=== PATIENT | female | born 1970 | race Caucasian/White ===

== ENCOUNTER 2017-09-12 19:13 | Emergency (ER) | payer OTHER, SELFPAY ==
[2017-09-12] VITALS (7 sets, daily range): BP systolic 109–128; BP diastolic 51–96; PULSE 74–81; RESP 16; TEMP 36.4; O2SAT 97–100; BMI 55.7
--- NOTE | 2017-09-12 19:15 | ED.RN ---
RN CALLED FOR EKG, PULLED OLD EKG'S FOR
--- NOTE | 2017-09-12 19:29 | CT_ITS ---
STUDY: CTA CHEST REASON FOR EXAM: Female, 46 years old. Chest pain RADIATION DOSAGE (If Supplied By Facility): CTDIvol = ( 14.64 ) mGy, DLP = ( 770.48 ) mGycm TECHNIQUE: The examination was performed with the intravenous administration of 100ml ml of Isovue 370 contrast material. Post-processing of the angiographic images was performed, with multiplanar reformation and 3D reconstruction. Individualized dose optimization techniques were used for this CT. COMPARISON: None. FINDINGS: Normal enhancement of the main pulmonary artery and right and left pulmonary arteries. Normal enhancement of the bilateral peripheral pulmonary arteries. There is no demonstrated pulmonary embolism. Normal thoracic aorta and visualized great vessels. There is no demonstrated aortic dissection. Normal heart and pericardium. Normal mediastinum. Normal hilar regions. Normal visualized trachea and bronchi. The lungs are well expanded. Normal pulmonary parenchyma. Normal pleura. Normal chest wall structures. Mild degenerative vertebral changes. Sclerotic focus of a mid thoracic vertebral body probably a bony island. Normal visualized upper abdomen. CT/CTA Chest W/WO Contrast IMPRESSION: No demonstrated pulmonary embolism or arterial dissection. Electronically Signed: Paul Beckham DO at 20:42 EDT Tel [phone], Service support ,
--- NOTE | 2017-09-12 19:29 | EKG12_ITS ---
Test Reason : CP Blood Pressure : / mmHG Vent. Rate : 073 BPM Atrial Rate : 073 BPM P-R Int : 150 ms QRS Dur : 078 ms QT Int : 410 ms P-R-T Axes : 022 017 027 degrees QTc Int : 451 ms Normal sinus rhythm Normal ECG Confirmed by AVIS AMEZQUITA ([id number]), image editor ADOLPH BERNARD ([id number]) on 09/23/2017 6:26:18 PM Referred By: MARLYN Confirmed By:AVIS AMEZQUITA
[2017-09-12] MEDS: Aspirin 81 MG TAB.CHEW 324 MG PO (19:44)
[2017-09-12] MEDS: 0.9% Normal Saline 1,000 ML 1000 ML IV (19:44)
[2017-09-12 19:54] LABS: Absolute Neutrophil Count 3.6 X10^3/uL (2.0-7.7); Basophil# 0.03 X10^3/uL; Basophil% 0.5 % (0-1); Eosinophil# 0.12 X10^3/uL; Hematocrit 41.4 % (37-47); Lymphocyte % 28.8 % (19-41); Mean Corp Hgb Conc 33.8 g/gl (32-36); Mean Corpuscular Hgb 29.2 pg (27.0-32.0); Mean Corpuscular Volume 86.3 fL (81-99); Mean Platelet Vol. 9.6 fl (6.2-12.0); Monocyte# 0.45 X10^3/uL; Monocyte% 7.6 % (0-10); Neutrophil # 3.59 X10^3/uL (2.7-7.7); Neutrophil % 60.9 % (47-70); Platelet Count 268 K/mm3 (150-450); RBC Distribution Width SD 41.1 fl (35.1-43.9); White Blood Count 5.9 K/mm3 (4.4-11.0)
[2017-09-12 19:55] LABS: POSITIVE COUNT NO; POSITIVE DIFFERENTIAL NO; POSITIVE MORPHOLOGY NO
[2017-09-12 20:12] LABS: Anion Gap 8 (5-15); BUN 13 mg/dL (7-18); BUN/Creat Ratio 16.2 RATIO (10-20); Calcium,Total 8.1 mg/dL (8.5-10.1); Chloride 104 mmol/L (98-107); EST Glomerular Filtration Rate 83 mL/min (>60); Est Glom Filt Rate - Afr Amer 100 mL/min (>60); Estimated Creatinine Clearance 74.23 ml/min; Glucose 96 mg/dL (74-106); Sodium Level 138 mmol/L (136-145)
--- NOTE | 2017-09-12 20:19 | EKG12_ITS ---
Test Reason : REPEAT Blood Pressure : / mmHG Vent. Rate : 079 BPM Atrial Rate : 079 BPM P-R Int : 152 ms QRS Dur : 078 ms QT Int : 402 ms P-R-T Axes : 019 015 044 degrees QTc Int : 460 ms Normal sinus rhythm Normal ECG Confirmed by AVIS AMEZQUITA ([id number]), avid editor ADOLPH BERNARD ([id number]) on 09/23/2017 6:26:48 PM Referred By: LIZZ Confirmed By:AVIS AMEZQUITA
--- NOTE | 2017-09-12 23:05 | ED.VISSUMM ---
- ER Visit Summary Date of Service: 09/12/17 Chief Complaint: Chest pain History of Present Illness: The patient is a [address] Barrett. She reports that she has chest pain again at 615 this evening while she was at rest. She describes as a pressure on the left side of her chest. States that initially she noticed pain in her left hand and that this moved up into her chest over the course of 10 minutes. She reports the pain also seems to go up into the left side of her neck. She describes it as a pressure. Is 10 out of 10 at worst. Is 5 out of 10 currently. Is worsened by nothing. It is not worsened by exertion, breathing, or movement. She denies any associated nausea, vomiting, or diaphoresis. She does report that she feels slightly short of breath and lightheaded. Patient denies any chest pain or change in dyspnea exertion in the past month. No personal family history of coronary artery disease. No personal family history of DVT. No recent travel. No ankle swelling or calf pain. Physical Examination: Vitals: Stable. Afebrile. General: Well-nourished and well-developed. Head: Normocephalic atraumatic. Neck: Supple, no lymphadenopathy. No JVD. Nontender. Cardiovascular: Regular rate and rhythm. No murmurs. Respiratory: No respiratory distress. Clear to auscultation bilaterally. There is palpation over the left side of her chest which she reports does not reproduce her pain. Abdominal: Soft, nontender, nondistended, normal bowel sounds. No guarding, rebound, or peritoneal signs. Back: Nontender. Extremities: Nontender, no edema. Skin: Normal color, no rash. Neurologic: Alert and oriented ?3. Cranial nerves II through XII are intact. Normal strength and sensation. Psych: Normal affect. Test Results: EKG is sinus at 73 with a T-wave inversion in lead III. This is unchanged from June 2015. Repeat EKG is unchanged. Troponin is negative. Chem-7 is more for calcium of 8.1. CBC is normal. CTA of the chest shows no dissection or PE. Repeat troponin is negative. Emergency Department Course and Treatment: Patient was treated with aspirin. She refused pain medications. However, she continued to have pain throughout her entire stay in the emergency department. Treatment Plan: She has now had pain for greater than 4 hours with a repeat troponin that is negative and an unchanged EKG. I feel that she is a suitable candidate for further outpatient evaluation. She will be discharged instructions from Dr. Barrett as soon as possible. Disposition: To home in improved and stable condition. Impression: 1. Atypical chest pain. 2. RICHARD score of 0. This note was generated with [employer] dictation software. It may contain incorrect words, spelling, and punctuation that were not noted in review of the chart prior to signing ED Disposition - Plan for ED Patient: Chief Complaint: Chest Pain Instructions: ED Chest Pain Atypical Unkn Cause Referrals: Liban Barrett MD [Primary Care Provider] - As soon as possible
== END 2017-09-12 23:46 | disposition home or self-care (01) ==
PROVIDERS: Emergency Provider Emergency Medicine; Family Provider Family Medicine; PCP Family Medicine
DX: R07.89 Other chest pain (principal); F32.9 Major depressive disorder, single episode, unspecified; Z79.899 Other long term (current) drug therapy
CPT/HCPCS: 71275; 80048; 84484; 85025; 93005; 96360; 96361; 99285; J7030; Q9967; A4216

== ENCOUNTER 2018-05-04 00:05 | Emergency (ER) | payer OTHER, SELFPAY ==
[2018-05-04 00:06] VITALS: PULSE 96; RESP 18; TEMP 37.3; O2SAT 96; BMI 53.6
[2018-05-04 00:10] VITALS: BP 134/73; PULSE 97; RESP 18; O2SAT 96
--- NOTE | 2018-05-04 00:52 | RAD_ITS ---
HISTORY: Cough. EXAM: XR Chest 2 Views: COMPARISON: CT chest 09/12/17. FINDINGS: # of images incl. paperwork: 3 LINES/DEVICES: None. LUNGS: Patchy airspace disease in the right middle lobe. Otherwise clear. No apparent pleural effusion. No pneumothorax. MEDIASTINUM AND CARDIOVASCULAR STRUCTURES: Cardiac silhouette not enlarged. Central airways and mediastinal contour are unremarkable. BONES AND SOFT TISSUES: Unremarkable. RAD/Chest PA and Lateral IMPRESSION: Patchy airspace disease in the right middle lobe suspicious for pneumonia. at 0127 Reported and signed by: Rubin Burch MD Electronically Signed: Rubin Burch, at 1:26 EST Tel , Service support ,
--- NOTE | 2018-05-04 01:33 | ED.VISSUMM ---
- ER Visit Summary Date of Service: 05/04/18 Chief Complaint: [Cough] History of Present Illness: The patient is a 47 F [presents the emergency department complaint of cough times 2 days. Patient's had chills and subjective fever. Cough is productive at times of some white phlegm. Patient states that her lungs feel like they are on fire. Patient has had occasional headaches. He has had a mild sore throat from all the coughing. She denies any significant shortness of breath. She denies any sick contacts.] Physical Examination: [HEENT-PERRLA, EOMI. Cranial nerves II through XII grossly intact. TMs clear. Mucous membranes moist. No adenopathy. Cardiovascular-regular rate and rhythm without murmur or ectopy Lungs-clear to auscultation, chest wall stable without crepitus or subcu emphysema Abdomen-normoactive bowel sounds, soft, nontender, no rebound or rigidity, no peritoneal signs. Extremities-intact ?4, normal range of motion, normal pulses, atraumatic] Test Results: [Influenza screen was negative. Chest x-ray showed a right middle lobe pneumonia] Emergency Department Course and Treatment: [Patient was started on Levaquin and given Tessalon Perles.] Treatment Plan: [Patient will be given a prescription for Tessalon Perles and Levaquin. Advised to follow-up with primary care physician within next 3-5 days. Patient to return if increasing shortness of breath or condition should worsen anyway.] Disposition: [Discharged home in stable condition] Impression: [Right middle lobe pneumonia] This note was generated with [employer] dictation software. It may contain incorrect words, spelling, and punctuation that were not noted in review of the chart prior to signing ED Disposition - Plan for ED Patient: Chief Complaint: General Illness Referrals: Liban Barrett MD [Primary Care Provider] -
--- NOTE | 2018-05-04 01:35 | ED.DEP ---
ED Disposition - Plan for ED Patient: Chief Complaint: General Illness Instructions: ED Pneumonia Adult Prescriptions: Benzonatate [Tessalon Perle] 200 mg PO TID PRN PRN #20 cap PRN Reason: Cough Levofloxacin [Levaquin] 750 mg PO DAILY #4 tab Referrals: Liban Barrett MD [Primary Care Provider] - 3-5 Days
[2018-05-04] MEDS: levoFLOXacin 750 MG Tablet PO (01:51)
[2018-05-04 01:53] VITALS: BP 128/67; PULSE 92; RESP 20; O2SAT 94
--- OUTSIDE RECORDS SUMMARY | 2018-07-07 10:56 | XMS RPT_ITS ---
:1970 Author Organization [facility] Care Team Providers Name Role Phone HONEY FIGUEROA (AUTOMATION TESTER) Referring Unavailable BHARGAV ALONZO (CN) Referring Unavailable LIBAN BARRETT Attending Unavailable LIBAN BARRETT Referring Unavailable HONEY FIGUEROA (AUTOMATION TESTER) Attending Unavailable Griffin AVINA (PA-C) Attending Unavailable Griffin AVINA (PA-C) Referring Unavailable Griffin AVINA (PA-C) Referring Unavailable DANII CRESPO (PA) Attending Unavailable LIBAN BARRETT Referring Unavailable AMY BLACKWOOD Admitting Unavailable AMY BLACKWOOD Attending Unavailable AMY BLACKWOOD Referring Unavailable Griffin AVINA (PA-C) Attending Unavailable Griffin AVINA (PA-C) Referring Unavailable Liban Barrett Primary Care Unavailable Clifford Thornton Attending Unavailable Liban Barrett Primary Care Unavailable Miguel Ceja Attending Unavailable PROBLEMS PROBLEMS DATE TYPE CONDITION / CODE ATTENDING STATUS SOURCE 03/10/2018 Active Chondromalacia, NA Active [facility] right knee / [place] M94.261(ICD-10) Repository 03/10/2018 Active Pain in right NA Active [facility] knee / [place] M25.561(ICD-10) Repository 03/10/2018 Active Other chronic NA Active [facility] pain / [place] G89.29(ICD-10) Repository 01/15/2018 Active Other specified AMY BLACKWOOD Active [facility] personal risk [facility] factors, not Repository elsewhere classified / Z91.89(ICD-10) 01/06/2018 Active Encounter for NA Active [facility] screening for [place] lipoid disorders Repository / Z13.220(ICD-10) 01/06/2018 Active Family history of NA Active [facility] malignant [place] neoplasm of Repository digestive organs / Z80.0(ICD-10) 09/26/2017 Active Other chest pain NA Active [facility] / R07.89(ICD-10) Other [place] Repository 10/28/2017 Unknown R07.9 - Chest Marlyn, Miguel Active [place] pain, unspecified Community / R07.9(ICD-10) Hospital Repository 07/19/2017 Active Hypothyroidism, NA Active [facility] unspecified / [place] E03.9(ICD-10) Repository 07/19/2017 Active Intestinal NA Active [facility] malabsorption, [place] unspecified / Repository K90.9(ICD-10) 05/20/2017 Active Encounter for NA Active [facility] screening [place] mammogram for Repository malignant neoplasm of breast / Z12.31(ICD-10) PROCEDURES PROCEDURES No Procedure Records FoundRESULTS RESULTS DISCHARGE INSTRUCTION Observed: 05/04/2018 Status: F Source: [place] 1:36 AM [facility] [place] REPOSITORY [facility] Medical Records Department [address] [place] [address] Discharge Instruction 05/04/185 MR#: [id number] Acct: [id number] Name: AMARILIS HINTON Rep #: [id number] : 1970 47 From: Clifford Thornton DO PCP: Liban Barrett MD Status: REG ER ED Disposition - Plan for ED Patient: Chief Complaint: General Illness Instructions: ED Pneumonia Adult Prescriptions: Benzonatate [Tessalon Perle] 200 mg PO TID PRN PRN #20 cap PRN Reason: Cough Levofloxacin [Levaquin] 750 mg PO DAILY #4 tab Referrals: Liban Barrett MD [Primary Care Provider] - 3-5 Days What to do if you have Problems For any increased pain, shortness of breath, bleeding, nausea or vomiting, chest pain, or any unexpected problems, contact your Primary Care Provider. Call [facility] ([phone]) or report to the closest Emergency Room. Call 911 if necessary. 05/04/18135 <Electronically signed by Clifford Thornton DO> Date Clifford Thornton DO Cosigner Signature (If Indicated): Date CC: Liban Barrett MD EMERGENCY DEPARTMENT Observed: 05/04/2018 Status: F Source: [place] SUMMARY 1:35 AM [facility] [place] REPOSITORY [facility] Medical Records Department [address] [place] [address] Emergency Department Summary 05/04/18 0133 MR#: [id number] Acct: [id number] Name: AMARILIS HINTON Rep #: [id number] : 1970 47 From: Clifford Thornton DO PCP: Liban Barrett MD Status: REG ER - ER Visit Summary Date of Service: 05/04/18 Chief Complaint: [Cough] History of Present Illness: The patient is a 47 F [presents the emergency department complaint of cough times 2 days. Patient's had chills and subjective fever. Cough is productive at times of some white phlegm. Patient states that her lungs feel like they are on fire. Patient has had occasional headaches. He has had a mild sore throat from all the coughing. She denies any significant shortness of breath. She denies any sick contacts.] Physical Examination: [HEENT-PERRLA, EOMI. Cranial nerves II through XII grossly intact. TMs clear. Mucous membranes moist. No adenopathy. Cardiovascular-regular rate and rhythm without murmur or ectopy Lungs-clear to auscultation, chest wall stable without crepitus or subcu emphysema Abdomen-normoactive bowel sounds, soft, nontender, no rebound or rigidity, no peritoneal signs. Extremities-intact 4, normal range of motion, normal pulses, atraumatic] Test Results: [Influenza screen was negative. Chest x-ray showed a right middle lobe pneumonia] Emergency Department Course and Treatment: [Patient was started on Levaquin and given Tessalon Perles.] Treatment Plan: [Patient will be given a prescription for Tessalon Perles and Levaquin. Advised to follow-up with primary care physician within next 3-5 days. Patient to return if increasing shortness of breath or condition should worsen anyway.] Disposition: [Discharged home in stable condition] Impression: [Right middle lobe pneumonia] This note was generated with TwoTen dictation software. It may contain incorrect words, spelling, and punctuation that were not noted in review of the chart prior to signing ED Disposition - Plan for ED Patient: Chief Complaint: General Illness Referrals: Liban Barrett MD [Primary Care Provider] - What to do if you have Problems For any increased pain, shortness of breath, bleeding, nausea or vomiting, chest pain, or any unexpected problems, contact your Primary Care Provider. Call [facility] ([phone]) or report to the closest Emergency Room. Call 911 if necessary. 05/04/18 0135 <Electronically signed by Clifford Thornton DO> Date Clifford Thornton DO Cosigner Signature (If Indicated): Date CC: Liban Barrett MD Observed: 05/04/2018 Status: F Source: [place] INFLUENZA A+B (RAPID 12:33 AM [facility] [place] REPOSITORY Order Date: 05/04/18 Has pt arrived? Y FLU A/B Rapid Negative test results should be confirmed with FLU PANEL MOLECULAR if indicated. Influenza Ag, Direct Presumptive NEGATIVE for Influenza A/B Antigen (See Note) Performed By: #### M101.0101 #### [facility] [address] [place], [place] [address]yuniel. [place], [place], [address] CHEST PA AND LATERAL Observed: 05/04/2018 Status: F Source: [place] 12:15 AM [facility] REPOSITORY [facility] Imaging Services [address] [place] [address] Chest PA and Lateral MR#: [id number] Acct: [id number] Name: AMARILIS HINTON Rep #: [id number] : 1970 F 47 From: Rubin Burch MD PCP: Liban Barrett MD Status: REG ER Study: Chest PA and Lateral Date of Exam: 05/04/18 Exam# [id number] Ordering Dr: Clifford Thornton DO HISTORY: Cough. EXAM: XR Chest 2 Views: COMPARISON: CT chest 09/12/17. FINDINGS: # of images incl. paperwork: 3 LINES/DEVICES: None. LUNGS: Patchy airspace disease in the right middle lobe. Otherwise clear. No apparent pleural effusion. No pneumothorax. MEDIASTINUM AND CARDIOVASCULAR STRUCTURES: Cardiac silhouette not enlarged. Central airways and mediastinal contour are unremarkable. BONES AND SOFT TISSUES: Unremarkable. RAD/Chest PA and Lateral IMPRESSION: Patchy airspace disease in the right middle lobe suspicious for pneumonia. at 0127 Reported and signed by: Rubin Burch MD Electronically Signed: Rubin Burch, at 1:26 EST Tel , Service support , CC: Clifford Thornton DO; Liban Barrett MD Heater Tender: Signed XR KNEE 4V AP/PA Observed: 03/10/2018 Status: F Source: [place] BOTH+LAT/RUDY RT 9:[address] [facility] REPOSITORY * * *Final Report* * * DATE OF EXAM: Mar 10 2018 9:48AM WOX 5203 - XR KNEE 4V AP/PA BOTH+LAT/RUDY RT / PROCEDURE REASON: multiple diagnoses * * * * Physician Interpretation * * * * PROCEDURE: Right knee INDICATION: Chondromalacia of knee, right Chronic pain of right knee .right anterior apex knee pain that radiates lateral proximal up the leg. TECHNIQUE: XR KNEE 4V AP/PA BOTH+LAT/RUDY RT COMPARISON: 02/20/2016 FINDINGS: There is mild medial joint compartment narrowing with mild tricompartment spur formation, fairly similar to the prior study. No fracture or significant joint. Mild degenerative changes in the left knee. IMPRESSION: Osteoarthrosis Heater Tender: PSCB Transcribe Date/Time: Mar 10 2018 9:34P Dictated by : BRYAN ALFARO MD This examination was interpreted and the report reviewed and electronically signed by: BRYAN ALFARO MD on Mar 10 2018 9:35PM EST [id number] [id number] Observed: 03/10/2018 Status: COMPLETED Source: [place] 9:32 AM [facility] REPOSITORY HNO ID: [id number] Author: Kortney Monsalve Service: (none) Author Type: (none) Type: Progress Notes Filed: 03/10/2018 9:49 AM Note Text: Radiology Service Progress Note PATIENT NAME: Amarilis Hinton DATE OF SERVICE: March 10, 2018 TIME: 9:32 AM PATIENT IDENTITY VERIFICATION COMPLETED USING TWO (2) METHODS: Patient confirmed name verbally and Date of . PATIENT GENDER DATA: Female. status: : No status: NO. PATIENT RELEVANT IMPLANT DATA REVIEWED: Not Applicable RADIOLOGY DEPARTMENT: General X-ray: Exam(s) Completed: Lower Extremity X-Ray(s): Knee, AP / Lat / Tunne / Merchant Right and Wt. Bearing: PERIPHERAL IV DATA: Not applicable SIGNED BY: Kortney Monsalve March 10, 2018 9:32 AM CNOV Observed: 03/10/2018 Status: COMPLETED Source: [place] 9:00 AM [facility] REPOSITORY Office Visit (FAMPWS) AMARILIS HINTON ([id number]) 1970 F CHT Date Time Provider Department 03/10/18 9:00 AM Griffin AVINA) FAMPWS During your visit today, we recorded the following information about you: Temperature Pulse Respiration Blood pressure 97.8 degrees 74/minute 14/minute 136/78 Weight 146.1 kg Griffin Avina PA-C 03/10/2018 9:19 AM Signed 47 year old female with c/o right lateral thigh pain pain and right knee pain worse over last week. Knee keeps popping. Using ibuprofen (knows not supposed) which seems to help. Tylenol hasn't helped. No injuries. Knee pain for months. X-rays in 2016 showed mild degenerative changes. Patient is not currently doing anything for weight loss. HISTORIES FAMILY HISTORY Problem Relation Age of Onset - Cancer Mother pancreatic cancer - Colon Cancer Mother 45 - Lipids Father enlarged prostate, hyperlipidemia, COPD - other (Bi-Polar) Sister - Hypertension Brother - Coronary Artery Disease Maternal Grandmother - Coronary Artery Disease Maternal Grandfather - Coronary Artery Disease Paternal Grandfather - Thyroid Maternal Aunt 3 Aunts PAST MEDICAL HISTORY Diagnosis Date - Adjustment disorder with depressed mood suicidal ideation without attempt 2005 - Asthma - Bariatric surgery status 06-12-10 gastric bypass - Dysmetabolic syndrome X - Esophageal reflux - Morbid obesity (HCC) 12-02-09 stated BMI 61.5 Ht: 63 Wt: 347 lbs - Other specified acquired hypothyroidism - Panic disorder without agoraphobia - Pneumonia in other infectious diseases classified elsewhere(484.8) 2005 RML - Polycystic ovaries 2004 elevated androgens - Sensorineural hearing loss, unspecified wears hearing aide right ear, no hearing left ear - Synovial cyst of popliteal space - 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 18, i year INH prophylaxis - Unspecified hemorrhoids without mention of complication - Unspecified sleep apnea resolved with weight loss - Vitamin D deficiency 02/28/2010 PAST SURGICAL HISTORY Procedure Laterality Date - COLONOSCOP W/ OR W/O [facility] SPEC 01/15/2018 Colonoscopy - IMPLANT COCHLEAR DEVICE Cochlear device implant right - INCISION EARDRUM,ASPIR,GEN ANESTH Myringotomy/tubes - LAP GASTRIC BYPASS/JACOBY-EN-Y 06-12-10 P Fernandez - LAPAROSCOPIC CHOLEYCYSTECTOMY Cholecystectomy, lap - LIGATE FALLOPIAN TUBE Tubal ligation - TOTAL ABDOM HYSTERECTOMY 03/2016 Hysterectomy, NIYAH Social History Marital status: Spouse name: Yohan Years of education: 14 Number of children: 3 Occupational History Occupation Employer Comment [employer] Social History Main Topics Smoking status: Never Smoker Smokeless tobacco: Never Used Comment: smokes Alcohol use: No Drug use: No Sexual activity: Yes Partners with: Male control/protection: Tubal Ligation Comment: Pt has had a Hysterectomy Social History Narrative 2 daughters, 1 son ACTIVE PROBLEM LIST Panic Disorder Without Agoraphobia Adjustment Disorder With Depressed Mood Hypothyroidism, Acquired Synovial Cyst of Popliteal Space Unspecified Asthma(493.90) Esophageal Reflux Obesity, Class Iii, Bmi 40-49.9 (Morbid Obesity) (Hcc) Tuberculin Test Reaction Chest Pain, Unspecified Rosa Maria (Obstructive Sleep Apnea) Vitamin D Deficiency Asa Class Iii Bariatric Surgery Status Ppd Positive, Treated Mastalgia Current Outpatient Prescriptions: hydrOXYzine pamoate (VISTARIL) 25 mg capsule Take 1 capsule by mouth three times daily as needed. Disp: 60 capsule Rfl: 1 levothyroxine (SYNTHROID) 137 mcg tablet TAKE 1 TABLET BY MOUTH ONCE DAILY. Disp: 90 tablet Rfl: 3 ketoconazole (NIZORAL) 2 % cream Apply 1 application to affected area once daily. X 2 weeks. Disp: 60 g Rfl: 1 FLUoxetine (PROZAC) 20 mg capsule Take 3 capsules by mouth once daily. Disp: 270 capsule Rfl: 3 Cholecalciferol, Vitamin D3, 1,000 unit cap Take 1 capsule by mouth once daily. Disp: Rfl: albuterol HFA (VENTOLIN HFA) 90 mcg/actuation inhaler Inhale 2 Puffs as instructed every 4 hours as needed for Wheezing/Shortness of Breath. Disp: 1 Inhaler Rfl: 0 ASCORBIC ACID (VITAMIN C ORAL) Take by mouth once daily. Not taking Disp: Rfl: No current facility-administered medications for this visit. INFLUENZA(1) due on 12/14/2017 EXAM: BP 136/78 (BP Site: Right Arm, BP Position: Sitting, BP Cuff Size: Large Adult) Pulse 74 Temp 36.6 ?C (97.8 ?F) (Left Tympanic) Resp 14 Wt (!) 146.1 kg (322 lb) LMP 04/10/2015 BMI 55.65 kg/m? Pleasant Morbidly obese adult woman in no acute distress. Alert and oriented all spheres. Normal affect and cognition. Speech normal. No deficits to learning or comprehension. No limp noted on walking. Skin warm, dry, pink to lips and nailbeds. Normal turgor. Respirations regular and unlabored. Chest CTA. HRRR without murmur or gallop. Extrem: no clubbing, cyanosis, edema. Extremities are warm and pink with prompt capillary refill. Exam of knees shows no evidence of swelling either anteriorly or posteriorly in either knee. Patient does have pain with full extension on the right knee but negative bounce test. She is tender pretty much with any manipulation of the right knee. Range of motion is 0-120? on the right, 0-130? on the left. No pain or laxity with varus or valgus stress on either knee. Negative [place], Todd, anterior drawer sign on right. Patient is tender along the right lateral thigh muscles and over the iliotibial band. ASSESSMENT/PLAN: 1. Chronic pain of right knee - ICD9: 719.46, 338.29, ICD10: M25.561, G89.29 (primary diagnosis) Advised patient is unwise for her to continue on ibuprofen due to risk of ulcers with her bariatric status. Recommended topical use of diclofenac, glucosamine/chondroitin supplements [id number]. Use of topicals [id number]. They also try Tylenol arthritis at maximum dose per bottle. Recommended routine use for 2 weeks before stopping - XR KNEE GENERAL 4V AP BOTH/PA BOTH/LAT/MERC RT - CONSULT TO PHYSICAL THERAPY - DICLOFENAC 1 % TOPICAL GEL 2. Chondromalacia of knee, right - ICD9: 717.7, ICD10: M94.261 Exercises were provided and reviewed with patient. We'll proceed with physical therapy evaluation recheck after 5 or 6 sessions. - XR KNEE GENERAL 4V AP BOTH/PA BOTH/LAT/MERC RT - CONSULT TO PHYSICAL THERAPY - DICLOFENAC 1 % TOPICAL GEL 3. Obesity, Class III, BMI 40-49.9 (morbid obesity) (HCC) - ICD9: 278.01, ICD10: E66.01 Discussed weight loss strategies including low-carb, moderate protein diet, low impact exercise. Patient is setting goals to attempt weight loss. Follow-up in about 6 weeks. MATT Soriano PA-C 03/10/2018 9:11 AM Signed Patellofemoral Pain Syndrome What is patellofemoral pain? Patellofemoral pain is a common knee problem. If you have this condition, you feel pain under and around your kneecap. The pain can get worse when you're active or when you sit for a long time. You can have the pain in one or both knees. The exact cause of patellofemoral pain isn't known. It probably has to do with the way your kneecap (patella) moves on the groove of your thigh bone (femur). What can I do to help my knee get better and hurt less? Take a break from physical activity that causes a lot of pounding on your legs, such as running, volleyball or basketball. If you want to keep exercising, try swimming or another low-impact activity. You may want to try working out on nonimpact elliptical trainers, which are popular at gyms. Because these machines support your body weight, they put less stress on your knees. As your knees feel better, you can go back to your normal sports. But do this slowly, increasing the amount of time you do the sports activity a little at a time. The exercises shown in this handout can help strengthen your muscles and relieve your pain. Each exercise should take a few minutes. Doing them twice a day is a good start. Your doctor will tell you which exercises are right for you. The first 2 are usually the most important ones. These 2 exercises make your front thigh muscles (quads) stronger. This is important because your quad muscles control the movement of your kneecap. Talk to your doctor about footwear. It may help to bring your shoes in for the doctor to see. Proper walking or running shoes can help knee pain. Even a simple arch support insert from a shoe store can be helpful. This insert is less expensive than a custom-made support or brace. Ice your knees for 10 to 20 minutes after activity. This can ease the pain and speed up healing. To keep your hands free, use an elastic wrap to hold the ice pack in place. A medicine such as ibuprofen (one brand name: Motrin) may also help relieve your pain, but talk to your doctor before you take this medicine. If the pain does not stop after 3 or 4 weeks, call your doctor. How is it treated? Usually, putting ice on your knee, changing your activities, and following a physical therapy program works best. This type of program may include exercises to make your muscles stronger and more flexible. Taping the knee or using show insoles can be helpful for some people. It may take weeks or months of treatment for the pain to go away. Exercises to help your knee pain Be patient! Keep exercising to get better. Patellofemoral pain can be hard to treat, and your knees won't get better overnight. Some people are emili and get better quickly. But it might take 6 weeks or longer for your knee to get better. You'll be less likely to get patellofemoral pain again if you stay in good shape, but don't make sudden changes in your workouts. Here are some exercises to help relieve your knee pain. After you do all the exercises as shown in the drawings, reverse your position, and do the exercises with your other leg, so both knees get the benefit of stretching. 1. Quadriceps strengthening: isometrics. Position yourself as shown above. Hold your right leg straight for 10 to 20 seconds and then relax. Do the exercise 5 to 10 times. 2. Quadriceps strengthening: straight leg lift. Position yourself as shown above. Raise your right leg several inches, and hold it up for 5 to 10 seconds. Then lower your leg to the floor slowly over a few seconds. Do the exercise 5 to 10 times. 3. Iliotibial band and buttock stretch (right side shown). Position yourself as shown above. Twist your trunk to the right and use your left arm to push your right leg. You should feel the stretch in your right buttock and the outer part of your right thigh. Hold the stretch for 10 to 20 seconds. Do the exercise 5 to 10 times. 4. Iliotibial band stretch (left side shown). Position yourself as shown above, with your right leg crossed in front of your left leg. Hold your hands together and move them toward the floor. You should feel a stretch in the outer part of your left thigh. Hold the stretch for 10 to 20 seconds. Do the exercise 5 to 10 times. 5. Hamstring stretch. Position yourself as shown in the left- hand drawing above. Bend your left knee. Acid Changer your thigh with your hands to keep the thigh steady. Straighten your left leg in the air until you feel a stretch. Hold the stretch for 5 to 10 seconds. Do the exercise 5 to 10 times. 6. Hip adductor strengthening. While sitting, squeeze a rubber ball between your knees. Hold the squeeze for 5 to 10 seconds. Do the exercise 5 to 10 times. (If you don't have a ball, put your hands or fists between your knees and then squeeze.) 7. Hip abductor strengthening (left side shown, front and side views). Position yourself as shown above, standing on your left leg with the knee slightly bent. Slowly raise your right foot about 30 degrees, hold for a few seconds, and then slowly lower the foot and straighten both legs. Do the exercise 10 times. Don't let your pelvis tilt (be crooked), and don't let your knees turn inward during bending. 8. Hip and buttock stretch (left side shown). Position yourself as shown above, with your left leg over your right leg, and place your hands over your left knee. Pull the knee slightly toward you while sitting up straight. Hold the position for 20 seconds, and then rest for several seconds. Do the exercise 6 times. 9. Calf stretch. Position yourself against a wall as shown above. Keep your left heel on the ground to feel the back of the leg stretch. Hold for 10 to 20 seconds. Do the exercise 6 to 10 times. Copyright ? [employer] 2007 Denies sun sensitivity, unusual muscle or joint aches, inflammation, swollen joints, rashes, color changes or other rheumatic sx. Try glucosamine/ chondroitin OTC supplements for pain. You may also use Arthritis Formula as directed routinely. Referring Provider: SELF [200] Allergies As of Date: 03/10/2018 (No Known Allergies) Date Reviewed: 03/10/2018 Reviewed by: Theresa Johnson Sole Painter - Fully Assessed Reason for Visit: Musculoskeletal Problem [69] Cmt: right leg ( knee and thigh) X 1 week dull ache Primary Visit Diagnosis:Chronic pain of right knee [M25.561, G89.29] Other Visit Diagnoses:Chondromalacia of knee, right [M94.261] Obesity, Class III, BMI 40-49.9 (morbid obesity) ([facility]) [E66.01] Order(s):XR KNEE GENERAL 4V AP BOTH/PA BOTH/LAT/MERC RT [9635084] Order #: [id number] FUTURE CONSULT TO PHYSICAL THERAPY [8601] Order #: [id number]: 1 diclofenac sodium (VOLTAREN) 1 % topical gelApply 4 g to affected area four times daily.Disp: 1 TubeRfl: 5 Prescriptions as of 03/10/2018 Sig: HYDROXYZINE PAMOATE 25 MG CAP* Take 1 capsule by mouth three* LEVOTHYROXINE 137 MCG TABLET TAKE 1 TABLET BY MOUTH ONCE D* KETOCONAZOLE 2 % TOPICAL CREAM Apply 1 application to affect* FLUOXETINE 20 MG CAPSULE Take 3 capsules by mouth once* CHOLECALCIFEROL (VITAMIN D3) * Take 1 capsule by mouth once * ALBUTEROL SULFATE HFA 90 MCG/* Inhale 2 Puffs as instructed * VITAMIN C ORAL Take by mouth once daily. Not* DICLOFENAC 1 % TOPICAL GEL Apply 4 g to affected area fo* Problem List As Of Date 03/10/2018 Noted Resolved Panic Disorder without Agoraphobia [F41.0] Adjustment Disorder with Depressed Mood [F43.21] Hypothyroidism, acquired [E03.9] Synovial Cyst of Popliteal Space [M71.20] Polycystic ovaries [E28.2] INVALID FOR*08/24/2015 Absence of menstruation [N91.2] INVALID FOR*04/27/2011 OBESITY [E66.9] INVALID FOR*09/09/2007 Unspecified Asthma [J45.909] INVALID FOR* Dysmetabolic syndrome X [E88.81] INVALID FOR*04/27/2011 Esophageal Reflux [K21.9] Sensorineural hearing loss, unspecified [H90.5] 07/19/2017 More... Obesity, Class III, BMI 40-49.9 (morbid obesity* Tuberculin Test Reaction [795.5] More... Unspecified hemorrhoids without mention of comp* 07/19/2017 Unspecified Chest Pain [R07.9] INVALID FOR* Right knee pain [M25.561] INVALID FOR*07/19/2017 ROSA MARIA (obstructive sleep apnea) [G47.33] INVALID FOR* Vitamin D deficiency [E55.9] INVALID FOR* ASA CLASS III [1003] INVALID FOR* Other and unspecified postsurgical nonabsorptio*INVALID FOR*07/19/2017 Bariatric surgery status [Z98.84] INVALID FOR* More... PPD positive, treated [R76.11] INVALID FOR* Thickened endometrium [R93.89] INVALID FOR*05/26/2015 Abnormal uterine bleeding [N93.9] INVALID FOR*08/24/2015 Mastalgia [N64.4] INVALID FOR* Lymph node enlargement [R59.9] INVALID FOR*07/19/2017 Dysmenorrhea [N94.6] INVALID FOR*08/24/2015 Other instructions from your clinician: Patellofemoral Pain Syndrome What is patellofemoral pain? Patellofemoral pain is a common knee problem. If you have this condition, you feel pain under and around your kneecap. The pain can get worse when you're active or when you sit for a long time. You can have the pain in one or both knees. The exact cause of patellofemoral pain isn't known. It probably has to do with the way your kneecap (patella) moves on the groove of your thigh bone (femur). What can I do to help my knee get better and hurt less? Take a break from physical activity that causes a lot of pounding on your legs, such as running, volleyball or basketball. If you want to keep exercising, try swimming or another low-impact activity. You may want to try working out on nonimpact elliptical trainers, which are popular at gyms. Because these machines support your body weight, they put less stress on your knees. As your knees feel better, you can go back to your normal sports. But do this slowly, increasing the amount of time you do the sports activity a little at a time. The exercises shown in this handout can help strengthen your muscles and relieve your pain. Each exercise should take a few minutes. Doing them twice a day is a good start. Your doctor will tell you which exercises are right for you. The first 2 are usually the most important ones. These 2 exercises make your front thigh muscles (quads) stronger. This is important because your quad muscles control the movement of your kneecap. Talk to your doctor about footwear. It may help to bring your shoes in for the doctor to see. Proper walking or running shoes can help knee pain. Even a simple arch support insert from a shoe store can be helpful. This insert is less expensive than a custom-made support or brace. Ice your knees for 10 to 20 minutes after activity. This can ease the pain and speed up healing. To keep your hands free, use an elastic wrap to hold the ice pack in place. A medicine such as ibuprofen (one brand name: Motrin) may also help relieve your pain, but talk to your doctor before you take this medicine. If the pain does not stop after 3 or 4 weeks, call your doctor. How is it treated? Usually, putting ice on your knee, changing your activities, and following a physical therapy program works best. This type of program may include exercises to make your muscles stronger and more flexible. Taping the knee or using show insoles can be helpful for some people. It may take weeks or months of treatment for the pain to go away. Exercises to help your knee pain Be patient! Keep exercising to get better. Patellofemoral pain can be hard to treat, and your knees won't get better overnight. Some people are emili and get better quickly. But it might take 6 weeks or longer for your knee to get better. You'll be less likely to get patellofemoral pain again if you stay in good shape, but don't make sudden changes in your workouts. Here are some exercises to help relieve your knee pain. After you do all the exercises as shown in the drawings, reverse your position, and do the exercises with your other leg, so both knees get the benefit of stretching. 1. Quadriceps strengthening: isometrics. Position yourself as shown above. Hold your right leg straight for 10 to 20 seconds and then relax. Do the exercise 5 to 10 times. 2. Quadriceps strengthening: straight leg lift. Position yourself as shown above. Raise your right leg several inches, and hold it up for 5 to 10 seconds. Then lower your leg to the floor slowly over a few seconds. Do the exercise 5 to 10 times. 3. Iliotibial band and buttock stretch (right side shown). Position yourself as shown above. Twist your trunk to the right and use your left arm to push your right leg. You should feel the stretch in your right buttock and the outer part of your right thigh. Hold the stretch for 10 to 20 seconds. Do the exercise 5 to 10 times. 4. Iliotibial band stretch (left side shown). Position yourself as shown above, with your right leg crossed in front of your left leg. Hold your hands together and move them toward the floor. You should feel a stretch in the outer part of your left thigh. Hold the stretch for 10 to 20 seconds. Do the exercise 5 to 10 times. 5. Hamstring stretch. Position yourself as shown in the left-hand drawing above. Bend your left knee. Acid Changer your thigh with your hands to keep the thigh steady. Straighten your left leg in the air until you feel a stretch. Hold the stretch for 5 to 10 seconds. Do the exercise 5 to 10 times. 6. Hip adductor strengthening. While sitting, squeeze a rubber ball between your knees. Hold the squeeze for 5 to 10 seconds. Do the exercise 5 to 10 times. (If you don't have a ball, put your hands or fists between your knees and then squeeze.) 7. Hip abductor strengthening (left side shown, front and side views). Position yourself as shown above, standing on your left leg with the knee slightly bent. Slowly raise your right foot about 30 degrees, hold for a few seconds, and then slowly lower the foot and straighten both legs. Do the exercise 10 times. Don't let your pelvis tilt (be crooked), and don't let your knees turn inward during bending. 8. Hip and buttock stretch (left side shown). Position yourself as shown above, with your left leg over your right leg, and place your hands over your left knee. Pull the knee slightly toward you while sitting up straight. Hold the position for 20 seconds, and then rest for several seconds. Do the exercise 6 times. 9. Calf stretch. Position yourself against a wall as shown above. Keep your left heel on the ground to feel the back of the leg stretch. Hold for 10 to 20 seconds. Do the exercise 6 to 10 times. Copyright ? [employer] 2008 Denies sun sensitivity, unusual muscle or joint aches, inflammation, swollen joints, rashes, color changes or other rheumatic sx. Try glucosamine/ chondroitin OTC supplements for pain. You may also use Arthritis Formula as directed routinely. Prescriptions ordered this encounter Disp Refills Start End DICLOFENAC 1 % TOPICAL GEL * 5 03/10/2018 Route: TOPICAL Sig: Apply 4 g to affected area four times daily. Disposition: Return in about 6 weeks (around 04/21/2018). Follow-up and Disposition History Recorded Encounter Status:Closed by Griffin AVINA PA-C on 03/10/18 PROGRESS Observed: 03/10/2018 Status: COMPLETED Source: [place] 8:[address] [facility] [place] REPOSITORY HNO ID: [id number] Author: Griffin Avina Service: (none) Author Type: Physician Balance Assembler Type: Progress Notes Filed: 03/10/2018 9:19 AM Note Text: 47 year old female with c/o right lateral thigh pain pain and right knee pain worse over last week. Knee keeps popping. Using ibuprofen (knows not supposed) which seems to help. Tylenol hasn't helped. No injuries. Knee pain for months. X-rays in 2016 showed mild degenerative changes. Patient is not currently doing anything for weight loss. HISTORIES FAMILY HISTORY Problem Relation Age of Onset - Cancer Mother pancreatic cancer - Colon Cancer Mother 45 - Lipids Father enlarged prostate, hyperlipidemia, COPD - other (Bi-Polar) Sister - Hypertension Brother - Coronary Artery Disease Maternal Grandmother - Coronary Artery Disease Maternal Grandfather - Coronary Artery Disease Paternal Grandfather - Thyroid Maternal Aunt 3 Aunts PAST MEDICAL HISTORY Diagnosis Date - Adjustment disorder with depressed mood suicidal ideation without attempt 2005 - Asthma - Bariatric surgery status 06-12-10 gastric bypass - Dysmetabolic syndrome X - Esophageal reflux - Morbid obesity (HCC) 12-02-09 stated BMI 61.5 Ht: 63 Wt: 347 lbs - Other specified acquired hypothyroidism - Panic disorder without agoraphobia - Pneumonia in other infectious diseases classified elsewhere(484.8) 2006 RML - Polycystic ovaries 2005 elevated androgens - Sensorineural hearing loss, unspecified wears hearing aide right ear, no hearing left ear - Synovial cyst of popliteal space - 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 18, i year INH prophylaxis - Unspecified hemorrhoids without mention of complication - Unspecified sleep apnea resolved with weight loss - Vitamin D deficiency 02/28/2010 PAST SURGICAL HISTORY Procedure Laterality Date - COLONOSCOP W/ OR W/O [facility] SPEC 01/15/2018 Colonoscopy - IMPLANT COCHLEAR DEVICE Cochlear device implant right - INCISION EARDRUM,ASPIR,GEN ANESTH Myringotomy/tubes - LAP GASTRIC BYPASS/JACOBY-EN-Y 06-12-10 P Fernandez - LAPAROSCOPIC CHOLEYCYSTECTOMY Cholecystectomy, lap - LIGATE FALLOPIAN TUBE Tubal ligation - TOTAL ABDOM HYSTERECTOMY 03/2016 Hysterectomy, NIYAH Social History Marital status: Spouse name: Yohan Years of education: 14 Number of children: 3 Occupational History Occupation Employer Comment [employer] Social History Main Topics Smoking status: Never Smoker Smokeless tobacco: Never Used Comment: smokes Alcohol use: No Drug use: No Sexual activity: Yes Partners with: Male control/protection: Tubal Ligation Comment: Pt has had a Hysterectomy Social History Narrative 2 daughters, 1 son ACTIVE PROBLEM LIST Panic Disorder Without Agoraphobia Adjustment Disorder With Depressed Mood Hypothyroidism, Acquired Synovial Cyst of Popliteal Space Unspecified Asthma(493.90) Esophageal Reflux Obesity, Class Iii, Bmi 40-49.9 (Morbid Obesity) (Hcc) Tuberculin Test Reaction Chest Pain, Unspecified Rosa Maria (Obstructive Sleep Apnea) Vitamin D Deficiency Asa Class Iii Bariatric Surgery Status Ppd Positive, Treated Mastalgia Current Outpatient Prescriptions: hydrOXYzine pamoate (VISTARIL) 25 mg capsule Take 1 capsule by mouth three times daily as needed. Disp: 60 capsule Rfl: 1 levothyroxine (SYNTHROID) 137 mcg tablet TAKE 1 TABLET BY MOUTH ONCE DAILY. Disp: 90 tablet Rfl: 3 ketoconazole (NIZORAL) 2 % cream Apply 1 application to affected area once daily. X 2 weeks. Disp: 60 g Rfl: 1 FLUoxetine (PROZAC) 20 mg capsule Take 3 capsules by mouth once daily. Disp: 270 capsule Rfl: 3 Cholecalciferol, Vitamin D3, 1,000 unit cap Take 1 capsule by mouth once daily. Disp: Rfl: albuterol HFA (VENTOLIN HFA) 90 mcg/actuation inhaler Inhale 2 Puffs as instructed every 4 hours as needed for Wheezing/Shortness of Breath. Disp: 1 Inhaler Rfl: 0 ASCORBIC ACID (VITAMIN C ORAL) Take by mouth once daily. Not taking Disp: Rfl: No current facility-administered medications for this visit. INFLUENZA(1) due on 12/14/2017 EXAM: BP 136/78 (BP Site: Right Arm, BP Position: Sitting, BP Cuff Size: Large Adult) Pulse 74 Temp 36.6 ?C (97.8 ?F) (Left Tympanic) Resp 14 Wt (!) 146.1 kg (322 lb) LMP 04/10/2015 BMI 55.65 kg/m? Pleasant Morbidly obese adult woman in no acute distress. Alert and oriented all spheres. Normal affect and cognition. Speech normal. No deficits to learning or comprehension. No limp noted on walking. Skin warm, dry, pink to lips and nailbeds. Normal turgor. Respirations regular and unlabored. Chest CTA. HRRR without murmur or gallop. Extrem: no clubbing, cyanosis, edema. Extremities are warm and pink with prompt capillary refill. Exam of knees shows no evidence of swelling either anteriorly or posteriorly in either knee. Patient does have pain with full extension on the right knee but negative bounce test. She is tender pretty much with any manipulation of the right knee. Range of motion is 0-120? on the right, 0-130? on the left. No pain or laxity with varus or valgus stress on either knee. Negative U[place], Todd, anterior drawer sign on right. Patient is tender along the right lateral thigh muscles and over the iliotibial band. ASSESSMENT/PLAN: 1. Chronic pain of right knee - ICD9: 719.46, 338.29, ICD10: M25.561, G89.29 (primary diagnosis) Advised patient is unwise for her to continue on ibuprofen due to risk of ulcers with her bariatric status. Recommended topical use of diclofenac, glucosamine/chondroitin supplements [id number]. Use of topicals [id number]. They also try Tylenol arthritis at maximum dose per bottle. Recommended routine use for 2 weeks before stopping - XR KNEE GENERAL 4V AP BOTH/PA BOTH/LAT/MERC RT - CONSULT TO PHYSICAL THERAPY - DICLOFENAC 1 % TOPICAL GEL 2. Chondromalacia of knee, right - ICD9: 717.7, ICD10: M94.261 Exercises were provided and reviewed with patient. We'll proceed with physical therapy evaluation recheck after 5 or 6 sessions. - XR KNEE GENERAL 4V AP BOTH/PA BOTH/LAT/MERC RT - CONSULT TO PHYSICAL THERAPY - DICLOFENAC 1 % TOPICAL GEL 3. Obesity, Class III, BMI 40-49.9 (morbid obesity) (HCC) - ICD9: 278.01, ICD10: E66.01 Discussed weight loss strategies including low-carb, moderate protein diet, low impact exercise. Patient is setting goals to attempt weight loss. Follow-up in about 6 weeks. Griffin Avina PA-C NURSING PROG Observed: 01/15/2018 Status: COMPLETED Source: [place] 10:[address] [facility] MA[facility] [place] REPOSITORY HNO ID: [id number] Author: Husam (Rn) RUBEN Stephens Service: Nursing Author Type: Registered Nurse Type: Nursing Progress Note Filed: 01/15/2018 11:02 AM Note Text: Patient did not experience a fall prior to discharge. Patient did not experience a burn prior to discharge. Husam Stephens RN NURSING PROG Observed: 01/15/2018 Status: COMPLETED Source: [place] 10:54 AM [facility] REPOSITORY HNO ID: [id number] Author: Husam StackRn) RUBEN Stephens Service: Nursing Author Type: Registered Nurse Type: Nursing Progress Note Filed: 01/15/2018 10:54 AM Note Text: Home via wheelchair in the care of her sister. PT ED Observed: 01/15/2018 Status: COMPLETED Source: [place] 10:47 AM [facility] REPOSITORY HNO ID: [id number] Author: Husam StackRn) RUBEN Stephens Service: Nursing Author Type: Registered Nurse Type: Patient Education Filed: 01/15/2018 10:47 AM Note Text: POST OP LEARNING RESPONSE INSTRUCTION PROVIDED TO: Patient and family member METHOD OF INSTRUCTION: Individual instruction Written instruction - handouts Verbal instruction PATIENT / FAMILY RESPONSE: Information received as demonstrated by interest and questions FOLLOW-UP PLAN: Patient instructed to call with any further issues SUPPLEMENTAL MATERIAL: None REFERRAL (RECOMMENDATION): None Electronically Signed By: Husam Stephens RN In Department: AMBULATORY SURGERY NURSING PROG Observed: 01/15/2018 Status: COMPLETED Source: [place] 10:37 AM [facility] REPOSITORY HNO ID: [id number] Author: Husam StackRn) RUBEN Stephens Service: Nursing Author Type: Registered Nurse Type: Nursing Progress Note Filed: 01/15/2018 10:42 AM Note Text: Awakening, snack tolerated well. Sister at her side. NURSING PROG Observed: 01/15/2018 Status: COMPLETED Source: [place] 10:23 AM [facility] REPOSITORY HNO ID: [id number] Author: Husam StackRn) RUBEN Stephens Service: Nursing Author Type: Registered Nurse Type: Nursing Progress Note Filed: 01/15/2018 10:24 AM Note Text: Sister to her side, Dr blackwood to talk to sister as patient is still sleeping comfortably. NURSING PROG Observed: 01/15/2018 Status: COMPLETED Source: [place] 10:20 AM [facility] REPOSITORY HNO ID: [id number] Author: Husam StackRn) RUBEN Stephens Service: Nursing Author Type: Registered Nurse Type: Nursing Progress Note Filed: 01/15/2018 10:23 AM Note Text: Pt into Endo recovery room in satisfactory condition. Resting on left side. Pt. sleepy but arousable. Abdomen soft, no complaints, all safety maintained. Will continue to monitor. NURSING PROG Observed: 01/15/2018 Status: COMPLETED Source: [place] 10:12 AM [facility] REPOSITORY HNO ID: [id number] Author: Cindy Atwood RN Service: Nursing Author Type: Registered Nurse Type: Nursing Progress Note Filed: 01/15/2018 10:12 AM Note Text: Patient did not experience a fall within the Intraoperative area. Patient did not experience a burn within the Intraoperative area. Cindy Atwood RN NURSING PROG Observed: 01/15/2018 Status: COMPLETED Source: [place] 9:38 AM [facility] REPOSITORY HNO ID: [id number] Author: Husam Stephens RN Service: Nursing Author Type: Registered Nurse Type: Nursing Progress Note Filed: 01/15/2018 9:39 AM Note Text: [facility] PRE-OP NURSING HAND OFF NOTE SBAR Hand off given to Cindy Atwood RN. Hand off was communicated verbally and at the patient's bedside and all questions were answered. FALLS/PADGETT Patient did not experience a fall within the Preoperative area. Patient did not experience a burn within the Preoperative area. Husam Stephens RN PT ED Observed: 01/15/2018 Status: COMPLETED Source: [place] 9:27 AM [facility] REPOSITORY HNO ID: [id number] Author: Husam Stephens RN Service: Nursing Author Type: Registered Nurse Type: Patient Education Filed: 01/15/2018 9:27 AM Note Text: PRE OP LEARNING ASSESSMENT PROCEDURE/SURGERY: GI PROCEDURES: Colonoscopy READINESS TO LEARN COGNITIVE ABILITY: Alert and oriented MOTIVATION TO LEARN: Eager Interested FAMILY SUPPORT: High - Very involved in pt care PATIENT LEARNS BEST BY: Multiple Methods FACTORS AFFECTING LEARNING: None PHYSICAL LIMITATIONS AFFECTING LEARNING: None Electronically Signed By: Husam Stephens RN In Department: AMBULATORY SURGERY NURSING PROG Observed: 01/15/2018 Status: COMPLETED Source: [place] 9:25 AM [facility] REPOSITORY HNO ID: [id number] Author: Husam Stephens RN Service: Nursing Author Type: Registered Nurse Type: Nursing Progress Note Filed: 01/15/2018 9:26 AM Note Text: PRE OP LEARNING ASSESSMENT PROCEDURE/SURGERY: GI PROCEDURES: Colonoscopy READINESS TO LEARN COGNITIVE ABILITY: Alert and oriented MOTIVATION TO LEARN: Eager Interested FAMILY SUPPORT: High - Very involved in pt care PATIENT LEARNS BEST BY: Multiple Methods FACTORS AFFECTING LEARNING: None PHYSICAL LIMITATIONS AFFECTING LEARNING: None Electronically Signed By: Husam Stephens RN In Department: AMBULATORY SURGERY HISTORY PHYSICAL Observed: 01/14/2018 Status: COMPLETED Source: [place] 5:[address] [facility] REPOSITORY HNO ID: [id number] Author: Amy Blackwood Service: (none) Author Type: Physician Type: HANDP Filed: 01/14/2018 5:41 PM Note Text: HISTORY AND PHYSICAL ? Amarilis Hinton 1970 ? REFERRING PHYSICIAN: Liban Barrett MD ? CHIEF COMPLAINT: Consult (Consult Colonoscopy ) ? HPI: The patient is a 47 year old female referred for endoscopy. Amarilis notes a family history of colon cancer-mother diagnosed at age 45 and at 48. The patient has had a sigmoidoscopy in the past for evaluation of hemorrhoids but has never had a colonoscopy. She does note some recent change to appearance of her stools. State they vary from loose to formed, has had an increase in the number of bowel movements per day, and had a few episodes of white-appearing stools. She denies any obvious blood in the stool or black tarry stools. Denies any major dietary or medication changes, denies recent travel. She denies any abdominal pain, weight changes or changes in appetite. The patient notes rare heartburn and sometimes gas pain. Denies nausea. Has history of gastric bypass in 2010. ? The patient is being seen by me today at the request of Dr. Barrett for my opinion and advice regarding need for high-risk screening colonoscopy due to family history of colon cancer in a first-degree relative. Past medical history significant for morbid obesity, asthma, sleep apnea, Hypothyroidism, panic disorder. She denies any known cardiac issues. She notes she did have a cardiac workup done earlier this year following an episode of left arm numbness and chest discomfort-was seen in ED, she had an echo and stress test which were negative. She denies any chest pain currently. Denies problems with sedation in the past. ? ? PAST MEDICAL HISTORY PAST MEDICAL HISTORY Diagnosis Date - Adjustment disorder with depressed mood ? ? suicidal ideation without attempt 2006 - Asthma ? - Bariatric surgery status 06-12-10 ? gastric bypass - Dysmetabolic syndrome X ? - Esophageal reflux ? - Morbid obesity (HCC) 12-02-09 ? stated BMI 61.5 Ht: 63 Wt: 347 lbs - Other specified acquired hypothyroidism ? - Panic disorder without agoraphobia ? - Pneumonia in other infectious diseases classified elsewhere(484.8) 2005 ? RML - Polycystic ovaries 2004 ? elevated androgens - Sensorineural hearing loss, unspecified ? ? wears hearing aide right ear, no hearing left ear - Synovial cyst of popliteal space ? - Tuberculin test reaction ? ? positive PPD age 18, i year INH prophylaxis - Unspecified hemorrhoids without mention of complication ? - Unspecified sleep apnea ? ? resolved with weight loss - Vitamin D deficiency 02/28/2010 ? ? PAST SURGICAL HISTORY PAST SURGICAL HISTORY Procedure Laterality Date - IMPLANT COCHLEAR DEVICE ? ? ? Cochlear device implant right - INCISION EARDRUM,ASPIR,GEN ANESTH ? ? ? Myringotomy/tubes - LAP GASTRIC BYPASS/JACOBY-EN-Y ? 06-12-10 ? P Fernandez - LAPAROSCOPIC CHOLEYCYSTECTOMY ? ? ? Cholecystectomy, lap - LIGATE FALLOPIAN TUBE ? ? ? Tubal ligation - TOTAL ABDOM HYSTERECTOMY ? 03/2016 ? Hysterectomy, NIYAH ? ? ? CURRENT MEDICATIONS ? Current Outpatient Prescriptions: hydrOXYzine pamoate (VISTARIL) 25 mg capsule Take 1 capsule by mouth three times daily as needed. levothyroxine (SYNTHROID) 137 mcg tablet TAKE 1 TABLET BY MOUTH ONCE DAILY. ketoconazole (NIZORAL) 2 % cream Apply 1 application to affected area once daily. X 2 weeks. FLUoxetine (PROZAC) 20 mg capsule Take 3 capsules by mouth once daily. Cholecalciferol, Vitamin D3, 1,000 unit cap Take 1 capsule by mouth once daily. albuterol HFA (VENTOLIN HFA) 90 mcg/actuation inhaler Inhale 2 Puffs as instructed every 4 hours as needed for Wheezing/Shortness of Breath. ASCORBIC ACID (VITAMIN C ORAL) Take by mouth once daily. Not taking ? No current facility-administered medications for this visit. ? ALLERGIES: Patient has no known allergies. ? PERSONAL HISTORY: SOCIAL HISTORY Social History Marital status: Spouse name: Yohan Years of education: 14 Number of children: 3 ? Occupational History Occupation Employer Comment [employer] ? Social History Main Topics Smoking status: Never Smoker ? Smokeless tobacco: Never Used Comment: smokes Alcohol use: No Drug use: No Sexual activity: Yes Partners with: Male control/protection: Tubal Ligation Comment: Pt has had a Hysterectomy ? Social History Narrative 2 daughters, 1 son ? ? FAMILY HISTORY: FAMILY HISTORY FAMILY HISTORY Problem Relation Age of Onset - Cancer Mother ? ? pancreatic cancer - Colon Cancer Mother 45 - Lipids Father ? ? enlarged prostate, hyperlipidemia, COPD - other (Bi-Polar) Sister ? - Hypertension Brother ? - Coronary Artery Disease Maternal Grandmother ? ? - Coronary Artery Disease Maternal Grandfather ? ? - Coronary Artery Disease Paternal Grandfather ? ? - Thyroid Maternal Aunt ? ? 3 Aunts ? ? REVIEW OF SYMPTOMS: The review of systems data was entered by the nurse and reviewed by me ? Nursing Notes: Soila Jang LPN 01/09/2018 10:56 AM Signed REVIEW OF SYSTEMS: General: The patient denies fatigue, denies weight loss, denies weight gain, NOTES feeling hot, and NOTES feelings of cold. Eyes: The patient denies glaucoma, denies eye injury/surgery, does not wear glasses or contacts. Ear/Nose/Throat: The patient denies allergies, denies hayfever, NOTES ear infections, and denies bloody noses. Cardiovascular: The patient denies chest pain, denies heart disease, denies high blood pressure,denies cardiac stent, denies prior heart attack, denies irregular heart beat, denies high cholesterol, denies poor circulation, denies heart failure, other cardiac issues, denies claudication, denies cold feet, denies peripheral arterial stent. Respiratory: The patient denies tuberculosis, denies pneumonia, denies frequent cough, denies pulmonary embolism, NOTES shortness of breath, and denies coughing up blood. Gastrointestinal: The patient denies difficulty swallowing, NOTES acid reflux, denies ulcers, denies vomiting, denies jaundice/hepatitis, NOTES gallbladder problems, denies black or tarry stools, denies hemorrhoids, denies bleeding from rectum, denies diverticulitis, denies constipation, denies diarrhea, denies loss of stool control, and denies hernias. Kidney/Bladder: The patient denies kidney stones, denies urine infections, and denies bloody urine. Skin: The patient denies a history of skin cancer, denies bleeding/changing moles, and NOTES a history of skin rash. Neurologic: The patient denies a history of epilepsy/convulsions, NOTES headaches, denies head/spinal injuries, and denies stroke/TIA. Psychiatric: The patient denies psychiatric medications, NOTES depression, and denies voices, denies substance abuse. Endocrine: The patient NOTES thyroid disorders, denies diabetes, and denies hormonal problems. Hematologic: The patient denies a history of bruising, denies bleeding, and denies anemia, denies blood clots. Infections: The patient denies a history of measles and mumps, denies rheumatic fever, and denies sexually transmitted diseases. Musculoskeletal: The patient denies back pain/injury, denies back problems, denies sciatica, NOTES knee/foot trouble, denies arthritis, or denies gout. ? ? When was patient's last Mammogram screening? 08/2017 ? Last Colonoscopy: none ? Soila Jang LPN I have confirmed and edited as necessary, the PFSH and ROS obtained by others. ? PHYSICAL EXAMINATION: ? General: The patient is 47 year old female, well nourished, well hydrated in no acute distress. The patient is oriented to time, place, and person. ? VITALS: Last menstrual period 04/10/2015. There is no height or weight on file to calculate BMI. ? HEENT: Normal cephalic, ataumatic, pupils are equally round, sclera are anicteric, mucous membranes are moist, oropharynx is clear. Neck has no masses, asymmetry or lymphadenopathy. ? Respiratory: Clear to auscultation and percussion. Normal respiratory excursion and pattern. ? Cardiac: Examination is regular rate and rhythm. ? Abdominal exam: Soft, nontender, with no palpable masses. No hepatosplenomegaly. No palpable hernias. ? Extremities: no clubbing, cyanosis or edema. No adenopathy. ?? IMPRESSION: encounter for high-risk screening colonoscopy due to family history of colon cancer in a first-degree relative ? PLAN: I have reviewed my findings with Dr. Blackwood. We will plan for colonoscopy. We discussed the risks and benefits of the planned endoscopy. I have informed the patient that complications can occur including failure to complete the endoscopy and perforation. The patient had the opportunity to ask questions concerning the planned endoscopy. My staff has also explained the procedure to the patient in understandable terms and has given the patient printed material concerning the procedure. The patient freely consents to surgery. ? I plan to use golytely bowel preparation for endoscopy-patient has Rx ? Diagnoses: (Z12.11) Encounter for screening for malignant neoplasm of colon (primary encounter diagnosis) (Z80.0) Family history of colon cancer (R19.5) Change in stool ? My findings have been communicated to Dr. Barrett via shared medical record. This note will be forwarded to Dr. Liban Barrett MD. Return to Clinic: The patient is instructed to follow-up Danii Crespo PA-C PROGRESS Observed: 01/09/2018 Status: COMPLETED Source: [place] 10:[address] [facility] [place] REPOSITORY O ID: [id number] Author: Danii Crespo (Pa) Service: (none) Author Type: Physician Balance Assembler Type: Progress Notes Filed: 01/09/2018 5:52 PM Note Text: HISTORY AND PHYSICAL Amarilis Hinton 1970 REFERRING PHYSICIAN: Liban Barrett MD CHIEF COMPLAINT: Consult (Consult Colonoscopy ) HPI: The patient is a 47 year old female referred for endoscopy. Amarilis notes a family history of colon cancer-mother diagnosed at age 45 and at 48. The patient has had a sigmoidoscopy in the past for evaluation of hemorrhoids but has never had a colonoscopy. She does note some recent change to appearance of her stools. State they vary from loose to formed, has had an increase in the number of bowel movements per day, and had a few episodes of white-appearing stools. She denies any obvious blood in the stool or black tarry stools. Denies any major dietary or medication changes, denies recent travel. She denies any abdominal pain, weight changes or changes in appetite. The patient notes rare heartburn and sometimes gas pain. Denies nausea. Has history of gastric bypass in 2010. The patient is being seen by me today at the request of Dr. Barrett for my opinion and advice regarding need for high-risk screening colonoscopy due to family history of colon cancer in a first-degree relative. Past medical history significant for morbid obesity, asthma, sleep apnea, Hypothyroidism, panic disorder. She denies any known cardiac issues. She notes she did have a cardiac workup done earlier this year following an episode of left arm numbness and chest discomfort-was seen in ED, she had an echo and stress test which were negative. She denies any chest pain currently. Denies problems with sedation in the past. PAST MEDICAL HISTORY Diagnosis Date - Adjustment disorder with depressed mood suicidal ideation without attempt 2005 - Asthma - Bariatric surgery status 06-12-10 gastric bypass - Dysmetabolic syndrome X - Esophageal reflux - Morbid obesity (HCC) 12-02-09 stated BMI 61.5 Ht: 63 Wt: 347 lbs - Other specified acquired hypothyroidism - Panic disorder without agoraphobia - Pneumonia in other infectious diseases classified elsewhere(484.8) 2005 RML - Polycystic ovaries 2005 elevated androgens - Sensorineural hearing loss, unspecified wears hearing aide right ear, no hearing left ear - Synovial cyst of popliteal space - 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 18, i year INH prophylaxis - Unspecified hemorrhoids without mention of complication - Unspecified sleep apnea resolved with weight loss - Vitamin D deficiency 02/28/2010 PAST SURGICAL HISTORY Procedure Laterality Date - IMPLANT COCHLEAR DEVICE Cochlear device implant right - INCISION EARDRUM,ASPIR,GEN ANESTH Myringotomy/tubes - LAP GASTRIC BYPASS/JACOBY-EN-Y 06-12-10 P Fernandez - LAPAROSCOPIC CHOLEYCYSTECTOMY Cholecystectomy, lap - LIGATE FALLOPIAN TUBE Tubal ligation - TOTAL ABDOM HYSTERECTOMY 03/2016 Hysterectomy, NIYAH Current Outpatient Prescriptions: hydrOXYzine pamoate (VISTARIL) 25 mg capsule Take 1 capsule by mouth three times daily as needed. levothyroxine (SYNTHROID) 137 mcg tablet TAKE 1 TABLET BY MOUTH ONCE DAILY. ketoconazole (NIZORAL) 2 % cream Apply 1 application to affected area once daily. X 2 weeks. FLUoxetine (PROZAC) 20 mg capsule Take 3 capsules by mouth once daily. Cholecalciferol, Vitamin D3, 1,000 unit cap Take 1 capsule by mouth once daily. albuterol HFA (VENTOLIN HFA) 90 mcg/actuation inhaler Inhale 2 Puffs as instructed every 4 hours as needed for Wheezing/Shortness of Breath. ASCORBIC ACID (VITAMIN C ORAL) Take by mouth once daily. Not taking No current facility-administered medications for this visit. ALLERGIES: Patient has no known allergies. PERSONAL HISTORY: Social History Marital status: Spouse name: Yohan Years of education: 14 Number of children: 3 Occupational History Occupation Employer Comment [employer] Social History Main Topics Smoking status: Never Smoker Smokeless tobacco: Never Used Comment: smokes Alcohol use: No Drug use: No Sexual activity: Yes Partners with: Male control/protection: Tubal Ligation Comment: Pt has had a Hysterectomy Social History Narrative 2 daughters, 1 son FAMILY HISTORY: FAMILY HISTORY Problem Relation Age of Onset - Cancer Mother pancreatic cancer - Colon Cancer Mother 45 - Lipids Father enlarged prostate, hyperlipidemia, COPD - other (Bi-Polar) Sister - Hypertension Brother - Coronary Artery Disease Maternal Grandmother - Coronary Artery Disease Maternal Grandfather - Coronary Artery Disease Paternal Grandfather - Thyroid Maternal Aunt 3 Aunts REVIEW OF SYMPTOMS: The review of systems data was entered by the nurse and reviewed by me Nursing Notes: Soila Jang LPN 01/09/2018 10:56 AM Signed REVIEW OF SYSTEMS: General: The patient denies fatigue, denies weight loss, denies weight gain, NOTES feeling hot, and NOTES feelings of cold. Eyes: The patient denies glaucoma, denies eye injury/surgery, does not wear glasses or contacts. Ear/Nose/Throat: The patient denies allergies, denies hayfever, NOTES ear infections, and denies bloody noses. Cardiovascular: The patient denies chest pain, denies heart disease, denies high blood pressure,denies cardiac stent, denies prior heart attack, denies irregular heart beat, denies high cholesterol, denies poor circulation, denies heart failure, other cardiac issues, denies claudication, denies cold feet, denies peripheral arterial stent. Respiratory: The patient denies tuberculosis, denies pneumonia, denies frequent cough, denies pulmonary embolism, NOTES shortness of breath, and denies coughing up blood. Gastrointestinal: The patient denies difficulty swallowing, NOTES acid reflux, denies ulcers, denies vomiting, denies jaundice/hepatitis, NOTES gallbladder problems, denies black or tarry stools, denies hemorrhoids, denies bleeding from rectum, denies diverticulitis, denies constipation, denies diarrhea, denies loss of stool control, and denies hernias. Kidney/Bladder: The patient denies kidney stones, denies urine infections, and denies bloody urine. Skin: The patient denies a history of skin cancer, denies bleeding/changing moles, and NOTES a history of skin rash. Neurologic: The patient denies a history of epilepsy/convulsions, NOTES headaches, denies head/spinal injuries, and denies stroke/TIA. Psychiatric: The patient denies psychiatric medications, NOTES depression, and denies voices, denies substance abuse. Endocrine: The patient NOTES thyroid disorders, denies diabetes, and denies hormonal problems. Hematologic: The patient denies a history of bruising, denies bleeding, and denies anemia, denies blood clots. Infections: The patient denies a history of measles and mumps, denies rheumatic fever, and denies sexually transmitted diseases. Musculoskeletal: The patient denies back pain/injury, denies back problems, denies sciatica, NOTES knee/foot trouble, denies arthritis, or denies gout. When was patient's last Mammogram screening? 08/2017 Last Colonoscopy: none Soila Jang LPN I have confirmed and edited as necessary, the PFSH and ROS obtained by others. PHYSICAL EXAMINATION: General: The patient is 47 year old female, well nourished, well hydrated in no acute distress. The patient is oriented to time, place, and person. VITALS: Last menstrual period 04/10/2015. There is no height or weight on file to calculate BMI. HEENT: Normal cephalic, ataumatic, pupils are equally round, sclera are anicteric, mucous membranes are moist, oropharynx is clear. Neck has no masses, asymmetry or lymphadenopathy. Respiratory: Clear to auscultation and percussion. Normal respiratory excursion and pattern. Cardiac: Examination is regular rate and rhythm. Abdominal exam: Soft, nontender, with no palpable masses. No hepatosplenomegaly. No palpable hernias. Extremities: no clubbing, cyanosis or edema. No adenopathy. Other: LABORATORY VALUES: As Noted RADIOLOGIC STUDIES: As Noted Assessment IMPRESSION: encounter for high-risk screening colonoscopy due to family history of colon cancer in a first-degree relative PLAN: I have reviewed my findings with Dr. Blackwood. We will plan for colonoscopy. We discussed the risks and benefits of the planned endoscopy. I have informed the patient that complications can occur including failure to complete the endoscopy and perforation. The patient had the opportunity to ask questions concerning the planned endoscopy. My staff has also explained the procedure to the patient in understandable terms and has given the patient printed material concerning the procedure. The patient freely consents to surgery. I plan to use golytely bowel preparation for endoscopy-patient has Rx Diagnoses: (Z12.11) Encounter for screening for malignant neoplasm of colon (primary encounter diagnosis) (Z80.0) Family history of colon cancer (R19.5) Change in stool My findings have been communicated to Dr. Barrett via shared medical record. This note will be forwarded to Dr. Liban Barrett MD. Return to Clinic: The patient is instructed to follow-up with me 1 week post operatively. Danii Crespo PA-C CNOV Observed: 01/09/2018 Status: COMPLETED Source: [place] 10:15 AM [facility] REPOSITORY Office Visit (GENSWS) AMARILIS HINTON ([id number]) 1970 [facility] Date Time Provider Department 01/09/18 10:15 AM DANII CRESPO (PA) GENSWS During your visit today, we recorded the following information about you: Danii Crespo PA-C 01/09/2018 5:52 PM Signed HISTORY AND PHYSICAL Amarilis Hinton 1970 REFERRING PHYSICIAN: Liban Barrett MD CHIEF COMPLAINT: Consult (Consult Colonoscopy ) HPI: The patient is a 47 year old female referred for endoscopy. Amarilis notes a family history of colon cancer-mother diagnosed at age 45 and at 48. The patient has had a sigmoidoscopy in the past for evaluation of hemorrhoids but has never had a colonoscopy. She does note some recent change to appearance of her stools. State they vary from loose to formed, has had an increase in the number of bowel movements per day, and had a few episodes of white-appearing stools. She denies any obvious blood in the stool or black tarry stools. Denies any major dietary or medication changes, denies recent travel. She denies any abdominal pain, weight changes or changes in appetite. The patient notes rare heartburn and sometimes gas pain. Denies nausea. Has history of gastric bypass in 2010. The patient is being seen by me today at the request of Dr. Barrett for my opinion and advice regarding need for high-risk screening colonoscopy due to family history of colon cancer in a first-degree relative. Past medical history significant for morbid obesity, asthma, sleep apnea, Hypothyroidism, panic disorder. She denies any known cardiac issues. She notes she did have a cardiac workup done earlier this year following an episode of left arm numbness and chest discomfort-was seen in ED, she had an echo and stress test which were negative. She denies any chest pain currently. Denies problems with sedation in the past. PAST MEDICAL HISTORY Diagnosis Date - Adjustment disorder with depressed mood suicidal ideation without attempt 2005 - Asthma - Bariatric surgery status 06-12-10 gastric bypass - Dysmetabolic syndrome X - Esophageal reflux - Morbid obesity (HCC) 12-02-09 stated BMI 61.5 Ht: 63 Wt: 347 lbs - Other specified acquired hypothyroidism - Panic disorder without agoraphobia - Pneumonia in other infectious diseases classified elsewhere(484.8) 2005 RML - Polycystic ovaries 2004 elevated androgens - Sensorineural hearing loss, unspecified wears hearing aide right ear, no hearing left ear - Synovial cyst of popliteal space - 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 18, i year INH prophylaxis - Unspecified hemorrhoids without mention of complication - Unspecified sleep apnea resolved with weight loss - Vitamin D deficiency 02/28/2010 PAST SURGICAL HISTORY Procedure Laterality Date - IMPLANT COCHLEAR DEVICE Cochlear device implant right - INCISION EARDRUM,ASPIR,GEN ANESTH Myringotomy/tubes - LAP GASTRIC BYPASS/JACOBY-EN-Y 06-12-10 P Fernandez - LAPAROSCOPIC CHOLEYCYSTECTOMY Cholecystectomy, lap - LIGATE FALLOPIAN TUBE Tubal ligation - TOTAL ABDOM HYSTERECTOMY 03/2016 Hysterectomy, NIYAH Current Outpatient Prescriptions: hydrOXYzine pamoate (VISTARIL) 25 mg capsule Take 1 capsule by mouth three times daily as needed. levothyroxine (SYNTHROID) 137 mcg tablet TAKE 1 TABLET BY MOUTH ONCE DAILY. ketoconazole (NIZORAL) 2 % cream Apply 1 application to affected area once daily. X 2 weeks. FLUoxetine (PROZAC) 20 mg capsule Take 3 capsules by mouth once daily. Cholecalciferol, Vitamin D3, 1,000 unit cap Take 1 capsule by mouth once daily. albuterol HFA (VENTOLIN HFA) 90 mcg/actuation inhaler Inhale 2 Puffs as instructed every 4 hours as needed for Wheezing/Shortness of Breath. ASCORBIC ACID (VITAMIN C ORAL) Take by mouth once daily. Not taking No current facility-administered medications for this visit. ALLERGIES: Patient has no known allergies. PERSONAL HISTORY: Social History Marital status: Spouse name: Yohan Years of education: 14 Number of children: 3 Occupational History Occupation Employer Comment [employer] Social History Main Topics Smoking status: Never Smoker Smokeless tobacco: Never Used Comment: smokes Alcohol use: No Drug use: No Sexual activity: Yes Partners with: Male control/protection: Tubal Ligation Comment: Pt has had a Hysterectomy Social History Narrative 2 daughters, 1 son FAMILY HISTORY: FAMILY HISTORY Problem Relation Age of Onset - Cancer Mother pancreatic cancer - Colon Cancer Mother 45 - Lipids Father enlarged prostate, hyperlipidemia, COPD - other (Bi-Polar) Sister - Hypertension Brother - Coronary Artery Disease Maternal Grandmother - Coronary Artery Disease Maternal Grandfather - Coronary Artery Disease Paternal Grandfather - Thyroid Maternal Aunt 3 Aunts REVIEW OF SYMPTOMS: The review of systems data was entered by the nurse and reviewed by la Nursing Notes: Soila Jang LPN 01/09/2018 10:56 AM Signed REVIEW OF SYSTEMS: General: The patient denies fatigue, denies weight loss, denies weight gain, NOTES feeling hot, and NOTES feelings of cold. Eyes: The patient denies glaucoma, denies eye injury/surgery, does not wear glasses or contacts. Ear/Nose/Throat: The patient denies allergies, denies hayfever, NOTES ear infections, and denies bloody noses. Cardiovascular: The patient denies chest pain, denies heart disease, denies high blood pressure,denies cardiac stent, denies prior heart attack, denies irregular heart beat, denies high cholesterol, denies poor circulation, denies heart failure, other cardiac issues, denies claudication, denies cold feet, denies peripheral arterial stent. Respiratory: The patient denies tuberculosis, denies pneumonia, denies frequent cough, denies pulmonary embolism, NOTES shortness of breath, and denies coughing up blood. Gastrointestinal: The patient denies difficulty swallowing, NOTES acid reflux, denies ulcers, denies vomiting, denies jaundice/hepatitis, NOTES gallbladder problems, denies black or tarry stools, denies hemorrhoids, denies bleeding from rectum, denies diverticulitis, denies constipation, denies diarrhea, denies loss of stool control, and denies hernias. Kidney/Bladder: The patient denies kidney stones, denies urine infections, and denies bloody urine. Skin: The patient denies a history of skin cancer, denies bleeding/changing moles, and NOTES a history of skin rash. Neurologic: The patient denies a history of epilepsy/convulsions, NOTES headaches, denies head/spinal injuries, and denies stroke/TIA. Psychiatric: The patient denies psychiatric medications, NOTES depression, and denies voices, denies substance abuse. Endocrine: The patient NOTES thyroid disorders, denies diabetes, and denies hormonal problems. Hematologic: The patient denies a history of bruising, denies bleeding, and denies anemia, denies blood clots. Infections: The patient denies a history of measles and mumps, denies rheumatic fever, and denies sexually transmitted diseases. Musculoskeletal: The patient denies back pain/injury, denies back problems, denies sciatica, NOTES knee/foot trouble, denies arthritis, or denies gout. When was patient's last Mammogram screening? 08/2017 Last Colonoscopy: none Soila Jang LPN I have confirmed and edited as necessary, the PFSH and ROS obtained by others. PHYSICAL EXAMINATION: General: The patient is 47 year old female, well nourished, well hydrated in no acute distress. The patient is oriented to time, place, and person. VITALS: Last menstrual period 04/10/2015. There is no height or weight on file to calculate BMI. HEENT: Normal cephalic, ataumatic, pupils are equally round, sclera are anicteric, mucous membranes are moist, oropharynx is clear. Neck has no masses, asymmetry or lymphadenopathy. Respiratory: Clear to auscultation and percussion. Normal respiratory excursion and pattern. Cardiac: Examination is regular rate and rhythm. Abdominal exam: Soft, nontender, with no palpable masses. No hepatosplenomegaly. No palpable hernias. Extremities: no clubbing, cyanosis or edema. No adenopathy. Other: LABORATORY VALUES: As Noted RADIOLOGIC STUDIES: As Noted Assessment IMPRESSION: encounter for high-risk screening colonoscopy due to family history of colon cancer in a first-degree relative PLAN: I have reviewed my findings with Dr. Blackwood. We will plan for colonoscopy. We discussed the risks and benefits of the planned endoscopy. I have informed the patient that complications can occur including failure to complete the endoscopy and perforation. The patient had the opportunity to ask questions concerning the planned endoscopy. My staff has also explained the procedure to the patient in understandable terms and has given the patient printed material concerning the procedure. The patient freely consents to surgery. I plan to use golytely bowel preparation for endoscopy-patient has Rx Diagnoses: (Z12.11) Encounter for screening for malignant neoplasm of colon (primary encounter diagnosis) (Z80.0) Family history of colon cancer (R19.5) Change in stool My findings have been communicated to Dr. Barrett via shared medical record. This note will be forwarded to Dr. Liban Barrett MD. Return to Clinic: The patient is instructed to follow-up with me 1 week post operatively. MATT Law LPN 01/09/2018 10:56 AM Signed REVIEW OF SYSTEMS: General: The patient denies fatigue, denies weight loss, denies weight gain, NOTES feeling hot, and NOTES feelings of cold. Eyes: The patient denies glaucoma, denies eye injury/surgery, does not wear glasses or contacts. Ear/Nose/Throat: The patient denies allergies, denies hayfever, NOTES ear infections, and denies bloody noses. Cardiovascular: The patient denies chest pain, denies heart disease, denies high blood pressure,denies cardiac stent, denies prior heart attack, denies irregular heart beat, denies high cholesterol, denies poor circulation, denies heart failure, other cardiac issues, denies claudication, denies cold feet, denies peripheral arterial stent. Respiratory: The patient denies tuberculosis, denies pneumonia, denies frequent cough, denies pulmonary embolism, NOTES shortness of breath, and denies coughing up blood. Gastrointestinal: The patient denies difficulty swallowing, NOTES acid reflux, denies ulcers, denies vomiting, denies jaundice/hepatitis, NOTES gallbladder problems, denies black or tarry stools, denies hemorrhoids, denies bleeding from rectum, denies diverticulitis, denies constipation, denies diarrhea, denies loss of stool control, and denies hernias. Kidney/Bladder: The patient denies kidney stones, denies urine infections, and denies bloody urine. Skin: The patient denies a history of skin cancer, denies bleeding/changing moles, and NOTES a history of skin rash. Neurologic: The patient denies a history of epilepsy/convulsions, NOTES headaches, denies head/spinal injuries, and denies stroke/TIA. Psychiatric: The patient denies psychiatric medications, NOTES depression, and denies voices, denies substance abuse. Endocrine: The patient NOTES thyroid disorders, denies diabetes, and denies hormonal problems. Hematologic: The patient denies a history of bruising, denies bleeding, and denies anemia, denies blood clots. Infections: The patient denies a history of measles and mumps, denies rheumatic fever, and denies sexually transmitted diseases. Musculoskeletal: The patient denies back pain/injury, denies back problems, denies sciatica, NOTES knee/foot trouble, denies arthritis, or denies gout. When was patient's last Mammogram screening? 08/2017 Last Colonoscopy: none Soila Jang LPN Referring Provider: LIBAN BARRETT [[id number]] Allergies As of Date: 01/09/2018 (No Known Allergies) Date Reviewed: 01/09/2018 Reviewed by: Danii Crespo (Pa) - Fully Assessed Reason for Visit: Consult [173] Cmt: Consult Colonoscopy Primary Visit Diagnosis:Encounter for screening for malignant neoplasm of colon [Z12.11] Other Visit Diagnoses:Family history of colon cancer [Z80.0] Change in stool [R19.5] Prescriptions as of 01/09/2018 Sig: HYDROXYZINE PAMOATE 25 MG CAP* Take 1 capsule by mouth three* LEVOTHYROXINE 137 MCG TABLET TAKE 1 TABLET BY MOUTH ONCE D* KETOCONAZOLE 2 % TOPICAL CREAM Apply 1 application to affect* FLUOXETINE 20 MG CAPSULE Take 3 capsules by mouth once* CHOLECALCIFEROL (VITAMIN D3) * Take 1 capsule by mouth once * ALBUTEROL SULFATE HFA 90 MCG/* Inhale 2 Puffs as instructed * VITAMIN C ORAL Take by mouth once daily. Not* Problem List As Of Date 01/09/2018 Noted Resolved Panic Disorder without Agoraphobia [F41.0] Adjustment Disorder with Depressed Mood [F43.21] Hypothyroidism, acquired [E03.9] Synovial Cyst of Popliteal Space [M71.20] Polycystic ovaries [E28.2] INVALID FOR*08/24/2015 Absence of menstruation [N91.2] INVALID FOR*04/27/2011 OBESITY [E66.9] INVALID FOR*09/09/2007 Unspecified Asthma [J45.909] INVALID FOR* Dysmetabolic syndrome X [E88.81] INVALID FOR*04/27/2011 Esophageal Reflux [K21.9] Sensorineural hearing loss, unspecified [H90.5] 07/19/2017 More... Obesity, Class III, BMI 40-49.9 (morbid obesity* Tuberculin Test Reaction [795.5] More... Unspecified hemorrhoids without mention of comp* 07/19/2017 Unspecified Chest Pain [R07.9] INVALID FOR* Right knee pain [M25.561] INVALID FOR*07/19/2017 ROSA MARIA (obstructive sleep apnea) [G47.33] INVALID FOR* Vitamin D deficiency [E55.9] INVALID FOR* ASA CLASS III [1003] INVALID FOR* Other and unspecified postsurgical nonabsorptio*INVALID FOR*07/19/2017 Bariatric surgery status [Z98.84] INVALID FOR* More... PPD positive, treated [R76.11] INVALID FOR* Thickened endometrium [R93.8] INVALID FOR*05/26/2015 Abnormal uterine bleeding [N93.9] INVALID FOR*08/24/2015 Mastalgia [N64.4] INVALID FOR* Lymph node enlargement [R59.9] INVALID FOR*07/19/2017 Dysmenorrhea [N94.6] INVALID FOR*08/24/2015 Visit Notes: >> Soila Jang LPN Ally Jan 09, 2018 10:55 AM Status: Signed REVIEW OF SYSTEMS: General: The patient denies fatigue, denies weight loss, denies weight gain, NOTES feeling hot, and NOTES feelings of cold. Eyes: The patient denies glaucoma, denies eye injury/surgery, does not wear glasses or contacts. Ear/Nose/Throat: The patient denies allergies, denies hayfever, NOTES ear infections, and denies bloody noses. Cardiovascular: The patient denies chest pain, denies heart disease, denies high blood pressure,denies cardiac stent, denies prior heart attack, denies irregular heart beat, denies high cholesterol, denies poor circulation, denies heart failure, other cardiac issues, denies claudication, denies cold feet, denies peripheral arterial stent. Respiratory: The patient denies tuberculosis, denies pneumonia, denies frequent cough, denies pulmonary embolism, NOTES shortness of breath, and denies coughing up blood. Gastrointestinal: The patient denies difficulty swallowing, NOTES acid reflux, denies ulcers, denies vomiting, denies jaundice/hepatitis, NOTES gallbladder problems, denies black or tarry stools, denies hemorrhoids, denies bleeding from rectum, denies diverticulitis, denies constipation, denies diarrhea, denies loss of stool control, and denies hernias. Kidney/Bladder: The patient denies kidney stones, denies urine infections, and denies bloody urine. Skin: The patient denies a history of skin cancer, denies bleeding/changing moles, and NOTES a history of skin rash. Neurologic: The patient denies a history of epilepsy/convulsions, NOTES headaches, denies head/spinal injuries, and denies stroke/TIA. Psychiatric: The patient denies psychiatric medications, NOTES depression, and denies voices, denies substance abuse. Endocrine: The patient NOTES thyroid disorders, denies diabetes, and denies hormonal problems. Hematologic: The patient denies a history of bruising, denies bleeding, and denies anemia, denies blood clots. Infections: The patient denies a history of measles and mumps, denies rheumatic fever, and denies sexually transmitted diseases. Musculoskeletal: The patient denies back pain/injury, denies back problems, denies sciatica, NOTES knee/foot trouble, denies arthritis, or denies gout. When was patient's last Mammogram screening? 08/2017 Last Colonoscopy: none Soila Jang LPN Follow-up and Disposition History Recorded Encounter Status:Closed by DANII CRESPO PA-C on 01/09/18 FECAL OCCULT BLD Collected: 01/09/2018 Status: F Source: [facility] 9:[address] [facility] REPOSITORY TYPE CODE TESTS RESULT OUT OF REFERENCE UNITS RANGE LAB IFO Negative Immuno Negative FOB Result Comment: This test was developed and its performance characteristics determined by [facility] [place] ([facility]). It has not been cleared or approved by the FDA. [facility] is regulated under CLIA as qualified to perform high-complexity testing. This test is used for clinical purposes. It should not be regarded as investigational or for research. Performed By: #### IFOBT #### [facility] [address] [place], [place] [address] HOSP Observed: 01/09/2018 Status: COMPLETED Source: [place] 12:[address] [facility] REPOSITORY Patient:Amarilis Hinton MRN: <[id number]> Height:5' 3.78(1.62 m) Weight:317 lb 14.5 oz (144.2 kg) Outpatient Medications as of 01/15/18: hydrOXYzine pamoate (VISTARIL) 25 mg capsule levothyroxine (SYNTHROID) 137 mcg tablet ketoconazole (NIZORAL) 2 % cream FLUoxetine (PROZAC) 20 mg capsule Cholecalciferol, Vitamin D3, 1,000 unit cap albuterol HFA (VENTOLIN HFA) 90 mcg/actuation inhaler ASCORBIC ACID (VITAMIN C ORAL) Admission/Clinic Administered Medications as of 01/15/18: lactated ringers infusion Problem List: Panic disorder without agoraphobia [F41.0] Adjustment disorder with depressed mood [F43.21] Hypothyroidism, acquired [E03.9] Synovial cyst of popliteal space [M71.20] Unspecified asthma(493.90) [J45.909] Esophageal reflux [K21.9] Obesity, Class III, BMI 40-49.9 (morbid obesity) (HCC) [E66.01] Tuberculin test reaction [795.5] Chest pain, unspecified [R07.9] ROSA MARIA (obstructive sleep apnea) [G47.33] Vitamin D deficiency [E55.9] ASA CLASS III [1003] Bariatric surgery status [Z98.84] PPD positive, treated [R76.11] Mastalgia [N64.4] Allergies: No Known Allergies Date Verified:01/15/18 Lab Values Lab Value Units Date High Low POTA* 4.4 mmol/L 01/06/2018 5.1 3.7 STEFANIE* 44.5 % 01/06/2018 46.0 36.0 Progress Notes ([facility]): Zachariah Bernard 01/09/2018 3:59 PM Signed 01-15-2018 Colon [facility] Zachariah Reji Progress Notes ([facility]): Danii Crespo PA-C 01/09/2018 5:52 PM Signed HISTORY AND PHYSICAL Amarilis Hinton 1970 REFERRING PHYSICIAN: Liban Barrett MD CHIEF COMPLAINT: Consult (Consult Colonoscopy ) HPI: The patient is a 47 year old female referred for endoscopy. Amarilis notes a family history of colon cancer-mother diagnosed at age 45 and at 48. The patient has had a sigmoidoscopy in the past for evaluation of hemorrhoids but has never had a colonoscopy. She does note some recent change to appearance of her stools. State they vary from loose to formed, has had an increase in the number of bowel movements per day, and had a few episodes of white-appearing stools. She denies any obvious blood in the stool or black tarry stools. Denies any major dietary or medication changes, denies recent travel. She denies any abdominal pain, weight changes or changes in appetite. The patient notes rare heartburn and sometimes gas pain. Denies nausea. Has history of gastric bypass in 2010. The patient is being seen by me today at the request of Dr. Barrett for my opinion and advice regarding need for high-risk screening colonoscopy due to family history of colon cancer in a first-degree relative. Past medical history significant for morbid obesity, asthma, sleep apnea, Hypothyroidism, panic disorder. She denies any known cardiac issues. She notes she did have a cardiac workup done earlier this year following an episode of left arm numbness and chest discomfort-was seen in ED, she had an echo and stress test which were negative. She denies any chest pain currently. Denies problems with sedation in the past. PAST MEDICAL HISTORY Diagnosis Date - Adjustment disorder with depressed mood suicidal ideation without attempt 2005 - Asthma - Bariatric surgery status 06-12-10 gastric bypass - Dysmetabolic syndrome X - Esophageal reflux - Morbid obesity (HCC) 12-02-09 stated BMI 61.5 Ht: 63 Wt: 347 lbs - Other specified acquired hypothyroidism - Panic disorder without agoraphobia - Pneumonia in other infectious diseases classified elsewhere(484.8) 2006 RML - Polycystic ovaries 2005 elevated androgens - Sensorineural hearing loss, unspecified wears hearing aide right ear, no hearing left ear - Synovial cyst of popliteal space - 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 18, i year INH prophylaxis - Unspecified hemorrhoids without mention of complication - Unspecified sleep apnea resolved with weight loss - Vitamin D deficiency 02/28/2010 PAST SURGICAL HISTORY Procedure Laterality Date - IMPLANT COCHLEAR DEVICE Cochlear device implant right - INCISION EARDRUM,ASPIR,GEN ANESTH Myringotomy/tubes - LAP GASTRIC BYPASS/JACOBY-EN-Y 06-12-10 P Fernandez - LAPAROSCOPIC CHOLEYCYSTECTOMY Cholecystectomy, lap - LIGATE FALLOPIAN TUBE Tubal ligation - TOTAL ABDOM HYSTERECTOMY 03/2016 Hysterectomy, NIYAH Current Outpatient Prescriptions: hydrOXYzine pamoate (VISTARIL) 25 mg capsule Take 1 capsule by mouth three times daily as needed. levothyroxine (SYNTHROID) 137 mcg tablet TAKE 1 TABLET BY MOUTH ONCE DAILY. ketoconazole (NIZORAL) 2 % cream Apply 1 application to affected area once daily. X 2 weeks. FLUoxetine (PROZAC) 20 mg capsule Take 3 capsules by mouth once daily. Cholecalciferol, Vitamin D3, 1,000 unit cap Take 1 capsule by mouth once daily. albuterol HFA (VENTOLIN HFA) 90 mcg/actuation inhaler Inhale 2 Puffs as instructed every 4 hours as needed for Wheezing/Shortness of Breath. ASCORBIC ACID (VITAMIN C ORAL) Take by mouth once daily. Not taking No current facility-administered medications for this visit. ALLERGIES: Patient has no known allergies. PERSONAL HISTORY: Social History Marital status: Spouse name: Yohan Years of education: 14 Number of children: 3 Occupational History Occupation Employer Comment [employer] Social History Main Topics Smoking status: Never Smoker Smokeless tobacco: Never Used Comment: smokes Alcohol use: No Drug use: No Sexual activity: Yes Partners with: Male control/protection: Tubal Ligation Comment: Pt has had a Hysterectomy Social History Narrative 2 daughters, 1 son FAMILY HISTORY: FAMILY HISTORY Problem Relation Age of Onset - Cancer Mother pancreatic cancer - Colon Cancer Mother 45 - Lipids Father enlarged prostate, hyperlipidemia, COPD - other (Bi-Polar) Sister - Hypertension Brother - Coronary Artery Disease Maternal Grandmother - Coronary Artery Disease Maternal Grandfather - Coronary Artery Disease Paternal Grandfather - Thyroid Maternal Aunt 3 Aunts REVIEW OF SYMPTOMS: The review of systems data was entered by the nurse and reviewed by la Nursing Notes: Soila Jang HELIO 01/09/2018 10:56 AM Signed REVIEW OF SYSTEMS: General: The patient denies fatigue, denies weight loss, denies weight gain, NOTES feeling hot, and NOTES feelings of cold. Eyes: The patient denies glaucoma, denies eye injury/surgery, does not wear glasses or contacts. Ear/Nose/Throat: The patient denies allergies, denies hayfever, NOTES ear infections, and denies bloody noses. Cardiovascular: The patient denies chest pain, denies heart disease, denies high blood pressure,denies cardiac stent, denies prior heart attack, denies irregular heart beat, denies high cholesterol, denies poor circulation, denies heart failure, other cardiac issues, denies claudication, denies cold feet, denies peripheral arterial stent. Respiratory: The patient denies tuberculosis, denies pneumonia, denies frequent cough, denies pulmonary embolism, NOTES shortness of breath, and denies coughing up blood. Gastrointestinal: The patient denies difficulty swallowing, NOTES acid reflux, denies ulcers, denies vomiting, denies jaundice/hepatitis, NOTES gallbladder problems, denies black or tarry stools, denies hemorrhoids, denies bleeding from rectum, denies diverticulitis, denies constipation, denies diarrhea, denies loss of stool control, and denies hernias. Kidney/Bladder: The patient denies kidney stones, denies urine infections, and denies bloody urine. Skin: The patient denies a history of skin cancer, denies bleeding/changing moles, and NOTES a history of skin rash. Neurologic: The patient denies a history of epilepsy/convulsions, NOTES headaches, denies head/spinal injuries, and denies stroke/TIA. Psychiatric: The patient denies psychiatric medications, NOTES depression, and denies voices, denies substance abuse. Endocrine: The patient NOTES thyroid disorders, denies diabetes, and denies hormonal problems. Hematologic: The patient denies a history of bruising, denies bleeding, and denies anemia, denies blood clots. Infections: The patient denies a history of measles and mumps, denies rheumatic fever, and denies sexually transmitted diseases. Musculoskeletal: The patient denies back pain/injury, denies back problems, denies sciatica, NOTES knee/foot trouble, denies arthritis, or denies gout. When was patient's last Mammogram screening? 08/2017 Last Colonoscopy: none Soila Jang LPN I have confirmed and edited as necessary, the PFSH and ROS obtained by others. PHYSICAL EXAMINATION: General: The patient is 47 year old female, well nourished, well hydrated in no acute distress. The patient is oriented to time, place, and person. VITALS: Last menstrual period 04/10/2015. There is no height or weight on file to calculate BMI. HEENT: Normal cephalic, ataumatic, pupils are equally round, sclera are anicteric, mucous membranes are moist, oropharynx is clear. Neck has no masses, asymmetry or lymphadenopathy. Respiratory: Clear to auscultation and percussion. Normal respiratory excursion and pattern. Cardiac: Examination is regular rate and rhythm. Abdominal exam: Soft, nontender, with no palpable masses. No hepatosplenomegaly. No palpable hernias. Extremities: no clubbing, cyanosis or edema. No adenopathy. Other: LABORATORY VALUES: As Noted RADIOLOGIC STUDIES: As Noted Assessment IMPRESSION: encounter for high-risk screening colonoscopy due to family history of colon cancer in a first-degree relative PLAN: I have reviewed my findings with Dr. Blackwood. We will plan for colonoscopy. We discussed the risks and benefits of the planned endoscopy. I have informed the patient that complications can occur including failure to complete the endoscopy and perforation. The patient had the opportunity to ask questions concerning the planned endoscopy. My staff has also explained the procedure to the patient in understandable terms and has given the patient printed material concerning the procedure. The patient freely consents to surgery. I plan to use golytely bowel preparation for endoscopy-patient has Rx Diagnoses: (Z12.11) Encounter for screening for malignant neoplasm of colon (primary encounter diagnosis) (Z80.0) Family history of colon cancer (R19.5) Change in stool My findings have been communicated to Dr. Barrett via shared medical record. This note will be forwarded to Dr. Liban Barrett MD. Return to Clinic: The patient is instructed to follow-up with me 1 week post operatively. MATT Law LPN 01/09/2018 10:56 AM Signed REVIEW OF SYSTEMS: General: The patient denies fatigue, denies weight loss, denies weight gain, NOTES feeling hot, and NOTES feelings of cold. Eyes: The patient denies glaucoma, denies eye injury/surgery, does not wear glasses or contacts. Ear/Nose/Throat: The patient denies allergies, denies hayfever, NOTES ear infections, and denies bloody noses. Cardiovascular: The patient denies chest pain, denies heart disease, denies high blood pressure,denies cardiac stent, denies prior heart attack, denies irregular heart beat, denies high cholesterol, denies poor circulation, denies heart failure, other cardiac issues, denies claudication, denies cold feet, denies peripheral arterial stent. Respiratory: The patient denies tuberculosis, denies pneumonia, denies frequent cough, denies pulmonary embolism, NOTES shortness of breath, and denies coughing up blood. Gastrointestinal: The patient denies difficulty swallowing, NOTES acid reflux, denies ulcers, denies vomiting, denies jaundice/hepatitis, NOTES gallbladder problems, denies black or tarry stools, denies hemorrhoids, denies bleeding from rectum, denies diverticulitis, denies constipation, denies diarrhea, denies loss of stool control, and denies hernias. Kidney/Bladder: The patient denies kidney stones, denies urine infections, and denies bloody urine. Skin: The patient denies a history of skin cancer, denies bleeding/changing moles, and NOTES a history of skin rash. Neurologic: The patient denies a history of epilepsy/convulsions, NOTES headaches, denies head/spinal injuries, and denies stroke/TIA. Psychiatric: The patient denies psychiatric medications, NOTES depression, and denies voices, denies substance abuse. Endocrine: The patient NOTES thyroid disorders, denies diabetes, and denies hormonal problems. Hematologic: The patient denies a history of bruising, denies bleeding, and denies anemia, denies blood clots. Infections: The patient denies a history of measles and mumps, denies rheumatic fever, and denies sexually transmitted diseases. Musculoskeletal: The patient denies back pain/injury, denies back problems, denies sciatica, NOTES knee/foot trouble, denies arthritis, or denies gout. When was patient's last Mammogram screening? 08/2017 Last Colonoscopy: none Soila Jang HELIO CBC AND DIFFERENTIAL Collected: 01/06/2018 Status: F Source: [place] 9:03 AM [facility] REPOSITORY TYPE CODE TESTS RESULT OUT OF REFERENCE UNITS RANGE LAB WBC 3.70-11.00 k/uL WBC 6.30 LAB RBC 3.90-5.20 m/uL RBC 4.76 LAB HGB 11.5-15.5 g/dL Hemoglobin 13.9 LAB HCT 36.0-46.0 % Hematocrit 44.5 LAB MCV 80.0-100.0 fL MCV 93.5 LAB MCH 26.0-34.0 pG MCH 29.2 LAB MCHC 30.5-36.0 g/dL MCHC 31.2 LAB RDWCV 11.5-15.0 % RDW-CV 13.5 LAB PLTCT 150-400 k/uL Platelet Count 295 LAB MPV 9.0-12.7 fL MPV 10.6 LAB ANEUT % Neut% 63.1 LAB AANEUT 1.45-7.50 k/uL Abs Neut 3.95 LAB ALYMP % Lymph% 27.1 LAB AALYMP 1.00-4.00 k/uL Abs Lymph 1.71 LAB AMONO % Charles% 6.0 LAB AAMONO <0.87 k/uL Abs Charles 0.38 LAB AEOS % Eosin% 2.1 LAB AAEOS <0.46 k/uL Abs Eosin 0.13 LAB ABASO % Baso% 1.7 LAB AABASO <0.11 k/uL Abs Baso High 0.11 LAB AUNRBC 0 /100 WBC NRBCs 0.0 LAB ABNRBC <0.01 k/uL Absolute nRBC <0.01 LAB DTYP DTYPE Auto Diff Performed By: #### CBCDIF, CMP, LIPB #### [facility] [address] [place], [place] [address] COMP METABOLIC PANEL Collected: 01/06/2018 Status: F Source: [place] 9:03 AM [facility] REPOSITORY TYPE CODE TESTS RESULT OUT OF REFERENCE UNITS RANGE LAB TP 6.3-8.0 g/dL Protein, Total 6.4 LAB ALB 3.9-4.9 g/dL Low Albumin 3.8 LAB CA 8.5-10.2 mg/dL Calcium, Total 8.5 LAB TBIL 0.2-1.3 mg/dL Bilirubin, Total 0.5 LAB ALKP 32-117 U/L Alkaline Phosphatase 69 LAB AST 13-35 U/L AST 19 LAB GLU 74-99 mg/dL Glucose 74 Result Comment: The [place] Diabetes [employer] (ADA) provides guidance for cutoff values for fasting glucose and random glucose. The ADA defines fasting as no caloric intake for at least 8 hours. Fas ting plasma glucose results between 100 to 125 mg/dL indicate increased risk for diabetes (prediabetes). Fasting plasma glucose results greater than or equal to 126 mg/dL meet the criteria for diagnosis of diabetes. In the absence of unequivocal hyperglycemia, results should be confirmed by repeat testing. In a patient with classic symptoms of hyperglycemia or hyperglycemic crisis, random plasma glucose results greater than or equal to 200 mg/dL meet the criteria for diagnosis of diabetes. Reference: Standards of Medical Care in Diabetes 2016, [place] [employer] Association. Diabetes Care. 2016.39(Suppl 1). LAB BUN 7-21 mg/dL BUN 14 LAB CRET 0.58-0.96 mg/dL Creatinine 0.76 LAB NA 136-144 mmol/L Sodium 138 LAB K 3.7-5.1 mmol/L Potassium 4.4 LAB CL 97-105 mmol/L Chloride 101 LAB CO2 22-30 mmol/L CO2 24 LAB AGAP 9-18 mmol/L Anion Gap 13 LAB ALT 7-38 U/L ALT 8 LAB GFRAA eGFR- Amer. >60 LAB GFRNAA . eGFR-All Other Races >60 Result Comment: eGFR (Estimated GFR) Units of measure: mL/min/1.73 meters squared eGFR is derived from the reexpressed MDRD Study equation using the following parameters: serum creatinine, age, gender and race. The creatinine assay has been calibrated to be traceable to IDMS. An eGFR <60 mL/min/1.73m2 for >3 months is consistent with chronic kidney disease. Refer to KDOQI guidelines for clinical interpretation. In patients with unstable renal function, e.g. those with acute kidney injury, the eGFR may not accurately reflect actual GFR. Performed By: #### CBCDIF, CMP, LIPB #### [facility] [address] [address] LIPID PANEL, BASIC Collected: 01/06/2018 Status: F Source: [place] 9:[address] [facility] REPOSITORY TYPE CODE TESTS RESULT OUT OF REFERENCE UNITS RANGE LAB CHOL <200 mg/dL Cholesterol 152 Result Comment: <200 mg/dL, Desirable 200-239 mg/dL, Borderline high >239 mg/dL, High LAB TRIGLY <150 mg/dL Triglyceride 67 Result Comment: <150 mg/dL, Normal 150-199 mg/dL, Borderline high 200-499 mg/dL, High >499 mg/dL, Very high LAB HDL >39 mg/dL HDL-Cholesterol 55 Result Comment: 40-59 mg/dL, Acceptable >59 mg/dL, High: Negative risk factor for coronary heart disease <40 mg/dL, Low: Positive risk factor for coronary heart disease LAB LDL <100 mg/dL LDL-Cholesterol 84 Result Comment: <100 mg/dL, Optimal 100-129 mg/dL, Near optimal/above optimal 130-159 mg/dL, Borderline high 160-189 mg/dL, High >189 mg/dL, Very high Secondary prevention optimal LDL Cholesterol levels are recommended to be < 70 mg/dL LAB NONHDL <130 mg/dL Non HDL Cholesterol 97 Result Comment: <130 mg/dL, Optimal 130-159 mg/dL, Near optimal/above optimal 160-189 mg/dL, Borderline high 190-219 mg/dL, High >219 mg/dL, Very high Secondary prevention optimal non HDL Cholesterol levels are recommended to be < 100 mg/dL LAB FT hrs Fasting Time 10 LAB VLDL <30 mg/dL VLDL Cholesterol 13 LAB TCHDL <5.10 TC:HDL Ratio 2.76 LAB LDLHDL <2.54 LDL:HDL Ratio 1.53 Result Comment: Reference: 1. National Cholesterol Education Program ATP III Guideline At-A-Glance Quick Desk Reference: [facility] [place]. National Institutes of Health. 2001: NIH Publication No. 01-3305. 2. An International Atherosclerosis Society position paper: global recommendations for the management of dyslipidemia: executive summary, Atherosclerosis. 2014: 232(2):410-413. Performed By: #### CBCDIF, CMP, LIPB #### [facility] [address] [place], [place] [address] PROGRESS Observed: 01/06/2018 Status: COMPLETED Source: [place] 8:[address] [facility] REPOSITORY HNO ID: [id number] Author: Griffin Goyal (JsC) Fabrice Service: (none) Author Type: Physician Balance Assembler Type: Progress Notes Filed: 01/06/2018 8:21 AM Note Text: 47 year old female with c/o 1. white stools., increased stool frequency, increased gas over last few months. Stools vary from formed to diarrhea. No blood. Black or tarry stools. Mother colon cancer at age 48. Had 07/14/02 sigmoidoscopy: bleeding hemorrhoids, other restrepo WNL. 2. Refill hydroxyzine used for panic disorder. Uses infrequently. Mood is very positive. In protestant now which has helped. Help[ing others with depression and anxiety for protestant. HISTORIES FAMILY HISTORY Problem Relation Age of Onset - Cancer Mother pancreatic cancer - Lipids Father enlarged prostate, hyperlipidemia, COPD - other (Bi-Polar) Sister - Hypertension Brother - Coronary Artery Disease Maternal Grandmother - Coronary Artery Disease Maternal Grandfather - Coronary Artery Disease Paternal Grandfather - Thyroid Maternal Aunt 3 Aunts PAST MEDICAL HISTORY Diagnosis Date - Adjustment disorder with depressed mood suicidal ideation without attempt 2006 - Asthma - Bariatric surgery status 06-12-10 gastric bypass - Dysmetabolic syndrome X - Esophageal reflux - Morbid obesity (HCC) 12-02-09 stated BMI 61.5 Ht: 63 Wt: 347 lbs - Other specified acquired hypothyroidism - Panic disorder without agoraphobia - Pneumonia in other infectious diseases classified elsewhere(484.8) 2006 RML - Polycystic ovaries 2005 elevated androgens - Sensorineural hearing loss, unspecified wears hearing aide right ear, no hearing left ear - Synovial cyst of popliteal space - 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 18, i year INH prophylaxis - Unspecified hemorrhoids without mention of complication - Unspecified sleep apnea resolved with weight loss - Vitamin D deficiency 02/28/2010 PAST SURGICAL HISTORY Procedure Laterality Date - IMPLANT COCHLEAR DEVICE Cochlear device implant right - INCISION EARDRUM,ASPIR,GEN ANESTH Myringotomy/tubes - LAP GASTRIC BYPASS/JACOBY-EN-Y 06-12-10 P Fernandez - LAPAROSCOPIC CHOLEYCYSTECTOMY Cholecystectomy, lap - LIGATE FALLOPIAN TUBE Tubal ligation - TOTAL ABDOM HYSTERECTOMY 03/2016 Hysterectomy, NIYAH Social History Marital status: Spouse name: Yohan Years of education: 14 Number of children: 3 Occupational History Occupation Employer Comment [employer] Social History Main Topics Smoking status: Never Smoker Smokeless tobacco: Never Used Comment: smokes Alcohol use: No Drug use: No Sexual activity: Yes Partners with: Male control/protection: Tubal Ligation Comment: Pt has had a Hysterectomy Social History Narrative 2 daughters, 1 son ACTIVE PROBLEM LIST Panic Disorder Without Agoraphobia Adjustment Disorder With Depressed Mood Hypothyroidism, Acquired Synovial Cyst of Popliteal Space Unspecified Asthma(493.90) Esophageal Reflux Obesity, Class Iii, Bmi 40-49.9 (Morbid Obesity) (Hcc) Tuberculin Test Reaction Chest Pain, Unspecified Rosa Maria (Obstructive Sleep Apnea) Vitamin D Deficiency Asa Class Iii Bariatric Surgery Status Ppd Positive, Treated Mastalgia Current Outpatient Prescriptions: levothyroxine (SYNTHROID) 137 mcg tablet TAKE 1 TABLET BY MOUTH ONCE DAILY. Disp: 90 tablet Rfl: 3 ketoconazole (NIZORAL) 2 % cream Apply 1 application to affected area once daily. X 2 weeks. Disp: 60 g Rfl: 1 FLUoxetine (PROZAC) 20 mg capsule Take 3 capsules by mouth once daily. Disp: 270 capsule Rfl: 3 Cholecalciferol, Vitamin D3, 1,000 unit cap Take 1 capsule by mouth once daily. Disp: Rfl: albuterol HFA (VENTOLIN HFA) 90 mcg/actuation inhaler Inhale 2 Puffs as instructed every 4 hours as needed for Wheezing/Shortness of Breath. Disp: 1 Inhaler Rfl: 0 ASCORBIC ACID (VITAMIN C ORAL) Take by mouth once daily. Not taking Disp: Rfl: hydrOXYzine pamoate (VISTARIL) 25 mg capsule Take 25 mg by mouth three times daily as needed. Disp: Rfl: No current facility-administered medications for this visit. LIPID SCREEN due on 2017 INFLUENZA(1) due on 12/14/2017 EXAM: BP 102/78 Pulse 88 Temp 36.1 ?C (97 ?F) (Tympanic) Resp 20 Wt (!) 144.2 kg (318 lb) LMP 04/10/2015 BMI 54.96 kg/m? Pleasant obese adult woman in no acute distress. Alert and oriented all spheres. Normal affect and cognition. Speech normal. No deficits to learning or comprehension. Skin warm, dry, pink to lips and nailbeds. Normal turgor. Respirations regular and unlabored. HEENT WNL. Sc;era anicteric bilaterally. TM's clear. Nose and oropharynx free from injection or lesion. No cervical lymph nodes. Thyroid non-tender, no masses Abd: obese, soft, active bowels through out. No pulsatile masses. Nonender. No rebound, guarding, or peritoneal signs. No masses. No organomegaly. Hdz's punch: negative. No flank pain. No inguinal or axillary lymphadenopathy. Extrem: no clubbing, cyanosis, edema. Extremities are warm and pink with prompt capillary refill. ASSESSMENT/PLAN: 1. Screening for lipid disorders - ICD9: V77.91, ICD10: Z13.220 (primary diagnosis) fasting - LIPID PANEL BASIC 2. Change in stool - ICD9: 792.1, ICD10: R19.5 - [facility] PT ED DIGESTIVE DISEASES - PEG 3350-ELECTROLYTES 236 GRAM-22.74 GRAM-6.74 GRAM-5.86 GRAM SOLUTION 3. Family history of malignant neoplasm of gastrointestinal tract - ICD9: V16.0, ICD10: Z80.0 - [facility] PT ED DIGESTIVE DISEASES - PEG 3350-ELECTROLYTES 236 GRAM-22.74 GRAM-6.74 GRAM-5.86 GRAM SOLUTION - COMP METABOLIC PANEL - CBC + DIFF - COLONOSCOPY, SCREENING, HIGH RISK - FECAL OCCULT BLOOD TEST 4. Panic disorder without agoraphobia - ICD9: 300.01, ICD10: F41.0 - HYDROXYZINE PAMOATE 25 MG CAPSULE 5. Adjustment disorder with depressed mood - ICD9: 309.0, ICD10: F43.21 Stable, doing well. Consider US, CT abd depending on lab Patient (guardian) expressed understanding of instructions and agrees with plan. MATT Soriano Observed: 01/06/2018 Status: COMPLETED Source: [place] 8:00 AM [facility] REPOSITORY [facility] AMARILIS HINTON ([id number]) 1970 F CHT Date Time Provider Department 01/06/18 8:00 AM Griffin AVINA) FAMPWS During your visit today, we recorded the following information about you: Temperature Pulse Respiration Blood pressure 97 degrees 88/minute 20/minute 102/78 Weight 144.2 kg M Jay Jay Avina PA-C 01/06/2018 8:21 AM Signed 47 year old female with c/o 1. white stools., increased stool frequency, increased gas over last few months. Stools vary from formed to diarrhea. No blood. Black or tarry stools. Mother colon cancer at age 48. Had 07/14/02 sigmoidoscopy: bleeding hemorrhoids, other restrepo WNL. 2. Refill hydroxyzine used for panic disorder. Uses infrequently. Mood is very positive. In protestant now which has helped. Help[ing others with depression and anxiety for protestant. HISTORIES FAMILY HISTORY Problem Relation Age of Onset - Cancer Mother pancreatic cancer - Lipids Father enlarged prostate, hyperlipidemia, COPD - other (Bi-Polar) Sister - Hypertension Brother - Coronary Artery Disease Maternal Grandmother - Coronary Artery Disease Maternal Grandfather - Coronary Artery Disease Paternal Grandfather - Thyroid Maternal Aunt 3 Aunts PAST MEDICAL HISTORY Diagnosis Date - Adjustment disorder with depressed mood suicidal ideation without attempt 2005 - Asthma - Bariatric surgery status 06-12-10 gastric bypass - Dysmetabolic syndrome X - Esophageal reflux - Morbid obesity (HCC) 12-02-09 stated BMI 61.5 Ht: 63 Wt: 347 lbs - Other specified acquired hypothyroidism - Panic disorder without agoraphobia - Pneumonia in other infectious diseases classified elsewhere(484.8) 2005 RML - Polycystic ovaries 2004 elevated androgens - Sensorineural hearing loss, unspecified wears hearing aide right ear, no hearing left ear - Synovial cyst of popliteal space - 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 18, i year INH prophylaxis - Unspecified hemorrhoids without mention of complication - Unspecified sleep apnea resolved with weight loss - Vitamin D deficiency 02/28/2010 PAST SURGICAL HISTORY Procedure Laterality Date - IMPLANT COCHLEAR DEVICE Cochlear device implant right - INCISION EARDRUM,ASPIR,GEN ANESTH Myringotomy/tubes - LAP GASTRIC BYPASS/JACOBY-EN-Y 06-12-10 P Fernandez - LAPAROSCOPIC CHOLEYCYSTECTOMY Cholecystectomy, lap - LIGATE FALLOPIAN TUBE Tubal ligation - TOTAL ABDOM HYSTERECTOMY 03/2016 Hysterectomy, NIYAH Social History Marital status: Spouse name: Yohan Years of education: 14 Number of children: 3 Occupational History Occupation Employer Comment [employer] Social History Main Topics Smoking status: Never Smoker Smokeless tobacco: Never Used Comment: smokes Alcohol use: No Drug use: No Sexual activity: Yes Partners with: Male control/protection: Tubal Ligation Comment: Pt has had a Hysterectomy Social History Narrative 2 daughters, 1 son ACTIVE PROBLEM LIST Panic Disorder Without Agoraphobia Adjustment Disorder With Depressed Mood Hypothyroidism, Acquired Synovial Cyst of Popliteal Space Unspecified Asthma(493.90) Esophageal Reflux Obesity, Class Iii, Bmi 40-49.9 (Morbid Obesity) (Hcc) Tuberculin Test Reaction Chest Pain, Unspecified Rosa Maria (Obstructive Sleep Apnea) Vitamin D Deficiency Asa Class Iii Bariatric Surgery Status Ppd Positive, Treated Mastalgia Current Outpatient Prescriptions: levothyroxine (SYNTHROID) 137 mcg tablet TAKE 1 TABLET BY MOUTH ONCE DAILY. Disp: 90 tablet Rfl: 3 ketoconazole (NIZORAL) 2 % cream Apply 1 application to affected area once daily. X 2 weeks. Disp: 60 g Rfl: 1 FLUoxetine (PROZAC) 20 mg capsule Take 3 capsules by mouth once daily. Disp: 270 capsule Rfl: 3 Cholecalciferol, Vitamin D3, 1,000 unit cap Take 1 capsule by mouth once daily. Disp: Rfl: albuterol HFA (VENTOLIN HFA) 90 mcg/actuation inhaler Inhale 2 Puffs as instructed every 4 hours as needed for Wheezing/Shortness of Breath. Disp: 1 Inhaler Rfl: 0 ASCORBIC ACID (VITAMIN C ORAL) Take by mouth once daily. Not taking Disp: Rfl: hydrOXYzine pamoate (VISTARIL) 25 mg capsule Take 25 mg by mouth three times daily as needed. Disp: Rfl: No current facility-administered medications for this visit. LIPID SCREEN due on 2017 INFLUENZA(1) due on 12/14/2017 EXAM: BP 102/78 Pulse 88 Temp 36.1 ?C (97 ?F) (Tympanic) Resp 20 Wt (!) 144.2 kg (318 lb) LMP 04/10/2015 BMI 54.96 kg/m? Pleasant obese adult woman in no acute distress. Alert and oriented all spheres. Normal affect and cognition. Speech normal. No deficits to learning or comprehension. Skin warm, dry, pink to lips and nailbeds. Normal turgor. Respirations regular and unlabored. HEENT WNL. Sc;era anicteric bilaterally. TM's clear. Nose and oropharynx free from injection or lesion. No cervical lymph nodes. Thyroid non-tender, no masses Abd: obese, soft, active bowels through out. No pulsatile masses. Nonender. No rebound, guarding, or peritoneal signs. No masses. No organomegaly. Hdz's punch: negative. No flank pain. No inguinal or axillary lymphadenopathy. Extrem: no clubbing, cyanosis, edema. Extremities are warm and pink with prompt capillary refill. ASSESSMENT/PLAN: 1. Screening for lipid disorders - ICD9: V77.91, ICD10: Z13.220 (primary diagnosis) fasting - LIPID PANEL BASIC 2. Change in stool - ICD9: 792.1, ICD10: R19.5 - [facility] PT ED DIGESTIVE DISEASES - PEG 3350-ELECTROLYTES 236 GRAM-22.74 GRAM-6.74 GRAM-5.86 GRAM SOLUTION 3. Family history of malignant neoplasm of gastrointestinal tract - ICD9: V16.0, ICD10: Z80.0 - [facility] PT ED DIGESTIVE DISEASES - PEG 3350-ELECTROLYTES 236 GRAM-22.74 GRAM-6.74 GRAM-5.86 GRAM SOLUTION - COMP METABOLIC PANEL - CBC + DIFF - COLONOSCOPY, SCREENING, HIGH RISK - FECAL OCCULT BLOOD TEST 4. Panic disorder without agoraphobia - ICD9: 300.01, ICD10: F41.0 - HYDROXYZINE PAMOATE 25 MG CAPSULE 5. Adjustment disorder with depressed mood - ICD9: 309.0, ICD10: F43.21 Stable, doing well. Consider US, CT abd depending on lab Patient (guardian) expressed understanding of instructions and agrees with plan. MATT Soriano PA-C 01/06/2018 8:10 AM Signed How to Prepare for Your Colonoscopy Using Golytely, Nulytely, Trilyte or Colyte Preparations with Conscious Sedation IMPORTANT - Read These Instructions at Least 2 Weeks Before your Colonoscopy [place] Instructions: ? Your bowel must be empty so that your doctor can clearly view your colon. Follow all of the instructions in this handout EXACTLY as they are written. If you do NOT follow the directions for when to start drinking the bowel preparation, your colonoscopy WILL be cancelled. ? Do NOT eat any solid food the ENTIRE day before your colonoscopy. ? Buy your bowel preparation at least 5 days before your colonoscopy. ? Do NOT mix the solution until the day before your colonoscopy. Designated Flaker Operator on the Day of Your Exam A responsible family member or friend MUST come with you to your colonoscopy and REMAIN in the endoscopy area until you are discharged. You are NOT ALLOWED to drive, take a taxi or bus, or leave the Endoscopy Center ALONE. If you do not have a responsible public transit trolley driver (family member or friend) with you to take you home, you exam cannot be done with sedation and will be cancelled. Medications Some of the medications you take may need to be stopped or adjusted before your colonoscopy. You MUST call the doctor who ordered any of the following medicines at least 2 weeks before your colonoscopy. ? Blood thinners - such as Coumadin (warfarin), Plavix (clopidogrel), Ticlid (ticlopidine hydrochloride), Agrylin (anagrelide), Xarelto (Rivaroxaban), Pradaxa (Dabigatran), Eliquis (Apixaban), and Effient (Prasugrel). ? Insulin or diabetes pills. Please call the doctor that monitors your glucose levels. Your insulin dosage may need to be adjusted due to the diet restrictions required with this bowel preparation. (Please bring your diabetes medicines with you on the day of your procedure.) If you take aspirin, take it and ALL other medications prescribed by your doctor. On the day of your colonoscopy, take your medications with a sip of water. Five (5) Days Before Your Colonoscopy ? Do NOT take medicines that stop diarrhea - such as Imodium, Kaopectate, or Pepto Bismol. ? Do NOT take fiber supplements - such as Metamucil, Citrucel, or Perdiem. ? Do NOT take products that contain iron - such as multi-vitamins (the label lists what is in the products). ? Do NOT take Vitamin E. Buy the prescription bowel preparation solution at your local pharmacy or drugstore pharmacy. Three (3) Days Before Your Colonoscopy ? Do NOT eat high-fiber foods - such as popcorn, beans, seeds (flax, sunflower, quinoa), multigrain bread, nuts, salad/vegetables, or fresh and dried fruit. One (1) Day Before Your Colonoscopy Only drink clear liquids the ENTIRE DAY before your colonoscopy. Do NOT eat any solid foods. Drink at least 8 ounces of clear liquids every hour after waking up. The clear liquids you can drink include: ? Water, apple, or white grape juice; broth; coffee or tea (without milk or creamer); clear carbonated beverages such as aneta casey or lemon-houlton soda; Gatorade or other sports drinks (not red); Moisés-Aid or other flavored drinks (not red). You may eat plain jello or other gelatins (not red) or popsicles (not red). Do NOT drink alcohol on the day before or the day of the procedure. When to Mix and Drink Your Bowel Prep Follow the instructions on the label. After mixing, place the solution in the refrigerator for a couple of hours before drinking. You may add the flavor pack that came with the bowel preparation. Do NOT add ice, sugar or any flavorings to the solution. Morning Appointment (Before 12 noon) Step 1: ? Start drinking the bowel preparation at 6 PM the evening before your colonoscopy. Drink an 8-oz glass of bowel preparation every 10 minutes for a total of 8 glasses. ? You may continue to drink clear liquids until bedtime. Step 2: The day of the colonoscopy (4 hours before your exam). ? Drink an 8-oz glass of bowel preparation every 10 minutes for a total of 8 glasses. ? You may continue to drink clear liquids up to 2 hours before your exam. If you take aspirin, take it and ALL other prescribed medicines with a sip of water on the day of your colonoscopy. Afternoon Appointment (After 12 noon) ? Start drinking the bowel preparation at 6 AM the day of your colonoscopy. Drink an 8-oz glass of bowel preparation every 10 minutes. You must finish drinking the solution by 9 AM. ? You may continue to drink clear liquids up to 2 hours before your exam. If you take aspirin, take it and ALL other prescribed medicines with a sip of water on the day of your colonoscopy. Referring Provider: SELF [[id number]] Allergies As of Date: 01/06/2018 (No Known Allergies) Date Reviewed: 01/06/2018 Reviewed by: Griffin Goyal (Matt) Fabrice - Fully Assessed Reason for Visit: Gas [49] Cmt: x 1 month stools are white [Other] Diarrhea [35] Primary Visit Diagnosis:Screening for lipid disorders [Z13.220] Other Visit Diagnoses:Change in stool [R19.5] Family history of malignant neoplasm of gastrointestinal tract [Z80.0] Panic disorder without agoraphobia [F41.0] Adjustment disorder with depressed mood [F43.21] Order(s):hydrOXYzine pamoate (VISTARIL) 25 mg capsuleTake 1 capsule by mouth three times daily as needed.Disp: 60 capsuleRfl: 1 LIPID PANEL BASIC [SQLIPB] Order #: [id number] FUTURE [facility] PT ED DIGESTIVE DISEASES [3625402] Order #: [id number]: 1 peg 3350-Electrolytes (GOLYTELY) 236-22.74-6.74 - 5.86 gram suspensionTake 4,000 mL by mouth one time only for 1 dose. Refer to printed prep instructions from your doctor.Disp: 1 BottleRfl: 0 COMP METABOLIC PANEL [SQCMP] Order #: [id number] FUTURE CBC + DIFF [SQCBCDIF] Order #: [id number] FUTURE COLONOSCOPY, SCREENING, HIGH RISK [U0030EPX] Order #: [id number] FUTURE FECAL OCCULT BLOOD TEST [SQIFOBT] Order #: [id number] FUTURE Prescriptions as of 01/06/2018 Sig: HYDROXYZINE PAMOATE 25 MG CAP* Take 1 capsule by mouth three* LEVOTHYROXINE 137 MCG TABLET TAKE 1 TABLET BY MOUTH ONCE D* KETOCONAZOLE 2 % TOPICAL CREAM Apply 1 application to affect* FLUOXETINE 20 MG CAPSULE Take 3 capsules by mouth once* CHOLECALCIFEROL (VITAMIN D3) * Take 1 capsule by mouth once * ALBUTEROL SULFATE HFA 90 MCG/* Inhale 2 Puffs as instructed * VITAMIN C ORAL Take by mouth once daily. Not* PEG 3350-ELECTROLYTES 236 GRA* Take 4,000 mL by mouth one ti* Problem List As Of Date 01/06/2018 Noted Resolved Panic Disorder without Agoraphobia [F41.0] Adjustment Disorder with Depressed Mood [F43.21] Hypothyroidism, acquired [E03.9] Synovial Cyst of Popliteal Space [M71.20] Polycystic ovaries [E28.2] INVALID FOR*08/24/2015 Absence of menstruation [N91.2] INVALID FOR*04/27/2011 OBESITY [E66.9] INVALID FOR*09/09/2007 Unspecified Asthma [J45.909] INVALID FOR* Dysmetabolic syndrome X [E88.81] INVALID FOR*04/27/2011 Esophageal Reflux [K21.9] Sensorineural hearing loss, unspecified [H90.5] 07/19/2017 More... Obesity, Class III, BMI 40-49.9 (morbid obesity* Tuberculin Test Reaction [795.5] More... Unspecified hemorrhoids without mention of comp* 07/19/2017 Unspecified Chest Pain [R07.9] INVALID FOR* Right knee pain [M25.561] INVALID FOR*07/19/2017 ROSA MARIA (obstructive sleep apnea) [G47.33] INVALID FOR* Vitamin D deficiency [E55.9] INVALID FOR* ASA CLASS III [1003] INVALID FOR* Other and unspecified postsurgical nonabsorptio*INVALID FOR*07/19/2017 Bariatric surgery status [Z98.84] INVALID FOR* More... PPD positive, treated [R76.11] INVALID FOR* Thickened endometrium [R93.8] INVALID FOR*05/26/2015 Abnormal uterine bleeding [N93.9] INVALID FOR*08/24/2015 Mastalgia [N64.4] INVALID FOR* Lymph node enlargement [R59.9] INVALID FOR*07/19/2017 Dysmenorrhea [N94.6] INVALID FOR*08/24/2015 Other instructions from your clinician: How to Prepare for Your Colonoscopy Using Golytely, Nulytely, Trilyte or Colyte Preparations with Conscious Sedation IMPORTANT - Read These Instructions at Least 2 Weeks Before your Colonoscopy [place] Instructions: ? Your bowel must be empty so that your doctor can clearly view your colon. Follow all of the instructions in this handout EXACTLY as they are written. If you do NOT follow the directions for when to start drinking the bowel preparation, your colonoscopy WILL be cancelled. ? Do NOT eat any solid food the ENTIRE day before your colonoscopy. ? Buy your bowel preparation at least 5 days before your colonoscopy. ? Do NOT mix the solution until the day before your colonoscopy. Designated Flaker Operator on the Day of Your Exam A responsible family member or friend MUST come with you to your colonoscopy and REMAIN in the endoscopy area until you are discharged. You are NOT ALLOWED to drive, take a taxi or bus, or leave the Endoscopy Center ALONE. If you do not have a responsible public transit trolley driver (family member or friend) with you to take you home, you exam cannot be done with sedation and will be cancelled. Medications Some of the medications you take may need to be stopped or adjusted before your colonoscopy. You MUST call the doctor who ordered any of the following medicines at least 2 weeks before your colonoscopy. ? Blood thinners - such as Coumadin (warfarin), Plavix (clopidogrel), Ticlid (ticlopidine hydrochloride), Agrylin (anagrelide), Xarelto (Rivaroxaban), Pradaxa (Dabigatran), Eliquis (Apixaban), and Effient (Prasugrel). ? Insulin or diabetes pills. Please call the doctor that monitors your glucose levels. Your insulin dosage may need to be adjusted due to the diet restrictions required with this bowel preparation. (Please bring your diabetes medicines with you on the day of your procedure.) If you take aspirin, take it and ALL other medications prescribed by your doctor. On the day of your colonoscopy, take your medications with a sip of water. Five (5) Days Before Your Colonoscopy ? Do NOT take medicines that stop diarrhea - such as Imodium, Kaopectate, or Pepto Bismol. ? Do NOT take fiber supplements - such as Metamucil, Citrucel, or Perdiem. ? Do NOT take products that contain iron - such as multi- vitamins (the label lists what is in the products). ? Do NOT take Vitamin E. Buy the prescription bowel preparation solution at your local pharmacy or drugstore pharmacy. Three (3) Days Before Your Colonoscopy ? Do NOT eat high-fiber foods - such as popcorn, beans, seeds (flax, sunflower, quinoa), multigrain bread, nuts, salad/vegetables, or fresh and dried fruit. One (1) Day Before Your Colonoscopy Only drink clear liquids the ENTIRE DAY before your colonoscopy. Do NOT eat any solid foods. Drink at least 8 ounces of clear liquids every hour after waking up. The clear liquids you can drink include: ? Water, apple, or white grape juice; broth; coffee or tea (without milk or creamer); clear carbonated beverages such as aneta casey or lemon-houlton soda; Gatorade or other sports drinks (not red); Moisés- Aid or other flavored drinks (not red). You may eat plain jello or other gelatins (not red) or popsicles (not red). Do NOT drink alcohol on the day before or the day of the procedure. When to Mix and Drink Your Bowel Prep Follow the instructions on the label. After mixing, place the solution in the refrigerator for a couple of hours before drinking. You may add the flavor pack that came with the bowel preparation. Do NOT add ice, sugar or any flavorings to the solution. Morning Appointment (Before 12 noon) Step 1: ? Start drinking the bowel preparation at 6 PM the evening before your colonoscopy. Drink an 8-oz glass of bowel preparation every 10 minutes for a total of 8 glasses. ? You may continue to drink clear liquids until bedtime. Step 2: The day of the colonoscopy (4 hours before your exam). ? Drink an 8-oz glass of bowel preparation every 10 minutes for a total of 8 glasses. ? You may continue to drink clear liquids up to 2 hours before your exam. If you take aspirin, take it and ALL other prescribed medicines with a sip of water on the day of your colonoscopy. Afternoon Appointment (After 12 noon) ? Start drinking the bowel preparation at 6 AM the day of your colonoscopy. Drink an 8-oz glass of bowel preparation every 10 minutes. You must finish drinking the solution by 9 AM. ? You may continue to drink clear liquids up to 2 hours before your exam. If you take aspirin, take it and ALL other prescribed medicines with a sip of water on the day of your colonoscopy. Prescriptions ordered this encounter Disp Refills Start End HYDROXYZINE PAMOATE 25 MG CAPSULE 60 c* 1 01/06/2018 Route: ORAL Sig: Take 1 capsule by mouth three times daily as needed. PEG 3350-ELECTROLYTES 236 GRAM-22.74* 1 Morgan* 0 01/06/2018 01/06/2018 Route: ORAL Sig: Take 4,000 mL by mouth one time only for 1 dose. Refer to printed prep instructions from your doctor. Medications Discontinued During This Encounter hydrOXYzine pamoate (VISTARIL) 25 mg* 01/06/2018 Class: Historical Med Route: ORAL Sig: Take 25 mg by mouth three times daily as needed. Disc: Reason for discontinue is not on file. Encounter Status:Closed by Griffin AVINA PA-C on 01/06/18 12 LEAD ELECTROCARDIOGRAM Observed: 09/30/2017 Status: F Source: [place] 8:39 AM [facility] REPOSITORY [facility] Cardiovascular Services [address] [place] [address] 12 Lead EKG 09/12/17 1915 MR#: [id number] Acct: [id number] Name: AMARILIS HINTON Rep #: [id number] : 1970 46 From: Yohan Amezquita MD Attending Dr: Status: DEP ER Ordering Dr: Miguel Ceja MD Date: 09/12/17 Location: ED Sex: F C Admitted: Test Reason : CP Blood Pressure : / mmHG Vent. Rate : 073 BPM Atrial Rate : 073 BPM P-R Int : 150 ms QRS Dur : 078 ms QT Int : 410 ms P-R-T Axes : 022 017 027 degrees QTc Int : 451 ms Normal sinus rhythm Normal ECG Confirmed by YOHAN AMEZQUITA ([id number]), editor continuity and script ADOLPH BERNARD ([id number]) on 09/23/2017 6:26:18 PM Referred By: MARLYN Confirmed By:YOHAN AMEZQUITA 09/23/17 182 Date Yohan Amezquita MD CC: Miguel Ceja MD; Liban Barrett MD Signed 12 LEAD ELECTROCARDIOGRAM Observed: 09/30/2017 Status: F Source: [place] 8:39 AM [facility] Cardiovascular Services [address] [place] [address] 12 Lead EKG 09/12/17 2217 MR#: [id number] Acct: [id number] Name: AMARILIS HINTON Rep #: [id number] : 1970 46 From: Yohan Amezquita MD Attending Dr: Status: DEP ER Ordering Dr: Miguel Ceja MD Date: 09/12/17 Location: ED Sex: F C Admitted: Test Reason : REPEAT Blood Pressure : / mmHG Vent. Rate : 079 BPM Atrial Rate : 079 BPM P-R Int : 152 ms QRS Dur : 078 ms QT Int : 402 ms P-R-T Axes : 019 015 044 degrees QTc Int : 460 ms Normal sinus rhythm Normal ECG Confirmed by YOHAN AMEZQUITA ([id number]), editor continuity and script ADOLPH BERNARD ([id number]) on 09/23/2017 6:26:48 PM Referred By: LIZZ Confirmed By:YOHAN AMEZQUITA 09/23/17 1826 Date Yohan Amezquita MD CC: Miguel Ceja MD; Liban Barrett MD Signed CNPN Observed: 09/25/2017 Status: COMPLETED Source: [place] 12:00 AM [facility] REPOSITORY Telephone ([facility]) AMARILIS HITNON ([id number]) 1970 F T Date Time Provider Department 09/25/17 SHERITA AYALA (RN) [facility] During your visit today, we recorded the following information about you: Sherita Ayala RN, RN 09/25/2017 10:24 AM Signed Left message regarding reminder for stress echo test tomorrow and given instructions Allergies As of Date: 09/25/2017 (No Known Allergies) Date Reviewed: 09/16/2017 Reviewed by: Theresa Johnson Sole Painter - Fully Assessed Reason for Visit: Reminder Call [[id number]] Prescriptions as of 09/25/2017 Sig: KETOCONAZOLE 2 % TOPICAL CREAM Apply 1 application to affect* FLUOXETINE 20 MG CAPSULE Take 3 capsules by mouth once* CHOLECALCIFEROL (VITAMIN D3) * Take 1 capsule by mouth once * ALBUTEROL SULFATE HFA 90 MCG/* Inhale 2 Puffs as instructed * VITAMIN C ORAL Take by mouth once daily. Not* LEVOTHYROXINE 137 MCG TABLET Take 1 tablet by mouth once d* HYDROXYZINE PAMOATE 25 MG CAP* Take 25 mg by mouth three kristi* Problem List As Of Date 09/25/2017 Noted Resolved Panic Disorder without Agoraphobia [F41.0] Adjustment Disorder with Depressed Mood [F43.21] Hypothyroidism, acquired [E03.9] Synovial Cyst of Popliteal Space [M71.20] Polycystic ovaries [E28.2] INVALID FOR*08/24/2015 Absence of menstruation [N91.2] INVALID FOR*04/27/2011 OBESITY [E66.9] INVALID FOR*09/09/2007 Unspecified Asthma [J45.909] INVALID FOR* Dysmetabolic syndrome X [E88.81] INVALID FOR*04/27/2011 Esophageal Reflux [K21.9] Sensorineural hearing loss, unspecified [H90.5] 07/19/2017 More... Obesity, Class III, BMI 40-49.9 (morbid obesity* Tuberculin Test Reaction [795.5] More... Unspecified hemorrhoids without mention of comp* 07/19/2017 Unspecified Chest Pain [R07.9] INVALID FOR* Right knee pain [M25.561] INVALID FOR*07/19/2017 ROSA MARIA (obstructive sleep apnea) [G47.33] INVALID FOR* Vitamin D deficiency [E55.9] INVALID FOR* ASA CLASS III [1003] INVALID FOR* Other and unspecified postsurgical nonabsorptio*INVALID FOR*07/19/2017 Bariatric surgery status [Z98.84] INVALID FOR* More... PPD positive, treated [R76.11] INVALID FOR* Thickened endometrium [R93.8] INVALID FOR*05/26/2015 Abnormal uterine bleeding [N93.9] INVALID FOR*08/24/2015 Mastalgia [N64.4] INVALID FOR* Lymph node enlargement [R59.9] INVALID FOR*07/19/2017 Dysmenorrhea [N94.6] INVALID FOR*08/24/2015 Encounter Status:Closed by SHERITA AYALA on 09/25/17 PROGRESS Observed: 09/16/2017 Status: COMPLETED Source: [place] 2:45 PM [facility] REPOSITORY HNO ID: [id number] Author: Honey Figueroa Service: (none) Author Type: Nurse Practitioner Type: Progress Notes Filed: 09/16/2017 4:01 PM Note Text: This is a 46 year old female who presents today with: Patient presents with: ED Follow-up HISTORY OF PRESENT ILLNESS: Amarilis Hinton is a 46 year old female. Patient presents with: ED Follow-up Pt presents today for ER follow-up on 09/12/17. Went to the ER because she started getting numbness in the left fingertips, this then turned into a pain that radiated up the arm and into the chest and neck. Refers heaviness of the chest. Refers it was just on the left side. + SOB when this was going on. Refers gets SOB with exertion. + cough -- expectorating mucus. Some dizziness/lightheadedness during episode. No palpitations. Hx of panic attacks and this was different. Reports both sets of grandparents with hx of heart disease. Refers that her mother of [place]. Pt denies hx of high blood pressure or high cholesterol. REVIEW OF SYSTEMS GENERAL: No weight loss, malaise or fevers/chills HEENT: Negative for frequent or significant headaches, No changes in hearing or vision. NECK: Negative for lumps, goiter, pain and significant neck swelling RESPIRATORY: Negative for cough, hemoptysis, wheezing, dyspnea or shortness of breath CARDIOVASCULAR: episode of chest discomfort, as above. No leg swelling, orthopnea, or palpitations GI: No nausea, vomiting, or diarrhea/constipation. No hematochezia/melena. No heartburn or reflux symptoms. Hx of GERD that resolved after gastric bypass. : No history of dysuria, frequency or incontinence SKIN: Negative for lesions, and itching. + rash of the bilateral upper inner arm. ENDOCRINE: Negative for cold or heat intolerance, polyuria, polydipsia and goiter NEURO: No history of headaches, syncope, paralysis, seizures or tremors PAST MEDICAL HISTORY: PAST MEDICAL HISTORY Diagnosis Date - Adjustment disorder with depressed mood suicidal ideation without attempt 2006 - Asthma - Bariatric surgery status 06-12-10 gastric bypass - Dysmetabolic syndrome X - Esophageal reflux - Morbid obesity (HCC) 12-02-09 stated BMI 61.5 Ht: 63 Wt: 347 lbs - Other specified acquired hypothyroidism - Panic disorder without agoraphobia - Pneumonia in other infectious diseases classified elsewhere(484.8) 2006 RML - Polycystic ovaries 2005 elevated androgens - Sensorineural hearing loss, unspecified wears hearing aide right ear, no hearing left ear - Synovial cyst of popliteal space - 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 MEDICATIONS Current Outpatient Prescriptions: FLUoxetine (PROZAC) 20 mg capsule Take 3 capsules by mouth once daily. Cholecalciferol, Vitamin D3, 1,000 unit cap Take 1 capsule by mouth once daily. albuterol HFA (VENTOLIN HFA) 90 mcg/actuation inhaler Inhale 2 Puffs as instructed every 4 hours as needed for Wheezing/Shortness of Breath. ASCORBIC ACID (VITAMIN C ORAL) Take by mouth once daily. Not taking levothyroxine (SYNTHROID) 137 mcg tablet Take 1 tablet by mouth once daily. hydrOXYzine pamoate (VISTARIL) 25 mg capsule Take 25 mg by mouth three times daily as needed. No current facility-administered medications for this visit. FAMILY HISTORY Problem Relation Age of Onset - Cancer Mother pancreatic cancer - Lipids Father enlarged prostate, hyperlipidemia, COPD - Bi-Polar [OTHER] Sister - Hypertension Brother - Coronary Artery Disease Maternal Grandmother - Coronary Artery Disease Maternal Grandfather - Coronary Artery Disease Paternal Grandfather - Thyroid Maternal Aunt 3 Aunts Social History Marital status: Spouse name: Yohan Years of education: 14 Number of children: 3 Occupational History Occupation Employer Comment [employer] Social History Main Topics Smoking status: Never Smoker Smokeless tobacco: Never Used Comment: smokes Alcohol use: No Drug use: No Sexual activity: Yes Partners with: Male control/protection: Tubal Ligation Comment: Pt has had a Hysterectomy Social History Narrative 2 daughters, 1 son BP 130/70 (BP Site: Left Arm, BP Position: Sitting, BP Cuff Size: Large Adult) Pulse 88 Resp 12 Wt (!) 138.8 kg (306 lb) LMP 04/10/2015 BMI 52.89 kg/m? PHYSICAL EXAM: General Appearance: Well appearing, alert, in no acute distress, well-hydrated, well nourished.. Skin: Skin color, texture, turgor normal, no suspicious rashes or lesions. + rash of the bilateral upper inner arm, macular, hernadez, irregularly shaped. Head: Normocephalic, no masses, lesions, tenderness or abnormalities. Eyes: Anicteric sclera. Pupils are equally round and reactive to light. Extraocular movements are intact. Oropharynx: Lips, mucosa, and tongue normal, teeth and gums normal, oropharynx normal. Lungs: Lungs clear to auscultation. No wheezing, rhonchi, rales. Heart: RRR without murmur, gallop, or rubs. No ectopy. Abdomen: Abdomen soft, non-tender. Bowel sounds normal. No masses, organomegaly. Extremities: No deformities, edema, skin discoloration, clubbing or cyanosis. Good capillary refill. Neurologic: Gait normal. ASSESSMENT/PLAN: 1. Other chest pain - ICD9: 786.59, ICD10: R07.89 (primary diagnosis) Chest pain of unclear etiology, patient with significant risk factor(s) of family history of early coronary heart disease and obesity - Stress testing- see orders - STRESS ECHO TREADMILL - negative eval in the ER. - Discussed if return of symptoms, she should return to the ER via 911. 2. Tinea versicolor - ICD9: 111.0, ICD10: B36.0 Start:- KETOCONAZOLE 2 % TOPICAL CREAM Use for one week after the rash goes away. Discussed treatment plan and patient voices understanding. Patient's questions answered appropriately. Medications and potential side effects were discussed and patient voices understanding. Return to the office as scheduled or as needed for worsening/no improvement. Honey Figueroa APRN.ANDREW CNOV Observed: 09/16/2017 Status: COMPLETED Source: [place] 2:40 PM [facility] REPOSITORY Office Visit (FAMPWS) AMARILIS HINTON ([id number]) 1970 F [facility] Date Time Provider Department 09/16/17 2:40 PM HONEY FIGUEROA (ANDREW) HEMAL During your visit today, we recorded the following information about you: Pulse Respiration Blood pressure Weight 88/minute 12/minute 130/70 138.8 kg Honey Figueroa APRN.CNP 09/16/2017 4:01 PM Signed This is a 46 year old female who presents today with: Patient presents with: ED Follow-up HISTORY OF PRESENT ILLNESS: Amarilis Hinton is a 46 year old female. Patient presents with: ED Follow-up Pt presents today for ER follow-up on 09/12/17. Went to the ER because she started getting numbness in the left fingertips, this then turned into a pain that radiated up the arm and into the chest and neck. Refers heaviness of the chest. Refers it was just on the left side. + SOB when this was going on. Refers gets SOB with exertion. + cough -- expectorating mucus. Some dizziness/lightheadedness during episode. No palpitations. Hx of panic attacks and this was different. Reports both sets of grandparents with hx of heart disease. Refers that her mother of [place]. Pt denies hx of high blood pressure or high cholesterol. REVIEW OF SYSTEMS GENERAL: No weight loss, malaise or fevers/chills HEENT: Negative for frequent or significant headaches, No changes in hearing or vision. NECK: Negative for lumps, goiter, pain and significant neck swelling RESPIRATORY: Negative for cough, hemoptysis, wheezing, dyspnea or shortness of breath CARDIOVASCULAR: episode of chest discomfort, as above. No leg swelling, orthopnea, or palpitations GI: No nausea, vomiting, or diarrhea/constipation. No hematochezia/melena. No heartburn or reflux symptoms. Hx of GERD that resolved after gastric bypass. : No history of dysuria, frequency or incontinence SKIN: Negative for lesions, and itching. + rash of the bilateral upper inner arm. ENDOCRINE: Negative for cold or heat intolerance, polyuria, polydipsia and goiter NEURO: No history of headaches, syncope, paralysis, seizures or tremors PAST MEDICAL HISTORY: PAST MEDICAL HISTORY Diagnosis Date - Adjustment disorder with depressed mood suicidal ideation without attempt 2006 - Asthma - Bariatric surgery status 06-12-10 gastric bypass - Dysmetabolic syndrome X - Esophageal reflux - Morbid obesity (HCC) 12-02-09 stated BMI 61.5 Ht: 63 Wt: 347 lbs - Other specified acquired hypothyroidism - Panic disorder without agoraphobia - Pneumonia in other infectious diseases classified elsewhere(484.8) 2005 RML - Polycystic ovaries 2005 elevated androgens - Sensorineural hearing loss, unspecified wears hearing aide right ear, no hearing left ear - Synovial cyst of popliteal space - 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 MEDICATIONS Current Outpatient Prescriptions: FLUoxetine (PROZAC) 20 mg capsule Take 3 capsules by mouth once daily. Cholecalciferol, Vitamin D3, 1,000 unit cap Take 1 capsule by mouth once daily. albuterol HFA (VENTOLIN HFA) 90 mcg/actuation inhaler Inhale 2 Puffs as instructed every 4 hours as needed for Wheezing/Shortness of Breath. ASCORBIC ACID (VITAMIN C ORAL) Take by mouth once daily. Not taking levothyroxine (SYNTHROID) 137 mcg tablet Take 1 tablet by mouth once daily. hydrOXYzine pamoate (VISTARIL) 25 mg capsule Take 25 mg by mouth three times daily as needed. No current facility-administered medications for this visit. FAMILY HISTORY Problem Relation Age of Onset - Cancer Mother pancreatic cancer - Lipids Father enlarged prostate, hyperlipidemia, COPD - Bi-Polar [OTHER] Sister - Hypertension Brother - Coronary Artery Disease Maternal Grandmother - Coronary Artery Disease Maternal Grandfather - Coronary Artery Disease Paternal Grandfather - Thyroid Maternal Aunt 3 Aunts Social History Marital status: Spouse name: Yohan Years of education: 14 Number of children: 3 Occupational History Occupation Employer Comment [employer] Social History Main Topics Smoking status: Never Smoker Smokeless tobacco: Never Used Comment: smokes Alcohol use: No Drug use: No Sexual activity: Yes Partners with: Male control/protection: Tubal Ligation Comment: Pt has had a Hysterectomy Social History Narrative 2 daughters, 1 son BP 130/70 (BP Site: Left Arm, BP Position: Sitting, BP Cuff Size: Large Adult) Pulse 88 Resp 12 Wt (!) 138.8 kg (306 lb) LMP 04/10/2015 BMI 52.89 kg/m? PHYSICAL EXAM: General Appearance: Well appearing, alert, in no acute distress, well-hydrated, well nourished.. Skin: Skin color, texture, turgor normal, no suspicious rashes or lesions. + rash of the bilateral upper inner arm, macular, hernadez, irregularly shaped. Head: Normocephalic, no masses, lesions, tenderness or abnormalities. Eyes: Anicteric sclera. Pupils are equally round and reactive to light. Extraocular movements are intact. Oropharynx: Lips, mucosa, and tongue normal, teeth and gums normal, oropharynx normal. Lungs: Lungs clear to auscultation. No wheezing, rhonchi, rales. Heart: RRR without murmur, gallop, or rubs. No ectopy. Abdomen: Abdomen soft, non-tender. Bowel sounds normal. No masses, organomegaly. Extremities: No deformities, edema, skin discoloration, clubbing or cyanosis. Good capillary refill. Neurologic: Gait normal. ASSESSMENT/PLAN: 1. Other chest pain - ICD9: 786.59, ICD10: R07.89 (primary diagnosis) Chest pain of unclear etiology, patient with significant risk factor(s) of family history of early coronary heart disease and obesity - Stress testing- see orders - STRESS ECHO TREADMILL - negative eval in the ER. - Discussed if return of symptoms, she should return to the ER via 911. 2. Tinea versicolor - ICD9: 111.0, ICD10: B36.0 Start:- KETOCONAZOLE 2 % TOPICAL CREAM Use for one week after the rash goes away. Discussed treatment plan and patient voices understanding. Patient's questions answered appropriately. Medications and potential side effects were discussed and patient voices understanding. Return to the office as scheduled or as needed for worsening/no improvement. HARVEY Solorzano APRN.CNP 09/16/2017 3:13 PM Signed 1. Start the ketoconazole cream to the rash daily. Use one week longer than it takes for the rash to go away. 2. Schedule stress test. 3. If any recurrence of chest pain, return to the ER. Referring Provider: SELF [[id number]] Allergies As of Date: 09/16/2017 (No Known Allergies) Date Reviewed: 09/16/2017 Reviewed by: Theresa Johnson Sole Painter - Fully Assessed Reason for Visit: ED Follow-up [821] Primary Visit Diagnosis:Other chest pain [R07.89] Other Visit Diagnosis:Tinea versicolor [B36.0] Order(s):STRESS ECHO TREADMILL [[id number]] Order #: [id number]: 1 FUTURE ketoconazole (NIZORAL) 2 % creamApply 1 application to affected area once daily. X 2 weeks.Disp: 60 gRfl: 1 Prescriptions as of 09/16/2017 Sig: FLUOXETINE 20 MG CAPSULE Take 3 capsules by mouth once* CHOLECALCIFEROL (VITAMIN D3) * Take 1 capsule by mouth once * ALBUTEROL SULFATE HFA 90 MCG/* Inhale 2 Puffs as instructed * VITAMIN C ORAL Take by mouth once daily. Not* LEVOTHYROXINE 137 MCG TABLET Take 1 tablet by mouth once d* HYDROXYZINE PAMOATE 25 MG CAP* Take 25 mg by mouth three kristi* KETOCONAZOLE 2 % TOPICAL CREAM Apply 1 application to affect* Problem List As Of Date 09/16/2017 Noted Resolved Panic Disorder without Agoraphobia [F41.0] Adjustment Disorder with Depressed Mood [F43.21] Hypothyroidism, acquired [E03.9] Synovial Cyst of Popliteal Space [M71.20] Polycystic ovaries [E28.2] INVALID FOR*08/24/2015 Absence of menstruation [N91.2] INVALID FOR*04/27/2011 OBESITY [E66.9] INVALID FOR*09/09/2007 Unspecified Asthma [J45.909] INVALID FOR* Dysmetabolic syndrome X [E88.81] INVALID FOR*04/27/2011 Esophageal Reflux [K21.9] Sensorineural hearing loss, unspecified [H90.5] 07/19/2017 More... Obesity, Class III, BMI 40-49.9 (morbid obesity* Tuberculin Test Reaction [795.5] More... Unspecified hemorrhoids without mention of comp* 07/19/2017 Unspecified Chest Pain [R07.9] INVALID FOR* Right knee pain [M25.561] INVALID FOR*07/19/2017 ROSA MARIA (obstructive sleep apnea) [G47.33] INVALID FOR* Vitamin D deficiency [E55.9] INVALID FOR* ASA CLASS III [1003] INVALID FOR* Other and unspecified postsurgical nonabsorptio*INVALID FOR*07/19/2017 Bariatric surgery status [Z98.84] INVALID FOR* More... PPD positive, treated [R76.11] INVALID FOR* Thickened endometrium [R93.8] INVALID FOR*05/26/2015 Abnormal uterine bleeding [N93.9] INVALID FOR*08/24/2015 Mastalgia [N64.4] INVALID FOR* Lymph node enlargement [R59.9] INVALID FOR*07/19/2017 Dysmenorrhea [N94.6] INVALID FOR*08/24/2015 Other instructions from your clinician: 1. Start the ketoconazole cream to the rash daily. Use one week longer than it takes for the rash to go away. 2. Schedule stress test. 3. If any recurrence of chest pain, return to the ER. Prescriptions ordered this encounter Disp Refills Start End KETOCONAZOLE 2 % TOPICAL CREAM 60 g 1 09/16/2017 Route: TOPICAL Sig: Apply 1 application to affected area once daily. X 2 weeks. Disposition: Return if symptoms worsen or fail to improve. Follow-up and Disposition History Recorded Encounter Status:Closed by HONEY FIGUEROA CNP on 09/16/17 EMERGENCY DEPARTMENT Observed: 09/12/2017 Status: F Source: [place] SUMMARY 11:44 PM [facility] REPOSITORY [facility] Medical Records Department [address] [place] [address] Emergency Department Summary 09/12/17 2305 MR#: [id number] Acct: [id number] Name: AMARILIS HINTON Rep #: [id number] : 1970 46 From: Miugel Ceja MD PCP: Liban Barrett MD Status: REG ER - ER Visit Summary Date of Service: 09/12/17 Chief Complaint: Chest pain History of Present Illness: The patient is a [address] Barrett. She reports that she has chest pain again at 615 this evening while she was at rest. She describes as a pressure on the left side of her chest. States that initially she noticed pain in her left hand and that this moved up into her chest over the course of 10 minutes. She reports the pain also seems to go up into the left side of her neck. She describes it as a pressure. Is 10 out of 10 at worst. Is 5 out of 10 currently. Is worsened by nothing. It is not worsened by exertion, breathing, or movement. She denies any associated nausea, vomiting, or diaphoresis. She does report that she feels slightly short of breath and lightheaded. Patient denies any chest pain or change in dyspnea exertion in the past month. No personal family history of coronary artery disease. No personal family history of DVT. No recent travel. No ankle swelling or calf pain. Physical Examination: Vitals: Stable. Afebrile. General: Well-nourished and well-developed. Head: Normocephalic atraumatic. Neck: Supple, no lymphadenopathy. No JVD. Nontender. Cardiovascular: Regular rate and rhythm. No murmurs. Respiratory: No respiratory distress. Clear to auscultation bilaterally. There is palpation over the left side of her chest which she reports does not reproduce her pain. Abdominal: Soft, nontender, nondistended, normal bowel sounds. No guarding, rebound, or peritoneal signs. Back: Nontender. Extremities: Nontender, no edema. Skin: Normal color, no rash. Neurologic: Alert and oriented 3. Cranial nerves II through XII are intact. Normal strength and sensation. Psych: Normal affect. Test Results: EKG is sinus at 73 with a T-wave inversion in lead III. This is unchanged from June 2015. Repeat EKG is unchanged. Troponin is negative. Chem-7 is more for calcium of 8.1. CBC is normal. CTA of the chest shows no dissection or PE. Repeat troponin is negative. Emergency Department Course and Treatment: Patient was treated with aspirin. She refused pain medications. However, she continued to have pain throughout her entire stay in the emergency department. Treatment Plan: She has now had pain for greater than 4 hours with a repeat troponin that is negative and an unchanged EKG. I feel that she is a suitable candidate for further outpatient evaluation. She will be discharged instructions from Dr. Barrett as soon as possible. Disposition: To home in improved and stable condition. Impression: 1. Atypical chest pain. 2. RICHARD score of 0. This note was generated with TwoTen dictation software. It may contain incorrect words, spelling, and punctuation that were not noted in review of the chart prior to signing ED Disposition - Plan for ED Patient: Chief Complaint: Chest Pain Instructions: ED Chest Pain Atypical Unkn Cause Referrals: Liban Barrett MD [Primary Care Provider] - As soon as possible What to do if you have Problems For any increased pain, shortness of breath, bleeding, nausea or vomiting, chest pain, or any unexpected problems, contact your Primary Care Provider. Call [facility] ([phone]) or report to the closest Emergency Room. Call 911 if necessary. 09/12/17 2344 <Electronically signed by Miguel Ceja MD> Date Miguel Ceja MD Cosigner Signature (If Indicated): Date CC: Liban Barrett MD TROPONIN-I Collected: 09/12/2017 Status: F Source: [place] 10:45 PM [facility] REPOSITORY Order Comment: Comments: Should be drawn 3H after initial Troponin obtained TYPE CODE TESTS RESULT OUT OF RANGE REFERENCE UNITS LAB L501.4010 <0.045 ng/mL Normal < 0.015 TROPONIN-I Result Comment: TROPONIN-I EXPECTED VALUES <0.045 Negative 0.045 - 0.590 Consistent with Cardiac Damage > OR = 0.600 Critical Value Not every elevated troponin is indicative of IA. These values should be used with clinical judgement in examining the patient's clinical picture for diagnosis. To establish a diagnosis of IA versus myocardial injury, there must be a demonstrated rise and/or fall in the troponin values, in addition to ischemic symptoms, EKG changes, new regional wall motion abnormality, and/or angiographical evidence. PLEASE NOTE: REFERENCE RANGES EDITED 17 Performed By: #### L501.4010 #### [facility] [address] [address] [place], [place], [id number] CBC W/DIFF, AUTOMATED Collected: 09/12/2017 Status: F Source: [place] 7:35 PM [facility] REPOSITORY TYPE CODE TESTS RESULT OUT OF RANGE REFERENCE UNITS LAB L100.1000 4.4-11.0 K/mm3 Normal WBC 5.9 LAB L100.1200 4.2-5.4 M/mm3 Normal RBC 4.80 LAB L100.1300 12.0-15.0 g/dl Normal HGB 14.0 LAB L100.1400 37-47 % Normal HCT 41.4 LAB L100.1500 81-99 fL Normal MCV 86.3 LAB L100.1600 27.0-32.0 pg Normal MCH 29.2 LAB L100.1700 32-36 g/gl Normal MCHC 33.8 LAB L100.1810 11.6-14.6 % Normal RDW CV 13.0 LAB L100.1820 35.1-43.9 fl Normal RDW SD 41.1 LAB L100.1900 150-450 K/mm3 Normal PLT 268 LAB L100.2000 6.2-12.0 fl Normal MPV 9.6 LAB L100.2100 47-70 % Normal NEUT% 60.9 LAB L100.2200 19-41 % Normal LY% 28.8 LAB L100.2300 0-10 % Normal MONO% 7.6 LAB L100.2400 0-5 % Normal EO% 2.0 LAB L100.2500 0-1 % Normal BASO% 0.5 LAB L100.2550 0.0-0.9 % Normal IM GRAN % 0.200 Result Comment: IG% - Immature Granulocytes (promyelocytes, myelocytes and metamyelocytes) > 1% indicates that a LEFT SHIFT is Present. LAB L100.2620 2.0-7.7 X10 3/uL Normal Absolute Neut 3.6 LAB L100.2720 0.83-4.51 X10 3/ul Normal Absolute Lymph 1.70 Performed By: #### L100.0100 #### [facility] [address] [place], [place], [id number] BASIC METABOLIC Collected: 09/12/2017 Status: F Source: [place] PROFILE (BMP) 7:35 PM [facility] REPOSITORY TYPE CODE TESTS RESULT OUT OF RANGE REFERENCE UNITS LAB L501.0100 74-106 mg/dL Normal GLU 96 Result Comment: Please note revised GLUCOSE reference range effective 2017. LAB L501.1000 7-18 mg/dL Normal BUN 13 LAB L501.1100 0.55-1.02 mg/dL Normal CREAT,SERUM 0.80 Result Comment: The validity of the calculated GFR AND GFRAA in patients over 70 years has not been determined. Clinical correlation is essential. LAB L501.1110 >60 mL/min Normal EST GFR 83 Result Comment: Non- GFR Calc LAB L501.1115 >60 mL/min Normal EST GFR - AA 100 Result Comment: GFR Calc LAB L501.1255 ml/min Normal Estimated CRCL 74.23 LAB L501.1300 10-20 RATIO Normal BUN/CRE 16.2 LAB L501.2200 8.5-10 mg/dL Low .1 CA 8.1 LAB L501.5300 136-14 mmol/L Normal 5 NA 138 LAB L501.5600 3.5-5. mmol/L Normal 1 K 4.0 LAB L501.5900 98-107 mmol/L Normal CL 104 LAB L501.6100 21.0-3 mmol/L Normal 2.0 CO2 26.0 LAB L501.6200 5-15 Normal GAP 8 Performed By: #### L500.2500, L501.4010 #### [facility] [address] [place], [address] TROPONIN-I Collected: 09/12/2017 Status: F Source: [place] 7:35 PM [facility] REPOSITORY TYPE CODE TESTS RESULT OUT OF RANGE REFERENCE UNITS LAB L501.4010 <0.045 ng/mL Normal < 0.015 TROPONIN-I Result Comment: TROPONIN-I EXPECTED VALUES <0.045 Negative 0.045 - 0.590 Consistent with Cardiac Damage > OR = 0.600 Critical Value Not every elevated troponin is indicative of IA. These values should be used with clinical judgement in examining the patient's clinical picture for diagnosis. To establish a diagnosis of IA versus myocardial injury, there must be a demonstrated rise and/or fall in the troponin values, in addition to ischemic symptoms, EKG changes, new regional wall motion abnormality, and/or angiographical evidence. PLEASE NOTE: REFERENCE RANGES EDITED 17 Performed By: #### L500.2500, L501.4010 #### [facility] [address] [place], [address] CTA CHEST W/WO Observed: 09/12/2017 Status: F Source: [place] CONTRAST 7:34 PM [facility] REPOSITORY [facility] [address] [place] [address] CTA Chest W/WO Contrast MR#: [id number] Acct: [id number] Name: AMARILIS HINTON Rep #: [id number] : 1970 F 46 From: Paul Beckham DO PCP: Liban Barrett MD Status: REG ER Study: CTA Chest W/WO Contrast Date of Exam: 09/12/17 Exam# [id number] Ordering Dr: Miguel Ceja MD STUDY: CTA CHEST REASON FOR EXAM: Female, 46 years old. Chest pain RADIATION DOSAGE (If Supplied By Facility): CTDIvol = ( 14.64 ) mGy, DLP = ( 770.48 ) mGycm TECHNIQUE: The examination was performed with the intravenous administration of 100ml ml of Isovue 370 contrast material. Post-processing of the angiographic images was performed, with multiplanar reformation and 3D reconstruction. Individualized dose optimization techniques were used for this CT. COMPARISON: None. FINDINGS: Normal enhancement of the main pulmonary artery and right and left pulmonary arteries. Normal enhancement of the bilateral peripheral pulmonary arteries. There is no demonstrated pulmonary embolism. Normal thoracic aorta and visualized great vessels. There is no demonstrated aortic dissection. Normal heart and pericardium. Normal mediastinum. Normal hilar regions. Normal visualized trachea and bronchi. The lungs are well expanded. Normal pulmonary parenchyma. Normal pleura. Normal chest wall structures. Mild degenerative vertebral changes. Sclerotic focus of a mid thoracic vertebral body probably a bony island. Normal visualized upper abdomen. CT/CTA Chest W/WO Contrast IMPRESSION: No demonstrated pulmonary embolism or arterial dissection. Electronically Signed: Paul BeckhamDO at 20:42 EDT Tel [phone], Service support , CC: Miguel Ceja MD; Liban Barrett MD Heater Tender: Signed CBC AND DIFFERENTIAL Collected: 07/19/2017 Status: F Source: [place] 3:[address] [facility] REPOSITORY TYPE CODE TESTS RESULT OUT OF REFERENCE UNITS RANGE LAB WBC 3.70-11.00 k/uL WBC 3.91 LAB RBC 3.90-5.20 m/uL RBC 4.82 LAB HGB 11.5-15.5 g/dL Hemoglobin 14.2 LAB HCT 36.0-46.0 % Hematocrit 43.1 LAB MCV 80.0-100.0 fL MCV 89.4 LAB MCH 26.0-34.0 pG MCH 29.5 LAB MCHC 30.5-36.0 g/dL MCHC 32.9 LAB RDWCV 11.5-15.0 % RDW-CV 13.0 LAB PLTCT 150-400 k/uL Platelet Count 272 LAB MPV 9.0-12.7 fL MPV 9.8 LAB ANEUT % Neut% 45.9 LAB AANEUT 1.45-7.50 k/uL Abs Neut 1.78 LAB ALYMP % Lymph% 39.6 LAB AALYMP 1.00-4.00 k/uL Abs Lymph 1.55 LAB AMONO % Charles% 10.7 LAB AAMONO <0.87 k/uL Abs Charles 0.42 LAB AEOS % Eosin% 1.8 LAB AAEOS <0.46 k/uL Abs Eosin 0.07 LAB ABASO % Baso% 2.0 LAB AABASO <0.11 k/uL Abs Baso 0.08 LAB AUNRBC 0 /100 WBC NRBCs 0.0 LAB ABNRBC <0.01 k/uL Absolute nRBC <0.01 LAB DTYP DTYPE Auto Diff Performed By: #### CBCDIF, CMP, IRON, TSH, B12, SERFOL, VITD #### [facility] [address] [place] [address] COMP METABOLIC PANEL Collected: 07/19/2017 Status: F Source: [place] 3:[address] [facility] REPOSITORY TYPE CODE TESTS RESULT OUT OF REFERENCE UNITS RANGE LAB TP 6.3-8.0 g/dL Protein, Total 6.3 LAB ALB 3.9-4.9 g/dL Low Albumin 3.8 LAB CA 8.5-10.2 mg/dL Low Calcium, Total 8.3 LAB TBIL 0.2-1.3 mg/dL Bilirubin, Total 0.3 LAB ALKP 32-117 U/L Alkaline Phosphatase 77 LAB AST 13-35 U/L AST 13 LAB GLU 74-99 mg/dL Glucose 76 Result Comment: The [place] Diabetes Association (ADA) provides guidance for cutoff values for fasting glucose and random glucose. The ADA defines fasting as no caloric intake for at least 8 hours. Fas ting plasma glucose results between 100 to 125 mg/dL indicate increased risk for diabetes (prediabetes). Fasting plasma glucose results greater than or equal to 126 mg/dL meet the criteria for diagnosis of diabetes. In the absence of unequivocal hyperglycemia, results should be confirmed by repeat testing. In a patient with classic symptoms of hyperglycemia or hyperglycemic crisis, random plasma glucose results greater than or equal to 200 mg/dL meet the criteria for diagnosis of diabetes. Reference: Standards of Medical Care in Diabetes 2016, [place] Diabetes Association. Diabetes Care. 2016.39(Suppl 1). LAB BUN 7-21 mg/dL BUN 8 LAB CRET 0.58-0.96 mg/dL Creatinine 0.78 LAB NA 136-144 mmol/L Sodium 139 LAB K 3.7-5.1 mmol/L Potassium 4.1 LAB CL 97-105 mmol/L Chloride 100 LAB CO2 22-30 mmol/L CO2 28 LAB AGAP 9-18 mmol/L Anion Gap 11 LAB ALT 7-38 U/L ALT 9 LAB GFRAA eGFR- Amer. >60 LAB GFRNAA . eGFR-All Other Races >60 Result Comment: eGFR (Estimated GFR) Units of measure: mL/min/1.73 meters squared eGFR is derived from the reexpressed MDRD Study equation using the following parameters: serum creatinine, age, gender and race. The creatinine assay has been calibrated to be traceable to IDMS. An eGFR <60 mL/min/1.73m2 for >3 months is consistent with chronic kidney disease. Refer to KDOQI guidelines for clinical interpretation. In patients with unstable renal function, e.g. those with acute kidney injury, the eGFR may not accurately reflect actual GFR. Performed By: #### CBCDIF, CMP, IRON, TSH, B12, SERFOL, VITD #### [facility] [address] [place] [id number] IRON AND TIBC Collected: 07/19/2017 Status: F Source: [place] 3:03 PM [facility] REPOSITORY TYPE CODE TESTS RESULT OUT OF REFERENCE UNITS RANGE LAB IRN 41-186 ug/dL Iron 43 LAB TIBC 232-386 ug/dL TIBC 273 LAB SAT 15-57 % Transferrin Saturatn 16 Performed By: #### CBCDIF, CMP, IRON, TSH, B12, SERFOL, VITD #### [facility] [address] [place] [id number] TSH Collected: 07/19/2017 Status: F Source: [place] 3:03 PM [facility] REPOSITORY TYPE CODE TESTS RESULT OUT OF RANGE REFERENCE UNITS LAB TSH 0.400-5.500 uU/mL TSH 3.450 Result Comment: If the patient is , TSH reference range varies by gestational period: First Trimester 0.100-2.500 uU/mL Second Trimester 0.200-3.000 uU/mL Third Trimester 0.300-3.000 uU/mL References: 1. Rueda L, Lisa M, Miki EK, et al. Management of Thyroid Dysfunction during and : An Endocrine Society Clinical Practice Guideline. J Clin Endocrinol Metab, 2012:97:7770-4293. 2. Jaison SHAH. Overview of thyroid disease in . UpToDate. 2016. Accessed on September 30, 2015. Performed By: #### CBCDIF, CMP, IRON, TSH, B12, SERFOL, VITD #### [facility] [address] [place], [place] [address] VITAMIN B12 Collected: 07/19/2017 Status: F Source: [place] 3:03 PM [facility] REPOSITORY TYPE CODE TESTS RESULT OUT OF REFERENCE UNITS RANGE LAB B12 232-1245 pg/mL Vitamin B12 337 Performed By: #### CBCDIF, CMP, IRON, TSH, B12, SERFOL, VITD #### [facility] [address] [place], [place] [address] FOLATE, SERUM Collected: 07/19/2017 Status: F Source: [place] 3:03 PM [facility] REPOSITORY TYPE CODE TESTS RESULT OUT OF REFERENCE UNITS RANGE LAB SERFOL >4.7 ng/mL Folate, 8.8 Serum Performed By: #### CBCDIF, CMP, IRON, TSH, B12, SERFOL, VITD #### [facility] [address] [place], [place] [address] VITAMIN D 25 HYDROXY Collected: 07/19/2017 Status: F Source: [place] 3:03 PM [facility] REPOSITORY TYPE CODE TESTS RESULT OUT OF REFERENCE UNITS RANGE LAB VITD 31.0-80.0 ng/mL Low Vitamin D 25 27.4 Hydroxy Result Comment: Classification of 25 [place] Vitamin D status: Insufficiency/Moderate Deficiency: < or = 30 ng/mL Sufficiency/Optimal Levels: 31 to 80 ng/mL Toxicity: > 100 ng/mL Test performed by chemiluminescent immunoassay. Performed By: #### CBCDIF, CMP, IRON, TSH, B12, SERFOL, VITD #### [facility] [address] [place] [id number] PROGRESS Observed: 07/19/2017 Status: COMPLETED Source: [place] 2:33 PM [facility] REPOSITORY HNO ID: [id number] Author: Liban Barrett Service: (none) Author Type: Physician Type: Progress Notes Filed: 07/19/2017 2:47 PM Note Text: Patient presents with: Headaches: daily Refill Request Recheck: stopped her iron due to GI upset HPI: Patient presents today for office visit for follow up. PSYCH: Currently tolerating medications well: Yes . Side effects: No. Sleep issues: Still poor. Energy changes: no Appetite changes: No. Current depression: No. Current anxiety: No. Suicidal ideation: No. HYPOTHYROID: Patient is compliant with medications: Yes Patient has changes in energy: No Patient has changes in hair or skin: No Patient has temperature intolerance: No Patient has weight changes: No VIT D: now on oral b12 Hx of Gastric bypass: has been off of iron at least a month. Was Having some gi upset. Still taking other meds. Headache: has been getting them daily. Discussed avoiding nsaids.has some congestion. Not worst headache. No numbness or weakness. Discussed using mucinex prn. Call if symptoms worsen at all or if not better in one to two weeks MEDICATIONS: Current Outpatient Prescriptions: FLUoxetine (PROZAC) 20 mg capsule Take 3 capsules by mouth once daily. albuterol HFA (VENTOLIN HFA) 90 mcg/actuation inhaler Inhale 2 Puffs as instructed every 4 hours as needed for Wheezing/Shortness of Breath. levothyroxine (SYNTHROID) 137 mcg tablet Take 1 tablet by mouth once daily. ASCORBIC ACID (VITAMIN C ORAL) Take by mouth once daily. Not taking buPROPion XL (WELLBUTRIN XL) 150 mg 24 hr tablet Take 1 tablet by mouth once daily. (Patient not taking: Reported on 07/19/2017 ) cholecalciferol, Vitamin D3, (VITAMIN D3) 50,000 unit cap capsule Take 1 capsule by mouth once each week. (Patient not taking: Reported on 07/19/2017 ) hydrOXYzine pamoate (VISTARIL) 25 mg capsule Take 25 mg by mouth three times daily as needed. ferrous sulfate (IRON) 325 mg (65 mg iron) tablet Take 1 tablet by mouth twice daily. (Patient not taking: Reported on 07/19/2017 ) MULTIVITS,CA,MINERALS/IRON/FA (ONE-A-DAY WOMENS FORMULA ORAL) Take by mouth. CALCIUM CITRATE/VITAMIN D3 (CITRACAL + D PETITES ORAL) Take 500 mg by mouth twice daily. ascorbic acid (VITAMIN C) 500 mg ORAL tablet Take 500 mg by mouth once daily. cyanocobalamin (VITAMIN B-12) 500 mcg ORAL Tab Take 1 tablet by mouth once daily. No current facility-administered medications for this visit. ALLERGIES: ALLERGIES No Known Allergies PAST MEDICAL HISTORY Diagnosis Date - Adjustment disorder with depressed mood suicidal ideation without attempt 2005 - Asthma - Bariatric surgery status 06-12-10 gastric bypass - Dysmetabolic syndrome X - Esophageal reflux - Morbid obesity (HCC) 12-02-09 stated BMI 61.5 Ht: 63 Wt: 347 lbs - Other specified acquired hypothyroidism - Panic disorder without agoraphobia - Pneumonia in other infectious diseases classified elsewhere(484.8) 2006 RML - Polycystic ovaries 2005 elevated androgens - Sensorineural hearing loss, unspecified wears hearing aide right ear, no hearing left ear - Synovial cyst of popliteal space - 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 18, i year INH prophylaxis - Unspecified hemorrhoids without mention of complication - Unspecified sleep apnea resolved with weight loss - Vitamin D deficiency 02/28/2010 PAST SURGICAL HISTORY Procedure Laterality Date - IMPLANT COCHLEAR DEVICE Cochlear device implant right - INCISION EARDRUM,ASPIR,GEN ANESTH Myringotomy/tubes - LAP GASTRIC BYPASS/JACOBY-EN-Y 06-12-10 P Fernandez - LAPAROSCOPIC CHOLEYCYSTECTOMY Cholecystectomy, lap - LIGATE FALLOPIAN TUBE Tubal ligation - TOTAL ABDOM HYSTERECTOMY 03/2016 Hysterectomy, [facility] FAMILY HISTORY Problem Relation Age of Onset - Cancer Mother pancreatic cancer - Lipids Father enlarged prostate, hyperlipidemia, COPD - Bi-Polar [OTHER] Sister - Hypertension Brother - Coronary Artery Disease Maternal Grandmother - Coronary Artery Disease Maternal Grandfather - Coronary Artery Disease Paternal Grandfather - Thyroid Maternal Aunt 3 Aunts Social History Marital status: Spouse name: Yohan Years of education: 14 Number of children: 3 Occupational History Occupation Employer Comment [employer] Social History Main Topics Smoking status: Never Smoker Smokeless status: Never Used Comment: smokes Alcohol use: No Drug use: No Sexual activity: Yes Partners with: Male control/protection: Tubal Ligation Comment: Pt has had a Hysterectomy Social History Narrative 2 daughters, 1 son Reviewed current medications, allergies, past medical history, surgical history, family history and social history today. REVIEW OF SYSTEMS All other reviewed and negative other than HPI. HEALTH MAINTENANCE: Reviewed health maintenance issues today and recommended the following in detail. Had hyster-benign VITALS: BP 108/72 Pulse 80 Resp 12 Wt 135.6 kg (299 lb) LMP 04/10/2015 BMI 51.68 kg/m2 Last 4 Encounter Wt Readings: Date: Wt: 07/19/2017 135.6 kg (299 lb) 12/18/2016 129.7 kg (286 lb) 12/06/2016 129.3 kg (285 lb) 11/27/2016 129.3 kg (285 lb) PHYSICAL EXAMINATION: General appearance: Well appearing, alert, in no acute distress, well-hydrated, well nourished. Skin: Skin color, texture, turgor normal, no suspicious rashes or lesions Head: Normocephalic, no masses, lesions, tenderness or abnormalities Lungs: Lungs clear to auscultation. No wheezing, rhonchi, rales Heart: RRR without murmur, gallop, or rubs. No ectopy Abdomen: Normal abdominal exam, Abdomen soft, non-tender. Bowel sounds normal. No masses, organomegaly Extremities: No deformities, edema, skin discoloration, clubbing or cyanosis. Good capillary refill. Musculoskeletal: No joint swelling, deformity, or tenderness Neuro: normal dtr's PSYCH:Affect normal. Normal speech. Normal eye contact ASSESSMENT/PLAN: 1. Gastroesophageal reflux disease without esophagitis - ICD9: 530.81, ICD10: K21.9 (primary diagnosis) - call if any issues. 2. Adjustment disorder with depressed mood - ICD9: 309.0, ICD10: F43.21 - stable. - FLUOXETINE 20 MG CAPSULE 3. Vitamin D deficiency - ICD9: 268.9, ICD10: E55.9 - check labs. 4. Bariatric surgery status - ICD9: V45.86, ICD10: Z98.84 - check labs. 5. Hypothyroidism, acquired - ICD9: 244.9, ICD10: E03.9 - Instructed patient on importance of taking on an empty stomach either first thing in the morning or at bedtime. - TSH BLD 6. Intestinal malabsorption, unspecified type - ICD9: 579.9, ICD10: K90.9 - check labs. Consider hematology if iron continues to be an issue and cannot tolerate. Also could consider gi eval. - CBC + DIFF - COMP METABOLIC PANEL - VITAMIN B12 BLOOD - FOLATE SERUM - IRON + TIBC - VITAMIN D 25 HYDROXY Liban Barrett MD RTO in six months and prn. CNOV Observed: 07/19/2017 Status: COMPLETED Source: [place] 1:20 PM [facility] REPOSITORY Office Visit (FAMPWS) AMARILIS HINTON ([id number]) 1970 F CHT Date Time Provider Department 07/19/17 1:20 PM LIBAN BRARETT During your visit today, we recorded the following information about you: Pulse Respiration Blood pressure Weight 80/minute 12/minute 108/72 135.6 kg Liban Barrett MD 07/19/2017 2:47 PM Signed Patient presents with: Headaches: daily Refill Request Recheck: stopped her iron due to GI upset HPI: Patient presents today for office visit for follow up. PSYCH: Currently tolerating medications well: Yes . Side effects: No. Sleep issues: Still poor. Energy changes: no Appetite changes: No. Current depression: No. Current anxiety: No. Suicidal ideation: No. HYPOTHYROID: Patient is compliant with medications: Yes Patient has changes in energy: No Patient has changes in hair or skin: No Patient has temperature intolerance: No Patient has weight changes: No VIT D: now on oral b12 Hx of Gastric bypass: has been off of iron at least a month. Was Having some gi upset. Still taking other meds. Headache: has been getting them daily. Discussed avoiding nsaids.has some congestion. Not worst headache. No numbness or weakness. Discussed using mucinex prn. Call if symptoms worsen at all or if not better in one to two weeks MEDICATIONS: Current Outpatient Prescriptions: FLUoxetine (PROZAC) 20 mg capsule Take 3 capsules by mouth once daily. albuterol HFA (VENTOLIN HFA) 90 mcg/actuation inhaler Inhale 2 Puffs as instructed every 4 hours as needed for Wheezing/Shortness of Breath. levothyroxine (SYNTHROID) 137 mcg tablet Take 1 tablet by mouth once daily. ASCORBIC ACID (VITAMIN C ORAL) Take by mouth once daily. Not taking buPROPion XL (WELLBUTRIN XL) 150 mg 24 hr tablet Take 1 tablet by mouth once daily. (Patient not taking: Reported on 07/19/2017 ) cholecalciferol, Vitamin D3, (VITAMIN D3) 50,000 unit cap capsule Take 1 capsule by mouth once each week. (Patient not taking: Reported on 07/19/2017 ) hydrOXYzine pamoate (VISTARIL) 25 mg capsule Take 25 mg by mouth three times daily as needed. ferrous sulfate (IRON) 325 mg (65 mg iron) tablet Take 1 tablet by mouth twice daily. (Patient not taking: Reported on 07/19/2017 ) MULTIVITS,CA,MINERALS/IRON/FA (ONE-A-DAY WOMENS FORMULA ORAL) Take by mouth. CALCIUM CITRATE/VITAMIN D3 (CITRACAL + D PETITES ORAL) Take 500 mg by mouth twice daily. ascorbic acid (VITAMIN C) 500 mg ORAL tablet Take 500 mg by mouth once daily. cyanocobalamin (VITAMIN B-12) 500 mcg ORAL Tab Take 1 tablet by mouth once daily. No current facility-administered medications for this visit. ALLERGIES: ALLERGIES No Known Allergies PAST MEDICAL HISTORY Diagnosis Date - Adjustment disorder with depressed mood suicidal ideation without attempt 2005 - Asthma - Bariatric surgery status 06-12-10 gastric bypass - Dysmetabolic syndrome X - Esophageal reflux - Morbid obesity (HCC) 12-02-09 stated BMI 61.5 Ht: 63ANDquot; Wt: 347 lbs - Other specified acquired hypothyroidism - Panic disorder without agoraphobia - Pneumonia in other infectious diseases classified elsewhere(484.8) 2005 RML - Polycystic ovaries 2005 elevated androgens - Sensorineural hearing loss, unspecified wears hearing aide right ear, no hearing left ear - Synovial cyst of popliteal space - 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 18, i year INH prophylaxis - Unspecified hemorrhoids without mention of complication - Unspecified sleep apnea resolved with weight loss - Vitamin D deficiency 02/28/2010 PAST SURGICAL HISTORY Procedure Laterality Date - IMPLANT COCHLEAR DEVICE Cochlear device implant right - INCISION EARDRUM,ASPIR,GEN ANESTH Myringotomy/tubes - LAP GASTRIC BYPASS/JACOBY-EN-Y 06-12-10 P Fernandez - LAPAROSCOPIC CHOLEYCYSTECTOMY Cholecystectomy, lap - LIGATE FALLOPIAN TUBE Tubal ligation - TOTAL ABDOM HYSTERECTOMY 03/2016 Hysterectomy, NIYAH FAMILY HISTORY Problem Relation Age of Onset - Cancer Mother pancreatic cancer - Lipids Father enlarged prostate, hyperlipidemia, COPD - Bi-Polar [OTHER] Sister - Hypertension Brother - Coronary Artery Disease Maternal Grandmother - Coronary Artery Disease Maternal Grandfather - Coronary Artery Disease Paternal Grandfather - Thyroid Maternal Aunt 3 Aunts Social History Marital status: Spouse name: Yohan Years of education: 14 Number of children: 3 Occupational History Occupation Employer Comment [employer] Social History Main Topics Smoking status: Never Smoker Smokeless status: Never Used Comment: smokes Alcohol use: No Drug use: No Sexual activity: Yes Partners with: Male control/protection: Tubal Ligation Comment: Pt has had a Hysterectomy Social History Narrative 2 daughters, 1 son Reviewed current medications, allergies, past medical history, surgical history, family history and social history today. REVIEW OF SYSTEMS All other reviewed and negative other than HPI. HEALTH MAINTENANCE: Reviewed health maintenance issues today and recommended the following in detail. Had hyster-benign VITALS: BP 108/72 Pulse 80 Resp 12 Wt 135.6 kg (299 lb) LMP 04/10/2015 BMI 51.68 kg/m2 Last 4 Encounter Wt Readings: Date: Wt: 07/19/2017 135.6 kg (299 lb) 12/18/2016 129.7 kg (286 lb) 12/06/2016 129.3 kg (285 lb) 11/27/2016 129.3 kg (285 lb) PHYSICAL EXAMINATION: General appearance: Well appearing, alert, in no acute distress, well-hydrated, well nourished. Skin: Skin color, texture, turgor normal, no suspicious rashes or lesions Head: Normocephalic, no masses, lesions, tenderness or abnormalities Lungs: Lungs clear to auscultation. No wheezing, rhonchi, rales Heart: RRR without murmur, gallop, or rubs. No ectopy Abdomen: Normal abdominal exam, Abdomen soft, non-tender. Bowel sounds normal. No masses, organomegaly Extremities: No deformities, edema, skin discoloration, clubbing or cyanosis. Good capillary refill. Musculoskeletal: No joint swelling, deformity, or tenderness Neuro: normal dtr's PSYCH:Affect normal. Normal speech. Normal eye contact ASSESSMENT/PLAN: 1. Gastroesophageal reflux disease without esophagitis - ICD9: 530.81, ICD10: K21.9 (primary diagnosis) - call if any issues. 2. Adjustment disorder with depressed mood - ICD9: 309.0, ICD10: F43.21 - stable. - FLUOXETINE 20 MG CAPSULE 3. Vitamin D deficiency - ICD9: 268.9, ICD10: E55.9 - check labs. 4. Bariatric surgery status - ICD9: V45.86, ICD10: Z98.84 - check labs. 5. Hypothyroidism, acquired - ICD9: 244.9, ICD10: E03.9 - Instructed patient on importance of taking on an empty stomach either first thing in the morning or at bedtime. - TSH BLD 6. Intestinal malabsorption, unspecified type - ICD9: 579.9, ICD10: K90.9 - check labs. Consider hematology if iron continues to be an issue and cannot tolerate. Also could consider gi eval. - CBC + DIFF - COMP METABOLIC PANEL - VITAMIN B12 BLOOD - FOLATE SERUM - IRON + TIBC - VITAMIN D 25 HYDROXY Liban Barrett MD RTO in six months and prn. Referring Provider: SELF [[id number]] Allergies As of Date: 07/19/2017 (No Known Allergies) Date Reviewed: 07/19/2017 Reviewed by: Nancy Marin LPN - Fully Assessed Reason for Visit: Headaches [3461] Cmt: daily Refill Request [508] Recheck [92] Cmt: stopped her iron due to GI upset Reason For Visit History Recorded Primary Visit Diagnosis:Gastroesophageal reflux disease without esophagitis [K21.9] Other Visit Diagnoses:Adjustment disorder with depressed mood [F43.21] Vitamin D deficiency [E55.9] Bariatric surgery status [Z98.84] Hypothyroidism, acquired [E03.9] Intestinal malabsorption, unspecified type [K90.9] Order(s):FLUoxetine (PROZAC) 20 mg capsuleTake 3 capsules by mouth once daily.Disp: 270 capsuleRfl: 3 Cholecalciferol, Vitamin D3, 1,000 unit capTake 1 capsule by mouth once daily.Disp: Rfl: CBC + DIFF [SQCBCDIF] Order #: [id number] FUTURE COMP METABOLIC PANEL [SQCMP] Order #: [id number] FUTURE VITAMIN B12 BLOOD [SQB12] Order #: [id number] FUTURE FOLATE SERUM [SQSERFOL] Order #: [id number] FUTURE IRON + TIBC [SQIRON] Order #: [id number] FUTURE TSH BLD [SQTSH] Order #: [id number] FUTURE VITAMIN D 25 HYDROXY [SQVITD] Order #: [id number] FUTURE Prescriptions as of 07/19/2017 Sig: FLUOXETINE 20 MG CAPSULE Take 3 capsules by mouth once* ALBUTEROL SULFATE HFA 90 MCG/* Inhale 2 Puffs as instructed * LEVOTHYROXINE 137 MCG TABLET Take 1 tablet by mouth once d* CHOLECALCIFEROL (VITAMIN D3) * Take 1 capsule by mouth once * VITAMIN C ORAL Take by mouth once daily. Not* HYDROXYZINE PAMOATE 25 MG CAP* Take 25 mg by mouth three kristi* Problem List As Of Date 07/19/2017 Noted Resolved Panic Disorder without Agoraphobia [F41.0] Adjustment Disorder with Depressed Mood [F43.21] Hypothyroidism, acquired [E03.9] Synovial Cyst of Popliteal Space [M71.20] Polycystic ovaries [E28.2] INVALID FOR*08/24/2015 Absence of menstruation [N91.2] INVALID FOR*04/27/2011 OBESITY [E66.9] INVALID FOR*09/09/2007 Unspecified Asthma [J45.909] INVALID FOR* Dysmetabolic syndrome X [E88.81] INVALID FOR*04/27/2011 Esophageal Reflux [K21.9] Sensorineural hearing loss, unspecified [H90.5] 07/19/2017 More... Morbid obesity [E66.01] 04/27/2011 Tuberculin Test Reaction [795.5] More... Unspecified hemorrhoids without mention of comp* 07/19/2017 Unspecified Chest Pain [R07.9] INVALID FOR* Right knee pain [M25.561] INVALID FOR*07/19/2017 ROSA MARIA (obstructive sleep apnea) [G47.33] INVALID FOR* Vitamin D deficiency [E55.9] INVALID FOR* ASA CLASS III [1003] INVALID FOR* Other and unspecified postsurgical nonabsorptio*INVALID FOR*07/19/2017 Bariatric surgery status [Z98.84] INVALID FOR* More... PPD positive, treated [R76.11] INVALID FOR* Thickened endometrium [R93.8] INVALID FOR*05/26/2015 Abnormal uterine bleeding [N93.9] INVALID FOR*08/24/2015 Mastalgia [N64.4] INVALID FOR* Lymph node enlargement [R59.9] INVALID FOR*07/19/2017 Dysmenorrhea [N94.6] INVALID FOR*08/24/2015 Prescriptions ordered this encounter Disp Refills Start End FLUOXETINE 20 MG CAPSULE 270 * 3 07/19/2017 Route: ORAL Sig: Take 3 capsules by mouth once daily. CHOLECALCIFEROL (VITAMIN D3) 1,000 U* 07/19/2017 Class: Med Update Route: ORAL Sig: Take 1 capsule by mouth once daily. Medications Discontinued During This Encounter FLUoxetine (PROZAC) 20 mg capsule 90 c* 2 02/22/2017 07/19/2017 Sig: TAKE 3 CAPSULES BY MOUTH ONCE DAILY. Disc: Duplicate Entry buPROPion XL (WELLBUTRIN XL) 150 mg * 90 t* 3 11/21/2016 07/19/2017 Route: ORAL Sig: Take 1 tablet by mouth once daily. Patient not taking: Reported on 07/19/2017 Disc: Reason for discontinue is not on file. ferrous sulfate (IRON) 325 mg (65 mg* 60 t* 5 03/13/2016 07/19/2017 Route: ORAL Sig: Take 1 tablet by mouth twice daily. Patient not taking: Reported on 07/19/2017 Disc: Reason for discontinue is not on file. cyanocobalamin (VITAMIN B-12) 500 mc* 07/19/2017 Class: Med Update Route: ORAL Sig: Take 1 tablet by mouth once daily. Disc: Reason for discontinue is not on file. ascorbic acid (VITAMIN C) 500 mg ORA* 07/19/2017 Class: Med Update Route: ORAL Sig: Take 500 mg by mouth once daily. Disc: Reason for discontinue is not on file. CALCIUM CITRATE/VITAMIN D3 (CITRACAL* 07/19/2017 Class: Historical Med Route: ORAL Sig: Take 500 mg by mouth twice daily. Disc: Reason for discontinue is not on file. MULTIVITS,CA,MINERALS/IRON/FA (ONE-A* 07/19/2017 Class: Historical Med Route: ORAL Sig: Take by mouth. Disc: Reason for discontinue is not on file. cholecalciferol, Vitamin D3, (VITAMI* 12 c* 3 11/20/2016 07/19/2017 Route: ORAL Sig: Take 1 capsule by mouth once each week. Patient not taking: Reported on 07/19/2017 Disc: Reason for discontinue is not on file. FLUoxetine (PROZAC) 20 mg capsule 90 c* 5 01/16/2017 07/19/2017 Route: ORAL Sig: Take 3 capsules by mouth once daily. Disc: Reason for discontinue is not on file. Disposition: Return in about 6 months (around 01/18/2018). Follow-up and Disposition History Recorded Encounter Status:Closed by LIBAN BARRETT MD on 07/19/17 CNCO Observed: 05/20/2017 Status: COMPLETED Source: [place] 9:[address] [facility] REPOSITORY O ID: [id number] Author: Mammography Coordinator Service: (none) Author Type: Physician Type: Letter Filed: 05/21/2017 11:31 PM Note Text: May 20, 2017 PID: [id number] Amarilis Hinton [address] [place] [id number] Dear Ms. Hinton, We are pleased to inform you that the results of your recent breast imaging exam on 05/20/2017 are normal. Early detection of cancer is very important. We also understand recommendations regarding breast cancer screening are controversial. Please discuss with your primary care provider which strategy is best for you and whether a mammogram is right for you. Your imaging studies and report will be kept on file at [facility] as part of your permanent medical record and are available for your continuing care. Thank you for allowing us to help in meeting your health care needs. Sincerely, Dr. Ackerman Interpreting Radiologist [facility] (Normal over 40) [place] DIG SCREEN CAD Observed: 05/20/2017 Status: F Source: [facility] 8:[address] [facility] REPOSITORY * * *Final Report* * * DATE OF EXAM: May 20 2017 8:51AM WO [id number] - [place] DIG SCREEN CAD SANAZ - BILATERAL / PROCEDURE REASON: Encounter for screening mammogram for malignant neoplasm of breast * * * * Physician Interpretation * * * * RESULT: #[id number] - [facility] DIG SCREEN CAD SANAZ BILATERAL DIGITAL SCREENING MAMMOGRAM WITH CAD: 05/20/2017 HISTORY: Encounter For Screening Mammogram For Malignant Neoplasm Of Breast\ Screening Mammogram - patient reports NO breast symptoms /priors available for comparison. RESULT: TECHNIQUE: The study was acquired using full field digital technology and interpreted from soft copy. Current study was also evaluated with a Computer Aided Detection (CAD). Comparison is made to exam dated: 06/08/2014 mammogram - [facility]. There are scattered fibroglandular elements in both breasts. There is a benign lymph node in the right breast. No significant masses, calcifications, or other findings are seen in either breast. There has been no significant interval change. IMPRESSION: BENIGN FINDING There is no mammographic evidence of malignancy.A 1 year screening mammogram is recommended. Maira Ackerman M.D. ns/penrad:05/20/2017 09:29:29 Recruitment And Outreach Assistant: Kiana MONSALVE(Olga Lidia)(M), [facility] letter sent: Normal over 40 Mammogram BI-RADS: 2 Benign finding Heater Tender: Kenzie Transcribe Date/Time: May 20 2017 8:52A Dictated by: MAIRA ACKERMAN MD This examination was interpreted and the report reviewed and electronically signed by: MARIA ACKERMAN MD on May 20 2017 9:29AM EST ALLERGIES ALLERGIES DATE TYPE / CODE NAME / CODE REACTION SEVERITY SOURCE 05/04/2018 Drug No Known Unknown [facility] Allergy/416 Allergies/E95288 Hospital 759994(SNOM 0388(RXNORM) Repository ED CT) Drug NO KNOWN [facility] Class/51709 ALLERGIES Other [place] 1003(SNOMED Repository CT) ENCOUNTERS ENCOUNTERS ADMIT/DISCHARGE ACCOUNT ADMITTING ENCOUNTER LOCATION SOURCE NUMBER CLASS 05/04/2018/05/04/19 [id number] Emergency [address] ing:ED Repository 03/10/2018/03/10/20 [id number] Ambulatory [address] Main [place] Repository 03/10/2018/03/11/20 [id number] Ambulatory [address] Main [place] Repository 01/15/2018/01/16/20 [id number] AMY BLACKWOOD Ambulatory [address] Main [place] Repository 01/09/2018/01/11/20 [id number] Ambulatory [address] Main [place] Repository 01/09/2018/01/10/20 [id number] Ambulatory [address] Main [place] Repository 01/06/2018/01/07/20 [id number] Ambulatory [address] Main [place] Repository 01/06/2018/01/08/20 [id number] Ambulatory [address] Main [place] Repository 09/26/2017 [id number] Ambulatory [facility] Other [place] Repository 09/16/2017/09/18/19 [id number] Ambulatory [address] Main [place] Repository 09/12/2017/09/13/19 [id number] Emergency [address] ing:ED Repository 07/19/2017 [id number] Ambulatory [facility] Repository 07/19/2017/07/23/19 [id number] Ambulatory [address] [place] Repository 05/20/2017/05/20/19 [id number] Ambulatory [facility] [place] Repository PAYERS PAYERS ENCOUNTER GUARANTOR PAYER SUBSCRIBER SOURCE 05/04/2018 YOHAN Corey Primary Insurance:UMR YOHAN Harryoster [id number] [id number] SEAMONDOB: [facility] D[place]G [place], Number: [id number] [facility] [address]Wmv: [id number] Repository Date:[id number] [address] () [address] [place] [id number]: 05/04/2018 Secondary NOT GIVENUNK [place] Insurance:SELF PAY [facility] Number: Effective Repository Date:2018-05-04 09/12/2017 YOHAN Corey Primary Insurance:UMR YOHAN Harryoster [id number] [id number] [facility] Number: [id number] [facility] [address]Lmd: [id number] Repository Date:[id number] [address] () [address] [place] [phone]: 09/12/2017 Secondary NOT GIVENUNK [place] Insurance:SELF PAY [facility] Number: Effective Repository Date:2017-09-12
== END 2018-05-04 01:58 | disposition home or self-care (01) ==
LOC: ED 00:43
PROVIDERS: Emergency Provider Emergency Medicine; Family Provider Family Medicine; PCP Family Medicine
DX: J18.1 Lobar pneumonia, unspecified organism (principal); E03.9 Hypothyroidism, unspecified; F32.9 Major depressive disorder, single episode, unspecified; Z79.899 Other long term (current) drug therapy
CPT/HCPCS: 71046; 87804; 99283

== ENCOUNTER 2020-05-20 22:43 | Emergency (ER) | payer OTHER, SELFPAY ==
[2020-05-20 22:44] VITALS: BP 140/54; PULSE 92; RESP 22; TEMP 36.7; O2SAT 99; BMI 29.5
--- NOTE | 2020-05-20 23:06 | EKG12_ITS ---
Test Reason : CP Blood Pressure : / mmHG Vent. Rate : 086 BPM Atrial Rate : 086 BPM P-R Int : 142 ms QRS Dur : 084 ms QT Int : 386 ms P-R-T Axes : 012 013 018 degrees QTc Int : 461 ms Normal sinus rhythm Normal ECG Confirmed by LICHA ADAMS, AUGUSTO ([id number]), news assignment editor LUAN ARIZMENDI ([id number]) on 05/23/2020 2:20:58 PM Referred By: Confirmed By:AUGUSTO HURT MD
--- NOTE | 2020-05-20 23:06 | RAD_ITS ---
chest pain since 2139 today EXAMINATION/TECHNIQUE: XR Chest 1 View: COMPARISON: May 04, 2018 FINDINGS: LINES/DEVICES: None. LUNGS: There is persistent but improving infiltrate seen within the right lung base. The left lung is clear. No pneumothorax. MEDIASTINUM AND CARDIOVASCULAR STRUCTURES: Cardiac silhouette not enlarged. Central airways and mediastinal contour are unremarkable. BONES AND SOFT TISSUES: Unremarkable. RAD/Chest 1 View (Portable) IMPRESSION: Persistent but improving infiltrate right lung base at 0002 Reported and signed by: Nina Ashford DO Electronically Signed: Nina Ashford DO at 0:01 EST Tel , Service support ,
--- NOTE | 2020-05-20 23:07 | ED.DCSUM_ITS ---
History of Present Illness Chief Complaint: Chest Pain Informant: Patient Narrative: At approximately 2140 hrs. the patient was on the phone when she developed a epigastric lower chest crushing type pain that radiates to her back. She notes nausea. She thought it might be indigestion so she took some antacids which did not relieve her symptoms. She denies any leg or arm symptoms. No dyspnea. No DVT PE risk factors. Patient's never had this before. Past Medical History - Allergies and Home Meds Allergies/Adverse Reactions: Allergies No Known Allergies Allergy (Verified 05/20/20 22:43) Primary Care Physician: Liban Barrett MD [Primary Care Provider] - Past Medical History: - - Depression hypothyroidism Smoking Status: Never smoker Drugs: None Review of Systems General: Denies: Chills, Fever, Sweats Eyes: Denies: Visual changes - bilaterally, Diplopia ENT: Denies: Rhinorrhea, Sore throat Cardiovascular: Reports: Chest pain. Denies: Palpitations Respiratory: Denies: Dyspnea, Cough, Dyspnea on exertion Gastrointestinal: Reports: Abdominal pain, Nausea. Denies: Vomiting, Diarrhea, Melena, Hematochezia Genitourinary: Denies: Dysuria, Hematuria, Frequency Musculoskeletal: Denies: Back pain, Extremity Pain Skin: Denies: Rash, Wounds Neurological: Denies: Headache, Weakness, Numbness Physical Exam Vital Signs/Narrative: Vital Signs Temp Pulse Resp BP Pulse Ox 05/20/20 22:44 98.0 F 92 22 H 140/54 H 99 Inital Vital Signs reviewed: Yes General: Well nourished, Well developed, Obese, No Acute Distress Head: Normocephalic, Atraumatic Eyes: Perrl, EOMI ENT: Moist mucous membranes, No rhinorrhea Neck: Supple, Nontender Cardiovascular: Regular rate, Regular rhythm, No murmurs Respiratory: No distress, CTA bilaterally, Chest nontender Abdomen: Soft, Nontender, Nondistended, Normal bowel sounds Back: Nontender, Normal Inspection Extremities: Nontender, No edema Skin: Normal color, No rash Neurological: Alert, Oriented x3, Cranial nerves II-XII grossly intact, Normal Strength, Normal Sensation Psychological: Normal affect, Normal Mood Diagnostic/Tx/Re-eval Clinical Impression(s) from Imaging Studies Chest X-Ray 05/20/20 23:06 IMPRESSION: Persistent but improving infiltrate right lung base at 0002 Reported and signed by: Nina Ashford DO Electronically Signed: Nina Ashford DO at 0:01 EST Tel , Service support , Laboratory Last Values WBC 7.7 K/mm3 (4.4-11.0) 05/20/20 23:00 RBC 4.64 M/mm3 (4.2-5.4) 05/20/20 23:00 Hgb 13.1 g/dL (12.0-15.0) 05/20/20 23:00 Hct 40.5 % (37-47) 05/20/20 23:00 MCV 87.3 fL (81-99) 05/20/20 23:00 MCH 28.2 pg (27.0-32.0) 05/20/20 23:00 MCHC 32.3 g/dL (32-36) 05/20/20 23:00 RDW Std Deviation 43.8 fl (35.1-43.9) 05/20/20 23:00 RDW Coeff of Florinda 13.9 % (11.6-14.6) 05/20/20 23:00 Plt Count 398 K/mm3 (150-450) 05/20/20 23:00 MPV 10.1 fl (6.2-12.0) 05/20/20 23:00 Immature Gran % (Auto) 0.300 % (0.0-0.9) 05/20/20 23:00 Neut % (Auto) 64.8 % (47-70) 05/20/20 23:00 Lymph % (Auto) 24.0 % (19-41) 05/20/20 23:00 [place] % (Auto) 6.8 % (0-10) 05/20/20 23:00 Eos % (Auto) 2.5 % (0-5) 05/20/20 23:00 Baso % (Auto) 1.6 % (0-1) H 05/20/20 23:00 Absolute Neuts (auto) 5.0 X10^3/uL (2.0-7.7) 05/20/20 23:00 Absolute Lymphs (auto) 1.86 X10^3/uL (0.83-4.51) 05/20/20 23:00 Nucleated RBC % 0 % (0-5) 05/20/20 23:00 D-Dimer Quant (PE/DVT) <= 0.27 FEU/ug/m (0.27-0.49) 05/20/20 23:00 Sodium 138 mmol/L (136-145) 05/20/20 23:00 Potassium 5.4 mmol/L (3.5-5.1) H 05/20/20 23:00 Chloride 106 mmol/L (98-107) 05/20/20 23:00 Carbon Dioxide 27.0 mmol/L (21.0-32.0) 05/20/20 23:00 Anion Gap 5 (5-15) 05/20/20 23:00 BUN 10 mg/dL (7-18) 05/20/20 23:00 Creatinine 0.94 mg/dL (0.55-1.02) 05/20/20 23:00 Estim Creat Clear Calc 61.20 ml/min 05/20/20 23:00 Est GFR (MDRD) Af Amer 82 mL/min (>60) 05/20/20 23:00 Est GFR (MDRD) Non-Af 68 mL/min (>60) 05/20/20 23:00 BUN/Creatinine Ratio 10.6 RATIO (10-20) 05/20/20 23:00 Glucose 92 mg/dL (74-106) 05/20/20 23:00 Calcium 8.2 mg/dL (8.5-10.1) L 05/20/20 23:00 Total Bilirubin 0.40 mg/dL (0.20-1.00) 05/20/20 23:00 Direct Bilirubin 0.06 mg/dL (0.00-0.30) 05/20/20 23:00 AST 26 U/L (15-37) 05/20/20 23:00 ALT 17 U/L (13-56) 05/20/20 23:00 Alkaline Phosphatase 100 U/L (45-117) 05/20/20 23:00 Troponin I < 0.015 ng/mL (<0.045) 05/20/20 23:00 Total Protein 6.9 g/dL (6.4-8.2) 05/20/20 23:00 Albumin 3.1 g/dL (3.2-5.0) L 05/20/20 23:00 Globulin 3.8 g/dL (2.2-4.2) 05/20/20 23:00 Lipase 50 U/L (73-393) L 05/20/20 23:00 - EKG Initial EKG Interpretation: Sinus Rhythm - EKG demonstrates a normal sinus rhythm at a rate of 86. No concerning features of ACS or ectopy. - Medical Decision Making Initial EKG shows no evidence of ACS. It is grossly unchanged from EKG dated 12 Sep 2017. Patient initially received a GI cocktail which did not affect her symptoms. Toradol lessened her symptoms then her symptoms started to come back. She has had no events on the monitor. Initial work-up is negative. I gave her a dose of Ativan. Delta troponin was obtained and is also negative. At this point I think the patient is suitable for outpatient follow-up. I do not think that she has pulmonary embolism or dissection. I do not see evidence of ACS. She did get relief with GI cocktail so it makes it less likely to be GI related. ED Disposition - Plan for ED Patient: Disposition: Home or Assisted Living Diagnosis: Chest pain Instructions: ED Chest Pain, Uncertain Cause Referrals: Liban Barrett MD [Primary Care Provider] - 1 Week
[2020-05-20 23:24] LABS: Absolute Lymphocyte Count 1.86 X10^3/uL (0.83-4.51); Basophil# 0.12 X10^3/uL; Basophil% 1.6 % (0-1); Eosinophil# 0.19 X10^3/uL; Eosinophils% 2.5 % (0-5); Hematocrit 40.5 % (37-47); Hemoglobin 13.1 g/dL (12.0-15.0); Lymphocyte # 1.86 X10^3/ul (4.0); Mean Corp Hgb Conc 32.3 g/dL (32-36); Mean Corpuscular Hgb 28.2 pg (27.0-32.0); Mean Corpuscular Volume 87.3 fL (81-99); Mean Platelet Vol. 10.1 fl (6.2-12.0); Monocyte# 0.53 X10^3/uL; Monocyte% 6.8 % (0-10); NRBC Flagged by Analyzer 0 % (0-5); Neutrophil # 5.02 X10^3/uL (2.7-7.7); Neutrophil % 64.8 % (47-70); Platelet Count 398 K/mm3 (150-450); RBC Distribution Width CV 13.9 % (11.6-14.6); RBC Distribution Width SD 43.8 fl (35.1-43.9); Red Blood Count 4.64 M/mm3 (4.2-5.4); White Blood Count 7.7 K/mm3 (4.4-11.0)
[2020-05-20] MEDS: Mag Hydrox/Al Hydrox/Simeth 30 ML UDC PO (23:28)
[2020-05-20 23:30] VITALS: O2SAT 99
[2020-05-20 23:31] LABS: D-Dimer Quantitative (DVT/PE) <= 0.27 FEU/ug/m (0.27-0.49)
[2020-05-20 23:43] VITALS: BP 110/84; PULSE 85; RESP 17; O2SAT 97
[2020-05-20 23:43] LABS: AST(SGOT) 26 U/L (15-37); Alanine Aminotransfer ALT/SGPT 17 U/L (13-56); Albumin, Serum 3.1 g/dL (3.2-5.0); Alkaline Phosphatase 100 U/L (45-117); Anion Gap 5 (5-15); BUN 10 mg/dL (7-18); BUN/Creat Ratio 10.6 RATIO (10-20); Bilirubin, Direct 0.06 mg/dL (0.00-0.30); Calcium,Total 8.2 mg/dL (8.5-10.1); Chloride 106 mmol/L (98-107); Creatinine, Serum 0.94 mg/dL (0.55-1.02); EST Glomerular Filtration Rate 68 mL/min (>60); Est Glom Filt Rate - Afr Amer 82 mL/min (>60); Globulin 3.8 g/dL (2.2-4.2); Glucose 92 mg/dL (74-106); Lipase 50 U/L (73-393); Potassium 5.4 mmol/L (3.5-5.1); Protein, Total 6.9 g/dL (6.4-8.2); Sodium Level 138 mmol/L (136-145)
[2020-05-21] VITALS: RESP 18
[2020-05-21] MEDS: Ketorolac 30 MG/ML Syringe IV (00:35)
[2020-05-21 01:00] VITALS: BP 104/61; PULSE 86; RESP 16; O2SAT 96
[2020-05-21 02:13] VITALS: BP 106/48; PULSE 89; RESP 15; O2SAT 95
[2020-05-21] MEDS: LORazepam 1 MG Tablet PO (02:15)
[2020-05-21 02:28] VITALS: BP 124/73; PULSE 82; RESP 16; O2SAT 96
== END 2020-05-21 02:34 | disposition home or self-care (01) ==
PROVIDERS: Emergency Provider Emergency Medicine; PCP Family Medicine
DX: R07.9 Chest pain, unspecified (principal); R11.0 Nausea; E03.9 Hypothyroidism, unspecified; F32.9 Major depressive disorder, single episode, unspecified; E66.9 Obesity, unspecified; Z79.899 Other long term (current) drug therapy
CPT/HCPCS: 71045; 80048; 80076; 83690; 84484; 85025; 85379; 93005; 96374; 99285; A4216

== ENCOUNTER 2022-10-16 05:01 | Emergency (ER) | payer BC, SELFPAY ==
[2022-10-16 05:03] VITALS: BP 152/85; PULSE 81; RESP 15; TEMP 36; O2SAT 100; BMI 61.2
[2022-10-16 06:14] LABS: Absolute Lymphocyte Count 1.57 X10^3/uL (0.83-4.51); Absolute Neutrophil Count 4.3 X10^3/uL (2.0-7.7); Basophil# 0.09 X10^3/uL; Basophil% 1.4 % (0-1); Eosinophil# 0.13 X10^3/uL; Hematocrit 39.8 % (37-47); Hemoglobin 12.6 g/dL (12.0-15.0); Lymphocyte # 1.57 X10^3/ul (0.83-4.51); Lymphocyte % 24.2 % (19-41); Mean Corp Hgb Conc 31.7 g/dL (32-36); Mean Corpuscular Hgb 27.2 pg (27.0-32.0); Monocyte% 6.2 % (0-10); NRBC Flagged by Analyzer 0 % (0-5); Platelet Count 319 K/mm3 (150-450); RBC Distribution Width CV 13.8 % (11.6-14.6); RBC Distribution Width SD 42.7 fl (35.1-43.9); Red Blood Count 4.63 M/mm3 (4.2-5.4); White Blood Count 6.5 K/mm3 (4.4-11.0)
[2022-10-16] MEDS: 0.9% Normal Saline 1,000 ML 999 ML IV (06:28)
[2022-10-16] MEDS: Morphine 4 MG/ML Syringe IV (06:28)
[2022-10-16] MEDS: Ondansetron 4 MG/2 ML Vial IV (06:28)
[2022-10-16 06:30] LABS: AST(SGOT) 11 U/L (15-37); Alanine Aminotransfer ALT/SGPT 11 U/L (13-56); Alkaline Phosphatase 78 U/L (45-117); Anion Gap 3 (5-15); BUN 13 mg/dL (7-18); BUN/Creat Ratio 17.3 RATIO (10-20); Bilirubin, Direct 0.11 mg/dL (0.00-0.30); Calcium,Total 8.1 mg/dL (8.5-10.1); Chloride 109 mmol/L (98-107); Creatinine, Serum 0.75 mg/dL (0.55-1.02); EST Glomerular Filtration Rate 87 mL/min (>60); Est Glom Filt Rate - Afr Amer 105 mL/min (>60); Estimated Creatinine Clearance 75.06 ml/min; Globulin 3.1 g/dL (2.2-4.2); Glucose 89 mg/dL (74-106); Lipase 16 U/L (13-75); Potassium 3.6 mmol/L (3.5-5.1); Protein, Total 6.1 g/dL (6.4-8.2); Sodium Level 140 mmol/L (136-145)
[2022-10-16 06:46] LABS: Mucous, Urine 0 SEEN /hpf (<or=2+); Red Blood Cells-Urine 0 SEEN /hpf (0-5)
[2022-10-16 06:47] LABS: Color, Urine Yellow (Yellow); Glucose, Dipstick Normal (Normal); Ketone-Dipstick 5 mg/dl (Negative); Leukocyte Esterase-Dipstick 25 /ul (Negative); Nitrite-Dipstick Negative (Negative); Occult Blood-Urine 10 /ul (Negative); Protein-Dipstick 30 mg/dl (Negative); Specific Gravity, Urine 1.025 (1.002-1.030); Urine Bilirubin Dipstick Negative (Negative); Urine Clarity Sl. Cloudy (Clear); Urine Urobilinogen 1 mg/dl (Normal)
--- NOTE | 2022-10-16 07:07 | CT_ITS ---
STUDY: CT ABDOMEN AND PELVIS WITHOUT CONTRAST REASON FOR EXAM: Female, 51 years old. right flank pain AND HEMATURIA. PRIOR GASTRIC BYPASS AND HYSTERECTOMY RADIATION DOSAGE (If Supplied By Facility): CTDIvol = ( 34.45 ) mGy, DLP = ( 1867.90 ) mGycm TECHNIQUE: Transaxial images were obtained from the dome of the diaphragm to the symphysis pubis without oral contrast, and without intravenous contrast. Sagittal and coronal images were reconstructed. Individualized dose optimization techniques were used for this CT. COMPARISON: None. FINDINGS: The visualized lung bases are unremarkable. The visualized portions of the heart are within normal limits. Normal liver. Normal gallbladder and extrahepatic biliary system. Normal spleen. Normal pancreas. Normal bilateral adrenal glands. Normal right kidney. Normal left kidney. Status post gastric bypass surgery. No dilated loops of small bowel. No colon wall thickening. There are surgical clips in the region of the appendix consistent with a prior appendectomy. Normal abdominal aorta. Normal inferior vena cava. Normal retroperitoneum. Normal urinary bladder. Normal abdominal wall. There are diffuse degenerative changes of the visualized lumbar spine. CT/Abdomen/Pelvis without Cont IMPRESSION: No hydronephrosis or urinary tract calcifications. Electronically Signed: Rick Simpson (Brooks), at 7:51 EDT Reading Location ID and State: [facility] / [place] , Service support ,
[2022-10-16 07:31] LABS: Bacteria 2+ /hpf (None Seen); Squamous Epithelial Cells - UA 0-5 SEEN /hpf (5-10); White Blood Cells 0-5 SEEN /hpf (0-5)
--- NOTE | 2022-10-16 08:12 | EX.ED.DYSGE1 ---
HPI History of Present Illness Chief Complaint: Abd Pain Informant: patient Narrative Narrative: Patient is a 51-year-old female with past medical history of depression and hypothyroidism. She states has been having intermittent right sided more upper abdominal pain for the past 1 to 2 weeks. She states that a few days ago she also passed blood with urine. She denies any dysuria and she denies any history of bleeding disorder or blood thinner use. She states that today the pain was more intense and it has been and secondary to the worsening pain and the fact she recently had blood with urination she was concerned and therefore comes in for evaluation [facility] Medical History (Updated 10/17/22 @ 04:[address] Dany Gardner, DO) Depression Hypothyroidism Home Medications levothyroxine 125 mcg tablet (Levoxyl) 137 mcg PO DAILY 05/11/15 [History Last Taken Unknown] ascorbic acid (vitamin C) 500 mg tablet (Vitamin C) 500 mg PO DAILY@0800 07/06/15 [History Last Taken Unknown] cholecalciferol (vitamin D3) 25 mcg (1,000 unit) tablet (Vitamin D3) 1,000 unit PO DAILY 07/06/15 [History Last Taken Unknown] Prozac 60 mg PO DAILY 09/12/17 [History Last Taken Unknown] bupropion HCl 150 mg 24 hr tablet, extended release 150 mg PO DAILY 05/20/20 [History Last Taken Unknown] hydrocodone-acetaminophen 5-325mg 5mg-325mg 1 tab PO Q6H PRN PRN Pain 3 days #12 TABLETS 10/16/22 [Rx Last Taken Unknown] Allergy/AdvReac Type Severity Reaction Status Date / Time No Known Allergies Allergy Verified 10/16/22 05:12 Surgical History (Updated 10/16/22 @ 05:10 by Constanza Lara) Bariatric surgery status H/O: hysterectomy Social History Smoking Status: Never smoker [facility] ED Constitutional Constitutional ED: Denies chills or fever(s) ENT ENT ED: Denies sore throat Cardiovascular Cardiovascular: Denies chest pain Respiratory/Chest Respiratory/Chest: Denies cough or dyspnea Gastrointestinal Gastrointestinal: Reports abdominal pain; Denies diarrhea, nausea or vomiting Genitourinary Genitourinary ED: Reports hematuria; Denies dysuria or urinary frequency Musculoskeletal Musculoskeletal: Denies back pain or myalgias Integumentary Denies rash Neurologic Neurologic: Denies headache(s) Hematologic/Lymphatic Hematologic/Lymphatic: Denies easy bleeding or easy bruising EXAM Physical Exam Const Vital Signs: 10/16/22 05:03 10/16/22 08:42 Temperature 96.8 F L 97.2 F L Temperature Source Temporal Oral Pulse Rate 81 73 Respiratory Rate 15 15 Blood Pressure 152/85 H 122/69 H Blood Pressure Mean 107 86 Pulse Ox 100 98 Oxygen Delivery Method Room Air Room Air Positive well nourished, well developed and obese General Appearance ED: well developed Nutritional Appearance: obese HEENT Reports moist mucous membranes HEENT Narrative: No signs of infection in the posterior pharynx No airway edema or compromise Eyes PERRL and EOMs intact bilaterally General Eye ED: Negative for scleral icterus Neck supple Neck Narrative: No nuchal rigidity or meningeal signs present Resp normal respiratory effort and clear to auscultation bilaterally Cardio regular rate and regular rhythm Rate: other Other Details: Radial pulses are plus 2 out of 4 bilaterally are equal and symmetric GI non-distended GI Narrative: Abdomen is obese soft and nondistended with normal active bowel sounds. There is mild pain with palpation in the right sided upper abdomen without voluntary guarding or rigidity. Negative Hdz sign. No pulsatile mass or fluid wave. Auscultation: normoactive bowel sounds Palpation: soft Back/Spine Back/Spine Narrative: Faint right CVA pain noted Extremity normal to inspection Neuro oriented x3, CN's II-XII intact bilaterally and no sensory deficits noted Sensorium / Orientation: alert Motor Exam: strength 5/5 throughout Psych mental status grossly normal Skin no rashes or lesions noted General Skin Exam: Negative for jaundice MDM MDM MDM Narrative Medical decision making narrative: Patient presented to the ER slightly hypertensive but otherwise with stable vitals. She reported intermittent pain in the right sided abdomen for the past 1 to 2 weeks that had worsened in the last day. She also reported a bout of hematuria and with mild right-sided flank pain there is concern this could be kidney stone versus choledocholithiasis versus pancreatitis versus acute colitis or appendicitis. Basic blood work urine sample and a CT scan were obtained secondary to this. Labs revealed no clinically significant finding. Urine did show +2 bacteria but there are no white blood cells present and patient does not have any dysuria and therefore this is most likely contamination or normal neftali and patient will not be started antibiotics and the urine will be sent for culture. A noncontrast CT was obtained as patient had hematuria present and with the right-sided abdominal pain and flank pain there is concern this could be secondary to a kidney stone. CT scan revealed no acute findings within the abdomen or pelvis. On reevaluation she reports improvement of pain with treatment in the ER her vitals remained stable and her abdomen soft and nonsurgical. Therefore at this time as overall work-up is negative I do not feel there is need for further evaluation and she is otherwise safe for discharge History & Record Review Discussion w/independent historian: Patient Lab Data Attestation: I reviewed the patient's lab results. Labs: Laboratory Results - last 24 hr 10/16/22 10/16/22 06:10 06:30 WBC 6.5 RBC 4.63 Hgb 12.6 Hct 39.8 MCV 86.0 MCH 27.2 MCHC 31.7 L RDW Std Deviation 42.7 RDW Coeff of [place]inda 13.8 Plt Count 319 MPV 10.0 Immature Gran % (Auto) 0.200 Neut % (Auto) 66.0 Lymph % (Auto) 24.2 [place] % (Auto) 6.2 Eos % (Auto) 2.0 Baso % (Auto) 1.4 H Absolute Neuts (auto) 4.3 Absolute Lymphs (auto) 1.57 Nucleated RBC % 0 Sodium 140 Potassium 3.6 Chloride 109 H Carbon Dioxide 28.0 Anion Gap 3 L BUN 13 Creatinine 0.75 Estim Creat Clear Calc 75.06 Est GFR (MDRD) Af Amer 105 Est GFR (MDRD) Non-Af 87 BUN/Creatinine Ratio 17.3 Glucose 89 Calcium 8.1 L Total Bilirubin 0.40 Direct Bilirubin 0.11 AST 11 L ALT 11 L Alkaline Phosphatase 78 Total Protein 6.1 L Albumin 3.0 L Globulin 3.1 Lipase 16 Urine Color Yellow Urine Clarity Sl. Cloudy Urine pH 5.0 Ur Specific Only 1.025 Urine Protein 30 H Urine Glucose (UA) Normal Urine Ketones 5 H Urine Occult Blood 10 H Urine Nitrite Negative Urine Bilirubin Negative Urine Urobilinogen 1 H Ur Leukocyte Esterase 25 H Urine RBC 0 SEEN Urine WBC 0-5 SEEN Ur Squamous Epith Cells 0-5 SEEN Urine Bacteria 2+ Urine Mucus 0 SEEN Radiography Diagnostic Testing: Clinical Impression(s) from Imaging Studies Abdomen/Pelvis CT 10/16/22 07:07 IMPRESSION: No hydronephrosis or urinary tract calcifications. Electronically Signed: Rick Simpson (Brooks), at 7:51 EDT , Discharge Plan Triage Chief Complaint: Abd Pain ED Provider: Dany Gardner Dx/Rx/DC Orders Clinical Impression: Nonspecific abdominal pain, Hypothyroidism, History of depression Instructions: ED Abdominal Pain Unkn Cause Fem Prescriptions: New hydrocodone-acetaminophen 5-325 mg tablet 1 tab PO Q6H PRN PRN (Reason: Pain) 3 Days Qty: 12 0RF No Action levothyroxine [Levoxyl] 125 MCG tablet 137 mcg PO DAILY Patient Comments: thyroid med ascorbic acid (vitamin C) [Vitamin C] 500 MG tablet 500 mg PO DAILY@0800 Patient Comments: supplement cholecalciferol (vitamin D3) [Vitamin D3] 1,000 UNIT tablet 1,000 unit PO DAILY Patient Comments: supplement Prozac 60 MG tablet 60 mg PO DAILY bupropion HCl 150 MG tablet extended release 24 hr 150 mg PO DAILY Primary Care Provider: Liban Barrett Referrals: Liban Barrett MD [Primary Care Provider] - Activity Restrictions/Additional Instructions: Your work-up today showed no obvious signs of infection or kidney stone. Continue your home medications as directed and add the [place] for improved pain control. If you have worsening of symptoms or any further concerns please return for repeat evaluation Disposition Disposition: Home, Self Care Discharge Date/Time: 10/16/22 08:45
[2022-10-16 08:42] VITALS: BP 122/69; PULSE 73; RESP 15; TEMP 36.2; O2SAT 98
== END 2022-10-16 08:45 | disposition home or self-care (01) ==
PROVIDERS: Emergency Provider Emergency Medicine; PCP Family Medicine; Visit Provider Emergency Medicine
DX: R10.11 Right upper quadrant pain (principal); E03.9 Hypothyroidism, unspecified; R31.9 Hematuria, unspecified; E66.9 Obesity, unspecified; Z79.890 Hormone replacement therapy; Z79.899 Other long term (current) drug therapy; Z98.84 Bariatric surgery status; Z90.710 Acquired absence of both cervix and uterus
CPT/HCPCS: 74176; 80048; 80076; 81001; 83690; 85025; 87086; 87088; 96361; 96374; 96375; 99282; J7030; A4216; J2405

== ENCOUNTER 2023-04-14 23:36 | Emergency (ER) | payer BC, SELFPAY ==
[2023-04-14 23:37] VITALS: BP 141/81; PULSE 89; RESP 15; TEMP 36.4; O2SAT 100; BMI 61.2
--- OUTSIDE RECORDS SUMMARY | 2023-04-15 00:03 | XMS RPT_ITS | CCD ---
Author Name Unknown Address [id number] [place] [address] Organization [facility] Care Team Providers Care Food Cooking Machine Operator Name Role Phone MARGY GONZALEZ (TREASURY ANALYST) Unavailable Unavailabl Karyna Alarcon MD Primary Care Provider [phone] Karyna Barrett MD Unavailable Karyna Barrett MD Primary Care Provider Karyna Barrett MD Unavailable Karyna Barrett MD Primary Care Provider Karyna Barrett MD Unavailable Karyna Barrett MD Primary Care Provider Karyna Barrett MD Unavailable KARYNA BARRETT Primary Care Unavailable SEBASTIAN DIXON Attending Unavailable KARYNA BARRETT Primary Care Unavailable SEBASTIAN DIXON Attending Unavailable KARYNA BARRETT Referring Unavailable KARYNA BARRETT Primary Care Unavailable OLIVIA CORNELIUS Attending Unavailable KARYNA BARRETT Primary Care Unavailable SEBASTIAN DIXON Attending Unavailable KARYNA BARRETT Referring Unavailable KARYNA BARRETT Primary Care Unavailable KARYNA BARRETT Attending Unavailable KARYNA BARRETT Primary Care Unavailable Allergies Allergy Classification Reported Allergen(s) Allergy Type Date of Onset Reaction(s) Facility (20 sources) Pollen; Translations: [POLLEN EXTRACTS] Drug Allergy 09-26-2020 Other: See Comments [facility] Work Phone: Medications Current Medications Medication Drug Class(es) Dates Sig (Normalized) Sig (Original) diclofenac sodium 0.01 mg/mg topical gel (2 sources) Nonsteroidal Anti-inflammatory Drug Start: 01-03-2022 End: 02-02-2022 apply 2 g topically four times daily diclofenac (VOLTAREN) 1 % topical gel Indications: Chronic pain of right knee Apply 2 g to affected area four times daily. 50 g 5 01/03/2022 02/02/2022 Active Completed/Discontinued Medications Medication Drug Class(es) Dates Sig (Normalized) Sig (Original) [id number] 200 actuat albuterol 0.09 mg/actuat metered dose inhaler (20 sources) beta2-Adrenergic Agonist Start: 08-24-2019 End: 04-12-2022 take 2 puff(s) by inhalation every four hours as needed for wheezing albuterol HFA (VENTOLIN HFA) 90 mcg/actuation inhaler Indications: Wheezing Inhale 2 Puffs as instructed every 4 hours as needed for wheezing/shortnes s of breath. 1 Each 04/12/2022 Active Problems Active Problems Problem Classification Problem Date Documented Date Episodic/Chronic Abdominal pain (1 source) Right upper quadrant pain; Translations: [Right upper quadrant pain] 10-30-2022 Episodic Adjustment disorders (20 sources) Adjustment disorder with depressed mood; Translations: [Adjustment disorder with depressed mood] 08-01-2009 Chronic Anxiety disorders (20 sources) Panic disorder without agoraphobia; Translations: [Panic disorder [episodic paroxysmal anxiety]] 08-01-2009 Chronic Asthma (20 sources) Unspecified asthma, uncomplicated; Translations: [Asthma, unspecified type, unspecified] Onset: 02-13-2006 08-01-2009 Chronic Esophageal disorders (20 sources) Gastroesophageal reflux disease; Translations: [Gastro-esophageal reflux disease without esophagitis] 08-01-2009 Chronic Immunizations and screening for infectious disease (20 sources) Finding related to response to skin test; Translations: [Nonspecific reaction to tuberculin skin test without active tuberculosis] Onset: 10-26-2011 08-01-2009 Episodic Nonspecific chest pain (1 source) Other chest pain; Translations: [Other chest pain] Onset: 09-26-2017 Episodic Nutritional deficiencies (20 sources) Vitamin D deficiency; Translations: [Vitamin D deficiency, unspecified] Onset: 02-28-2010 02-28-2010 Chronic Osteoarthritis (5 sources) Osteoarthritis of right knee joint; Translations: [Unilateral primary osteoarthritis, right knee] Chronic Other connective tissue disease (20 sources) Synovial cyst of knee; Translations: [Synovial cyst of popliteal space [[place]], unspecified knee] 08-01-2009 Episodic Other lower respiratory disease (1 source) Wheezing; Translations: [Wheezing] Episodic Other non-traumatic joint disorders (20 sources) Pain in right knee; Translations: [Pain in joint, lower leg] Onset: 08-31-2019 08-31-2019 Episodic Other nutritional; endocrine; and metabolic disorders (20 sources) Body mass index 40+ - severely obese; Translations: [Morbid (severe) obesity due to excess calories] 08-28-2017 Chronic Other nutritional; endocrine; and metabolic disorders (1 source) Morbid obesity; Translations: [Morbid (severe) obesity due to excess calories] Chronic Other screening for suspected conditions (not mental disorders or infectious disease) (2 sources) Patient encounter status; Translations: [Encounter for screening mammogram for malignant neoplasm of breast] Episodic Residual codes; unclassified (20 sources) Obstructive sleep apnea syndrome; Translations: [Obstructive sleep apnea (adult) (pediatric)] Onset: 02-28-2010 02-28-2010 Chronic Thyroid disorders (20 sources) Acquired hypothyroidism; Translations: [Hypothyroidism, unspecified] Onset: 07-19-2017 Chronic Unclassified (20 sources) ASA CLASS III Onset: 05-24-2010 05-24-2010 Past or Other Problems Problem Classification Problem Date Documented Da te Episodic/Chronic Genitourinary symptoms and ill-defined conditions (2 sources) Biju hematuria; Translations: [Gross hematuria] Onset: 3 10-30-2022 Episodic Nonmalignant breast conditions (20 sources) Pain of breast; Translations: [Mastodynia] Onset: 3 06-13-2012 Episodic Other gastrointestinal disorders (20 sources) History of bariatric surgical procedure; Translations: [Bariatric surgery status] Onset: 1 04-10-2021 Episodic Other gastrointestinal disorders (20 sources) Diarrhea after gastrointestinal tract surgery; Translations: [Diarrhea, unspecified] Onset: 1 02-07-2021 Episodic Other gastrointestinal disorders (1 source) Bariatric surgery status; Translations: [Bariatric surgery status] Onset: 1 Episodic Other non-traumatic joint disorders (1 source) Pain in left knee; Translations: [Acute pain of left knee] Onset: 2 Episodic Residual codes; unclassified (20 sources) Family history of cancer of colon; Translations: [Family history of malignant neoplasm of digestive organs] Onset: 02-07-2021 Episodic Results Test Name Value Interpretation Reference Range Facil ity Vital Signs Date Time Vital Sign Value Performing Clinician Wilma weiss 10-30-2022 10:20-0400 Body weight 155.13 kg Karyna Barrett MD Work Phone: [facility] 10-30-2022 10:20-0400 Diastolic blood pressure 82 mm[Hg] Karyna Barrett MD Work Phone: [facility] 10-30-2022 10:20-0400 Heart rate 86 /min Karyna Barrett MD Work Phone: [facility] 10-30-2022 10:20-0400 Respiratory rate 16 /min Karyna Barrett MD Work Phone: [facility] 10-30-2022 10:20-0400 SaO2% (BldA) [Mass fraction] 99 % Karyna Barrtet MD Work Phone: [facility] 10-30-2022 10:20-0400 Systolic blood pressure 124 mm[Hg] Karyna Barrett MD Work Phone: [facility] 02-27-2022 16:16-0500 Body height 160 cm Karyna Barrett MD Work Phone: [facility] 02-27-2022 16:16-0500 Body weight 155.76 kg Karyna Barrett MD Work Phone: [facility] 02-27-2022 16:16-0500 Diastolic blood pressure 90 mm[Hg] Karyna Barrett MD Work Phone: [facility] 02-27-2022 16:16-0500 Heart rate 82 /min Karyna Barrett MD Work Phone: [facility] 02-27-2022 16:16-0500 SaO2% (BldA) [Mass fraction] 99 % Karyna Barrett MD Work Phone: [facility] 02-27-2022 16:16-0500 Systolic blood pressure 124 mm[Hg] Karyna Barrett MD Work Phone: [facility] 01-03-2022 15:49-0400 Body weight 155.13 kg Edith Escobarhof QUALITY CONTROLLER.TREASURY ANALYST Work Phone: [facility] 01-03-2022 15:49-0400 Diastolic blood pressure 78 mm[Hg] Edith Tannhof QUALITY CONTROLLER.TREASURY ANALYST Work Phone: [facility] 01-03-2022 15:49-0400 Heart rate 90 /min Edith Escobarhof QUALITY CONTROLLER.TREASURY ANALYST Work Phone: [facility] 01-03-2022 15:49-0400 Respiratory rate 16 /min Edith Tannhof QUALITY CONTROLLER.TREASURY ANALYST Work Phone: [facility] 01-03-2022 15:49-0400 SaO2% (BldA) [Mass fraction] 98 % Edithilya Codyhof QUALITY CONTROLLER.TREASURY ANALYST Work Phone: [facility] 01-03-2022 15:49-0400 Systolic blood pressure 120 mm[Hg] Edith Codyhof QUALITY CONTROLLER.TREASURY ANALYST Work Phone: [facility] 08-25-2021 15:56-0400 Body weight 155.58 kg Karyna Barrett MD Work Phone: [facility] 08-25-2021 15:56-0400 Diastolic blood pressure 72 mm[Hg] Karyna Barrett MD Work Phone: [facility] 08-25-2021 15:56-0400 Heart rate 76 /min Karyna Barrett MD Work Phone: [facility] 08-25-2021 15:56-0400 Systolic blood pressure 124 mm[Hg] Karyna Barrett MD Work Phone: [facility] Encounters Encounter Date Encounter Type Care Provider Facility Start: 02-25-2023 End: 02-25-2023 ambulatory KARYNA BARRETT Facility:[facility] Start: 02-25-2023 End: 02-25-2023 Patient encounter procedure Sebastian Dixon MD Work Phone: Orthopaedics Procedures Date Procedure Procedure Detail Performing Clinician Start: 02-25-2023 Arthrocentesis aspir &/inj major jt/bursa w/o us Sebastian Dixon MD Work Phone: Start: 10-29-2022 Arthrocentesis aspir &/inj major jt/bursa w/o us Sebastian Dixon MD Work Phone: Start: 06-21-2022 Arthrocentesis aspir &/inj major jt/bursa w/o us Sebastian Dixon MD Work Phone: Start: 03-29-2022 Arthrocentesis aspir &/inj major jt/bursa w/o us Olivia Cornelius PA-C Work Phone: Start: 03-05-2022 Lipid 1996 panel - S jay or Plasma Karyna Barrett MD Work Phone: Start: 02-01-2022 End: 02-01-2022 Screening mammography bi 2-view breast inc cad Karyna Barrett MD Work Phone: Start: 10-30-2021 Arthrocentesis aspir &/inj major jt/bursa w/o us Sebastian Dixon MD Work Phone: Start: 02-06-2021 Adult depression scr eening assessment Karyna Barrett MD Work Phone: Start: 09-15-2020 Mammography Karyna Garcia MD Work Phone: Start: 01-15-2018 Colonoscopy Karyna Garcia MD Work Phone: Plan of Treatment Date Care Activity Detail Author Start: 03-05-2027 Lipid 1996 panel - S jay or Plasma Lipid Screening [facility] Start: 03-05-2027 LIPID SCREEN LIPID SCREEN [facility] Start: 03-15-2026 Urine microalbumin profile [facility] Start: 11-12-2025 DIABETES SCREEN DIABETES SCREEN [facility] Start: 11-12-2025 Diabetes Screening Diabetes Screenin g [facility] Start: 03-05-2025 DIABETES SCREEN DIABETES SCREEN [facility] Start: 08-30-2024 DIABETES SCREEN DIABETES SCREEN [facility] Start: 08-23-2024 LIPID SCREEN LIPID SCREEN [facility] Start: 10-31-2023 ANNUAL PCP TEAM MANUFACTURING ENGINEER MACHINING FELISA DISEASE VISIT ANNUAL PCP TEAM CHRONIC DISEASE VISIT [facility] Start: 09-14-2023 DIABETES SCREEN DIABETES SCREEN [facility] Start: 02-27-2023 ANNUAL PCP TEAM MANUFACTURING ENGINEER MACHINING FELISA DISEASE VISIT ANNUAL PCP TEAM CHRONIC DISEASE VISIT [facility] Start: 02-27-2023 COVID-19 VACCINE (3 - Booster for Moderna series) COVID-19 VACCINE (3 - Booster for Moderna series) [facility] Immunizations Immunization Date Immunization Notes Care Provider Fa galileo 01-23-2021 COVID-19 vaccine, fu ll dose (MODERNA) Karyna Barrett MD Work Phone: [facility] 05-25-2020 influenza, injectabl e, quadrivalent, contains preservative Karyna Barrett MD Work Phone: [facility] Work Phone: 05-25-2020 influenza virus vacc ine, unspecified formulation Karyna Barrett MD Work Phone: [facility] 03-15-2016 tetanus toxoid, redu caretr diphtheria toxoid, and acellular pertussis vaccine, adsorbed Karyna Barrett MD Work Phone: [facility] Work Phone: 02-20-2016 influenza, injectabl e, quadrivalent, contains preservative Karyna Barrett MD Work Phone: [facility] 01-28-2015 influenza, injectabl e, quadrivalent, contains preservative Karyna Barrett MD Work Phone: [facility] 01-05-2014 influenza, seasonal, injectable Karyna Barrett MD Work Phone: [facility] Work Phone: 06-14-2008 pneumococcal polysaccharide vaccine, 23 valent Karyna Barrett MD Work Phone: [facility] Work Phone: 01-30-2008 hepatitis B vaccine, adult dosage Karyna Barrett MD Work Phone: [facility] 10-02-2007 hepatitis B vaccine, adult dosage Karyna Barrett MD Work Phone: [facility] 07-22-2007 hepatitis B vaccine, adult dosage Karyna Barrett MD Work Phone: [facility] 02-13-2006 diphtheria, tetanus toxoids and acellular pertussis vaccine Karyna Barrett MD Work Phone: [facility] Work Phone: 03-15-2002 hepatitis B vaccine, adult dosage Karyna Barrett MD Work Phone: [facility] Work Phone: 10-18-2001 measles, mumps and rubella virus vaccine Karyna Barrett MD Work Phone: [facility] Work Phone: 10-13-2001 hepatitis B vaccine, adult dosage Karyna Barrett MD Work Phone: [facility] Work Phone: 09-13-2001 hepatitis B vaccine, adult dosage Karyna Barrett MD Work Phone: [facility] Work Phone: 10-03-1997 diphtheria and tetan us toxoids, adsorbed for pediatric use Karyna Barrett MD Work Phone: [facility] Work Phone: 12-03-1983 mumps virus vaccine Karyna Barrett MD Work Phone: [facility] Work Phone: 12-24-1977 diphtheria, tetanus toxoids and pertussis vaccine Karyna Barrett MD Work Phone: [facility] Work Phone: 12-24-1977 poliovirus vaccine, inactivated Karyna Barrett MD Work Phone: [facility] Work Phone: 11-06-1976 diphtheria, tetanus toxoids and pertussis vaccine Karyna Barrett MD Work Phone: [facility] Work Phone: 11-06-1976 poliovirus vaccine, inactivated Karyna Barrett MD Work Phone: [facility] Work Phone: 01-13-1974 measles and rubella virus vaccine Karyna Barrett MD Work Phone: [facility] Work Phone: 06-06-1973 poliovirus vaccine, inactivated Karyna Barrett MD Work Phone: [facility] Work Phone: 04-14-1973 diphtheria, tetanus toxoids and pertussis vaccine Karyna Barrett MD Work Phone: [facility] Work Phone: 04-14-1973 poliovirus vaccine, inactivated Kayrna Barrett MD Work Phone: [facility] Work Phone: 02-06-1973 diphtheria, tetanus toxoids and pertussis vaccine Karyna Barrett MD Work Phone: [facility] Work Phone: 01-10-1973 diphtheria, tetanus toxoids and pertussis vaccine Karyna Barrett MD Work Phone: [facility] Work Phone: 01-10-1973 poliovirus vaccine, inactivated Karyna Barrett MD Work Phone: [facility] Work Phone: Payers Date Payer Category Payer Unknown [employer] PPO OOS [id number] 2020-Present [phone] [address] [place] [address] PPO [id number] 2020 Unknown [id number] 2020 Unknown [id number] Social History Date Type Detail Facility Start: 04-27-2011 End: 01-03-2022 Tobacco smoking status NHIS Never smoked tobacco [facility] Start: 05-22-2021 End: 02-25-2023 Alcohol intake Current non-drinker of alcohol (finding) [facility] Start: 08-23-2019 End: 02-27-2022 History SDOH Alcohol Frequency 1 [facility] Start: 08-23-2019 History SDOH Alcohol Std Drinks 98 [facility] Start: 08-23-2019 End: 02-27-2022 History SDOH Social Connections Phone 5 [facility] Start: 08-23-2019 End: 02-27-2022 History SDOH Social Connections Membership 2 [facility] Start: 08-23-2019 End: 02-27-2022 History SDOH Social Connections Living 3 [facility] Start: 08-23-2019 End: 02-27-2022 History SDOH Physical Activity DPW 0 [facility] Start: 08-23-2019 History SDOH Financial 4 [facility] Start: 08-23-2019 Education 16 [facility] Start: 04-27-2011 End: 01-03-2022 Tobacco Comment smokes [facility] Start: 1970 Sex Assigned At Not on file [facility] Start: 08-15-2021 End: 02-27-2022 Exposure to SARS-CoV-2 (event) Not sure [facility] Start: 04-27-2011 End: 01-03-2022 Tobacco use and exposure Smokeless tobacco non-user [facility] Work Phone: Start: 02-27-2022 End: 10-26-2022 History of Social function [facility] Start: 02-27-2022 End: 10-26-2022 Social connection and isolation panel [facility] Do you belong to any clubs or organizations such as sikhism groups, unions, fraternal or athletic groups, or school groups? No [facility] Are you now , , , , never or living with a partner? [facility] How often to you hav e a drink containing alcohol? Never [facility] How many standard dr inks containing alcohol do you have on a typical day? Patient does not drink [facility] How hard is it for y ou to pay for the very basics like food, housing, medical care, and heating Not very hard [facility] (I/We) worried mare er (my/our) food would run out before (I/we) got money to buy more. Never true [facility] Start: 09-13-2020 Gender identity Identifies as female gender (finding) [facility] Start: 09-13-2020 Sexual orientation Heterosexual (finding) [facility] Medical Equipment Procedure Code Equipment Code Equipment Origin al Text Equipment Identifier Dates Tubing Radiopaqu e Silicone Elastomer 8fr 4in - [id number] Start: 06-12-2010 Clinical Notes 05-26-2015 to 03-20-2023 Sebastian Dixon MD - 02/25/2023 2:23 PM ESTTelephone Encounter - Brie ValenzuelaHELIO - 02/25/2023 1:57 PM ESTTelephone Encounter - Nancy Marin DOT NET ARCHITECT - 11/14/2022 1:29 PM EDTPatient Instructions Note Date & Type Note Facility 03-20-2023 Note Patient Outreach (IN T[facility]) KENNY HINTON ([id number]) 1970 F Date Time Provider Department 03/20/23 KARYNA BARRETT During your visit today, we recorded the following information about you: Allergies As of Date: 03/20/2023 Noted Allergy Reaction POLLEN EXTRACTS 09/26/2020 14 - Other: See Comments Comments: congestion Date Reviewed: 02/25/2023 Reviewed by: Kelly Ro RN - Fully Assessed Visit Diagnosis:Encounter for screening mammogram for breast cancer [Z12.31] Order(s):[facility] SCREENING [[id number]] Order #: [id number] FUTURE Prescriptions as of 03/25/2023 - levothyroxine (SYNTHROID) 175 mcg tablet Take 1 tablet by mouth once daily. Take on empty stomach. For thyroid - ergocalciferol 50,000 unit capsule (VITAMIN D2, DRISDOL) Take 1 capsule by mouth one time a week. - omeprazole (PRILOSEC) 20 mg capsule Take 1 capsule by mouth daily before breakfast. 1/2 hr before meal. - FLUoxetine (PROZAC) 20 mg capsule Take 3 capsules by mouth once daily. - buPROPion XL (WELLBUTRIN XL) 150 mg 24 hr tablet Take 1 tablet by mouth once daily. - albuterol HFA (VENTOLIN HFA) 90 mcg/actuation inhaler Inhale 2 Puffs as instructed every 4 hours as needed for wheezing/shortness of breath. - hydrOXYzine pamoate (VISTARIL) 25 mg capsule Take 1 capsule by mouth three times daily as needed. - Lactobacillus acidophilus (ACIDOPHILUS ORAL) Take 3 mL by mouth once daily. - vitamin B complex (B COMPLEX ORAL) Take by mouth. - Cholecalciferol, Vitamin D3, 1,000 unit cap Take 1 capsule by mouth once daily. - ASCORBIC ACID (VITAMIN C ORAL) Take by mouth once daily. Not taking Problem List As Of Date 03/20/2023 Noted Resolved Panic Disorder without Agoraphobia [F41.0] Adjustment Disorder with Depressed Mood [F43.21] Hypothyroidism, acquired [E03.9] Synovial Cyst of Popliteal Space [M71.20] Polycystic ovaries [E28.2] 02/15/2005 08/24/2015 Absence of menstruation [N91.2] 03/16/2005 04/27/2011 OBESITY [E66.9] 02/13/2006 09/09/2007 Unspecified Asthma [J45.909] 02/13/2006 Dysmetabolic syndrome X [E88.810] 06/12/2006 04/27/2011 Esophageal Reflux [K21.9] Sensorineural hearing loss, unspecified [H90.5] 07/19/2017 Obesity, Class III, BMI 40-49.9 (morbid obesity* Tuberculin Test Reaction [795.5] Unspecified hemorrhoids without mention of comp* 07/19/2017 Chest pain, unspecified [R07.9] 02/17/2008 09/08/2020 Right knee pain [M25.561] 08/01/2009 07/19/2017 ROSA MARIA (obstructive sleep apnea) [G47.33] 02/28/2010 Vitamin D deficiency [E55.9] 02/28/2010 ASA CLASS III [1003] 05/24/2010 Other and unspecified postsurgical nonabsorptio*09/15/2010 07/19/2017 Bariatric surgery status [Z98.84] 06/12/2010 PPD positive, treated [R76.11] 10/26/2011 Thickened endometrium [R93.89] 06/13/2012 05/26/2015 Abnormal uterine bleeding [N93.9] 06/13/2012 08/24/2015 Mastalgia [N64.4] 06/13/2012 Lymph node enlargement [R59.9] 06/13/2012 07/19/2017 Dysmenorrhea [N94.6] 05/26/2015 08/24/2015 Chronic pain of right knee [M25.561, G89.29] 08/31/2019 Family history of colon cancer [Z80.0] 02/07/2021 Diarrhea following gastrointestinal surgery [R1*02/07/2021 Encounter Status:Closed by EPIC, PRODUSER on 03/25/23 [facility] 02-25-2023 Note HNO ID: [id number] Author: Sebastian Dixon MD Service: ? Author Type: Physician Type: Progress Notes Filed: 02/25/2023 3:47 PM Note Text: Sebastian Dixon MD Department of Orthopaedics Orthopaedics [address] [facility] [address] Dept: [phone] Dept February 25, 2023 CHIEF COMPLAINT: Established Patient of the Right Knee (17 weeks post visit bilateral knee pain with injections given/Wants injections today) and Established Patient of the Left Knee HPI: Patient would like injections in bilateral knees today. States it gave her pain relief and helps the pain become livable . ASSESSMENT: M17.0 Primary osteoarthritis of both knees (primary encounter diagnosis) M25.561, M25.562, G89.29 Chronic pain of both knees PLAN: Repeat knee injections Ms. Kenny Hinton was advised as to contrast therapies and/or to take analgesics/anti-inflammatories as needed and all contraindications were reviewed. OBJECTIVE: Ms. Kenny Hinton is a pleasant 52 year old in no apparent distress. Gen:LMP 04/10/2015 Large Joint Arthro/Inj: bilateral knee joints Informed Consent Consent Obtained: Verbal Spangler Protocol A moment to CARE was completed. SIGN IN Personnel directly involved with the procedure wore the appropriate PPE. Special Equipment: N/A Patient/Surrogate Stated/Verified: Patient name, Date of , Relevant allergies and Intended procedure TIME OUT Intended patient and procedure match the source document(s). Consent documented and matches the intended procedure. Relevant labs, photos, and/or imaging studies have been reviewed. Correct side/site marked and visible. Medications required for procedure verified. No fire risk assessment and interventions applicable. No implant(s) inserted. 02/25/2023 3:46 PM The procedure site was prepped in the usual sterile fashion. Site: bilateral knee joints Medications (Right): 40 mg triamcinolone acetonide 40 mg/mL Medications (Left): 40 mg triamcinolone acetonide 40 mg/mL Anesthetics (Right): 4 mL lidocaine (PF) 10 mg/mL (1 %) Anesthetics (Left): 4 mL lidocaine (PF) 10 mg/mL (1 %) Outcome: Tolerated well, no immediate complications Post-injection instructions were reviewed with the patient and the patient voiced understanding of these instructions. SIGN OUT All instruments, equipment, possible retained foreign bodies accounted for. Supporting Subjective Information Below: Past Surgical History: PAST SURGICAL HISTORY Procedure Laterality Date COCHLEAR DEVICE IMPLANTATION W/WO MASTOIDECTOMY Cochlear device implant right COLONOSCOPY FLX DX W/COLLJ SPEC WHEN PFRMD 01/15/2018 Colonoscopy LAPAROSCOPY SURG CHOLECYSTECTOMY Cholecystectomy, lap LAPS GSTR RSTCV PX W/BYP JACOBY-EN-Y LIMB <150 CM 06-12-10 P Fernandez LIG/TRNSXJ FLP TUBE ABDL/VAG APPR UNI/BI Tubal ligation MYRINGOTOMY ASPIRAND/EUSTACHIAN TUBE NFLTJ ANES Myringotomy/tubes TOTAL ABDOMINAL HYSTERECT W/WO RMVL TUBE OVARY 03/2016 Hysterectomy, NIYAH Medications: Current Outpatient Medications Medication Sig levothyroxine (SYNTHROID) 175 mcg tablet Take 1 tablet by mouth once daily. Take on empty stomach. For thyroid ergocalciferol 50,000 unit capsule (VITAMIN D2, DRISDOL) Take 1 capsule by mouth one time a week. omeprazole (PRILOSEC) 20 mg capsule Take 1 capsule by mouth daily before breakfast. 1/2 hr before meal. FLUoxetine (PROZAC) 20 mg capsule Take 3 capsules by mouth once daily. buPROPion XL (WELLBUTRIN XL) 150 mg 24 hr tablet Take 1 tablet by mouth once daily. albuterol HFA (VENTOLIN HFA) 90 mcg/actuation inhaler Inhale 2 Puffs as instructed every 4 hours as needed for wheezing/shortness of breath. hydrOXYzine pamoate (VISTARIL) 25 mg capsule Take 1 capsule by mouth three times daily as needed. vitamin B complex (B COMPLEX ORAL) Take by mouth. Cholecalciferol, Vitamin D3, 1,000 unit cap Take 1 capsule by mouth once daily. ASCORBIC ACID (VITAMIN C ORAL) Take by mouth once daily. Not taking Lactobacillus acidophilus (ACIDOPHILUS ORAL) Take 3 mL by mouth once daily. (Patient not taking: Reported on 02/25/2023) No current facility-administered medications for this visit. Allergies: Pollen Extracts ROS: General (negative for fatigue, malaise, weight loss/gain) HEENT (negative for headache, earache, recent vision changes, sinus pain, sore throat) Respiratory (no recent shortness of breath, hemoptysis) CV (negative for chest tightness, palpitations) Musculoskeletal (see HPI) Psych (no depression, anxiety) Sebastian Dixon MD [facility] 02-25-2023 History of Presen t illness Narrative Associated Order(s): Large Joint Arthro/Inj: bilateral knee joints Post-Procedure Diagnose(s): Primary osteoarthritis of both knees; Chronic pain of both knees Sebastian Dixon MD Department of Orthopaedics Orthopaedics [address] [facility] [address] Dept: [phone] Dept February 25, 2023 CHIEF COMPLAINT: Established Patient of the Right Knee (17 weeks post visit bilateral knee pain with injections given/Wants injections today) and Established Patient of the Left Knee HPI: Patient would like injections in bilateral knees today. States it gave her pain relief and helps the pain become livable . ASSESSMENT: M17.0 Primary osteoarthritis of both knees (primary encounter diagnosis) M25.561, M25.562, G89.29 Chronic pain of both knees PLAN: Repeat knee injections Ms. Kenny Hinton was advised as to contrast therapies and/or to take analgesics/anti-inflammatories as needed and all contraindications were reviewed. OBJECTIVE: Ms. Kenny Hinton is a pleasant 52 year old in no apparent distress. Gen:LMP 04/10/2015 Large Joint Arthro/Inj: bilateral knee joints Informed Consent Consent Obtained: Verbal Spangler Protocol A moment to CARE was completed. SIGN IN Personnel directly involved with the procedure wore the appropriate PPE. Special Equipment: N/A Patient/Surrogate Stated/Verified: Patient name, Date of , Relevant allergies and Intended procedure TIME OUT Intended patient and procedure match the source document(s). Consent documented and matches the intended procedure. Relevant labs, photos, and/or imaging studies have been reviewed. Correct side/site marked and visible. Medications required for procedure verified. No fire risk assessment and interventions applicable. No implant(s) inserted. 02/25/2023 3:46 PM The procedure site was prepped in the usual sterile fashion. Site: bilateral knee joints Medications (Right): 40 mg triamcinolone acetonide 40 mg/mL Medications (Left): 40 mg triamcinolone acetonide 40 mg/mL Anesthetics (Right): 4 mL lidocaine (PF) 10 mg/mL (1 %) Anesthetics (Left): 4 mL lidocaine (PF) 10 mg/mL (1 %) Outcome: Tolerated well, no immediate complications Post-injection instructions were reviewed with the patient and the patient voiced understanding of these instructions. SIGN OUT All instruments, equipment, possible retained foreign bodies accounted for. Supporting Subjective Information Below: Past Surgical History: PAST SURGICAL HISTORY Procedure Laterality Date COCHLEAR DEVICE IMPLANTATION W/WO MASTOIDECTOMY Cochlear device implant right COLONOSCOPY FLX DX W/COLLJ SPEC WHEN PFRMD 01/15/2018 Colonoscopy LAPAROSCOPY SURG CHOLECYSTECTOMY Cholecystectomy, lap LAPS GSTR RSTCV PX W/BYP JACOBY-EN-Y LIMB <150 CM 06-12- P Fernandez LIG/TRNSXJ FLP TUBE ABDL/VAG APPR UNI/BI Tubal ligation MYRINGOTOMY ASPIR&/EUSTACHIAN TUBE NFLTJ ANES Myringotomy/tubes TOTAL ABDOMINAL HYSTERECT W/WO RMVL TUBE OVARY 03/2016 Hysterectomy, NIYAH Medications: Current Outpatient Medications Medication Sig levothyroxine (SYNTHROID) 175 mcg tablet Take 1 tablet by mouth once daily. Take on empty stomach. For thyroid ergocalciferol 50,000 unit capsule (VITAMIN D2, DRISDOL) Take 1 capsule by mouth one time a week. omeprazole (PRILOSEC) 20 mg capsule Take 1 capsule by mouth daily before breakfast. 1/2 hr before meal. FLUoxetine (PROZAC) 20 mg capsule Take 3 capsules by mouth once daily. buPROPion XL (WELLBUTRIN XL) 150 mg 24 hr tablet Take 1 tablet by mouth once daily. albuterol HFA (VENTOLIN HFA) 90 mcg/actuation inhaler Inhale 2 Puffs as instructed every 4 hours as needed for wheezing/shortness of breath. hydrOXYzine pamoate (VISTARIL) 25 mg capsule Take 1 capsule by mouth three times daily as needed. vitamin B complex (B COMPLEX ORAL) Take by mouth. Cholecalciferol, Vitamin D3, 1,000 unit cap Take 1 capsule by mouth once daily. ASCORBIC ACID (VITAMIN C ORAL) Take by mouth once daily. Not taking Lactobacillus acidophilus (ACIDOPHILUS ORAL) Take 3 mL by mouth once daily. (Patient not taking: Reported on 02/25/2023) No current facility-administered medications for this visit. Allergies: Pollen Extracts ROS: General (negative for fatigue, malaise, weight loss/gain) HEENT (negative for headache, earache, recent vision changes, sinus pain, sore throat) Respiratory (no recent shortness of breath, hemoptysis) CV (negative for chest tightness, palpitations) Musculoskeletal (see HPI) Psych (no depression, anxiety) Sebastian Dixon MD documented in this encounter [facility] 02-25-2023 Miscellaneous Notes ALEXANDRE-10/30/22 Labs-11/12/22 NOV-none Brie Valenzuela LPN documented in this encounter [facility] 11-14-2022 Miscellaneous Notes Patient notified and verbalizes understanding. Her vit d is low. Add vit d weekly and recheck labs in eight weeks. Protein levels are low. Make sure eating adequate levels of protein. documented in this encounter [facility] 10-30-2022 Miscellaneous Notes Pt will need to to be scheduled at Main campus to accommodate BMI. documented in this encounter [facility] 10-30-2022 Note HNO ID: [id number] Author: Karyna Barrett MD Service: ? Author Type: Physician Type: Progress Notes Filed: 10/30/2022 11:04 AM Note Text: Patient presents with: Abdominal Pain: Right side. Was seen in the ER on the 4th for it. No improvement HPI: Patient presents today for office visit for ruq pain. Seen at [facility] [place] er. Reported having hematuria before. CT of abd was negative. Labs unremarkable. Urine did not show RBCs or WBCs No blood since. No urinary issues currently. Some nausea and increased burping and belching. Increased passing gas. No bowel changes. No vomiting. No heartburn. No changes with eating. Has had cholecystectomy and hysterectomy. No etoh. No nsaids. No fever or chills. No chest pain or shortness of breath. MEDICATIONS: Current Outpatient Medications Medication Sig FLUoxetine (PROZAC) 20 mg capsule Take 3 capsules by mouth once daily. buPROPion XL (WELLBUTRIN XL) 150 mg 24 hr tablet Take 1 tablet by mouth once daily. levothyroxine (SYNTHROID) 175 mcg tablet Take 1 tablet by mouth once daily. Take on empty stomach. For thyroid albuterol HFA (VENTOLIN HFA) 90 mcg/actuation inhaler Inhale 2 Puffs as instructed every 4 hours as needed for wheezing/shortness of breath. hydrOXYzine pamoate (VISTARIL) 25 mg capsule Take 1 capsule by mouth three times daily as needed. Lactobacillus acidophilus (ACIDOPHILUS ORAL) Take 3 mL by mouth once daily. vitamin B complex (B COMPLEX ORAL) Take by mouth. Cholecalciferol, Vitamin D3, 1,000 unit cap Take 1 capsule by mouth once daily. ASCORBIC ACID (VITAMIN C ORAL) Take by mouth once daily. Not taking No current facility-administered medications for this visit. ALLERGIES: ALLERGIES Allergen Reactions Pollen Extracts Other: See Comments congestion PAST MEDICAL HISTORY Diagnosis Date Adjustment disorder with depressed mood suicidal ideation without attempt 2005 Asthma Bariatric surgery status 06-12-10 gastric bypass Dysmetabolic syndrome X Esophageal reflux Morbid obesity (HCC) 12-02-09 stated BMI 61.5 Ht: 63 Wt: 347 lbs Other specified acquired hypothyroidism Panic disorder without agoraphobia Pneumonia in other infectious diseases classified elsewhere(484.8) 2006 RML Polycystic ovaries 2005 elevated androgens Sensorineural hearing loss, unspecified wears hearing aide right ear, no hearing left ear Synovial cyst of popliteal space 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 18, i year INH prophylaxis Unspecified hemorrhoids without mention of complication Unspecified sleep apnea resolved with weight loss Vitamin D deficiency 02/28/2010 PAST SURGICAL HISTORY Procedure Laterality Date COCHLEAR DEVICE IMPLANTATION W/WO MASTOIDECTOMY Cochlear device implant right COLONOSCOPY FLX DX W/COLLJ SPEC WHEN PFRMD 01/15/2018 Colonoscopy LAPAROSCOPY SURG CHOLECYSTECTOMY Cholecystectomy, lap LAPS GSTR RSTCV PX W/BYP JACOBY-EN-Y LIMB <150 CM 06-12-10 P Fernandez LIG/TRNSXJ FLP TUBE ABDL/VAG APPR UNI/BI Tubal ligation MYRINGOTOMY ASPIRAND/EUSTACHIAN TUBE NFLTJ ANES Myringotomy/tubes TOTAL ABDOMINAL HYSTERECT W/WO RMVL TUBE OVARY 03/2016 Hysterectomy, NIYAH FAMILY HISTORY Problem Relation Age of Onset Cancer Mother pancreatic cancer Colon Cancer Mother 45 Lipids Father enlarged prostate, hyperlipidemia, COPD other (Bi-Polar) Sister Hypertension Brother Coronary Artery Disease Maternal Grandmother Coronary Artery Disease Maternal Grandfather Coronary Artery Disease Paternal Grandfather Thyroid Maternal Aunt 3 Aunts Social History Tobacco Use Smoking status: Never Smokeless tobacco: Never Tobacco comments: smokes Vaping Use Vaping Use: Never used Substance Use Topics Alcohol use: No Drug use: No Reviewed current medications, allergies, past medical history, surgical history, family history and social history today. REVIEW OF SYSTEMS All other reviewed and negative other than HPI. HEALTH MAINTENANCE: Reviewed health maintenance issues today and recommended the following in detail. COLORECTAL CANCER SCREENING due on 01/15/2023 VITALS: BP 124/82 Pulse 86 Resp 16 Wt (!) 155.1 kg (342 lb) LMP 04/10/2015 SpO2 99% BMI 60.58 kg/m? Last 4 Encounter Wt Readings: Date: Wt: 10/30/2022 155.1 kg (342 lb) 02/27/2022 155.8 kg (343 lb 6.4 oz) 01/03/2022 155.1 kg (342 lb) 08/25/2021 155.6 kg (343 lb) PHYSICAL EXAMINATION: General appearance: Well appearing, alert, in no acute distress, well-hydrated, well nourished. Skin: Skin color, texture, turgor normal, no suspicious rashes or lesions Head: Normocephalic, no masses, lesions, tenderness or abnormalities Lungs: Lungs clear to auscultation. No wheezing, rhonchi, rales Heart: RRR without murmur, gallop, or rubs. No ectopy Abdomen: ruq tenderness. No rebound. No guarding. Bowel sounds are positive. Extremities: No deformities, edema, (more content not included)... [facility] 10-30-2022 History of Presen t illness Narrative Patient presents with: Abdominal Pain: Right side. Was seen in the ER on the for it. No improvement HPI: Patient presents today for office visit for ruq pain. Seen at [facility] [place] er. Reported having hematuria before. CT of abd was negative. Labs unremarkable. Urine did not show RBCs or WBCs No blood since. No urinary issues currently. Some nausea and increased burping and belching. Increased passing gas. No bowel changes. No vomiting. No heartburn. No changes with eating. Has had cholecystectomy and hysterectomy. No etoh. No nsaids. No fever or chills. No chest pain or shortness of breath. MEDICATIONS: Current Outpatient Medications Medication Sig FLUoxetine (PROZAC) 20 mg capsule Take 3 capsules by mouth once daily. buPROPion XL (WELLBUTRIN XL) 150 mg 24 hr tablet Take 1 tablet by mouth once daily. levothyroxine (SYNTHROID) 175 mcg tablet Take 1 tablet by mouth once daily. Take on empty stomach. For thyroid albuterol HFA (VENTOLIN HFA) 90 mcg/actuation inhaler Inhale 2 Puffs as instructed every 4 hours as needed for wheezing/shortness of breath. hydrOXYzine pamoate (VISTARIL) 25 mg capsule Take 1 capsule by mouth three times daily as needed. Lactobacillus acidophilus (ACIDOPHILUS ORAL) Take 3 mL by mouth once daily. vitamin B complex (B COMPLEX ORAL) Take by mouth. Cholecalciferol, Vitamin D3, 1,000 unit cap Take 1 capsule by mouth once daily. ASCORBIC ACID (VITAMIN C ORAL) Take by mouth once daily. Not taking No current facility-administered medications for this visit. ALLERGIES: ALLERGIES Allergen Reactions Pollen Extracts Other: See Comments congestion PAST MEDICAL HISTORY Diagnosis Date Adjustment disorder with depressed mood suicidal ideation without attempt 2006 Asthma Bariatric surgery status 06-12-10 gastric bypass Dysmetabolic syndrome X Esophageal reflux Morbid obesity (HCC) 12-02-09 stated BMI 61.5 Ht: 63 Wt: 347 lbs Other specified acquired hypothyroidism Panic disorder without agoraphobia Pneumonia in other infectious diseases classified elsewhere(484.8) 2006 RML Polycystic ovaries 2005 elevated androgens Sensorineural hearing loss, unspecified wears hearing aide right ear, no hearing left ear Synovial cyst of popliteal space 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 18, i year INH prophylaxis Unspecified hemorrhoids without mention of complication Unspecified sleep apnea resolved with weight loss Vitamin D deficiency 02/28/2010 PAST SURGICAL HISTORY Procedure Laterality Date COCHLEAR DEVICE IMPLANTATION W/WO MASTOIDECTOMY Cochlear device implant right COLONOSCOPY FLX DX W/COLLJ SPEC WHEN PFRMD 01/15/2018 Colonoscopy LAPAROSCOPY SURG CHOLECYSTECTOMY Cholecystectomy, lap LAPS GSTR RSTCV PX W/BYP JACOBY-EN-Y LIMB <150 CM 06-12-10 P Fernandez LIG/TRNSXJ FLP TUBE ABDL/VAG APPR UNI/BI Tubal ligation MYRINGOTOMY ASPIR&/EUSTACHIAN TUBE NFLTJ ANES Myringotomy/tubes TOTAL ABDOMINAL HYSTERECT W/WO RMVL TUBE OVARY 03/2016 Hysterectomy, NIYAH FAMILY HISTORY Problem Relation Age of Onset Cancer Mother pancreatic cancer Colon Cancer Mother 45 Lipids Father enlarged prostate, hyperlipidemia, COPD other (Bi-Polar) Sister Hypertension Brother Coronary Artery Disease Maternal Grandmother Coronary Artery Disease Maternal Grandfather Coronary Artery Disease Paternal Grandfather Thyroid Maternal Aunt 3 Aunts Social History Tobacco Use Smoking status: Never Smokeless tobacco: Never Tobacco comments: smokes Vaping Use Vaping Use: Never used Substance Use Topics Alcohol use: No Drug use: No Reviewed current medications, allergies, past medical history, surgical history, family history and social history today. REVIEW OF SYSTEMS All other reviewed and negative other than HPI. HEALTH MAINTENANCE: Reviewed health maintenance issues today and recommended the following in detail. COLORECTAL CANCER SCREENING due on 01/15/2023 VITALS: BP 124/82 Pulse 86 Resp 16 Wt (!) 155.1 kg (342 lb) LMP 04/10/2015 SpO2 99% BMI 60.58 kg/m Last 4 Encounter Wt Readings: Date: Wt: 10/30/2022 155.1 kg (342 lb) 02/27/2022 155.8 kg (343 lb 6.4 oz) 01/03/2022 155.1 kg (342 lb) 08/25/2021 155.6 kg (343 lb) PHYSICAL EXAMINATION: General appearance: Well appearing, alert, in no acute distress, well-hydrated, well nourished. Skin: Skin color, texture, turgor normal, no suspicious rashes or lesions Head: Normocephalic, no masses, lesions, tenderness or abnormalities Lungs: Lungs clear to auscultation. No wheezing, rhonchi, rales Heart: RRR without murmur, gallop, or rubs. No ectopy Abdomen: ruq tenderness. No rebound. No guarding. Bowel sounds are positive. Extremities: No deformities, edema, skin discoloration, clubbing or cyanosis. Good capillary refill. ASSESSMENT/PLAN: 1. Gross hematuria - ICD9: 599.71, ICD10: R31.0 (primary diagnosis) - urology if positive - URINALYSIS, WITH MICROSCOPIC 2. RUQ pain - ICD9: 789.01, ICD10: R10.11 - Discussed risks and benefits of new medication with the patient. Advised them to call if any side effects or questions. - Red flags for re-assessment reviewed with patient in detail. - OMEPRAZOLE 20 MG CAPSULE,DELAYED RELEASE - CONSULT TO GENERAL SURGERY 3. Bariatric surgery status - ICD9: V45.86, ICD10: Z98.84 - check labs. - CBC + DIFF - COMP METABOLIC PANEL - VITAMIN B12 BLOOD - FOLATE SERUM - VITAMIN B1 (THIAMINE), WHOLE BLOOD - OMEPRAZOLE 20 MG CAPSULE,DELAYED RELEASE - CONSULT TO GENERAL SURGERY 4. Hypothyroidism, acquired - ICD9: 244.9, ICD10: E03.9 - TSH BLD 5. Gastroesophageal reflux disease without esophagitis - ICD9: 530.81, ICD10: K21.9 - OMEPRAZOLE 20 MG CAPSULE,DELAYED RELEASE - CONSULT TO GENERAL SURGERY 6. Vitamin D deficiency - ICD9: 268.9, ICD10: E55.9 - VITAMIN D 25 HYDROXY 7. Family history of colon cancer - ICD9: V16.0, ICD10: Z80.0 - CONSULT TO GENERAL SURGERY Karyna Barrett MD documented in this encounter [facility] 10-29-2022 Note HNO ID: [id number] Author: Sebastian Dixon MD Service: ? Author Type: Physician Type: Progress Notes Filed: 10/29/2022 8:38 AM Note Text: Sebastian Dixon MD Department of Orthopaedics Orthopaedics [address] [facility] [address] Dept: [phone] Dept October 29, 2022 CHIEF COMPLAINT: Established Patient and Pain of the Left Knee and Established Patient and Pain of the Right Knee HPI Patient here today for 18 weeks 4 days post visit bilateral knee pain with injections given. She had relief for a couple months. She would like injections today. ASSESSMENT: M25.561, M25.562, G89.29 Chronic pain of both knees (primary encounter diagnosis) M17.0 Primary osteoarthritis of both knees PLAN: repeat injections Ms. Kenny Hinton was advised as to contrast therapies and/or to take analgesics/anti-inflammatories as needed and all contraindications were reviewed. OBJECTIVE: Ms. Kenny Hinton is a pleasant 51 year old in no apparent distress. Gen:LMP 04/10/2015 nl development, morbidly obese , no deformities ENT: Normocephalic, normal hearing, moist mucosa CV: Pulses:DP/PT= 2+ and symmetric, capillary refill < 2 secs, no peripheral edema/varicosities Skin: no rash, bruising or lesions. Good turgor. Psych: cooperative and appropriate, alert and oriented x 3, good mood and affect. Musculoskeletal: Stable exam Large Joint Arthro/Inj: bilateral knee joints Informed Consent Consent Obtained: Verbal Spangler Protocol A moment to CARE was completed. SIGN IN Personnel directly involved with the procedure wore the appropriate PPE. Special Equipment: N/A Patient/Surrogate Stated/Verified: Patient name, Date of , Relevant allergies and Intended procedure TIME OUT Intended patient and procedure match the source document(s). Consent documented and matches the intended procedure. Relevant labs, photos, and/or imaging studies have been reviewed. Correct side/site marked and visible. Medications required for procedure verified. No fire risk assessment and interventions applicable. No implant(s) inserted. 10/29/2022 8:23 AM The procedure site was prepped in the usual sterile fashion. Site: bilateral knee joints Medications (Right): 6 mg betamethasone acetate-betamethasone sodium phosphate 6 mg/mL Medications (Left): 6 mg betamethasone acetate-betamethasone sodium phosphate 6 mg/mL Anesthetics (Right): 4 mL lidocaine (PF) 10 mg/mL (1 %) Anesthetics (Left): 4 mL lidocaine (PF) 10 mg/mL (1 %) Outcome: Tolerated well, no immediate complications Post-injection instructions were reviewed with the patient and the patient voiced understanding of these instructions. SIGN OUT All instruments, equipment, possible retained foreign bodies accounted for. Supporting Subjective Information Below: Past Surgical History: PAST SURGICAL HISTORY Procedure Laterality Date COCHLEAR DEVICE IMPLANTATION W/WO MASTOIDECTOMY Cochlear device implant right COLONOSCOPY FLX DX W/COLLJ SPEC WHEN PFRMD 01/15/2018 Colonoscopy LAPAROSCOPY SURG CHOLECYSTECTOMY Cholecystectomy, lap LAPS GSTR RSTCV PX W/BYP JACOBY-EN-Y LIMB <150 CM 06-12-11 P Fernandez LIG/TRNSXJ FLP TUBE ABDL/VAG APPR UNI/BI Tubal ligation MYRINGOTOMY ASPIRAND/EUSTACHIAN TUBE NFLTJ ANES Myringotomy/tubes TOTAL ABDOMINAL HYSTERECT W/WO RMVL TUBE OVARY 03/2016 Hysterectomy, NIYAH Medications: Current Outpatient Medications Medication Sig FLUoxetine (PROZAC) 20 mg capsule Take 3 capsules by mouth once daily. buPROPion XL (WELLBUTRIN XL) 150 mg 24 hr tablet Take 1 tablet by mouth once daily. levothyroxine (SYNTHROID) 175 mcg tablet Take 1 tablet by mouth once daily. Take on empty stomach. For thyroid albuterol HFA (VENTOLIN HFA) 90 mcg/actuation inhaler Inhale 2 Puffs as instructed every 4 hours as needed for wheezing/shortness of breath. hydrOXYzine pamoate (VISTARIL) 25 mg capsule Take 1 capsule by mouth three times daily as needed. Lactobacillus acidophilus (ACIDOPHILUS ORAL) Take 3 mL by mouth once daily. vitamin B complex (B COMPLEX ORAL) Take by mouth. Cholecalciferol, Vitamin D3, 1,000 unit cap Take 1 capsule by mouth once daily. ASCORBIC ACID (VITAMIN C ORAL) Take by mouth once daily. Not taking No current facility-administered medications for this visit. Allergies: Pollen Extracts ROS: General (negative for fatigue, malaise, weight loss/gain) HEENT (negative for headache, earache, recent vision changes, sinus pain, sore throat) Respiratory (no recent shortness of breath, hemoptysis) CV (negative for chest tightness, palpitations) Musculoskeletal (see HPI) Psych (no depression, anxiety) Sebastian Dixon MD [facility] 10-29-2022 History of Presen t illness Narrative Associated Order(s): Large Joint Arthro/Inj: bilateral knee joints Post-Procedure Diagnose(s): Chronic pain of both knees; Primary osteoarthritis of both knees Sebastian Dixon MD Department of Orthopaedics Orthopaedics [address] [facility] [address] Dept: [phone] Dept October 29, 2022 CHIEF COMPLAINT: Established Patient and Pain of the Left Knee and Established Patient and Pain of the Right Knee HPI Patient here today for 18 weeks 4 days post visit bilateral knee pain with injections given. She had relief for a couple months. She would like injections today. ASSESSMENT: M25.561, M25.562, G89.29 Chronic pain of both knees (primary encounter diagnosis) M17.0 Primary osteoarthritis of both knees PLAN: repeat injections Ms. Kenny Hinton was advised as to contrast therapies and/or to take analgesics/anti-inflammatories as needed and all contraindications were reviewed. OBJECTIVE: Ms. Kenny Hinton is a pleasant 51 year old in no apparent distress. Gen:LMP 04/10/2015 nl development, morbidly obese , no deformities ENT: Normocephalic, normal hearing, moist mucosa CV: Pulses:DP/PT= 2+ and symmetric, capillary refill < 2 secs, no peripheral edema/varicosities Skin: no rash, bruising or lesions. Good turgor. Psych: cooperative and appropriate, alert and oriented x 3, good mood and affect. Musculoskeletal: Stable exam Large Joint Arthro/Inj: bilateral knee joints Informed Consent Consent Obtained: Verbal Spangler Protocol A moment to CARE was completed. SIGN IN Personnel directly involved with the procedure wore the appropriate PPE. Special Equipment: N/A Patient/Surrogate Stated/Verified: Patient name, Date of , Relevant allergies and Intended procedure TIME OUT Intended patient and procedure match the source document(s). Consent documented and matches the intended procedure. Relevant labs, photos, and/or imaging studies have been reviewed. Correct side/site marked and visible. Medications required for procedure verified. No fire risk assessment and interventions applicable. No implant(s) inserted. 10/29/2022 8:23 AM The procedure site was prepped in the usual sterile fashion. Site: bilateral knee joints Medications (Right): 6 mg betamethasone acetate-betamethasone sodium phosphate 6 mg/mL Medications (Left): 6 mg betamethasone acetate-betamethasone sodium phosphate 6 mg/mL Anesthetics (Right): 4 mL lidocaine (PF) 10 mg/mL (1 %) Anesthetics (Left): 4 mL lidocaine (PF) 10 mg/mL (1 %) Outcome: Tolerated well, no immediate complications Post-injection instructions were reviewed with the patient and the patient voiced understanding of these instructions. SIGN OUT All instruments, equipment, possible retained foreign bodies accounted for. Supporting Subjective Information Below: Past Surgical History: PAST SURGICAL HISTORY Procedure Laterality Date COCHLEAR DEVICE IMPLANTATION W/WO MASTOIDECTOMY Cochlear device implant right COLONOSCOPY FLX DX W/COLLJ SPEC WHEN PFRMD 01/15/2018 Colonoscopy LAPAROSCOPY SURG CHOLECYSTECTOMY Cholecystectomy, lap LAPS GSTR RSTCV PX W/BYP JACOBY-EN-Y LIMB <150 CM 2-28-11 P Fernandez LIG/TRNSXJ FLP TUBE ABDL/VAG APPR UNI/BI Tubal ligation MYRINGOTOMY ASPIR&/EUSTACHIAN TUBE NFLTJ ANES Myringotomy/tubes TOTAL ABDOMINAL HYSTERECT W/WO RMVL TUBE OVARY 03/2016 Hysterectomy, NIYAH Medications: Current Outpatient Medications Medication Sig FLUoxetine (PROZAC) 20 mg capsule Take 3 capsules by mouth once daily. buPROPion XL (WELLBUTRIN XL) 150 mg 24 hr tablet Take 1 tablet by mouth once daily. levothyroxine (SYNTHROID) 175 mcg tablet Take 1 tablet by mouth once daily. Take on empty stomach. For thyroid albuterol HFA (VENTOLIN HFA) 90 mcg/actuation inhaler Inhale 2 Puffs as instructed every 4 hours as needed for wheezing/shortness of breath. hydrOXYzine pamoate (VISTARIL) 25 mg capsule Take 1 capsule by mouth three times daily as needed. Lactobacillus acidophilus (ACIDOPHILUS ORAL) Take 3 mL by mouth once daily. vitamin B complex (B COMPLEX ORAL) Take by mouth. Cholecalciferol, Vitamin D3, 1,000 unit cap Take 1 capsule by mouth once daily. ASCORBIC ACID (VITAMIN C ORAL) Take by mouth once daily. Not taking No current facility-administered medications for this visit. Allergies: Pollen Extracts ROS: General (negative for fatigue, malaise, weight loss/gain) HEENT (negative for headache, earache, recent vision changes, sinus pain, sore throat) Respiratory (no recent shortness of breath, hemoptysis) CV (negative for chest tightness, palpitations) Musculoskeletal (see HPI) Psych (no depression, anxiety) Sebastian Dixon MD documented in this encounter [facility] 08-17-2022 Miscellaneous Notes Patient phones requesting refills as follows: Requested Prescriptions Pending Prescriptions Disp Refills FLUoxetine (PROZAC) 20 mg capsule 270 capsule 3 Sig: Take 3 capsules by mouth once daily. buPROPion XL (WELLBUTRIN XL) 150 mg 24 hr tablet 90 tablet 3 Sig: Take 1 tablet by mouth once daily. levothyroxine (SYNTHROID) 175 mcg tablet 90 tablet 1 Sig: Take 1 tablet by mouth once daily. Take on empty stomach. For thyroid ALEXANDRE-02/27/22 Labs-03/05/22 NOV-none Please review and advise. Brie Valenzuela LPN documented in this encounter [facility] 06-21-2022 Note HNO ID: [id number] Author: Sebastian Dixon MD Service: ? Author Type: Physician Type: Progress Notes Filed: 06/21/2022 3:35 PM Note Text: AMB ROOMING INTAKE FLOWSHEET DATA Pain Pain Level: 7 Pain Location: Knee-Right Description: Aching, Burning, Stabbing Frequency: Continuous Intervention/Comfort measure: Medication, Reposition, Cold, Heat Patient presents with: Left Knee - Follow Up, Knee Pain Right Knee - Follow Up, Knee Pain Patient presents for B/L knee pain which has been worse the past couple of weeks. She was last seen 12 weeks ago for her L knee and received a cortisone injection. She is requesting cortisone injections to B/L knees today. Reports that R knee is worse but has constant pain in both knees that's worse at night. She has been using both ice and heat, taking Tylenol and ibuprofen as needed but nothing is really making a difference. Large Joint Arthro/Inj: bilateral knee joints Informed Consent Consent Obtained: Verbal Spangler Protocol A moment to CARE was completed. SIGN IN Personnel directly involved with the procedure wore the appropriate PPE. Special Equipment: N/A Patient/Surrogate Stated/Verified: Patient name, Date of , Relevant allergies and Intended procedure TIME OUT Intended patient and procedure match the source document(s). Consent documented and matches the intended procedure. Relevant labs, photos, and/or imaging studies have been reviewed. Correct side/site marked and visible. Medications required for procedure verified. No fire risk assessment and interventions applicable. No implant(s) inserted. 06/21/2022 3:32 PM The procedure site was prepped in the usual sterile fashion. Site: bilateral knee joints Medications (Right): 6 mg betamethasone acetate-betamethasone sodium phosphate 6 mg/mL Medications (Left): 6 mg betamethasone acetate-betamethasone sodium phosphate 6 mg/mL Anesthetics (Right): 4 mL lidocaine (PF) 10 mg/mL (1 %) Anesthetics (Left): 4 mL lidocaine (PF) 10 mg/mL (1 %) Outcome: Tolerated well, no immediate complications Post-injection instructions were reviewed with the patient and the patient voiced understanding of these instructions. SIGN OUT No specimen collected. All instruments, equipment, possible retained foreign bodies accounted for. Post-procedure follow-up management communicated and Plan of Care Visit completed when applicable [facility] 06-21-2022 History of Presen t illness Narrative Associated Order(s): Large Joint Arthro/Inj: bilateral knee joints Post-Procedure Diagnose(s): Primary osteoarthritis of both knees; Chronic pain of both knees AMB ROOMING INTAKE FLOWSHEET DATA Pain Pain Level: 7 Pain Location: Knee-Right Description: Aching, Burning, Stabbing Frequency: Continuous Intervention/Comfort measure: Medication, Reposition, Cold, Heat Patient presents with: Left Knee - Follow Up, Knee Pain Right Knee - Follow Up, Knee Pain Patient presents for B/L knee pain which has been worse the past couple of weeks. She was last seen 12 weeks ago for her L knee and received a cortisone injection. She is requesting cortisone injections to B/L knees today. Reports that R knee is worse but has constant pain in both knees that's worse at night. She has been using both ice and heat, taking Tylenol and ibuprofen as needed but nothing is really making a difference. Large Joint Arthro/Inj: bilateral knee joints Informed Consent Consent Obtained: Verbal Spangler Protocol A moment to CARE was completed. SIGN IN Personnel directly involved with the procedure wore the appropriate PPE. Special Equipment: N/A Patient/Surrogate Stated/Verified: Patient name, Date of , Relevant allergies and Intended procedure TIME OUT Intended patient and procedure match the source document(s). Consent documented and matches the intended procedure. Relevant labs, photos, and/or imaging studies have been reviewed. Correct side/site marked and visible. Medications required for procedure verified. No fire risk assessment and interventions applicable. No implant(s) inserted. 06/21/2022 3:32 PM The procedure site was prepped in the usual sterile fashion. Site: bilateral knee joints Medications (Right): 6 mg betamethasone acetate-betamethasone sodium phosphate 6 mg/mL Medications (Left): 6 mg betamethasone acetate-betamethasone sodium phosphate 6 mg/mL Anesthetics (Right): 4 mL lidocaine (PF) 10 mg/mL (1 %) Anesthetics (Left): 4 mL lidocaine (PF) 10 mg/mL (1 %) Outcome: Tolerated well, no immediate complications Post-injection instructions were reviewed with the patient and the patient voiced understanding of these instructions. SIGN OUT No specimen collected. All instruments, equipment, possible retained foreign bodies accounted for. Post-procedure follow-up management communicated and Plan of Care Visit completed when applicable documented in this encounter [facility] 04-12-2022 Miscellaneous Notes Patient phones requesting refills as follows: Requested Prescriptions Pending Prescriptions Disp Refills albuterol HFA (VENTOLIN HFA) 90 mcg/actuation inhaler Sig: Inhale 2 Puffs as instructed every 4 hours as needed for wheezing/shortness of breath. hydrOXYzine pamoate (VISTARIL) 25 mg capsule 60 capsule 1 Sig: Take 1 capsule by mouth three times daily as needed. levothyroxine (SYNTHROID) 175 mcg tablet 90 tablet 1 Sig: Take 1 tablet by mouth once daily. Take on empty stomach. For thyroid ALEXANDRE-02/27/22 Labs-03/05/22 NOV-none Please review and advise. Brie Valenzuela LPN documented in this encounter [facility] 03-29-2022 Note HNO ID: [id number] Author: Olivia Cornelius PA-C Service: ? Author Type: Physician Windows Desktop Support Type: Progress Notes Filed: 03/29/2022 2:18 PM Note Text: Olivia Cornelius PA-C Department of Orthopaedics Orthopaedics [address] [place] [id number] Dept: [phone] March 29, [address] Karyna Barrett for an opinion regarding left knee OA. My final recommendations will be communicated back to the requesting physician by way of shared Medical record or letter to requesting physician via [place] mail. CHIEF COMPLAINT: New and Knee Pain of the Left Knee Ms. Kenny Hinton is a 51 year old female she presents with pain in her left knee which has been bothering her for about the past month and a half. Pain is a diffuse anterior 8 out of 10 aching, stabbing. Pain is worse with ambulating but does occur even at rest. Patient has been taking Motrin and Advil with only minor relief. The patient has a history of gastric bypass in 2010. She had a right knee corticosteroid injection with Dr. Dixon and October, she finds the injections to be very helpful. She reports that she has been working on weight loss and did go to the gym with some friends. ASSESSMENT: M17.12 Primary osteoarthritis of left knee (primary encounter diagnosis) M25.562 Acute pain of left knee E66.01 Morbid obesity (HCC) PLAN: She would like to proceed with a left knee corticosteroid injections today. Advised her to discontinue Motrin and Advil as is not safe following her gastric bypass. Encouraged her to continue working on weight loss whether it be increased physical activity or working on some dietary changes. She can follow-up for repeat corticosteroid injection every 91 days. Patient agrees to plan. Ms. Kenyn Hinton was advised as to contrast therapies and/or to take analgesics/anti-inflammatories as needed and all contraindications were reviewed. OBJECTIVE: Ms. Kenny Hinton is a pleasant 51 year old in no apparent distress. Gen:LMP 04/10/2015 nl development, obese, no deformities ENT: Normocephalic, normal hearing, moist mucosa CV: Pulses:DP/PT= 2+ and symmetric, capillary refill < 2 secs, no peripheral edema/varicosities Skin: no rash, bruising or lesions. Good turgor. Psych: cooperative and appropriate, alert and oriented x 3, good mood and affect. Musculoskeletal: KNEE EXAM: Left: Alignment: Neutral Range of motion is lacking a few degrees secondary to tight hamstrings degrees in extension and 100 degrees of flexion. Extension La degrees Pain with ROM: Yes Effusion: Slight Tender to the palpation of Medial femoral condyle, Lateral femoral condyle, Medial joint line, and Lateral joint line Pain with patellar compression: Yes Stability: Anterior/Posterior stable and Varus/Valgus stable Hip Exam: flexion to 100+ degrees, full extension, internal/external rotation adequate, and no pain with log roll Neurovascular Status: Sensation Intact, Moves foot and ankle up AND down, and 2+ dorsalis pedis Large Joint Arthro/Inj: L knee joint Informed Consent Consent Obtained: Verbal Spangler Protocol A moment to CARE was completed. SIGN IN Sign in communication not applicable due to emergent procedure. Personnel directly involved with the procedure wore the appropriate PPE. Special Equipment: N/A Patient/Surrogate Stated/Verified: Patient name, Date of , Relevant allergies and Intended procedure TIME OUT Intended patient and procedure match the source document(s). Relevant labs, photos, and/or imaging studies have been reviewed. Correct side/site marked and visible. Medications required for procedure verified. No fire risk assessment and interventions applicable. No implant(s) inserted. 03/29/2022 2:17 PM The procedure site was prepped in the usual sterile fashion. Site: L knee joint Medications: 6 mg betamethasone acetate-betamethasone sodium phosphate 6 mg/mL Anesthetics: 4 mL lidocaine (PF) 10 mg/mL (1 %) Outcome: Tolerated well, no immediate complications Post-injection instructions were reviewed with the patient and the patient voiced understanding of these instructions. SIGN OUT All instruments, equipment, possible retained foreign bodies accounted for. Post-procedure follow-up management communicated and Plan of Care Visit completed when applicable Imaging: IMPRESSION: LEFT knee osteoarthritis, moderate in the medial compartment. Roper Operator: TONY Transcribe Date/Time: Feb 27 2022 6:10P Dictated by : MEGHNA ROJAS DO This examination was interpreted and the report reviewed and electronically signed by: MEGHNA ROJAS DO on Feb 27 2022 6:12PM EST Results-Findings * * *Final Report* * * DATE OF EXAM: Feb 27 2022 5:40PM WOX 5202 - XR KNEE 4V AP/PA BOTH+LAT/RUDY LT / PROCEDURE REASON: Acute pain of left knee * * * * Physician Interpretation * * * * EXAMINATION: (more content not included)... [facility] 03-29-2022 History of Presen t illness Narrative Associated Order(s): Large Joint Arthro/Inj: L knee joint Post-Procedure Diagnose(s): Primary osteoarthritis of left knee; Acute pain of left knee Olivia Cornelius PA-C Department of Orthopaedics Orthopaedics [address] [address] Dept: [phone] March 29, [address] Karyna Barrett for an opinion regarding left knee OA. My final recommendations will be communicated back to the requesting physician by way of shared Medical record or letter to requesting physician via [place] mail. CHIEF COMPLAINT: New and Knee Pain of the Left Knee Ms. Kenny Hinton is a 51 year old female she presents with pain in her left knee which has been bothering her for about the past month and a half. Pain is a diffuse anterior 8 out of 10 aching, stabbing. Pain is worse with ambulating but does occur even at rest. Patient has been taking Motrin and Advil with only minor relief. The patient has a history of gastric bypass in 2010. She had a right knee corticosteroid injection with Dr. Dixon and October, she finds the injections to be very helpful. She reports that she has been working on weight loss and did go to the gym with some friends. ASSESSMENT: M17.12 Primary osteoarthritis of left knee (primary encounter diagnosis) M25.562 Acute pain of left knee E66.01 Morbid obesity (HCC) PLAN: She would like to proceed with a left knee corticosteroid injections today. Advised her to discontinue Motrin and Advil as is not safe following her gastric bypass. Encouraged her to continue working on weight loss whether it be increased physical activity or working on some dietary changes. She can follow-up for repeat corticosteroid injection every 91 days. Patient agrees to plan. Ms. Kenny Hinton was advised as to contrast therapies and/or to take analgesics/anti-inflammatories as needed and all contraindications were reviewed. OBJECTIVE: Ms. Kenny Hinton is a pleasant 51 year old in no apparent distress. Gen:LMP 04/10/2015 nl development, obese, no deformities ENT: Normocephalic, normal hearing, moist mucosa CV: Pulses:DP/PT= 2+ and symmetric, capillary refill < 2 secs, no peripheral edema/varicosities Skin: no rash, bruising or lesions. Good turgor. Psych: cooperative and appropriate, alert and oriented x 3, good mood and affect. Musculoskeletal: KNEE EXAM: Left: Alignment: Neutral Range of motion is lacking a few degrees secondary to tight hamstrings degrees in extension and 100 degrees of flexion. Extension La degrees Pain with ROM: Yes Effusion: Slight Tender to the palpation of Medial femoral condyle, Lateral femoral condyle, Medial joint line, and Lateral joint line Pain with patellar compression: Yes Stability: Anterior/Posterior stable and Varus/Valgus stable Hip Exam: flexion to 100+ degrees, full extension, internal/external rotation adequate, and no pain with log roll Neurovascular Status: Sensation Intact, Moves foot and ankle up & down, and 2+ dorsalis pedis Large Joint Arthro/Inj: L knee joint Informed Consent Consent Obtained: Verbal Spangler Protocol A moment to CARE was completed. SIGN IN Sign in communication not applicable due to emergent procedure. Personnel directly involved with the procedure wore the appropriate PPE. Special Equipment: N/A Patient/Surrogate Stated/Verified: Patient name, Date of , Relevant allergies and Intended procedure TIME OUT Intended patient and procedure match the source document(s). Relevant labs, photos, and/or imaging studies have been reviewed. Correct side/site marked and visible. Medications required for procedure verified. No fire risk assessment and interventions applicable. No implant(s) inserted. 03/29/2022 2:17 PM The procedure site was prepped in the usual sterile fashion. Site: L knee joint Medications: 6 mg betamethasone acetate-betamethasone sodium phosphate 6 mg/mL Anesthetics: 4 mL lidocaine (PF) 10 mg/mL (1 %) Outcome: Tolerated well, no immediate complications Post-injection instructions were reviewed with the patient and the patient voiced understanding of these instructions. SIGN OUT All instruments, equipment, possible retained foreign bodies accounted for. Post-procedure follow-up management communicated and Plan of Care Visit completed when applicable Imaging: IMPRESSION: LEFT knee osteoarthritis, moderate in the medial compartment. Roper Operator: TONY Transcribe Date/Time: Feb 27 2022 6:10P Dictated by : MEGHNA ROJAS DO This examination was interpreted and the report reviewed and electronically signed by: MEGHNA ROJAS DO on Feb 27 2022 6:12PM EST Results-Findings * * *Final Report* * * DATE OF EXAM: Feb 27 2022 5:40PM WOX 5202 - XR KNEE 4V AP/PA BOTH+LAT/RUDY LT / PROCEDURE REASON: Acute pain of left knee * * * * Physician Interpretation * * * * EXAMINATION: XR KNEE 4V AP/PA BOTH+LAT/RUDY LT PATIENT/TECHNOLOGIST PROVIDED HISTORY: Chronic diffuse left knee pain increasing over time without injury. Large Body habitus CLINICAL INFORMATION: 51 years old Female with Acute pain of left knee TECHNIQUE: XR KNEE 4V AP/PA BOTH+LAT/RUDY LT Laterality: LEFT Number of different views (projections): 4 COMPARISON: Radiographs 06/01/2021 RESULT: Tricompartmental osteophytes with moderate medial compartment joint space narrowing. Degenerative subchondral changes in the patellofemoral compartment. Small-moderate joint effusion. No fracture. Images of the RIGHT knee demonstrates severe medial compartment osteoarthritis with [id number] contact. Supporting Subjective Information Below: Past Surgical History: PAST SURGICAL HISTORY Procedure Laterality Date COCHLEAR DEVICE IMPLANTATION W/WO MASTOIDECTOMY Cochlear device implant right COLONOSCOPY FLX DX W/COLLJ SPEC WHEN PFRMD 01/15/2018 Colonoscopy LAPAROSCOPY SURG CHOLECYSTECTOMY Cholecystectomy, lap LAPS GSTR RSTCV PX W/BYP JACOBY-EN-Y LIMB <150 CM 2-11 P Fernandez LIG/TRNSXJ FLP TUBE ABDL/VAG APPR UNI/BI Tubal ligation MYRINGOTOMY ASPIR&/EUSTACHIAN TUBE NFLTJ ANES Myringotomy/tubes TOTAL ABDOMINAL HYSTERECT W/WO RMVL TUBE OVARY 03/2016 Hysterectomy, NIYAH Medications: Current Outpatient Medications Medication Sig levothyroxine (SYNTHROID) 175 mcg tablet Take 1 tablet by mouth once daily. Take on empty stomach. For thyroid buPROPion XL (WELLBUTRIN XL) 150 mg 24 hr tablet Take 1 tablet by mouth once daily. FLUoxetine (PROZAC) 20 mg capsule Take 3 capsules by mouth once daily. hydrOXYzine pamoate (VISTARIL) 25 mg capsule Take 1 capsule by mouth three times daily as needed. Lactobacillus acidophilus (ACIDOPHILUS ORAL) Take 3 mL by mouth once daily. albuterol HFA (VENTOLIN HFA) 90 mcg/actuation inhaler Inhale 2 Puffs as instructed every 4 hours as needed for Wheezing/Shortness of Breath. vitamin B complex (B COMPLEX ORAL) Take by mouth. Cholecalciferol, Vitamin D3, 1,000 unit cap Take 1 capsule by mouth once daily. ASCORBIC ACID (VITAMIN C ORAL) Take by mouth once daily. Not taking No current facility-administered medications for this visit. Allergies: Pollen Extracts ROS: General (negative for fatigue, malaise, weight loss/gain) HEENT (negative for headache, earache, recent vision changes, sinus pain, sore throat) Respiratory (no recent shortness of breath, hemoptysis) CV (negative for chest tightness, palpitations) Musculoskeletal (see HPI) Psych (no depression, anxiety) This note was partially generated using Ulule voice recognition system, and there may be some incorrect words, spellings, and punctuation that were not noted in checking the note before saving. Olivia Cornelius PA-C documented in this encounter [facility] 03-05-2022 Miscellaneous Notes Detailed message left on patient's secure VM. Mari Agee RN Voltaren gel or tylenol prn. Patient calling said she can not see Ortho until March 29, she is out of tramadol. Patient said the tramadol only took the edge off the knee pain. Patient asking what can she take OTC to help with the pain. Patient uses [facility] for her pharmacy if needed. Please advise documented in this encounter [facility] 02-27-2022 History of Presen t illness Narrative Patient presents with: 6 Month Exam HPI: Patient presents today for office visit for follow up. Numbness in toes better. Stopped walking on treadmill and numbness went away. Complaints of left leg pain around knee and mesa X 1 month. Refers to burning and stabbing sensation. Feels similar to her right but is actually worse. No trauma. No redness or warmth. Unsure if swelling. Feels like it wants to give out. Has had injections due to arthritis in the right knee. Has been using multiple nsaids which we have to avoid. Steroids given recently did not really help. She states was bothering her during the 01/03 ov. Hypothyroid: Has lost weight. No energy changes No changes with hair or skin Psych: Emotionally doing well. Due for bariatric surgery labs. Component Latest Ref Rng & Units 10/17/2021 TSH 0.270 - 4.200 mIU/L 1.960 MEDICATIONS: Current Outpatient Medications Medication Sig levothyroxine (SYNTHROID) 175 mcg tablet Take 1 tablet by mouth once daily. Take on empty stomach. For thyroid buPROPion XL (WELLBUTRIN XL) 150 mg 24 hr tablet Take 1 tablet by mouth once daily. FLUoxetine (PROZAC) 20 mg capsule Take 3 capsules by mouth once daily. hydrOXYzine pamoate (VISTARIL) 25 mg capsule Take 1 capsule by mouth three times daily as needed. Lactobacillus acidophilus (ACIDOPHILUS ORAL) Take 3 mL by mouth once daily. albuterol HFA (VENTOLIN HFA) 90 mcg/actuation inhaler Inhale 2 Puffs as instructed every 4 hours as needed for Wheezing/Shortness of Breath. vitamin B complex (B COMPLEX ORAL) Take by mouth. Cholecalciferol, Vitamin D3, 1,000 unit cap Take 1 capsule by mouth once daily. ASCORBIC ACID (VITAMIN C ORAL) Take by mouth once daily. Not taking No current facility-administered medications for this visit. ALLERGIES: ALLERGIES Allergen Reactions Pollen Extracts Other: See Comments congestion PAST MEDICAL HISTORY Diagnosis Date Adjustment disorder with depressed mood suicidal ideation without attempt 2005 Asthma Bariatric surgery status 06-12-10 gastric bypass Dysmetabolic syndrome X Esophageal reflux Morbid obesity (HCC) 12-02-09 stated BMI 61.5 Ht: 63 Wt: 347 lbs Other specified acquired hypothyroidism Panic disorder without agoraphobia Pneumonia in other infectious diseases classified elsewhere(484.8) 2006 RML Polycystic ovaries 2005 elevated androgens Sensorineural hearing loss, unspecified wears hearing aide right ear, no hearing left ear Synovial cyst of popliteal space 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 18, i year INH prophylaxis Unspecified hemorrhoids without mention of complication Unspecified sleep apnea resolved with weight loss Vitamin D deficiency 02/28/2010 PAST SURGICAL HISTORY Procedure Laterality Date COCHLEAR DEVICE IMPLANTATION W/WO MASTOIDECTOMY Cochlear device implant right COLONOSCOPY FLX DX W/COLLJ SPEC WHEN PFRMD 01/15/2018 Colonoscopy LAPAROSCOPY SURG CHOLECYSTECTOMY Cholecystectomy, lap LAPS GSTR RSTCV PX W/BYP JACOBY-EN-Y LIMB <150 CM 06-12-10 P Fernandez LIG/TRNSXJ FLP TUBE ABDL/VAG APPR UNI/BI Tubal ligation MYRINGOTOMY ASPIR&/EUSTACHIAN TUBE NFLTJ ANES Myringotomy/tubes TOTAL ABDOMINAL HYSTERECT W/WO RMVL TUBE OVARY 03/2016 Hysterectomy, NIYAH FAMILY HISTORY Problem Relation Age of Onset Cancer Mother pancreatic cancer Colon Cancer Mother 45 Lipids Father enlarged prostate, hyperlipidemia, COPD other (Bi-Polar) Sister Hypertension Brother Coronary Artery Disease Maternal Grandmother Coronary Artery Disease Maternal Grandfather Coronary Artery Disease Paternal Grandfather Thyroid Maternal Aunt 3 Aunts Social History Tobacco Use Smoking status: Never Smokeless tobacco: Never Tobacco comments: smokes Substance Use Topics Alcohol use: No Drug use: No Reviewed current medications, allergies, past medical history, surgical history, family history and social history today. REVIEW OF SYSTEMS All other reviewed and negative other than HPI. HEALTH MAINTENANCE: Reviewed health maintenance issues today and recommended the following in detail. HEPATITIS C SCREENING Never done HIV SCREENING Never done PNEUMOCOCCAL(2 - PCV) due on 06/14/2009 COVID-19 VACCINE(3 - Booster for Moderna series) due on 03/20/2021 DEPRESSION ASSESSMENT Never done INFLUENZA(1) due on 12/14/2021 VITALS: BP 124/90 Pulse 82 Ht 160 cm (5' 3 ) Wt (!) 155.8 kg (343 lb 6.4 oz) LMP 04/10/2015 SpO2 99% BMI 60.83 kg/m Last 4 Encounter Wt Readings: Date: Wt: 02/27/2022 155.8 kg (343 lb 6.4 oz) 01/03/2022 155.1 kg (342 lb) 08/25/2021 155.6 kg (343 lb) 02/07/2021 161.5 kg (356 lb) PHYSICAL EXAMINATION: General appearance: Well appearing, alert, in no acute distress, well-hydrated, well nourished. Skin: Skin color, texture, turgor normal, no suspicious rashes or lesions Head: Normocephalic, no masses, lesions, tenderness or abnormalities Neck: Supple, no adenopathy; thyroid symmetric, normal size, no bruits Lungs: Lungs clear to auscultation. No wheezing, rhonchi, rales Heart: RRR without murmur, gallop, or rubs. No ectopy Abdomen: Normal abdominal exam, Abdomen soft, non-tender. Bowel sounds normal. No masses, organomegaly Extremities: No deformities, edema, skin discoloration, clubbing or cyanosis. Good capillary refill. , No cords. No calf tenderness. Rahul's sign negative. Musculoskeletal: difficult to get good knee exam due to pain. . No redness or warmth. No effusion. Range of motion is decreased due to pain. ASSESSMENT/PLAN: 1. Acute pain of left knee - ICD9: 719.46, ICD10: M25.562 (primary diagnosis) - consider ortho and xray. Oarrs done. Not sleeping. Given very small one time script for tramadol prn. Discussed risks and benefits of new medication with the patient. Advised them to call if any side effects or questions. 2. Hypothyroidism, acquired - ICD9: 244.9, ICD10: E03.9 - follow labs. 3. Adjustment disorder with depressed mood - ICD9: 309.0, ICD10: F43.21 - Continue current medications. Notify us if any difficulties are noted. 4. Bariatric surgery status - ICD9: V45.86, ICD10: Z98.84 - check labs. 5. Gastroesophageal reflux disease without esophagitis - ICD9: 530.81, ICD10: K21.9 - reminded to avoid nsaids, particular with surgery hx. 6. ROSA MARIA (obstructive sleep apnea) - ICD9: 327.23, ICD10: G47.33 7. Screening for HIV (human immunodeficiency virus) - ICD9: V73.89, ICD10: Z11.4 - check labs. 8. Need for hepatitis C screening test - ICD9: V73.89, ICD10: Z11.59 - check labs. Karyna Barrett MD documented in this encounter [facility] 02-01-2022 History of Presen t illness Narrative Radiology Service Progress Note PATIENT NAME: eKnny Hinton DATE OF SERVICE: February 01, 2022 TIME: 1:46 PM PATIENT IDENTITY VERIFICATION COMPLETED USING TWO (2) IDENTIFIERS: Name and Date of confirmed by patient verbally. FALL SCREENING: Has the patient had 2 falls in the last year or 1 fall with injury or currently using an Ambulatory Assistive Device (Walker, Cane, Wheelchair, Crutches, etc.)? No PATIENT GENDER DATA: Female. status: : No status: NO. PATIENT RELEVANT IMPLANT DATA REVIEWED: Not Applicable RADIOLOGY DEPARTMENT: Mammography PERIPHERAL IV DATA: Not applicable SIGNED BY: Mary LuceroErenis February 01, 2022 1:46 PM documented in this encounter [facility] 01-03-2022 Instructions Edith Hazel APRN.TREASURY ANALYST - 01/03/2022 4:02 PM EDT 1.) Start prednisone burst, take with food. 2.) Continue supportive care at home, elevate the leg, and apply ice. 3.) Schedule follow up with Orthopedics as needed. 4.) Follow up as needed. May try Voltaren Gel to the knee as needed. documented in this encounter [facility] 01-03-2022 History of Presen t illness Narrative This is a 51 year old female who presents today with: Patient presents with: Acute Visit: right knee flare up HISTORY OF PRESENT ILLNESS: Kenny Hinton is a 51 year old female. Patient presents with: Acute Visit: right knee flare up Patient of Dr. Barrett patient here in the office for chronic right knee pain. Concerns that arthritis may be flaring up. Had joint injection by orthopedics in October. Pain seems to be progressively getting worse since last week. Difficulty with walking. Refers that she is not supposed to take anti-inflammatories due to weight loss surgery in the past however she has been desperate for pain relief. Has been using Motrin with little relief. Right knee x-ray showed: 05/2021 RIGHT knee osteoarthritis, moderate-severe in the medial compartment progressed since 11/12/2018. PAST MEDICAL HISTORY: PAST MEDICAL HISTORY Diagnosis Date Adjustment disorder with depressed mood suicidal ideation without attempt 2006 Asthma Bariatric surgery status 06-12-10 gastric bypass Dysmetabolic syndrome X Esophageal reflux Morbid obesity (HCC) 12-02-09 stated BMI 61.5 Ht: 63 Wt: 347 lbs Other specified acquired hypothyroidism Panic disorder without agoraphobia Pneumonia in other infectious diseases classified elsewhere(484.8) 2006 RML Polycystic ovaries 2005 elevated androgens Sensorineural hearing loss, unspecified wears hearing aide right ear, no hearing left ear Synovial cyst of popliteal space 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 18, i year INH prophylaxis Unspecified hemorrhoids without mention of complication Unspecified sleep apnea resolved with weight loss Vitamin D deficiency 02/28/2010 PAST SURGICAL HISTORY Procedure Laterality Date COCHLEAR DEVICE IMPLANTATION W/WO MASTOIDECTOMY Cochlear device implant right COLONOSCOPY FLX DX W/COLLJ SPEC WHEN PFRMD 01/15/2018 Colonoscopy LAPAROSCOPY SURG CHOLECYSTECTOMY Cholecystectomy, lap LAPS GSTR RSTCV PX W/BYP JACOBY-EN-Y LIMB <150 CM 06-12-10 P Fernandez LIG/TRNSXJ FLP TUBE ABDL/VAG APPR UNI/BI Tubal ligation MYRINGOTOMY ASPIR&/EUSTACHIAN TUBE NFLTJ ANES Myringotomy/tubes TOTAL ABDOMINAL HYSTERECT W/WO RMVL TUBE OVARY 03/2016 Hysterectomy, NIYAH ALLERGIES Pollen Extracts MEDICATIONS Current Outpatient Medications Medication Sig levothyroxine (SYNTHROID) 175 mcg tablet Take 1 tablet by mouth once daily. Take on empty stomach. For thyroid buPROPion XL (WELLBUTRIN XL) 150 mg 24 hr tablet Take 1 tablet by mouth once daily. FLUoxetine (PROZAC) 20 mg capsule Take 3 capsules by mouth once daily. hydrOXYzine pamoate (VISTARIL) 25 mg capsule Take 1 capsule by mouth three times daily as needed. colestipol (COLESTID) 1 gram tablet Take 1 tablet by mouth twice daily. (Patient not taking: Reported on 10/30/2021 ) Lactobacillus acidophilus (ACIDOPHILUS ORAL) Take 3 mL by mouth once daily. albuterol HFA (VENTOLIN HFA) 90 mcg/actuation inhaler Inhale 2 Puffs as instructed every 4 hours as needed for Wheezing/Shortness of Breath. vitamin B complex (B COMPLEX ORAL) Take by mouth. Cholecalciferol, Vitamin D3, 1,000 unit cap Take 1 capsule by mouth once daily. ASCORBIC ACID (VITAMIN C ORAL) Take by mouth once daily. Not taking No current facility-administered medications for this visit. FAMILY HISTORY Problem Relation Age of Onset Cancer Mother pancreatic cancer Colon Cancer Mother 45 Lipids Father enlarged prostate, hyperlipidemia, COPD other (Bi-Polar) Sister Hypertension Brother Coronary Artery Disease Maternal Grandmother Coronary Artery Disease Maternal Grandfather Coronary Artery Disease Paternal Grandfather Thyroid Maternal Aunt 3 Aunts Social History Tobacco Use Smoking status: Never Smokeless tobacco: Never Tobacco comments: smokes Substance Use Topics Alcohol use: No Drug use: No REVIEW OF SYSTEMS GENERAL: No weight loss, malaise or fevers/chills HEENT: Negative for frequent or significant headaches, No changes in hearing or vision. NECK: Negative for lumps, goiter, pain and significant neck swelling RESPIRATORY: Negative for cough, hemoptysis, wheezing, dyspnea or shortness of breath CARDIOVASCULAR: Negative for chest pain, leg swelling, orthopnea, or palpitations GI: No nausea, vomiting, or diarrhea/constipation. No hematochezia/melena. No heartburn or reflux symptoms. : No history of dysuria, frequency or incontinence MUSCULOSKELETAL: + Right knee pain SKIN: Negative for lesions, rash, and itching ENDOCRINE: Negative for cold or heat intolerance, polyuria, polydipsia and goiter NEURO: No history of headaches, syncope, paralysis, seizures or tremors MOOD: Negative for depression, anxiety, or suicidal ideation. EXAM: BP 120/78 Pulse 90 Resp 16 Wt (!) 155.1 kg (342 lb) LMP 04/10/2015 SpO2 98% BMI 60.58 kg/m PHYSICAL EXAM: General Appearance: Well appearing, alert, in no acute distress, well-hydrated, well nourished. Skin: Skin color, texture, turgor normal, no suspicious rashes or lesions. Head: Normocephalic, no masses, lesions, tenderness or abnormalities. Eyes: Anicteric sclera. Extraocular movements are intact. Lungs: Lungs clear to auscultation. No wheezing, rhonchi, rales. Heart: RRR without murmur, gallop, or rubs. No ectopy. Extremities: No deformities, edema, skin discoloration, clubbing or cyanosis. Good capillary refill. Musculoskeletal: Right knee tender on medial aspect of patella, reduce ROM, no erythema noted. Negative Valgus/Varus. Peripheral Pulses: Normal, Capillary refill <2secs, strong peripheral pulses, Pulses palpable. Neurologic: Gait abnormal due to limp. Sensation grossly intact. ASSESSMENT/PLAN: 1. Chronic pain of right knee - ICD9: 719.46, 338.29, ICD10: M25.561, G89.29 - Start prednisone burst, take as directed. - May try Voltaren gel to the area as needed for pain. - Recommend supportive care at home, RICE therapy. - Schedule a follow-up appointment with orthopedics for further evaluation. - PREDNISONE 20 MG TABLET - DICLOFENAC 1 % TOPICAL GEL Follow-up as needed or sooner if symptoms get worse or do not improve. Discussed treatment plan and patient voices understanding. Patient's questions answered appropriately. Medications and potential side effects were discussed and patient voices understanding. Edith Hazel APRN.ANDREW This note was partially generated using Ulule voice recognition system. Note was reviewed for accuracy. There may be minor misspellings or grammar miscues with [employer]ule voice recognition. documented in this encounter [facility] 01-01-2022 Miscellaneous Notes Scheduled per her request. Would need seen Patient calls to let provider know that she is having a flare up of pain/slight inflammation to right knee from osteoarthritis and asking provider to send in an order of prednisone to [facility] as has been done in the past. Patient reports cortisone injection to right knee received on 10/30/2021 that usually lasts about 6 months. Last round of prednisone was 10/11/2019. Please review and advise, Donna Garza RN documented in this encounter [facility] 10-30-2021 History of Presen t illness Narrative Associated Order(s): Large Joint Arthro/Inj: R knee joint Sebastian Dixon MD Department of Orthopaedics [facility] [address] [facility] [address] Dept: [phone] Dept October 30, 2021 CHIEF COMPLAINT: Follow Up of the Right Knee and 5 months post visit OA right knee with injection given (Wants injection) HPI Patient states injection helped until about a month ago. She has been trying to walk on the treadmill. She is unable to sleep at night due to the pain. Taking Tylenol for the pain and helps take the edge off. Patient would like injection today. AMB ROOMING INTAKE FLOWSHEET DATA Risk Screening Do you have concerns about personal safety or safety in the home?: No Pain Pain Level: 6 Pain Location: Knee-Right Description: Burning, Stabbing/Not Incision Duration Units: Months Frequency: Intermittent Intervention/Comfort measure: Medication ASSESSMENT: M17.11 Primary osteoarthritis of right knee (primary encounter diagnosis) M25.561, G89.29 Chronic pain of right knee PLAN: Repeat injection of the right knee today. Ms. Kneny Hinton was advised as to contrast therapies and/or to take analgesics/anti-inflammatories as needed and all contraindications were reviewed. OBJECTIVE: Ms. Kenny Hinton is a pleasant 50 year old in no apparent distress. Gen:LMP 04/10/2015 nl development, Severely morbidly obese, no deformities ENT: Normocephalic, normal hearing, moist mucosa CV: Pulses:DP/PT= 2+ and symmetric, capillary refill < 2 secs, no peripheral edema/varicosities Skin: no rash, bruising or lesions. Good turgor. Psych: cooperative and appropriate, alert and oriented x 3, good mood and affect. Musculoskeletal: Stable exam Large Joint Arthro/Inj: R knee joint Informed Consent Consent Obtained: Verbal Spangler Protocol A moment to CARE was completed. SIGN IN Personnel directly involved with the procedure wore the appropriate PPE. Special Equipment: N/A Patient/Surrogate Stated/Verified: Patient name, Date of , Relevant allergies and Intended procedure TIME OUT Intended patient and procedure match the source document(s). Consent documented and matches the intended procedure. Relevant labs, photos, and/or imaging studies have been reviewed. Correct side/site marked and visible. Medications required for procedure verified. No fire risk assessment and interventions applicable. No implant(s) inserted. 10/30/2021 10:16 AM The procedure site was prepped in the usual sterile fashion. Site: R knee joint Medications: 6 mg betamethasone acetate-betamethasone sodium phosphate 6 mg/mL Anesthetics: 4 mL lidocaine (PF) 10 mg/mL (1 %) Outcome: Tolerated well, no immediate complications Post-injection instructions were reviewed with the patient and the patient voiced understanding of these instructions. SIGN OUT No specimen collected. All instruments, equipment, possible retained foreign bodies accounted for. Post-procedure follow-up management communicated and Plan of Care Visit completed when applicable Supporting Subjective Information Below: Past Surgical History: PAST SURGICAL HISTORY Procedure Laterality Date COCHLEAR DEVICE IMPLANTATION W/WO MASTOIDECTOMY Cochlear device implant right COLONOSCOPY FLX DX W/COLLJ SPEC WHEN PFRMD 01/15/2018 Colonoscopy LAPAROSCOPY SURG CHOLECYSTECTOMY Cholecystectomy, lap LAPS GSTR RSTCV PX W/BYP JACOBY-EN-Y LIMB <150 CM 2-28-11 P Fernandez LIG/TRNSXJ FLP TUBE ABDL/VAG APPR UNI/BI Tubal ligation MYRINGOTOMY ASPIR&/EUSTACHIAN TUBE NFLTJ ANES Myringotomy/tubes TOTAL ABDOMINAL HYSTERECT W/WO RMVL TUBE OVARY 03/2016 Hysterectomy, NIYAH Medications: Current Outpatient Medications Medication Sig levothyroxine (SYNTHROID) 175 mcg tablet Take 1 tablet by mouth once daily. Take on empty stomach. For thyroid buPROPion XL (WELLBUTRIN XL) 150 mg 24 hr tablet Take 1 tablet by mouth once daily. FLUoxetine (PROZAC) 20 mg capsule Take 3 capsules by mouth once daily. hydrOXYzine pamoate (VISTARIL) 25 mg capsule Take 1 capsule by mouth three times daily as needed. Lactobacillus acidophilus (ACIDOPHILUS ORAL) Take 3 mL by mouth once daily. albuterol HFA (VENTOLIN HFA) 90 mcg/actuation inhaler Inhale 2 Puffs as instructed every 4 hours as needed for Wheezing/Shortness of Breath. vitamin B complex (B COMPLEX ORAL) Take by mouth. Cholecalciferol, Vitamin D3, 1,000 unit cap Take 1 capsule by mouth once daily. ASCORBIC ACID (VITAMIN C ORAL) Take by mouth once daily. Not taking colestipol (COLESTID) 1 gram tablet Take 1 tablet by mouth twice daily. (Patient not taking: Reported on 10/30/2021 ) No current facility-administered medications for this visit. Allergies: Pollen Extracts ROS: General (negative for fatigue, malaise, weight loss/gain) HEENT (negative for headache, earache, recent vision changes, sinus pain, sore throat) Respiratory (no recent shortness of breath, hemoptysis) CV (negative for chest tightness, palpitations) Musculoskeletal (see HPI) Psych (no depression, anxiety) Sebastian Dixon MD documented in this encounter [facility] 08-29-2021 Miscellaneous Notes PA received and submitted through [employer]. PA is not required Anum Evans Ma documented in this encounter [facility] 08-25-2021 History of Presen t illness Narrative Patient presents with: 6 Month Exam Numbness: getting numbness in her left toes when walking on treadmill happens after about 20-25 minutes will come back to normal after about 5-10 minutes HPI: Patient presents today for office visit for follow up. Gets numbness in left toes when wearing a specific pair of shoes. Discussed changing shoes or get an an insert to start No new edema. No redness or warmth. No chest pain or shortness of breath. She is working on her weight and doing well. Hypothyroid: has lost weight. No changes in energy. No changes in hair or skin. Still has occasional issues with her knee. Suggested seeing ortho if continues. Psych: emotionally doing well. iron Stopped her colestid. It did fix her bowels. Started getting painful and firm stools. Now is better. MEDICATIONS: Current Outpatient Medications Medication Sig FLUoxetine (PROZAC) 20 mg capsule Take 3 capsules by mouth once daily. levothyroxine (SYNTHROID) 175 mcg tablet Take 1 tablet by mouth once daily. Take on empty stomach. For thyroid buPROPion XL (WELLBUTRIN XL) 150 mg 24 hr tablet Take 1 tablet by mouth once daily. hydrOXYzine pamoate (VISTARIL) 25 mg capsule Take 1 capsule by mouth three times daily as needed. albuterol HFA (VENTOLIN HFA) 90 mcg/actuation inhaler Inhale 2 Puffs as instructed every 4 hours as needed for Wheezing/Shortness of Breath. vitamin B complex (B COMPLEX ORAL) Take by mouth. Cholecalciferol, Vitamin D3, 1,000 unit cap Take 1 capsule by mouth once daily. ASCORBIC ACID (VITAMIN C ORAL) Take by mouth once daily. Not taking colestipol (COLESTID) 1 gram tablet Take 1 tablet by mouth twice daily. Lactobacillus acidophilus (ACIDOPHILUS ORAL) Take 3 mL by mouth once daily. No current facility-administered medications for this visit. ALLERGIES: ALLERGIES Allergen Reactions Pollen Extracts Other: See Comments congestion PAST MEDICAL HISTORY Diagnosis Date Adjustment disorder with depressed mood suicidal ideation without attempt 2006 Asthma Bariatric surgery status 06-12-10 gastric bypass Dysmetabolic syndrome X Esophageal reflux Morbid obesity (HCC) 12-02-09 stated BMI 61.5 Ht: 63 Wt: 347 lbs Other specified acquired hypothyroidism Panic disorder without agoraphobia Pneumonia in other infectious diseases classified elsewhere(484.8) 2006 RML Polycystic ovaries 2005 elevated androgens Sensorineural hearing loss, unspecified wears hearing aide right ear, no hearing left ear Synovial cyst of popliteal space 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 18, i year INH prophylaxis Unspecified hemorrhoids without mention of complication Unspecified sleep apnea resolved with weight loss Vitamin D deficiency 02/28/2010 PAST SURGICAL HISTORY Procedure Laterality Date COCHLEAR DEVICE IMPLANTATION W/WO MASTOIDECTOMY Cochlear device implant right COLONOSCOPY FLX DX W/COLLJ SPEC WHEN PFRMD 01/15/2018 Colonoscopy LAPAROSCOPY SURG CHOLECYSTECTOMY Cholecystectomy, lap LAPS GSTR RSTCV PX W/BYP JACOBY-EN-Y LIMB <150 CM 06-12-10 P Fernandez LIG/TRNSXJ FLP TUBE ABDL/VAG APPR UNI/BI Tubal ligation MYRINGOTOMY ASPIR&/EUSTACHIAN TUBE NFLTJ ANES Myringotomy/tubes TOTAL ABDOMINAL HYSTERECT W/WO RMVL TUBE OVARY 03/2016 Hysterectomy, NIYAH FAMILY HISTORY Problem Relation Age of Onset Cancer Mother pancreatic cancer Colon Cancer Mother 45 Lipids Father enlarged prostate, hyperlipidemia, COPD other (Bi-Polar) Sister Hypertension Brother Coronary Artery Disease Maternal Grandmother Coronary Artery Disease Maternal Grandfather Coronary Artery Disease Paternal Grandfather Thyroid Maternal Aunt 3 Aunts Social History Tobacco Use Smoking status: Never Smoker Smokeless tobacco: Never Used Tobacco comment: smokes Substance Use Topics Alcohol use: No Drug use: No Reviewed current medications, allergies, past medical history, surgical history, family history and social history today. REVIEW OF SYSTEMS All other reviewed and negative other than HPI. HEALTH MAINTENANCE: Reviewed health maintenance issues today and recommended the following in detail. MAMMOGRAM due on 09/15/2021 VITALS: BP 124/72 Pulse 76 Wt (!) 155.6 kg (343 lb) LMP 04/10/2015 BMI 60.76 kg/m Last 4 Encounter Wt Readings: Date: Wt: 08/25/2021 155.6 kg (343 lb) 02/07/2021 161.5 kg (356 lb) 09/08/2020 164.7 kg (363 lb) 10/22/2019 165.1 kg (364 lb) PHYSICAL EXAMINATION: General appearance: Well appearing, [...] Musculoskeletal: No joint swelling, deformity, or tenderness Peripheral pulses: Normal Neuro: Negative. ASSESSMENT/PLAN: 1. Adjustment disorder with depressed mood - ICD9: 309.0, ICD10: F43.21 (primary diagnosis) - check labs and continue meds/. - BUPROPION XL 150 MG TAB - CBC + DIFF - COMP METABOLIC PANEL 2. Encounter for screening mammogram for breast cancer - ICD9: V76.12, ICD10: Z12.31 - Follow up for annual exam in one year. - MILTON SCREENING 3. Bariatric surgery status - ICD9: V45.86, ICD10: Z98.84 - stable. Call if any issues. - IRON + TIBC - VITAMIN B12 BLOOD - FOLATE SERUM - VITAMIN B1 (THIAMINE), WHOLE BLOOD 4. Gastroesophageal reflux disease without esophagitis - ICD9: 530.81, ICD10: K21.9 - As above 5. Hypothyroidism, acquired - ICD9: 244.9, ICD10: E03.9 - LIPID PANEL BASIC - TSH BLD Karyna Barrett RTO in six months and prn. documented in this encounter [facility] 08-22-2021 Miscellaneous Notes Our records show valid rxs for Levothyroxine and Prozac. Please check with your pharmacy regarding above. Patient has been identified by name and date of : Yes Patient phones for refill(s): Pending Prescriptions Disp Refills BUPROPION XL 150 MG TAB 10 tablet 0 Sig: Take 1 tablet by mouth once daily. JESUSITA: No Refused Prescriptions Disp Refills FLUoxetine (PROZAC) 20 mg capsule 270 capsule 3 Sig: Take 3 capsules by mouth once daily. JESUSITA: No levothyroxine (SYNTHROID) 175 mcg tablet 90 tablet 1 Sig: Take 1 tablet by mouth once daily. Take on empty stomach. For thyroid JESUSITA: No Date of last office visit in primary care: 02/07/21 next apt 08/25/21 Last 2 Encounter Wt Readings: Date: Wt: 02/07/2021 161.5 kg (356 lb) 09/08/2020 164.7 kg (363 lb) Previous labs/tests for medication: Not applicable Please advise. Thank you. Shani Connelly LPN documented in this encounter [facility] 08-10-2021 Miscellaneous Notes Patient calling she is at her daughters in [place] and is out of medication, she is there for 9 more days. Pending rx to pharmacy near daughter home. Rx was to early to refill before she left to go there. Please advise Patient has been identified by name and date of : Yes Patient phones for refill(s): Pending Prescriptions Disp Refills BUPROPION XL 150 MG TAB 10 tablet 0 Sig: Take 1 tablet by mouth once daily. JESUSITA: No Date of last office visit in primary care: 02/07/2021, has appt 08/25/2021 Last 2 Encounter Wt Readings: Date: Wt: 02/07/2021 161.5 kg (356 lb) 09/08/2020 164.7 kg (363 lb) Previous labs/tests for medication: Not applicable Please advise. Thank you. Romy Cobian LPN documented in this encounter [facility] 07-25-2021 Miscellaneous Notes Patient has been identified by name and date of : Yes Pending Prescriptions Disp Refills LEVOTHYROXINE 175 MCG TABLET 90 tablet 1 Sig: Take 1 tablet by mouth once daily. Take on empty stomach. For thyroid JESUSITA: No ALEXANDRE 02/07/21 NOV 08/25/21 RX INSTRUCTIONS: Patient aware RX will be sent to pharmacy. No need to notify patient. Constanza Araya Ma documented in this encounter [facility] documented as of this encounter (statuses as of 07/25/2021) [facility] History of Past illness Narrative* Problem Noted Date Resolved Date Dysmenorrhea 05/26/2015 08/24/2015 Thickened endometrium 06/13/2012 05/26/2015 Abnormal uterine bleeding 06/13/20122015 Lymph node enlargement 06/13/2012 8 Other and unspecified postsurgical nonabsorption 09/15/2010 07/19/2017 Right knee pain 08/01/2009 07/19/2017 Chest pain, unspecified 02/17/2008 09/09/19 21 Dysmetabolic syndrome X 06/12/2006 04/27/19 12 OBESITY 02/13/2006 09/09/2007 Absence of menstruation 03/16/2005 04/27/19 12 Polycystic ovaries 02/15/2005 08/24/2015 Sensorineural hearing loss, unspecified 07/19/2017 Overview: wears hearing aide right ear Unspecified hemorrhoids without mention of compl ication 07/19/2017 documented as of this encounter (statuses as of 08/10/2021) [facility] History of Past illness Narrative* Problem Noted Date Resolved Date Dysmenorrhea 05/26/2015 08/24/2015 Thickened endometrium 06/13/2012 05/26/2015 Abnormal uterine bleeding 06/13/20122015 Lymph node enlargement 06/13/2012 8 Other and unspecified postsurgical nonabsorption 09/15/2010 07/19/2017 Right knee pain 08/01/2009 07/19/2017 Chest pain, unspecified 02/17/2008 09/09/19 21 Dysmetabolic syndrome X 06/12/2006 04/27/19 12 OBESITY 02/13/2006 09/09/2007 Absence of menstruation 03/16/2005 04/27/19 12 Polycystic ovaries 02/15/2005 08/24/2015 Sensorineural hearing loss, unspecified 07/19/2017 Overview: wears hearing aide right ear Unspecified hemorrhoids without mention of compl ication 07/19/2017 documented as of this encounter (statuses as of 08/22/2021) [facility] History of Past illness Narrative* Problem Noted Date Resolved Date Dysmenorrhea 05/26/2015 08/24/2015 Thickened endometrium 06/13/2012 05/26/2015 Abnormal uterine bleeding 06/13/20122015 Lymph node enlargement 06/13/2012 8 Other and unspecified postsurgical nonabsorption 09/15/2010 07/19/2017 Right knee pain 08/01/2009 07/19/2017 Chest pain, unspecified 02/17/2008 09/09/19 21 Dysmetabolic syndrome X 06/12/2006 04/27/19 12 OBESITY 02/13/2006 09/09/2007 Absence of menstruation 03/16/2005 04/27/19 12 Polycystic ovaries 02/15/2005 08/24/2015 Sensorineural hearing loss, unspecified 07/19/2017 Overview: wears hearing aide right ear Unspecified hemorrhoids without mention of compl ication 07/19/2017 documented as of this encounter (statuses as of 08/26/2021) [facility] History of Past illness Narrative* Problem Noted Date Resolved Date Dysmenorrhea 05/26/2015 08/24/2015 Thickened endometrium 06/13/2012 05/26/2015 Abnormal uterine bleeding 06/13/20122015 Lymph node enlargement 06/13/2012 8 Other and unspecified postsurgical nonabsorption 09/15/2010 07/19/2017 Right knee pain 08/01/2009 07/19/2017 Chest pain, unspecified 02/17/2008 09/09/19 21 Dysmetabolic syndrome X 06/12/2006 04/27/19 12 OBESITY 02/13/2006 09/09/2007 Absence of menstruation 03/16/2005 04/27/19 12 Polycystic ovaries 02/15/2005 08/24/2015 Sensorineural hearing loss, unspecified 07/19/2017 Overview: wears hearing aide right ear Unspecified hemorrhoids without mention of compl ication 07/19/2017 documented as of this encounter (statuses as of 08/29/2021) [facility] History of Past illness Narrative* Problem Noted Date Resolved Date Dysmenorrhea 05/26/2015 08/24/2015 Thickened endometrium 06/13/2012 05/26/2015 Abnormal uterine bleeding 06/13/20122015 Lymph node enlargement 06/13/2012 8 Other and unspecified postsurgical nonabsorption 09/15/2010 07/19/2017 Right knee pain 08/01/2009 07/19/2017 Chest pain, unspecified 02/17/2008 09/09/19 21 Dysmetabolic syndrome X 06/12/2006 04/27/19 12 OBESITY 02/13/2006 09/09/2007 Absence of menstruation 03/16/2005 04/27/19 12 Polycystic ovaries 02/15/2005 08/24/2015 Sensorineural hearing loss, unspecified 07/19/2017 Overview: wears hearing aide right ear Unspecified hemorrhoids without mention of compl ication 07/19/2017 documented as of this encounter (statuses as of 10/30/2021) [facility] History of Past illness Narrative* Problem Noted Date Resolved Date Dysmenorrhea 05/26/2015 08/24/2015 Thickened endometrium 06/13/2012 05/26/2015 Abnormal uterine bleeding 06/13/20122015 Lymph node enlargement 06/13/2012 8 Other and unspecified postsurgical nonabsorption 09/15/2010 07/19/2017 Right knee pain 08/01/2009 07/19/2017 Chest pain, unspecified 02/17/2008 09/09/19 21 Dysmetabolic syndrome X 06/12/2006 04/27/19 12 OBESITY 02/13/2006 09/09/2007 Absence of menstruation 03/16/2005 04/27/19 12 Polycystic ovaries 02/15/2005 08/24/2015 Sensorineural hearing loss, unspecified 07/19/2017 Overview: wears hearing aide right ear Unspecified hemorrhoids without mention of compl ication 07/19/2017 documented as of this encounter (statuses as of 01/01/2022) [facility] History of Past illness Narrative* Problem Noted Date Resolved Date Dysmenorrhea 05/26/2015 08/24/2015 Thickened endometrium 06/13/2012 05/26/2015 Abnormal uterine bleeding 06/13/20122015 Lymph node enlargement 06/13/2012 8 Other and unspecified postsurgical nonabsorption 09/15/2010 07/19/2017 Right knee pain 08/01/2009 07/19/2017 Chest pain, unspecified 02/17/2008 09/09/19 21 Dysmetabolic syndrome X 06/12/2006 04/27/19 12 OBESITY 02/13/2006 09/09/2007 Absence of menstruation 03/16/2005 04/27/19 12 Polycystic ovaries 02/15/2005 08/24/2015 Sensorineural hearing loss, unspecified 07/19/2017 Overview: wears hearing aide right ear Unspecified hemorrhoids without mention of compl ication 07/19/2017 documented as of this encounter (statuses as of 01/03/2022) [facility] History of Past illness Narrative* Problem Noted Date Resolved Date Dysmenorrhea 05/26/2015 08/24/2015 Thickened endometrium 06/13/2012 05/26/2015 Abnormal uterine bleeding 06/13/20122015 Lymph node enlargement 06/13/2012 8 Other and unspecified postsurgical nonabsorption 09/15/2010 07/19/2017 Right knee pain 08/01/2009 07/19/2017 Chest pain, unspecified 02/17/2008 09/09/19 21 Dysmetabolic syndrome X 06/12/2006 04/27/19 12 OBESITY 02/13/2006 09/09/2007 Absence of menstruation 03/16/2005 04/27/19 12 Polycystic ovaries 02/15/2005 08/24/2015 Sensorineural hearing loss, unspecified 07/19/2017 Overview: wears hearing aide right ear Unspecified hemorrhoids without mention of compl ication 07/19/2017 documented as of this encounter (statuses as of 02/02/2022) [facility] History of Past illness Narrative* Problem Noted Date Resolved Date Dysmenorrhea 05/26/2015 08/24/2015 Thickened endometrium 06/13/2012 05/26/2015 Abnormal uterine bleeding 06/13/20122015 Lymph node enlargement 06/13/2012 8 Other and unspecified postsurgical nonabsorption 09/15/2010 07/19/2017 Right knee pain 08/01/2009 07/19/2017 Chest pain, unspecified 02/17/2008 09/09/19 21 Dysmetabolic syndrome X 06/12/2006 04/27/19 12 OBESITY 02/13/2006 09/09/2007 Absence of menstruation 03/16/2005 04/27/19 12 Polycystic ovaries 02/15/2005 08/24/2015 Sensorineural hearing loss, unspecified 07/19/2017 Overview: wears hearing aide right ear Unspecified hemorrhoids without mention of compl ication 07/19/2017 documented as of this encounter (statuses as of 02/28/2022) [facility] History of Past illness Narrative* Problem Noted Date Resolved Date Dysmenorrhea 05/26/2015 08/24/2015 Thickened endometrium 06/13/2012 05/26/2015 Abnormal uterine bleeding 06/13/20122015 Lymph node enlargement 06/13/2012 8 Other and unspecified postsurgical nonabsorption 09/15/2010 07/19/2017 Right knee pain 08/01/2009 07/19/2017 Chest pain, unspecified 02/17/2008 09/09/19 21 Dysmetabolic syndrome X 06/12/2006 04/27/19 12 OBESITY 02/13/2006 09/09/2007 Absence of menstruation 03/16/2005 04/27/19 12 Polycystic ovaries 02/15/2005 08/24/2015 Sensorineural hearing loss, unspecified 07/19/2017 Overview: wears hearing aide right ear Unspecified hemorrhoids without mention of compl ication 07/19/2017 documented as of this encounter (statuses as of 03/05/2022) [facility] History of Past illness Narrative* Problem Noted Date Resolved Date Dysmenorrhea 05/26/2015 08/24/2015 Thickened endometrium 06/13/2012 05/26/2015 Abnormal uterine bleeding 06/13/20122015 Lymph node enlargement 06/13/2012 8 Other and unspecified postsurgical nonabsorption 09/15/2010 07/19/2017 Right knee pain 08/01/2009 07/19/2017 Chest pain, unspecified 02/17/2008 09/09/19 21 Dysmetabolic syndrome X 06/12/2006 04/27/19 12 OBESITY 02/13/2006 09/09/2007 Absence of menstruation 03/16/2005 04/27/19 12 Polycystic ovaries 02/15/2005 08/24/2015 Sensorineural hearing loss, unspecified 07/19/2017 Overview: wears hearing aide right ear Unspecified hemorrhoids without mention of compl ication 07/19/2017 documented as of this encounter (statuses as of 03/07/2022) [facility] History of Past illness Narrative* Problem Noted Date Resolved Date Dysmenorrhea 05/26/2015 08/24/2015 Thickened endometrium 06/13/2012 05/26/2015 Abnormal uterine bleeding 06/13/20122015 Lymph node enlargement 06/13/2012 8 Other and unspecified postsurgical nonabsorption 09/15/2010 07/19/2017 Right knee pain 08/01/2009 07/19/2017 Chest pain, unspecified 02/17/2008 09/09/19 21 Dysmetabolic syndrome X 06/12/2006 04/27/19 12 OBESITY 02/13/2006 09/09/2007 Absence of menstruation 03/16/2005 04/27/19 12 Polycystic ovaries 02/15/2005 08/24/2015 Sensorineural hearing loss, unspecified 07/19/2017 Overview: wears hearing aide right ear Unspecified hemorrhoids without mention of compl ication 07/19/2017 documented as of this encounter (statuses as of 03/29/2022) [facility] History of Past illness Narrative* Problem Noted Date Resolved Date Dysmenorrhea 05/26/2015 08/24/2015 Thickened endometrium 06/13/2012 05/26/2015 Abnormal uterine bleeding 06/13/20122015 Lymph node enlargement 06/13/2012 8 Other and unspecified postsurgical nonabsorption 09/15/2010 07/19/2017 Right knee pain 08/01/2009 07/19/2017 Chest pain, unspecified 02/17/2008 09/09/19 21 Dysmetabolic syndrome X 06/12/2006 04/27/19 12 OBESITY 02/13/2006 09/09/2007 Absence of menstruation 03/16/2005 04/27/19 12 Polycystic ovaries 02/15/2005 08/24/2015 Sensorineural hearing loss, unspecified 07/19/2017 Overview: wears hearing aide right ear Unspecified hemorrhoids without mention of compl ication 07/19/2017 documented as of this encounter (statuses as of 04/18/2022) [facility] History of Past illness Narrative* Problem Noted Date Resolved Date Dysmenorrhea 05/26/2015 08/24/2015 Thickened endometrium 06/13/2012 05/26/2015 Abnormal uterine bleeding 06/13/20122015 Lymph node enlargement 06/13/2012 8 Other and unspecified postsurgical nonabsorption 09/15/2010 07/19/2017 Right knee pain 08/01/2009 07/19/2017 Chest pain, unspecified 02/17/2008 09/09/19 21 Dysmetabolic syndrome X 06/12/2006 04/27/19 12 OBESITY 02/13/2006 09/09/2007 Absence of menstruation 03/16/2005 04/27/19 12 Polycystic ovaries 02/15/2005 08/24/2015 Sensorineural hearing loss, unspecified 07/19/2017 Overview: wears hearing aide right ear Unspecified hemorrhoids without mention of compl ication 07/19/2017 documented as of this encounter (statuses as of 06/21/2022) [facility] History of Past illness Narrative* Problem Noted Date Resolved Date Dysmenorrhea 05/26/2015 08/24/2015 Thickened endometrium 06/13/2012 05/26/2015 Abnormal uterine bleeding 06/13/20122015 Lymph node enlargement 06/13/2012 8 Other and unspecified postsurgical nonabsorption 09/15/2010 07/19/2017 Right knee pain 08/01/2009 07/19/2017 Chest pain, unspecified 02/17/2008 09/09/19 21 Dysmetabolic syndrome X 06/12/2006 04/27/19 12 OBESITY 02/13/2006 09/09/2007 Absence of menstruation 03/16/2005 04/27/19 12 Polycystic ovaries 02/15/2005 08/24/2015 Sensorineural hearing loss, unspecified 07/19/2017 Overview: wears hearing aide right ear Unspecified hemorrhoids without mention of compl ication 07/19/2017 documented as of this encounter (statuses as of 08/17/2022) [facility] History of Past illness Narrative* Problem Noted Date Diagnosed Date Resolved Date Dysmenorrhea 05/26/2015 08/24/2015 Thickened endometrium 06/13/20122015 Abnormal uterine bleeding 06/13/2012 Lymph node enlargement 06/13/201207/19 Other and unspecified postsu rgical nonabsorption 09/15/2010 07/19/2017 Right knee pain 08/01/2009 07/19/2017 Chest pain, unspecified 02/17/200808/14 Dysmetabolic syndrome X 06/12/200604/15 OBESITY 02/13/2006 09/09/2007 Absence of menstruation 03/16/200504/15 Polycystic ovaries 02/15/2005 6 Sensorineural hearing loss, unspecified 07/19/2017 Overview: wears hearing aide right ear Unspecified hemorrhoids with out mention of complication 07/19/2017 documented as of this encounter (statuses as of 10/29/2022) [facility] History of Past illness Narrative* Problem Noted Date Diagnosed Date Resolved Date Dysmenorrhea 05/26/2015 08/24/2015 Thickened endometrium 06/13/20122015 Abnormal uterine bleeding 06/13/2012 Lymph node enlargement 06/13/201207/19 Other and unspecified postsu rgical nonabsorption 09/15/2010 07/19/2017 Right knee pain 08/01/2009 07/19/2017 Chest pain, unspecified 02/17/200808/14 Dysmetabolic syndrome X 06/12/200604/15 OBESITY 02/13/2006 09/09/2007 Absence of menstruation 03/16/200504/15 Polycystic ovaries 02/15/2005 6 Sensorineural hearing loss, unspecified 07/19/2017 Overview: wears hearing aide right ear Unspecified hemorrhoids with out mention of complication 07/19/2017 documented as of this encounter (statuses as of 10/30/2022) [facility] History of Past illness Narrative* Problem Noted Date Diagnosed Date Resolved Date Dysmenorrhea 05/26/2015 08/24/2015 Thickened endometrium 06/13/20122015 Abnormal uterine bleeding 06/13/2012 Lymph node enlargement 06/13/201207/19 Other and unspecified postsu rgical nonabsorption 09/15/2010 07/19/2017 Right knee pain 08/01/2009 07/19/2017 Chest pain, unspecified 02/17/200808/14 Dysmetabolic syndrome X 06/12/200604/15 OBESITY 02/13/2006 09/09/2007 Absence of menstruation 03/16/200504/15 Polycystic ovaries 02/15/2005 6 Sensorineural hearing loss, unspecified 07/19/2017 Overview: wears hearing aide right ear Unspecified hemorrhoids with out mention of complication 07/19/2017 documented as of this encounter (statuses as of 10/31/2022) [facility] History of Past illness Narrative* Problem Noted Date Diagnosed Date Resolved Date Dysmenorrhea 05/26/2015 08/24/2015 Thickened endometrium 06/13/20122015 Abnormal uterine bleeding 06/13/2012 Lymph node enlargement 06/13/201207/19 Other and unspecified postsu rgical nonabsorption 09/15/2010 07/19/2017 Right knee pain 08/01/2009 07/19/2017 Chest pain, unspecified 02/17/200808/14 Dysmetabolic syndrome X 06/12/200604/15 OBESITY 02/13/2006 09/09/2007 Absence of menstruation 03/16/200504/15 Polycystic ovaries 02/15/2005 6 Sensorineural hearing loss, unspecified 07/19/2017 Overview: wears hearing aide right ear Unspecified hemorrhoids with out mention of complication 07/19/2017 documented as of this encounter (statuses as of 11/14/2022) [facility] History of Past illness Narrative* Problem Noted Date Diagnosed Date Resolved Date Dysmenorrhea 05/26/2015 08/24/2015 Thickened endometrium 06/13/20122015 Abnormal uterine bleeding 06/13/2012 Lymph node enlargement 06/13/201207/19 Other and unspecified postsu rgical nonabsorption 09/15/2010 07/19/2017 Right knee pain 08/01/2009 07/19/2017 Chest pain, unspecified 02/17/200808/14 Dysmetabolic syndrome X 06/12/200604/15 OBESITY 02/13/2006 09/09/2007 Absence of menstruation 03/16/200504/15 Polycystic ovaries 02/15/2005 6 Sensorineural hearing loss, unspecified 07/19/2017 Overview: wears hearing aide right ear Unspecified hemorrhoids with out mention of complication 07/19/2017 documented as of this encounter (statuses as of 02/26/2023) [facility] of Past illness Narrative* Problem Noted Date Diagnosed Date Resolved Date Dysmenorrhea 05/26/2015 08/24/2015 Thickened endometrium 06/13/20122015 Abnormal uterine bleeding 06/13/2012 Lymph node enlargement 06/13/201207/19 Other and unspecified postsu rgical nonabsorption 09/15/2010 07/19/2017 Right knee pain 08/01/2009 07/19/2017 Chest pain, unspecified 02/17/200808/14 Dysmetabolic syndrome X 06/12/200604/15 OBESITY 02/13/2006 09/09/2007 Absence of menstruation 03/16/2005 01/1 06/2011 Polycystic ovaries 02/15/2005 6 Sensorineural hearing loss, unspecified 07/19/2017 Overview: wears hearing aide right ear Unspecified hemorrhoids with out mention of complication 07/19/2017 documented as of this encounter (statuses as of 02/26/2023) [facility] note* Diagnosis Hypothyroidism, acquired Unspecified hypothyroidism [facility]* Diagnosis Adjustment disorder with depressed mood Hypothyroidism, acquired Unspecified hypothyroidism [facility]* Diagnosis Adjustment disorder with depressed mood- Primary Encounter for screening mammogram for breast cancer Bariatric surgery status Gastroesophageal reflux disease without esophagitis Esophageal reflux Hypothyroidism, acquired Unspecified hypothyroidism [facility]* Diagnosis Primary osteoarthritis of right knee- Primary Primary localized osteoarthrosis, lower leg Chronic pain of right knee [facility]* Diagnosis Chronic pain of right knee- Primary documented [facility]* Diagnosis Encounter for screening mammogram for breast cancer [facility] Diagnosis Acute pain of left knee- Primary Hypothyroidism, acquired Unspecified hypothyroidism Adjustment disorder with depressed mood Bariatric surgery status Gastroesophageal reflux disease without esophagitis Esophageal reflux ROSA MARIA (obstructive sleep apnea) Obstructive sleep apnea (adult) (pediatric) Screening for HIV (human immunodeficiency virus) Special screening examination for other specified viral diseases Need for hepatitis C screening test Special screening examination for other specified viral diseases documented [facility]* Diagnosis Bariatric surgery status- Primary [facility] Diagnosis Primary osteoarthritis of left knee- Primary Primary localized osteoarthrosis, lower leg Acute pain of left knee Morbid obesity (HCC) Morbid obesity [facility]* Diagnosis Wheezing Panic disorder without agoraphobia Adjustment disorder with depressed mood Hypothyroidism, acquired Unspecified hypothyroidism [facility] Diagnosis Chronic pain of both knees- Primary Primary osteoarthritis of both knees Primary localized osteoarthrosis, lower leg [facility] Diagnosis Adjustment disorder with depressed mood Hypothyroidism, acquired Unspecified hypothyroidism [facility] Diagnosis Chronic pain of both knees- Primary Primary osteoarthritis of both knees Primary localized osteoarthrosis, lower leg documented in this encounter [facility] note* Diagnosis Gross hematuria- Primary RUQ pain Abdominal pain, right upper quadrant Bariatric surgery status Hypothyroidism, acquired Unspecified hypothyroidism Gastroesophageal reflux disease without esophagitis Esophageal reflux Vitamin D deficiency Unspecified vitamin D deficiency Family history of colon cancer Family history of malignant neoplasm of gastrointestinal tract documented in this encounter [facility] note* Diagnosis Vitamin D deficiency- Primary Unspecified vitamin D deficiency documented in this encounter [facility] note* Diagnosis Hypothyroidism, acquired Unspecified hypothyroidism documented in this encounter [facility] note* Diagnosis Primary osteoarthritis of both knees- Primary Primary localized osteoarthrosis, lower leg Chronic pain of both knees documented in this encounter [facility] for referral (narrative)* Diagnostic Procedure Only (Routine) - Pending Review Specialty Diagnoses / Procedures Referred By Damien conway Referred To Contact [facility] Diagnoses Encounter for screening mammogram for breast cancer Procedures [facility] SCREENING SCREENING MAMMOGRAPHY BI 2-VIEW BREAST INC Karyna Rosas MD [address] [place] [address] [facility] [address] [place] [address] Referral ID Status Reason Start Date Expiration Date Visits Requested Visits Authorized [id number] Pending Review Auto-Generat ed Referral 08/25/2021 09/24/2022 1 1 [facility] for referral (narrative)* Diagnostic Procedure Only (Routine) - Closed Specialty Diagnoses / Procedures Referred By Damien conway Referred To Contact [facility] Diagnoses Encounter for screening mammogram for breast cancer Procedures [facility]TON SCREENING SCREENING MAMMOGRAPHY BI 2-VIEW BREAST INC Karyna Rosas MD [address] [place] [address] [facility] [address] [place] [address] Referral ID Status Reason Start Date Expiration Date V isits Requested Visits Authorized [id number] Closed Auto-Generate d Referral 08/25/2021 09/24/2022 1 1 [facility] for visit Narrative* Diagnostic Procedure Only (Routine) - Closed Specialty Diagnoses / Procedures Referred By Contac t Referred To Contact [facility] Diagnoses Encounter for screening mammogram for breast cancer Procedures [facility]TON SCREENING SCREENING MAMMOGRAPHY BI 2-VIEW BREAST INC CAD Karyna Barrett MD [address] [place] [address] [facility] [address] [place] [address] Referral ID Status Reason Start Date Expiration Date V isits Requested Visits Authorized [id number] Closed Auto-Generate d Referral 08/25/2021 09/24/2022 1 1 [facility] Summary Purpose Family History No Family History Records FoundNo Family History Records Found Advance Directives No Advanced Directives Records FoundDocuments on File Type Date Recorded Patient Half Section Ironer Expl anation Advance Directive(s) Advance Directive(s) 01/15/2018 8:41 AM Advance Directive(s) 09/18/2017 12:17 PM Documents on File Type Date Recorded Patient Half Section Ironer Expl anation Advance Directive(s) Advance Directive(s) 01/15/2018 8:41 AM Advance Directive(s) 09/18/2017 12:17 PM Medications Administered Section Inactive Administered Medications - up to 3 most recent administrations Medication Order MAR Action Action Date Dose Rate Site betamethasone acetate-betamethasone sodium phosphate 6 mg injection (CELESTONE) 6 mg, Injection - FOR ORTHO USE ONLY, ONE TIME INJECTION, 1 dose, Starting on 10/30/21 at 1016, Until 10/30/21 at 1016 Given 10/30/2021 10:16 AM EDT 6 mg lidocaine (PF) 10 mg/mL (1 %) 4 mL injection (XYLOCAINE) 4 mL, Injection - FOR ORTHO USE ONLY, ONE TIME INJECTION, 1 dose, Starting on 10/30/21 at 1016, Until 10/30/21 at 1016 Given 10/30/2021 10:16 AM EDT 4 mL Inactive Administered Medications - up to 3 most recent administrations Medication Order MAR Action Action Date Dose Rate Site betamethasone acetate-betamethasone sodium phosphate 6 mg injection (CELESTONE) 6 mg, Injection - FOR ORTHO USE ONLY, ONE TIME INJECTION, 1 dose, Starting on Ally 03/29/22 at 1417, Until Ally 03/29/22 at 1417 Given 03/29/2022 2:17 PM EST 6 mg K nee, Left lidocaine (PF) 10 mg/mL (1 %) 4 mL injection (XYLOCAINE) 4 mL, Injection - FOR ORTHO USE ONLY, ONE TIME INJECTION, 1 dose, Starting on Ally 03/29/22 at 1417, Until Ally 03/29/22 at 1417 Given 03/29/2022 2:17 PM EST 4 mL K nee, Left Inactive Administered Medications - up to 3 most recent administrations Medication Order MAR Action Action Date Dose Rate Site betamethasone acetate-betamethasone sodium phosphate 6 mg injection (CELESTONE) 6 mg, Injection - FOR ORTHO USE ONLY, ONE TIME INJECTION, 1 dose, Starting on Ally 06/21/22 at 1532, Until Ally 06/21/22 at 1532 Given 06/21/2022 3:32 PM EST 6 mg Kne e, Left betamethasone acetate-betamethasone sodium phosphate 6 mg injection (CELESTONE) 6 mg, Injection - FOR ORTHO USE ONLY, ONE TIME INJECTION, 1 dose, Starting on Ally 06/21/22 at 1532, Until Ally 06/21/22 at 1532 Given 06/21/2022 3:32 PM EST 6 mg Kne e, Right lidocaine (PF) 10 mg/mL (1 %) 4 mL injection (XYLOCAINE) 4 mL, Injection - FOR ORTHO USE ONLY, ONE TIME INJECTION, 1 dose, Starting on Ally 06/21/22 at 1532, Until Ally 06/21/22 at 1532 Given 06/21/2022 3:32 PM EST 4 mL Kne e, Left lidocaine (PF) 10 mg/mL (1 %) 4 mL injection (XYLOCAINE) 4 mL, Injection - FOR ORTHO USE ONLY, ONE TIME INJECTION, 1 dose, Starting on Ally 06/21/22 at 1532, Until Ally 06/21/22 at 1532 Given 06/21/2022 3:32 PM EST 4 mL Kne e, Right Inactive Administered Medications - up to 3 most recent administrations Medication Order MAR Action Action Date Dose Rate Site betamethasone acetate-betamethasone sodium phosphate 6 mg injection (CELESTONE) 6 mg, Injection - FOR ORTHO USE ONLY, ONE TIME INJECTION, 1 dose, Starting on Sat10/29/22 at 0823, Until Sat10/29/22 at 0823 Given 10/29/2022 8:23 AM EDT 6 mg Kn ee, Left betamethasone acetate-betamethasone sodium phosphate 6 mg injection (CELESTONE) 6 mg, Injection - FOR ORTHO USE ONLY, ONE TIME INJECTION, 1 dose, Starting on Sat10/29/22 at 0823, Until Sat10/29/22 at 0823 Given 10/29/2022 8:23 AM EDT 6 mg Kn ee, Right lidocaine (PF) 10 mg/mL (1 %) 4 mL injection (XYLOCAINE) 4 mL, Injection - FOR ORTHO USE ONLY, ONE TIME INJECTION, 1 dose, Starting on Sat10/29/22 at 0823, Until Sat10/29/22 at 0823 Given 10/29/2022 8:23 AM EDT 4 mL Kn ee, Left lidocaine (PF) 10 mg/mL (1 %) 4 mL injection (XYLOCAINE) 4 mL, Injection - FOR ORTHO USE ONLY, ONE TIME INJECTION, 1 dose, Starting on Sat10/29/22 at 0823, Until Sat10/29/22 at 0823 Given 10/29/2022 8:23 AM EDT 4 mL Kn ee, Right Inactive Administered Medications - up to 3 most recent administrations Medication Order MAR Action Action Date Dose Rate Site lidocaine (PF) 10 mg/mL (1 %) 4 mL injection (XYLOCAINE) 4 mL, Injection - FOR ORTHO USE ONLY, ONCE, 1 dose, Starting on Sat02/25/23 at 1546, Until Sat02/25/23 at 1546 Given 02/25/2023 3:46 PM EST 4 mL Knee, Left lidocaine (PF) 10 mg/mL (1 %) 4 mL injection (XYLOCAINE) 4 mL, Injection - FOR ORTHO USE ONLY, ONCE, 1 dose, Starting on Sat02/25/23 at 1546, Until Sat02/25/23 at 1546 Given 02/25/2023 3:46 PM EST 4 mL Knee, Right triamcinolone acetonide 40 mg injection (KeNALog 40) 40 mg, Injection - FOR ORTHO USE ONLY, ONCE, 1 dose, Starting on Sat02/25/23 at 1546, Until Sat02/25/23 at 1546 Given 02/25/2023 3:46 PM EST 40 mg Knee, Left triamcinolone acetonide 40 mg injection (KeNALog 40) 40 mg, Injection - FOR ORTHO USE ONLY, ONCE, 1 dose, Starting on Sat02/25/23 at 1546, Until Sat02/25/23 at 1546 Given 02/25/2023 3:46 PM EST 40 mg Knee, Right Reason for Referral Specialty Diagnoses / Procedures Referred By Contac t Referred To Contact Orthopedics Diagnoses Acute pain of left knee Procedures CONSULT TO ORTHOPAEDICS OFFICE/OUTPATIENT [facility] 60-[place] [address] [place] [id number] Referral ID Status Reason Start Date Expiration Date Visits Requested Visits Authorized [id number] Authorized PCP Requested Referral 2 02/27/2023 1 1 Specialty Diagnoses / Procedures Referred By Contac t Referred To Contact XR IMAGING Diagnoses Acute pain of left knee Procedures XR KNEE GENERAL 4V AP BOTH/PA BOTH/LAT/MERC LEFT RADIOLOGIC EXAM KNEE COMPLETE 4/MORE VIEWS Karyna Barrett MD [address] [place] [address] Xr Imaging Referral ID Status Reason Start Date Expiration Date V isits Requested Visits Authorized [id number] Closed Auto-Generate d Referral 02/27/2022 03/29/2023 1 1 Specialty Diagnoses / Procedures Referred By Contac t Referred To Contact General Surgery Diagnoses RUQ pain Bariatric surgery status Gastroesophageal reflux disease without esophagitis Family history of colon cancer Procedures CONSULT TO GENERAL SURGERY OFFICE/OUTPATIENT [facility] 60-74 MINUTES Karyna Barrett MD [address] [place] [address] Referral ID Status Reason Start Date Expiration Date Visits Requested Visits Authorized [id number] Authorized PCP Requested Referral 10/30/2022 10/30/2023 1 1 Additional Source Comments INFORMATION SOURCE (unrecogn ized section and content) DATE CREATED AUTHOR AUTHOR'S ORGANIZ ATION 03/26/2023 [facility] Source Comments (unrecognize d section and content) In the event this informatio n is protected by the Federal Confidentiality of Alcohol and Drug Abuse Patient Records regulations: The Federal rules restrict any use of the information to criminally investigate or prosecute any alcohol or drug abuse patient.[facility] the event this information is protected by the Federal Confidentiality of Alcohol and Drug Abuse Patient Records regulations: The Federal rules restrict any use of the information to criminally investigate or prosecute any alcohol or drug abuse patient.[facility] the event this information is protected by the Federal Confidentiality of Alcohol and Drug Abuse Patient Records regulations: The Federal rules restrict any use of the information to criminally investigate or prosecute any alcohol or drug abuse patient.[facility] System[facility] the event this information is protected by the Federal Confidentiality of Alcohol and Drug Abuse Patient Records regulations: The Federal rules restrict any use of the information to criminally investigate or prosecute any alcohol or drug abuse patient.[facility] SystemIn the event this information is protected by the Federal Confidentiality of Alcohol and Drug Abuse Patient Records regulations: The Federal rules restrict any use of the information to criminally investigate or prosecute any alcohol or drug abuse patient.[facility] System[facility] the event this information is protected by the Federal Confidentiality of Alcohol and Drug Abuse Patient Records regulations: The Federal rules restrict any use of the information to criminally investigate or prosecute any alcohol or drug abuse patient.[facility] System[facility] the event this information is protected by the Federal Confidentiality of Alcohol and Drug Abuse Patient Records regulations: The Federal rules restrict any use of the information to criminally investigate or prosecute any alcohol or drug abuse patient.[facility] System[facility] the event this information is protected by the Federal Confidentiality of Alcohol and Drug Abuse Patient Records regulations: The Federal rules restrict any use of the information to criminally investigate or prosecute any alcohol or drug abuse patient.[facility] System[facility] the event this information is protected by the Federal Confidentiality of Alcohol and Drug Abuse Patient Records regulations: The Federal rules restrict any use of the information to criminally investigate or prosecute any alcohol or drug abuse patient.[facility] System[facility] the event this information is protected by the Federal Confidentiality of Alcohol and Drug Abuse Patient Records regulations: The Federal rules restrict any use of the information to criminally investigate or prosecute any alcohol or drug abuse patient.[facility] System[facility] the event this information is protected by the Federal Confidentiality of Alcohol and Drug Abuse Patient Records regulations: The Federal rules restrict any use of the information to criminally investigate or prosecute any alcohol or drug abuse patient.[facility] System[facility] the event this information is protected by the Federal Confidentiality of Alcohol and Drug Abuse Patient Records regulations: The Federal rules restrict any use of the information to criminally investigate or prosecute any alcohol or drug abuse patient.[facility] System[facility] the event this information is protected by the Federal Confidentiality of Alcohol and Drug Abuse Patient Records regulations: The Federal rules restrict any use of the information to criminally investigate or prosecute any alcohol or drug abuse patient.[facility] SystemIn the event this information is protected by the Federal Confidentiality of Alcohol and Drug Abuse Patient Records regulations: The Federal rules restrict any use of the information to criminally investigate or prosecute any alcohol or drug abuse patient.[facility] SystemIn the event this information is protected by the Federal Confidentiality of Alcohol and Drug Abuse Patient Records regulations: The Federal rules restrict any use of the information to criminally investigate or prosecute any alcohol or drug abuse patient.[facility] SystemIn the event this information is protected by the Federal Confidentiality of Alcohol and Drug Abuse Patient Records regulations: The Federal rules restrict any use of the information to criminally investigate or prosecute any alcohol or drug abuse patient.[facility] SystemIn the event this information is protected by the Federal Confidentiality of Alcohol and Drug Abuse Patient Records regulations: The Federal rules restrict any use of the information to criminally investigate or prosecute any alcohol or drug abuse patient.[facility] SystemIn the event this information is protected by the Federal Confidentiality of Alcohol and Drug Abuse Patient Records regulations: The Federal rules restrict any use of the information to criminally investigate or prosecute any alcohol or drug abuse patient.[facility] SystemIn the event this information is protected by the Federal Confidentiality of Alcohol and Drug Abuse Patient Records regulations: The Federal rules restrict any use of the information to criminally investigate or prosecute any alcohol or drug abuse patient.[facility] SystemIn the event this information is protected by the Federal Confidentiality of Alcohol and Drug Abuse Patient Records regulations: The Federal rules restrict any use of the information to criminally investigate or prosecute any alcohol or drug abuse patient.[facility] SystemIn the event this information is protected by the Federal Confidentiality of Alcohol and Drug Abuse Patient Records regulations: The Federal rules restrict any use of the information to criminally investigate or prosecute any alcohol or drug abuse patient.[facility] SystemIn the event this information is protected by the Federal Confidentiality of Alcohol and Drug Abuse Patient Records regulations: The Federal rules restrict any use of the information to criminally investigate or prosecute any alcohol or drug abuse patient.[facility] Reason for Visit (unrecogniz ed section and content) Reason Onset Date Comments Refill Request 08/10/2021 Reason Onset Date Comments Refill Request 08/21/2021 Reason Comments 6 Month Exam Numbness getting numbness in her left toes when walking on treadmill happens after about 20-25 minutes will come back to normal after about 5-10 minutes Reason Comments Insurance Authorization bupropion Reason Comments 5 months post visit OA right knee with i njection given Wants injection Follow Up Reason Comments Patient Question Reason Comments Acute Visit right knee flare up Reason Comments 6 Month Exam Reason Comments Orders Reason Comments New Knee Pain Specialty Diagnoses / Procedures Referred By Damien conway Referred To Contact Orthopedics Diagnoses Acute pain of left knee Procedures CONSULT TO ORTHOPAEDICS OFFICE/OUTPATIENT NEW HIGH MDM 60-74 MINUTES Karyna Barrett MD [address] [place] [address] Referral ID Status Reason Start Date Expiration Date V isits Requested Visits Authorized [id number] Closed PCP Requested Referral 02/27/2022 02/27/2023 1 1 Reason Onset Date Comments Refill Request 04/12/2022 Reason Comments Follow Up Knee Pain Reason Onset Date Comments Refill Request 08/16/2022 Reason Comments Established Patient Pain Reason Comments Abdominal Pain Right side. Was seen in the ER on the 4th for it. No improvement Reason Comments Appointment Reason Comments Results Reason Onset Date Comments Refill Request 02/24/2023 Reason Comments Established Patient 17 weeks post visit bilateral knee pain with injections givenWants injections today Established Patient Care Teams (unrecognized sec tion and content) Food Cooking Machine Operator Relationship Specialty Start Date End Date Karyna Barrett MD [address] [facility] [place] [address] PCP - General Family Practice 02/01/15 Karyna Barrett MD [address] [facility] [place] [address] Family Practice 02/01/15 Food Cooking Machine Operator Relationship Specialty Start Date End Date Karyna Barrett MD [address] [facility] [place] [address] PCP - General Family Practice 02/01/15 Karyna Barrett MD [address] [facility] [place] [address] Family Practice 02/01/15 Food Cooking Machine Operator Relationship Specialty Start Date End Date Karyna Barrett MD [address] [facility] [place] [address] PCP - General Family Practice 02/01/15 Karyna Barrett MD [address] [facility] [place] [address] Family Practice 02/01/15 Food Cooking Machine Operator Relationship Specialty Start Date End Date Karyna Barrett MD [address] [facility] [place] [address] PCP - General Family Practice 02/01/15 Karyna Barrett MD [address] [facility] [place] [address] Family Practice 02/01/15 Food Cooking Machine Operator Relationship Specialty Start Date End Date Karyna Barrett MD [address] [facility] [place] [address] PCP - General Family Practice 02/01/15 Karyna Barrett MD [address] [facility] [place] [address] Family Practice 02/01/15 Food Cooking Machine Operator Relationship Specialty Start Date End Date Karyna Barrett MD [address] [facility] [place] [address] PCP - General Family Medicine 02/01/15 Karyna Barrett MD [address] [facility] [place] [address] Family Medicine 02/01/15 Food Cooking Machine Operator Relationship Specialty Start Date End Date Karyna Barrett MD [address] [facility] [place] [address] PCP - General Family Medicine 02/01/15 Karyan Barrett MD [address] [facility] [place] [address] Family Medicine 02/01/15 Food Cooking Machine Operator Relationship Specialty Start Date End Date Karyna Barrett MD [address] [facility] [place] [address] PCP - General Family Medicine 02/01/15 Karyna Barrett MD [address] [facility] [place] [address] Family Medicine 02/01/15 Food Cooking Machine Operator Relationship Specialty Start Date End Date Karyna Barrett MD [address] [facility] [place] [address] PCP - General Family Medicine 02/01/15 Karyna Barrett MD [address] [facility] [place] [address] Family Medicine 02/01/15 Food Cooking Machine Operator Relationship Specialty Start Date End Date Karyna Barrett MD [address] [facility] [place] [address] PCP - General Family Medicine 02/01/15 Karyna Barrett MD [address] [facility] [place] [address] Family Medicine 02/01/15 Food Cooking Machine Operator Relationship Specialty Start Date End Date Karyna Barrett MD [address] [facility] [place] [address] PCP - General Family Medicine 02/01/15 Karyna Barrett MD [address] [facility] [place] [address] Family Medicine 02/01/15 Food Cooking Machine Operator Relationship Specialty Start Date End Date Karyna Barrett MD [address] [facility] [place] [address] PCP - General Family Medicine 02/01/15 Karyna Barrett MD [address] [facility] [place] [address] Family Medicine 02/01/15 Food Cooking Machine Operator Relationship Specialty Start Date End Date Karyna Barrett MD [address] [facility] [place] [address] PCP - General Family Medicine 02/01/15 Karyna Barrett MD [address] [facility] [place] [address] Family Medicine 02/01/15 Food Cooking Machine Operator Relationship Specialty Start Date End Date Karyna Barrett MD [address] [facility] [place] [address] PCP - General Family Medicine 02/01/15 Karyna Barrett MD [address] [place] [address] Family Medicine 02/01/15 Food Cooking Machine Operator Relationship Specialty Start Date End Date Karyna Barrett MD [address] [place] [address] PCP - General Family Medicine 02/01/15 Karyna Barrett MD [address] [place] [address] Family Medicine 02/01/15 Food Cooking Machine Operator Relationship Specialty Start Date End Date Karyna Barrett MD [address] [place] [address] PCP - General Family Medicine 02/01/15 Karyna Barrett MD [address] [facility] [place] [address] Family Medicine 02/01/15 Food Cooking Machine Operator Relationship Specialty Start Date End Date Karyna Barrett MD [address] [place] [address] PCP - General Family Medicine 02/01/15 Karyna Barrett MD [address] [facility] [place] [address] Family Medicine 02/01/15 Food Cooking Machine Operator Relationship Specialty Start Date End Date Karyna Barrett MD [address] [place] [address] PCP - General Family Medicine 02/01/15 Karyna Barrett MD [address] [place] [address] Family Medicine 02/01/15 Food Cooking Machine Operator Relationship Specialty Start Date End Date Karyna Barrett MD [address] [place], [place] [address] PCP - General [facility] 02/01/15 Karyna Barrett MD [address] [place], [place] [id number] Family Medicine 02/01/15 Food Cooking Machine Operator Relationship Specialty Start Date End Date Karyna Barrett MD [address] [place], [place] [id number] PCP - General [facility] 02/01/15 Karyna Barrett MD [address] [place], [place] [id number] Family Medicine 02/01/15 FOR RECORDS PERTAINING TO PATIENTS WHO ARE OR HAVE BEEN ENROLLED IN A CHEMICAL DEPENDENCY/SUBSTANCEABUSE PROGRAM, SOME INFORMATION MAY BE OMITTED. This clinical summary was aggregated from multiple sources. Caution should be exercised in using it in the provision of clinical care. This summary normalizes information from multiple sources, and as a consequence, information in this document may materially change the coding, format and clinical context of patient data. In addition, data may be omitted in some cases. CLINICAL DECISIONS SHOULD BE BASED ON THE PRIMARY CLINICAL RECORDS. [facility] [email or web address] [facility]. provides no warranty or guarantee of the accuracy or completeness of information in this document.
--- NOTE | 2023-04-15 00:23 | CT_ITS ---
EXAM: CT HEAD WITHOUT INTRAVENOUS CONTRAST CLINICAL INDICATION: headache headache TECHNIQUE: Multiple axial images were obtained of the head without intravenous contrast. This CT exam was performed using one or more of the following dose reduction techniques: automated exposure control, adjustment of the mA and/or kV according to patient size, and/or use of iterative reconstruction technique. RADIATION DOSE: CTDIvol = 44.99 mGy, DLP = 829.85 mGy-cm COMPARISON: No relevant prior studies available. FINDINGS: BRAIN AND EXTRA-AXIAL SPACES: Unremarkable. No intra- or extra-axial hemorrhage. No evidence of acute infarct. No intracranial mass or mass effect. There is preservation of the frankel/white matter interface. Posterior fossa structures are unremarkable. Ventricles are appropriate for age. No hydrocephalus. Basal cisterns are patent. BONES/JOINTS: Unremarkable. No discrete lytic or blastic abnormalities. SINUSES: There are small polyps or retention cysts in the left maxillary sinus. There is very mild mucosal periosteal thickening in the ethmoid sinuses. There is no evidence for acute sinusitis. MASTOID AIR CELLS: The mastoid air cells are hypoplastic, which represent chronic mastoiditis. There is no evidence for acute mastoiditis. ORBITS: Visualized globes, extraocular muscles, optic nerves and retrobulbar fat appear unremarkable. SELLA: There is CSF expansion of the sella turcica with thin rim of pituitary tissue, consistent with empty sella syndrome. CT/Brain/Head without Contrast IMPRESSION: 1. No demonstrated acute intracranial process. 2. Empty sella syndrome. Electronically Signed: Crispin Bhatia MD at 2:34 EST ,
[2023-04-15] MEDS: Orphenadrine 60 MG/2 ML Ampul IV (00:42)
[2023-04-15] MEDS: Metoclopramide 10 MG/2 ML Vial IV (00:42)
[2023-04-15] MEDS: DiphenhydrAMINE 50 MG/ML Syringe 25 MG IV (00:43)
[2023-04-15] MEDS: Ketorolac 30 MG/ML Syringe IV (00:44)
[2023-04-15 01:05] LABS: Anion Gap 4 (5-15); BUN 15 mg/dL (7-18); BUN/Creat Ratio 15.7 RATIO (10-20); Calcium,Total 8.5 mg/dL (8.5-10.1); Chloride 106 mmol/L (98-107); Creatinine, Serum 0.96 mg/dL (0.55-1.02); EST Glomerular Filtration Rate 65 mL/min (>60); Est Glom Filt Rate - Afr Amer 79 mL/min (>60); Estimated Creatinine Clearance 57.99 ml/min; Glucose 98 mg/dL (74-106); Magnesium 2.2 mg/dL (1.6-2.6); Potassium 4.1 mmol/L (3.5-5.1); Sodium Level 139 mmol/L (136-145)
--- NOTE | 2023-04-15 02:00 | EX.ED.DYSGE1 ---
HPI History of Present Illness Chief Complaint: Other, Pain/Inj Informant: patient and family Narrative Narrative: Patient is a 52-year-old female with past medical history of depression/anxiety hypothyroidism. She states for the last few days she has felt off . She states that she has had a headache and had bouts of feeling generalized fatigue and weakness. She states that she does not know if this is related to potential infection or if it is due to a spike in her anxiety. She states that the symptoms have not improved and secondary to this she comes in for evaluation. He denies any trauma prior to headache beginning [facility] Medical History (Updated 04/15/23 @ 22:[address] Dany Gardner, DO) Depression Hypothyroidism Home Medications levothyroxine 125 mcg tablet (Levoxyl) 175 mcg PO DAILY 05/11/15 [History Last Taken Unknown] ascorbic acid (vitamin C) 500 mg tablet (Vitamin C) 500 mg PO DAILY@0800 07/06/15 [History Last Taken Unknown] Prozac 60 mg PO DAILY 09/12/17 [History Last Taken Unknown] bupropion HCl 150 mg 24 hr tablet, extended release 150 mg PO DAILY 05/20/20 [History Last Taken Unknown] ergocalciferol (vitamin D2) 1,250 mcg (50,000 unit) capsule 1,250 mcg PO SZYMANSKI 04/15/23 [History Last Taken Unknown] Allergy/AdvReac Type Severity Reaction Status Date / Time No Known Allergies Allergy Verified 04/14/23 23:40 Surgical History (Updated 10/16/22 @ 05:10 by Constanza Lara) Bariatric surgery status H/O: hysterectomy Social History Smoking Status: Never smoker [facility] ED Constitutional Constitutional ED: Denies chills or fever(s) Eyes Eyes: Denies change in vision ENT ENT ED: Denies sore throat Cardiovascular Cardiovascular: Denies chest pain Respiratory/Chest Respiratory/Chest: Denies cough or dyspnea Gastrointestinal Gastrointestinal: Reports nausea; Denies abdominal pain, diarrhea or vomiting Genitourinary Genitourinary ED: Denies dysuria Musculoskeletal Musculoskeletal: Reports myalgias Integumentary Denies rash Neurologic Neurologic: Reports headache(s) and paresthesias; Denies weakness Psychiatric Psychiatric: Reports anxiety and depression; Denies suicidal ideation or suicidal thoughts Hematologic/Lymphatic Hematologic/Lymphatic: Denies easy bleeding or easy bruising EXAM Physical Exam Const Vital Signs: 04/14/23 23:37 04/15/23 00:08 Temperature 97.5 F L Temperature Source Temporal Pulse Rate 89 Respiratory Rate 15 Respiratory Effort Normal Non-Labored Respiratory Pattern Normal Blood Pressure 141/81 H Blood Pressure Mean 101 Pulse Ox 100 Oxygen Delivery Method Room Air Positive well nourished, well developed and obese General Appearance ED: well developed; Negative for pallor Nutritional Appearance: obese HEENT Reports moist mucous membranes HEENT Narrative: Normocephalic atraumatic No vesicular rash in the scalp to suggest herpes zoster Eyes PERRL and EOMs intact bilaterally General Eye ED: Negative for scleral icterus Neck supple Neck Narrative: No nuchal rigidity or meningeal signs present Resp normal respiratory effort and clear to auscultation bilaterally Cardio regular rate and regular rhythm GI normal to inspection, nondistended, normoactive bowel sounds, non-tender, non-distended and no masses Auscultation: normoactive bowel sounds Palpation: soft Extremity normal to inspection Neuro oriented x3, CN's II-XII intact bilaterally and no sensory deficits noted Neuro Narrative: Cranial nerves II through XII are grossly intact there are no focal neurologic deficits. No pronator drift no dysmetria no truncal ataxia NIH stroke scale score of 0 Sensorium / Orientation: alert Motor Exam: strength 5/5 throughout Psych Psych Narrative: Patient has a nervous/anxious affect Skin no rashes or lesions noted General Skin Exam: Negative for jaundice or pallor MDM MDM MDM Narrative Medical decision making narrative: Patient presented to the ER with stable vitals and a normal neurologic exam. However there are no signs of meningitis or scalp zoster to indicate the cause of her headache. As she reported she also had some paresthesias there is concern for electrolyte derangement and with the headache there is concern there could be a potential spontaneous bleed or mass causing the symptoms. Therefore I like to perform basic laboratory studies checking electrolytes as well as a head CT. Electrolytes showed no clinically significant derangements and head CT revealed no acute findings. The patient was medicated she did report resolution of her headache and her vitals and neurologic exam remained stable. Therefore this time I do not feel this is related to a mass/tumor or bleed or infectious process and this is most likely due to stress/anxiety and musculoskeletal pain. As her vitals and neurologic exam are normal her workup is negative and she has resolution of symptoms she is otherwise safe for discharge. History & Record Review Discussion w/independent historian: Patient and Family Lab Data Labs: Laboratory Results - last 24 hr 04/15/23 00:45 Sodium 139 Potassium 4.1 Chloride 106 Carbon Dioxide 29.0 Anion Gap 4 L BUN 15 Creatinine 0.96 Estim Creat Clear Calc 57.99 Est GFR (MDRD) Af Amer 79 Est GFR (MDRD) Non-Af 65 BUN/Creatinine Ratio 15.7 Glucose 98 Calcium 8.5 Magnesium 2.2 Radiography Diagnostic Testing: Clinical Impression(s) from Imaging Studies Brain CT 04/15/23 00:23 IMPRESSION: 1. No demonstrated acute intracranial process. 2. Empty sella syndrome. Electronically Signed: Crispin Bhatia MD at 2:34 EST Reading Location ID and State: [facility] / [place] , Service support , Discharge Plan Triage Chief Complaint: Other, Pain/Inj ED Provider: Dany Gardner Dx/Rx/DC Orders Clinical Impression: Cephalgia, Hypothyroidism, Anxiety and depression Instructions: Understanding Headache Pain Prescriptions: No Action levothyroxine [Levoxyl] 125 MCG tablet 175 mcg PO DAILY Patient Comments: thyroid med ascorbic acid (vitamin C) [Vitamin C] 500 MG tablet 500 mg PO DAILY@0800 Patient Comments: supplement Prozac 60 MG tablet 60 mg PO DAILY bupropion HCl 150 MG tablet extended release 24 hr 150 mg PO DAILY ergocalciferol (vitamin D2) 1,250 mcg (50,000 unit) capsule 1,250 mcg PO SZYMANSKI Patient Comments: Take 1 capsule by mouth one time a week. Primary Care Provider: Liban Barrett Referrals: Liban Barrett MD [Primary Care Provider] - Activity Restrictions/Additional Instructions: Please continue all of your home medications as directed by your doctor and return to the ER should you have any further concerns Disposition Disposition: Home, Self Care Discharge Date/Time: 04/15/23 03:04
== END 2023-04-15 03:04 | disposition home or self-care (01) ==
PROVIDERS: Emergency Provider Emergency Medicine; PCP Family Medicine; Visit Provider Emergency Medicine
DX: R51.9 Headache, unspecified (principal); E03.9 Hypothyroidism, unspecified; R53.83 Other fatigue; R53.1 Weakness; R11.0 Nausea; F41.9 Anxiety disorder, unspecified; F32.A Depression, unspecified; E66.9 Obesity, unspecified; Z79.890 Hormone replacement therapy; Z79.899 Other long term (current) drug therapy; Z98.84 Bariatric surgery status; Z90.710 Acquired absence of both cervix and uterus
CPT/HCPCS: 70450; 80048; 83735; 87428; 96374; 96375; 99283; A4216

== ENCOUNTER 2024-04-12 11:44 | Emergency (ER) | payer MEDICAID, SELFPAY ==
[2024-04-12 11:44] VITALS: BP 141/79; PULSE 80; RESP 22; TEMP 36.2; O2SAT 97; BMI 66.0
--- NOTE | 2024-04-12 11:57 | EX.ED.DYSGE1 ---
HPI History of Present Illness Chief Complaint: Cough Informant: patient and spouse/S.O. Narrative Narrative: [age]-year-old female presenting to the emergency room for evaluation of cough. Patient notes a cough for the past couple days. She states that sputum started today and during the middle of a coughing fit she coughed up some thick sputum with branches on it that resembled a tree branch. She has not had fever. She notes some sinus drainage. She notes that she has never been diagnosed with any lung conditions but does have an inhaler at home that she has had for for 5 years but she is unsure why she was given it. [facility] Medical History Depression Hypothyroidism Home Medications ?Medication ?Instructions ?Recorded ?Last Taken ?Type levothyroxine 125 mcg tablet 175 mcg PO DAILY 05/11/15 Unknown History (Levoxyl) ascorbic acid (vitamin C) 500 mg 500 mg PO DAILY@0800 07/06/15 Unknown History tablet (Vitamin C) Prozac 60 mg PO DAILY 09/12/17 Unknown History bupropion HCl 150 mg 24 hr tablet, 150 mg PO DAILY 05/20/20 Unknown History extended release ergocalciferol (vitamin D2) 1,250 1,250 mcg PO SZYMANSKI 04/15/23 Unknown History mcg (50,000 unit) capsule azithromycin 250 mg tablet See Rx Instructions PO .COMPLEX #6 04/12/24 Unknown Rx (Zithromax Z-[place]) tabs Allergy/AdvReac Type Severity Reaction Status Date / Time No Known Allergies Allergy Verified 04/14/23 23:40 Surgical History Bariatric surgery status H/O: hysterectomy Social History Smoking Status: Never smoker ROS ROS ED Constitutional Constitutional ED: Denies chills, fever(s) or weight loss Eyes Eyes: Denies change in vision or diplopia ENT ENT ED: Reports rhinorrhea; Denies ear pain or sore throat Cardiovascular Cardiovascular: Denies chest pain, orthopnea, palpitations or racing heartbeat Respiratory/Chest Respiratory/Chest: Reports cough and sputum; Denies dyspnea or orthopnea Gastrointestinal Gastrointestinal: Denies abdominal pain, diarrhea, nausea or vomiting Genitourinary Genitourinary ED: Denies dysuria, hematuria or urinary frequency Musculoskeletal Musculoskeletal: Denies arthralgias or myalgias Integumentary Denies abscess or rash Neurologic Neurologic: Denies headache(s) or weakness Psychiatric Psychiatric: Denies anxiety, depression, suicidal ideation or suicidal thoughts Endocrine Endocrinology: Denies polydipsia, polyphagia or polyuria Allergic/Immunologic Allergic/Immunologic ED: Denies mouth swelling, tongue swelling or urticaria EXAM Physical Exam Const Vital Signs: 04/12/24 11:44 04/12/24 12:07 04/12/24 12:44 Temperature 97.2 F L 97.9 F Temperature Source Temporal Temporal Pulse Rate 80 78 Respiratory Rate 22 H 16 Respiratory Effort Normal Blood Pressure 141/79 H 148/68 H Blood Pressure Mean 99 94 Pulse Ox 97 99 Oxygen Delivery Method Room Air Room Air Room Air Positive well nourished, well developed and obese General Appearance ED: well developed and NAD Nutritional Appearance: obese HEENT Reports normocephalic, head/scalp atraumatic and moist mucous membranes Eyes PERRL and EOMs intact bilaterally Neck no lymphadenopathy, supple and no JVD Resp normal respiratory effort and clear to auscultation bilaterally Cardio regular rate, regular rhythm and no murmurs GI normal to inspection, nondistended, normoactive bowel sounds and non-tender Palpation: soft Back/Spine no CVA tenderness and normal ROM Extremity normal to inspection General Extremety ED: Negative for edema General Extremity: Negative for edema Neuro oriented x3 and CN's II-XII intact bilaterally Sensorium / Orientation: alert Motor Exam: strength 5/5 throughout Psych mental status grossly normal Mood & Affect: Negative for depressed or tearful Skin no rashes or lesions noted and no wounds MDM MDM MDM Narrative Medical decision making narrative: Differential diagnosis includes but not limited to bronchitis bronchospasm pneumonia mucous plugging viral syndrome My independent interpretation the chest x-ray is no acute process. Patient is 99% on room air respirations are even unlabored at 19. I do not see definitive infiltrate. Think she most likely had a mucous plug. We talked about home treatment and using shared decision making I will write her some azithromycin. Would recommend moisturizing the air either with a humidifier or hot shower to help make the mucus easier to expectorate. Mucinex DM as needed if she chooses. Monitor for changes return if worsening or concerns use your inhaler as needed History & Record Review Discussion w/independent historian: Patient Radiography Diagnostic Testing: Clinical Impression(s) from Imaging Studies Chest X-Ray 04/12/24 12:00 IMPRESSION: No radiographic evidence of acute cardiopulmonary disease. Electronically Signed: Bia Smalls MD at 12:59 EST Reading Location ID and State: [facility] / [place] Tel , Service support , Discharge Plan Triage Chief Complaint: Cough ED Provider: Yohan Diaz Dx/Rx/DC Orders Clinical Impression: Acute bronchitis Instructions: What Is Acute Bronchitis? Prescriptions: New azithromycin [Zithromax Z-[place]] 250 mg tablet See Rx Instructions .ROUTE .COMPLEX Qty: 6 0RF Rx Instructions: For 250 mg dose pack: take 500 mg today (day 1), then 250 mg for 4 days (days 2-5) No Action levothyroxine [Levoxyl] 125 MCG tablet 175 mcg PO DAILY Patient Comments: thyroid med ascorbic acid (vitamin C) [Vitamin C] 500 MG tablet 500 mg PO DAILY@0800 Patient Comments: supplement Prozac 60 MG tablet 60 mg PO DAILY bupropion HCl 150 MG tablet extended release 24 hr 150 mg PO DAILY ergocalciferol (vitamin D2) 1,250 mcg (50,000 unit) capsule 1,250 mcg PO SZYMANSKI Patient Comments: Take 1 capsule by mouth one time a week. Primary Care Provider: Liban Barrett Referrals: Liban Barrett MD [Primary Care Provider] - As Needed Print Language: Maori Disposition Disposition: Home, Self Care Discharge Date/Time: 04/12/24 13:42
--- NOTE | 2024-04-12 12:00 | RAD_ITS ---
INDICATION: cough EXAMINATION/TECHNIQUE: X-RAY - XR Chest 2 Views COMPARISON: May 20, [address] dated September 12, 2017 FINDINGS: LINES/DEVICES: None. LUNGS: No consolidation, edema or effusion. No pneumothorax. MEDIASTINUM AND CARDIOVASCULAR STRUCTURES: Cardiac silhouette not enlarged. There is a stable triangular opacity along the right cardiophrenic angle consistent with a pericardial fat pad. BONES AND SOFT TISSUES: Unremarkable. RAD/Chest PA and Lateral IMPRESSION: No radiographic evidence of acute cardiopulmonary disease. Electronically Signed: Bia Smalls MD at 12:59 EST ,
[2024-04-12 12:07] VITALS: BP 148/68; PULSE 78; RESP 16; TEMP 36.6; O2SAT 99
[2024-04-12 12:44] VITALS: O2SAT 98
== END 2024-04-12 13:42 | disposition home or self-care (01) ==
PROVIDERS: Emergency Provider Emergency Medicine; PCP Family Medicine; Visit Provider Emergency Medicine
DX: J20.9 Acute bronchitis, unspecified (principal); J32.9 Chronic sinusitis, unspecified; E03.9 Hypothyroidism, unspecified; Z79.890 Hormone replacement therapy; Z79.899 Other long term (current) drug therapy
CPT/HCPCS: 71046; 99282

== ENCOUNTER 2024-08-24 16:58 | Emergency (ER) | payer MEDICAID, SELFPAY ==
[2024-08-24 16:59] VITALS: BP 169/82; PULSE 89; RESP 19; TEMP 36.7; O2SAT 98; BMI 64.7
--- NOTE | 2024-08-24 17:19 | EKG12_ITS ---
Test Reason : DIZZY Blood Pressure : */* mmHG Vent. Rate : 85 BPM Atrial Rate : 85 BPM P-R Int : 124 ms QRS Dur : 84 ms QT Int : 380 ms P-R-T Axes : 12 17 8 degrees QTcB Int : 452 ms Normal sinus rhythm Minor Nonspecific ST and T wave abnormality Abnormal ECG Confirmed by Kodi Cole ([id number]), proposal editor LUAN ARIZMENDI ([id number]) on 08/25/2024 9:18:13 AM Referred By: TA/JW Confirmed By: Kodi Cole
[2024-08-24 18:18] LABS: Absolute Lymphocyte Count 1.62 X10^3/uL (0.83-4.51); Absolute Neutrophil Count 7.4 X10^3/uL (2.0-7.7); Basophil# 0.12 X10^3/uL; Basophil% 1.2 % (0-1); Eosinophil# 0.22 X10^3/uL; Eosinophils% 2.2 % (0-5); Hematocrit 40.5 % (37-47); Hemoglobin 12.5 g/dL (12.0-15.0); Lymphocyte # 1.62 X10^3/ul (0.83-4.51); Lymphocyte % 16.4 % (19-41); Mean Corp Hgb Conc 30.9 g/dL (32-36); Mean Corpuscular Hgb 25.3 pg (27.0-32.0); Mean Corpuscular Volume 81.8 fL (81-99); Mean Platelet Vol. 9.8 fl (6.2-12.0); Monocyte# 0.52 X10^3/uL; Monocyte% 5.3 % (0-10); NRBC Flagged by Analyzer 0 % (0-5); Neutrophil # 7.38 X10^3/uL (2.7-7.7); Neutrophil % 74.7 % (47-70); Platelet Count 408 K/mm3 (150-450); RBC Distribution Width CV 15.2 % (11.6-14.6); RBC Distribution Width SD 45.2 fl (35.1-43.9); Red Blood Count 4.95 M/mm3 (4.2-5.4); White Blood Count 9.9 K/mm3 (4.4-11.0)
[2024-08-24 18:24] LABS: Prothrombin Time (Protime)PT. 13.4 SECONDS (11.7-14.9)
[2024-08-24 18:25] LABS: Partial Thromboplast Time 28.1 Seconds (24.1-36.2)
[2024-08-24 18:44] LABS: Anion Gap 11 (5-15); BUN 16 mg/dL (4-19); BUN/Creat Ratio 17.5 RATIO (10-20); Carbon Dioxide 22.7 mmol/L (21.0-32.0); Chloride 104 mmol/L (98-108); Creatinine, Serum 0.92 mg/dL (0.70-1.20); EST Glomerular Filtration Rate 76 (>60); Glucose 92 mg/dL (70-99); Potassium 4.8 mmol/L (3.3-5.1); Sodium Level 138 mmol/L (133-145)
[2024-08-24 19:40] VITALS: BP 149/67; PULSE 85; PULSE 88; RESP 25; TEMP 36.6; O2SAT 100
[2024-08-24 19:46] VITALS: BP 126/68; PULSE 79; RESP 20; TEMP 36.8; O2SAT 100
--- NOTE | 2024-08-24 19:48 | EDS_ITS ---
HPI History of Present Illness Chief Complaint: Dizziness Informant: patient Narrative Narrative: 53-year-old female states she woke up this morning upon getting out of bed started suddenly having disequilibrium/spinning/movement sensation in her head. She closes her eyes she feels like things are spinning. If she turns her head it is worse, better if she remains still but symptoms have not completely resolved and they are currently present mildly. If she walks, she is off balance. She denies headache, earache, tinnitus, or roaring/hearing disturbance; she did have a cough and some congestion a week or 2 ago. No recent head injury. No focal neurologic symptoms or vision changes/diplopia. She states she called her doctor and was referred to urgent care she went to urgent care and was referred here to the ER. [facility] Medical History Depression Hypothyroidism Home Medications ?Medication ?Instructions ?Recorded ?Last Taken ?Type levothyroxine 125 mcg tablet 175 mcg PO DAILY 05/11/15 Unknown History (Levoxyl) ascorbic acid (vitamin C) 500 mg 500 mg PO DAILY@0800 07/06/15 Unknown History tablet (Vitamin C) Prozac 60 mg PO DAILY 09/12/17 Unkn own History bupropion HCl 150 mg 24 hr tablet, 150 mg PO DAILY 09/02 Unknown History extended release ergocalciferol (vitamin D2) 1,250 1,250 mcg PO SZYMANSKI 05/08 Unknown History mcg (50,000 unit) capsule azithromycin 250 mg tablet See Rx Instructions PO .COM PLEX #6 04/12/24 Unknown Rx (Zithromax Z-[place]) tabs meclizine 25 mg tablet 25 mg PO Q8H PRN dizziness # 20 tabs 08/24/24 Unknown Rx Allergy/AdvReac Type Severity Reaction Status Date / Time No Known Allergies Allergy Verified 04/14/23 23:40 Surgical History Bariatric surgery status H/O: hysterectomy Social History Smoking Status: Never smoker ROS ROS ED Constitutional Constitutional ED: Denies chills or fever(s) Eyes Eyes: Denies blurry vision, change in vision or diplopia ENT ENT ED: Reports vertigo; Denies ear pain, rhinorrhea, sinus pain, sinus pressure, sore throat or tinnitus Cardiovascular Cardiovascular: Denies chest pain or palpitations Respiratory/Chest Respiratory/Chest: Denies cough or dyspnea Gastrointestinal Gastrointestinal: Denies abdominal pain, diarrhea, nausea or vomiting Genitourinary Genitourinary ED: Denies dysuria or hematuria Musculoskeletal Musculoskeletal: Denies back pain or neck pain Integumentary Denies abscess or rash Neurologic Neurologic: Reports abnormal gait, disequilibrium and dizziness; Denies headache(s), numbness, paresthesias or weakness Psychiatric Psychiatric: Denies anxiety or suicidal thoughts EXAM Physical Exam Const Vital Signs: 08/24/24 16:59 08/24/24 19:40 08/24/24 19:40 Temperature 98.1 F 98 F Temperature Source Oral Oral Pulse Rate 89 85 88 Respiratory Rate 19 H 25 H 25 H Blood Pressure 169/82 H 149/67 H 149/67 H Blood Pressure Mean 111 94 94 Pulse Ox 98 100 100 Oxygen Delivery Method Room Air Room Air Room Air 08/24/24 19:40 08/24/24 19:46 Temperature 98.2 F Temperature Source Pulse Rate 79 Respiratory Rate 20 H Blood Pressure 126/68 H Blood Pressure Mean 87 Pulse Ox 100 Oxygen Delivery Method Room Air Positive well nourished, well developed and obese General Appearance ED: well developed and NAD Nutritional Appearance: obese HEENT Reports TM's clear and moist mucous membranes normocephalic and atraumatic Tympanic Membrane ED: Yes TM's clear Eyes PERRL and EOMs intact bilaterally Eyes Narrative: No pathologic or direction changing nystagmus Neck full ROM and supple Resp normal respiratory effort and clear to auscultation bilaterally Cardio regular rate, regular rhythm and no murmurs GI non-tender and non-distended Auscultation: normoactive bowel sounds Palpation: soft Back/Spine no CVA tenderness General Back: other FROM Extremity normal to inspection General Extremety ED: Negative for edema, pulses abnormal or tenderness General Extremity: Negative for edema or pulses abnormal Neuro oriented x3, CN's II-XII intact bilaterally and no sensory deficits noted Neuro Narrative: Negative skew test. Abnormal jolt test. Normal [id number] and [id number], no dysmetria. Normal speech no aphasia. No Justin inattention/hemineglect. NIHSS 0. Sensorium / Orientation: awake and alert Motor Exam: strength 5/5 throughout Skin no rashes or lesions noted and no wounds MDM MDM MDM Narrative Medical decision making narrative: Vital signs are normal blood pressure 126/68, some nursing protocol blood work was obtained and it is reviewed by myself and normal. Patient has no red flag neurologic findings or symptoms. Her hints exam is consistent with peripheral etiology. This is highly specific. Given this I do not think she needs emergent imaging of the brain right now, and I think treating her with meclizine and close outpatient otolaryngology follow-up is reasonable. Patient comfortable with that plan. Lab Data Attestation: I reviewed the patient's lab results. Labs: Laboratory Results - last 24 hr 08/24/24 18:05 WBC 9.9 RBC 4.95 Hgb 12.5 Hct 40.5 MCV 81.8 MCH 25.3 L MCHC 30.9 L RDW Std Deviation 45.2 H RDW Coeff of Florinda 15.2 H Plt Count 408 MPV 9.8 Immature Gran % (Auto) 0.200 Neut % (Auto) 74.7 H Lymph % (Auto) 16.4 L Gage % (Auto) 5.3 Eos % (Auto) 2.2 Baso % (Auto) 1.2 H Absolute Neuts (auto) 7.4 Absolute Lymphs (auto) 1.62 Nucleated RBC % 0 PT 13.4 INR 1.0 APTT 28.1 Sodium 138 Potassium 4.8 Chloride 104 Carbon Dioxide 22.7 Anion Gap 11 BUN 16 Creatinine 0.92 Estim Creat Clear Calc 111.70 Est GFR (MDRD) Non-Af 76 BUN/Creatinine Ratio 17.5 Glucose 92 Calcium 8.0 Discharge Plan Triage Chief Complaint: Dizziness ED Provider: Brennan Dean Dx/Rx/DC Orders Clinical Impression: Peripheral positional vertigo Instructions: ED Vertigo, Unspecified Prescriptions: New meclizine 25 mg tablet 25 mg PO Q8H PRN (Reason: dizziness) Qty: 20 0RF No Action levothyroxine [Levoxyl] 125 MCG tablet 175 mcg PO DAILY Patient Comments: thyroid med ascorbic acid (vitamin C) [Vitamin C] 500 MG tablet 500 mg PO DAILY@0800 Patient Comments: supplement Prozac 60 MG tablet 60 mg PO DAILY bupropion HCl 150 MG tablet extended release 24 hr 150 mg PO DAILY ergocalciferol (vitamin D2) 1,250 mcg (50,000 unit) capsule 1,250 mcg PO SZYMANSKI Patient Comments: Take 1 capsule by mouth one time a week. azithromycin [Zithromax Z-[place]] 250 mg tablet See Rx Instructions .ROUTE .COMPLEX Qty: 6 0RF Rx Instructions: For 250 mg dose pack: take 500 mg today (day 1), then 250 mg for 4 days (days 2-5) Primary Care Provider: Liban Barrett Referrals: Rolando Lemus MD [Med Staff - Active Staff] - 3-5 Days if not improving Liban Barrett MD [Primary Care Provider] - Print Language: Upper Sorbian Disposition Disposition: Home, Self Care
[2024-08-24] MEDS: Meclizine HCl 25 MG Tablet PO (19:51)
== END 2024-08-24 19:58 | disposition home or self-care (01) ==
LOC: ED 19:56
PROVIDERS: Emergency Provider Emergency Medicine; PCP Family Medicine; Visit Provider Emergency Medicine
DX: H81.399 Other peripheral vertigo, unspecified ear (principal); Z90.710 Acquired absence of both cervix and uterus; E03.9 Hypothyroidism, unspecified; Z79.890 Hormone replacement therapy; F32.A Depression, unspecified; Z79.899 Other long term (current) drug therapy; R29.700 NIHSS score 0
CPT/HCPCS: 80048; 85025; 85610; 85730; 93005; 99283; A4216